=== PATIENT | male | born 1945 | race Caucasian/White ===

== ENCOUNTER 2020-08-23 16:57 | Inpatient (IN) | payer MEDICARE, MEDICAID, SELFPAY ==
[2020-08-23] VITALS (9 sets, daily range): BP systolic 118–171; BP diastolic 74–98; PULSE 90–140; RESP 19–35; TEMP 36.4–36.5; O2SAT 97–100; BMI 28.8; BMI 26.0
--- NOTE | 2020-08-23 17:09 | ECG_ITS ---
APPROVED REPORT Exam: Resting ECG HR:129 bpm ECG Measurements Heart Rate 129 AXES IN 114 P 40 QRSd 104 QRS 256 QT 328 T 39 QTc 480 Conclusion Sinus tachycardia Incomplete right bundle branch block Possible Right ventricular hypertrophy Possible Old Inferior ID Abnormal ECG Electronically signed by : Chris Donald, 08/25/2020 18:17:53
--- NOTE | 2020-08-23 17:16 | XR_ITS ---
PROCEDURE: XR CHEST PORTABLE CLINICAL HISTORY: weakness, vomiting Congestion, heavy smoker COMPARISON: No exams were available for comparison FINDINGS: The cardiomediastinal silhouette and pulmonary vascularity are within normal limits. The lungs are clear without infiltrates, suspicious nodules, or pleural effusions. There is mild tortuosity of the descending thoracic aorta. No acute bony findings. IMPRESSION: No acute findings. Dictated by: Foster Yang MD 08/24/2020 05:51 Foster Yang MD in [place] 08/24/2020 05:51
[2020-08-23 17:27] LABS: ABG Base Excess -27.2 mmol/L (-2.4-2.3); ABG HCO3 3.1 mmhg (22.0-26.0); ABG Oxygen Saturation 98 % (90-100); ABG PO2 128.9 mmhg (80-100); ABG TCO2 3.4 mmhg (23-27)
[2020-08-23 17:28] LABS: Allen's Test Acceptable; Oxygen room air %
[2020-08-23 17:30] LABS: ABG PCO2 11.1 mmhg (35.0-45.0); ABG PH 7.06 mmol/L (7.35-7.45)
--- NOTE | 2020-08-23 17:33 | PC.NURSE ---
Napoleon reported to GEORGES OCONNELL
[2020-08-23 17:39] LABS: Chloride 96 mmol/L (98-107); Sodium 136 mmol/L (136-145)
[2020-08-23 17:40] LABS: Basophils # 0.1 K/mm3 (0-0.2); Basophils % 0.3 % (0.1-2.0); Eosinophils % 0.1 % (0.1-12.0); Hematocrit 49.7 % (42.0-52.0); Hemoglobin 15.9 g/dL (14.1-18.0); Lymphocytes # 2.2 K/mm3 (0.7-4.5); Lymphocytes % 9.8 % (10-50); Mean Corpuscular Hemoglobin 32.2 pg (27.0-31.2); Mean Corpuscular Volume 100.8 fl (80-94); Mean Platelet Volume 7.8 fl (7.4-10.4); Monocytes % 4.3 % (1.7-9.3); Neutrophils # 18.9 K/mm3 (1.8-7.8); Neutrophils % 85.5 % (37.0-80.0); Platelet Count 329 K/mm3 (142-424); Red Blood Count 4.93 M/mm3 (4.60-6.20); Red Cell Distribution Width 13.1 % (11.5-17.5); White Blood Count 22.1 K/mm3 (4.8-10.8)
[2020-08-23 17:41] LABS: Alanine Aminotransferase 21 U/L (12-78); Aspartate Amino Transferase 20 U/L (17-59); Blood Urea Nitrogen 24 mg/dl (9-20); Creatinine Clearance Estimated 64 mL/min (50-200); Estimated Glomerular Filt Rate 59 ml/min (>60); GFR (African American) 71 ML/MIN (>60)
[2020-08-23 17:42] LABS: Albumin Level 5.1 g/dl (3.5-5.0); Alkaline Phosphatase 87 U/L (38-126); Bilirubin,Total 0.5 mg/dl (0.2-1.3); Calcium 10.4 mg/dl (8.4-10.2); Globulin 2.6 g/dL (1.3-3.2); Lipase 415 U/L (23-300); Total Protein,Serum 7.7 g/dl (6.3-8.2)
--- NOTE | 2020-08-23 17:42 | HMH.EDGENADL ---
ED Disposition Clinical Impression: DKA (diabetic ketoacidoses) Acute kidney failure Qualifiers: Acute renal failure type: with acute tubular necrosis Qualified Code(s): N17.0 - Acute kidney failure with tubular necrosis Leukocytosis Qualifiers: Leukocytosis type: unspecified Qualified Code(s): D72.829 - Elevated white blood cell count, unspecified Disposition: Admitted As Inpatient Condition on Discharge: Critical Referrals: Silviano Love [Primary Care Provider] - - Critical Care Critical Care Time: Yes Attestation: On 08/23/20, the high probability of a clinically significant, sudden or life threatening deterioration of the following system(s) required my full and direct attention, intervention and personal management. The time I documented below is in addition to time spent performing reported procedures but includes the following listed in this critical care notation. Total Critical Care Time: 45 Vital system(s) involved:: Circulatory Failure, Central Nervous System, Metabolic Failure, Renal Failure My critical care processes included: Assessment & monitoring of V/S, Initial and Re-exams, Data Review/Interpretation, Coordinating Care, Medication Orders and management, Documentation Medical Decision Making - Medical Records Medical records reviewed: Yes: I reviewed the patient's medical records. - Leonid Inquiry Pt receiving controlled substance: No Vital Signs: 08/23/20 16:59 08/23/20 17:49 08/23/20 18:09 Temperature 97.6 F Temperature Source Temporal Artery Scan Pulse Rate [Right Apical] 132 H 121 H 122 H Respiratory Rate 35 H 19 25 H Blood Pressure [Right Arm] 161/98 H 171/81 H 167/90 H Blood Pressure Mean [Right Arm] 119 111 115 02 Sat by Pulse Oximetry 100 98 100 - Lab Data Lab Results 08/23/20 17:16: O2 % room air, ABG pH 7.06 L*, ABG pCO2 11.1 L, ABG pO2 128.9 H, ABG HCO3 3.1 L, ABG Total CO2 3.4 L, ABG O2 Saturation 98, ABG Base Excess -27.2 L, Foster Test Acceptable 08/23/20 17:20: WBC 22.1 H*, RBC 4.93, Hgb 15.9, Hct 49.7, MCV 100.8 H, MCH 32.2 H, MCHC 32.0, RDW 13.1, Plt Count 329, MPV 7.8, Neut % (Auto) 85.5 H, Lymph % (Auto) 9.8 L, [place] % (Auto) 4.3, Eos % (Auto) 0.1, Baso % (Auto) 0.3, Neut # (Auto) 18.9 H, Lymph # (Auto) 2.2, [place] # (Auto) 1.0, Eos # (Auto) 0.0, Baso # (Auto) 0.1, Total Counted 100, Neutrophils % (Manual) 91 H, Lymphocytes % (Manual) 7 L, Monocytes % (Manual) 2, Platelet Estimate Normal, RBC Morphology Normal, Macrocytosis 1+ 08/23/20 17:20: Troponin I < 0.01 08/23/20 17:20: Lactate 2.7 H 08/23/20 17:20: Sodium 136, Potassium 5.0, Chloride 96 L, Carbon Dioxide < 5 L*, Anion Gap 40.0 H, BUN 24 H, Creatinine 1.20, Estimated Creat Clear 64, Estimated GFR 59, Est GFR ( Amer) 71, Glucose 613 H*, Calcium 10.4 H, Total Bilirubin 0.5, AST 20, ALT 21, Alkaline Phosphatase 87, Total Protein 7.7, Albumin 5.1 H, Globulin 2.6, Albumin/Globulin Ratio 2.0 H, Lipase 415 H, Acetone Level Large 08/23/20 17:20: SARS-CoV-2 IgG Ab (Rapid) Negative, SARS-CoV-2 IgM Ab (Rapid) Negative Result diagrams: 08/23/20 17:20 08/23/20 17:20 Orders (Tests/Meds): ED MEDICATIONS Generic Name Dose Route Start Last Admin Trade Name Gabi PRN Reason Stop Dose Admin Sodium Chloride 1,000 mls @ 999 mls/hr 08/23/20 17:30 08/23/20 17:24 Sod Chlor 0.9% 1000ml Bag IV 08/23/20 18:30 999 mls/hr .Q1H1M RIVER Administration Ceftriaxone Sodium 1 gm/ 50 mls @ 100 mls/hr 08/23/20 18:00 08/23/20 17:57 Sodium Chloride IV 09/06/20 17:59 100 mls/hr Q24H RIVER Administration Protocol Sodium Chloride 1,000 mls @ 999 mls/hr 08/23/20 18:00 08/23/20 18:26 Sod Chlor 0.9% 1000ml Bag IV 08/23/20 19:00 999 mls/hr .Q1H1M RIVER Administration Insulin Human Regular 100 unit 101 mls @ 8.704 mls/hr 08/23/20 18:30 08/23/20 18:26 / Sodium Chloride IV 09/22/20 18:29 8.704 mls/hr .[id number] RIVER Administration Protocol 0.1 UNITS/KG/HR Sodium Bicarbonate 150 meq/ 1,150 mls @ 257
[2020-08-23 17:43] LABS: MANUAL DIFFERENTIAL MANUAL DIFFERENTIAL (MANUAL DIFF)
[2020-08-23 17:51] LABS: Lactic Acid 2.7 mmol/L (0.7-2.1)
[2020-08-23 17:52] LABS: Acetone, Serum (Rapid) Large (None Detect)
[2020-08-23 17:58] LABS: Lymphocytes % 7 % (10-50); Monocytes % 2 % (2-9); Neutrophils % 91 % (42-76); Platelet Estimate Normal; RBC Morphology Normal; Total Cells Counted 100
[2020-08-23 17:59] LABS: Macrocytosis 1+
[2020-08-23 18:00] LABS: Troponin I < 0.01 ng/ml (0.00-0.034)
[2020-08-23 18:10] LABS: Glucose 613 mg/dl (74-100)
[2020-08-23 18:14] LABS: Carbon Dioxide < 5 mmol/L (22.0-30.0)
[2020-08-23 18:16] LABS: Coronavirus 19 IgG Antibody Negative (Negative); Coronavirus 19 IgM Antibody Negative (Negative)
--- NOTE | 2020-08-23 18:58 | PC.NURSE ---
notified [facility] laborer of admission
--- NOTE | 2020-08-23 19:11 | PC.NURSE ---
spoke with lab, they are coming to draw blood
--- NOTE | 2020-08-23 19:15 | PC.NURSE ---
received report from day nurse re: situation. waiting on admit to be able to be taken up
[2020-08-23 19:35] LABS: Microscopic, Urine URINE MICROSCOPIC (MICROSCOPIC)
[2020-08-23 19:39] LABS: Appearance,Urine CLEAR (Clear); Blood, Urine TRACE-L (Negative); Color,Urine YELLOW (Yellow); Glucose,Urine (UA) 3+ (Negative); Ketones,Urine 3+ (Negative); Leukocyte Esterase,Urine Negative (Negative); Nitrate,Urine Negative (Negative); Protein,Urine 1+ (Negative); Specific Gravity, Urine >= 1.030 (1.005-1.030); Urobilinogen,Urine 0.2 EU/dl (0.2)
[2020-08-23 19:42] LABS: Chloride 99 mmol/L (98-107); Potassium 4.7 mmoL/L (3.5-5.1); Sodium 137 mmol/L (136-145)
[2020-08-23 19:44] LABS: Blood Urea Nitrogen 23 mg/dl (9-20)
[2020-08-23 19:45] LABS: Calcium 9.7 mg/dl (8.4-10.2); Creatinine Clearance Estimated 77 mL/min (50-200); Estimated Glomerular Filt Rate 73 ml/min (>60); GFR (African American) 88 ML/MIN (>60)
[2020-08-23 19:55] LABS: Bilirubin,Urine Negative (Negative)
[2020-08-23 19:58] LABS: Anion Gap 37.7 mEq/L (5-15)
[2020-08-23 20:00] LABS: Glucose 564 mg/dl (74-100); Glucose,Random 564 mg/dL (74-100)
[2020-08-23 20:01] LABS: Carbon Dioxide < 5 mmol/L (22.0-30.0)
[2020-08-23 20:05] LABS: RBC,Urine Occasional #/hpf (0-3); Squamous Epithelial Cell,Urine Occasional #/hpf (0-5)
--- NOTE | 2020-08-23 20:17 | PC.NURSE ---
patient up to floor via stretcher per nurse.
--- NOTE | 2020-08-23 20:55 | PC.NURSE ---
Critical results for Glucose and CO2 were called to Urvashi Dawkins RN from Lab. @ 0803 rUvashi Dawkins RN called this RN to notify of critical Labs and that GEORGES OCONNELL was aware.
[2020-08-23 21:05] LABS: Glucose,Random 497 mg/dL (74-100)
[2020-08-23 21:16] LABS: Troponin I < 0.01 ng/ml (0.00-0.034)
[2020-08-23 21:32] LABS: Reflex Lactic Add Lactic Reflex
[2020-08-23 22:04] LABS: POC Glucose,Bedside 388 (70-110)
--- NOTE | 2020-08-23 22:11 | PC.NURSE ---
Addendum entered by Chelle Adames RN 08/23/20 23:07: Correction: increased insulin gtt to 12 units Original Note: @2103 Lab notified this RN of critical blood glucose of 497. per protocol insulin gtt increased to 16units/hr. @2133 This RN s/w Dr. Mcbride and notified of critical results and reviewed ordered labs. MD states to d/c q1 blood glucose and change to q4hr. also changed NPO status to clear liquids. orders updated in computer and lab notified.
--- NOTE | 2020-08-23 22:14 | PC.NURSE ---
@2155 FS is 388. per protocol decreased Inulin gtt to 8 units/hr.
[2020-08-23 22:32] LABS: Lactic Acid Follow Up (RFLX 1) 2.3 mmol/L (0.7-2.1)
[2020-08-23 23:05] LABS: POC Glucose,Bedside 374 (70-110)
--- NOTE | 2020-08-23 23:06 | PC.NURSE ---
@2155 FS is 388. per protocol decreased Inulin gtt to 6 units/hr.
[2020-08-23 23:22] LABS: Reflex Lactic (2 hrs) Add Lactic Reflex
[2020-08-23 23:36] LABS: Chloride 102 mmol/L (98-107); Potassium 3.1 mmoL/L (3.5-5.1); Sodium 136 mmol/L (136-145)
[2020-08-23 23:39] LABS: Blood Urea Nitrogen 22 mg/dl (9-20); Creatinine Clearance Estimated 69 mL/min (50-200); Estimated Glomerular Filt Rate 94 ml/min (>60); GFR (African American) 114 ML/MIN (>60)
[2020-08-23 23:40] LABS: Anion Gap 28.1 mEq/L (5-15); Calcium 8.8 mg/dl (8.4-10.2); Glucose 308 mg/dl (74-100)
[2020-08-23 23:43] LABS: Lactic Acid Follow up (RFLX 2) 2.5 mmol/L (0.7-2.1)
[2020-08-23 23:44] LABS: Carbon Dioxide 9 mmol/L (22.0-30.0)
[2020-08-24] VITALS (15 sets, daily range): BP systolic 102–140; BP diastolic 52–75; PULSE 90–113; RESP 16–24; TEMP 36.4–37.6; O2SAT 96–103; BMI 25.9
[2020-08-24 00:06] LABS: Troponin I < 0.01 ng/ml (0.00-0.034)
[2020-08-24 01:19] LABS: POC Glucose,Bedside 259 (70-110)
--- NOTE | 2020-08-24 01:55 | PC.NURSE ---
Report given to Madyson Leblanc RN
[2020-08-24 02:49] LABS: Blood Urea Nitrogen 22 mg/dl (9-20); Calcium 8.7 mg/dl (8.4-10.2); Carbon Dioxide 16 mmol/L (22.0-30.0); Chloride 106 mmol/L (98-107); Creatinine Clearance Estimated 69 mL/min (50-200); Estimated Glomerular Filt Rate 110 ml/min (>60); GFR (African American) 133 ML/MIN (>60); Glucose 188 mg/dl (74-100); Sodium 137 mmol/L (136-145)
--- NOTE | 2020-08-24 03:01 | PC.NURSE ---
Insulin gtt at 9 units/hr while receiving report. 0300 fsbs check: 200; continuing current infusion rate per protocol at 9 units/hr.
[2020-08-24 03:05] LABS: POC Glucose,Bedside 200 (70-110)
[2020-08-24 03:06] LABS: Anion Gap 17.8 mEq/L (5-15)
[2020-08-24 03:07] LABS: Potassium 2.8 mmoL/L (3.5-5.1)
--- NOTE | 2020-08-24 03:36 | PC.NURSE ---
Addendum entered by Madyson Leblanc RN 08/24/20 04:13: NO VISIBLE INJURIES NOTED Original Note: 0323- PT. FOUND ON FLOOR ON TOP OF BLANKETS NEXT TO BED BY THIS RN. PT. ABLE TO STATE NAME, , YEAR, AND PLACE. 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 PT. ASSISTED BACK TO BED WITH X3 ASSIST; BALANCE PROBLEMS NOTED, PT. ABLE TO STAND AND TAKE STEPS WITH ASSISTANCE. PT. DENIES PAIN, DIZZINESS, SOA OR VISION CHANGES. PT. STATED HE TRIED TO GET UP BUT SLID OUT ONTO THE FLOOR ; WHEN ASKED WHY PT. DID NOT CALL TO GET HELP PT. STATED I DIDN'T THINK I NEEDED HELP . 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 EDUCATED WITH RETURN VERBALIZATION OF INSTRUCTIONS ON HOW AND WHEN TO CALL FOR HELP.
--- NOTE | 2020-08-24 05:01 | PC.NURSE ---
0500 FSBS: 140; DECREASED INSULIN GTT RATE FROM 9 UNITS/HR TO 4.5 UNITS/HR PER PROTOCOL; VERIFIED WITH Michelle RAY RN.
[2020-08-24 05:06] LABS: POC Glucose,Bedside 140 (70-110)
--- NOTE | 2020-08-24 05:12 | PC.NURSE ---
0508- NOTIFIED PT. FAMILY Heidy NIETO () OF PT.'S FALL VIA PHONE
[2020-08-24 06:52] LABS: Basophils % 0.2 % (0.1-2.0); Eosinophils # 0.2 K/mm3 (0.0-0.4); Eosinophils % 1.1 % (0.1-12.0); Hematocrit 35.6 % (42.0-52.0); Lymphocytes # 1.7 K/mm3 (0.7-4.5); Lymphocytes % 9.2 % (10-50); Mean Corpuscular HGB Conc 33.7 g/dL (31.8-35.4); Mean Corpuscular Hemoglobin 31.4 pg (27.0-31.2); Mean Corpuscular Volume 93.4 fl (80-94); Mean Platelet Volume 7.9 fl (7.4-10.4); Monocytes # 1.1 K/mm3 (0.1-1.0); Monocytes % 5.6 % (1.7-9.3); Neutrophils # 15.8 K/mm3 (1.8-7.8); Neutrophils % 83.8 % (37.0-80.0); Platelet Count 204 K/mm3 (142-424); Red Blood Count 3.82 M/mm3 (4.60-6.20); White Blood Count 18.9 K/mm3 (4.8-10.8)
--- NOTE | 2020-08-24 06:57 | PC.NURSE ---
0700- FSBS: 116; DECREASED INSULIN GTT FROM 4.5 UNITS/HR TO 2.25 UNITS/HR PER PROTOCOL; VERIFIED WITH Liset WYATT RN.
[2020-08-24 07:02] LABS: POC Glucose,Bedside 116 (70-110)
[2020-08-24 07:03] LABS: Chloride 110 mmol/L (98-107); Potassium 3.3 mmoL/L (3.5-5.1); Sodium 137 mmol/L (136-145)
[2020-08-24 07:05] LABS: Blood Urea Nitrogen 21 mg/dl (9-20)
[2020-08-24 07:06] LABS: Alanine Aminotransferase 10 U/L (12-78); Albumin Level 3.1 g/dl (3.5-5.0); Albumin/Globulin Ratio 1.3 (1.1-1.8); Alkaline Phosphatase 36 U/L (38-126); Anion Gap 12.3 mEq/L (5-15); Aspartate Amino Transferase 18 U/L (17-59); Bilirubin,Total 0.5 mg/dl (0.2-1.3); Calcium 8.6 mg/dl (8.4-10.2); Carbon Dioxide 18 mmol/L (22.0-30.0); Creatinine Clearance Estimated 69 mL/min (50-200); Estimated Glomerular Filt Rate 110 ml/min (>60); GFR (African American) 133 ML/MIN (>60); Globulin 2.4 g/dL (1.3-3.2); Glucose 102 mg/dl (74-100); Total Protein,Serum 5.5 g/dl (6.3-8.2)
--- NOTE | 2020-08-24 07:22 | P.CONPHA_ITS ---
[facility] Pharmacy VTE Monitoring - Patient Demographics Admission date: 08/23/20 Report Date: 08/24/20 Time: 07:22 Allergies/Adverse Reactions: Patient Allergies No Known Allergies Allergy (Unverified 07/09/18 08:26) Height: 1.73 m Weight: 77.763 kg Patient Problems: Current Active Problems DKA (diabetic ketoacidoses) (Acute) Acute kidney failure (Acute) Leukocytosis (Acute) - VTE Risk Labs: VTE Related Lab Results Hgb 15.9 g/dL (14.1-18.0) 08/23/20 17:20 Hct 49.7 % (42.0-52.0) 08/23/20 17:20 Plt Count 329 K/mm3 (142-424) 08/23/20 17:20 BUN 21 mg/dl (9-20) H 08/24/20 06:20 Creatinine 0.70 mg/dl (0.66-1.25) 08/24/20 06:20 Estimated Creat Clear 69 mL/min (50-200) 08/24/20 06:20 VTE Score: 1 VTE Risk Level: Low Risk - Prophylaxis VTE Prophylaxis Ordered?: Yes Types of VTE Prophylaxis: TEDS Knee High Location of Applied Device: Bilateral Lower Extremeties
[2020-08-24 07:27] LABS: MANUAL DIFFERENTIAL MANUAL DIFFERENTIAL (MANUAL DIFF)
[2020-08-24 08:05] LABS: Acetone, Serum (Rapid) Small (None Detect)
--- NOTE | 2020-08-24 08:06 | HMH.HP ---
*Admission Date: 08/23/20 *Chief complaint: Vomiting/diarrhea/mental status changes *History of present illness: 75-year-old white male, history of diabetes-type II-but has been insulin requiring over the past for 5 years but he reports that over the past month or 2 he has not taken his insulin shots because I just did not want to. He also notes that he has been extremely spotty in his compliance with his oral medications. Over the past couple of days has had extreme nausea and vomiting along with diarrhea, came to the emergency department late last evening where he was found to be in significant DKA with pH of 7.06, hyperglycemia and positive acetones in his serum. This morning he is vastly improved, Reports no other infectious symptoms of cough or dysuria. He does have an problems with urine flow because of BPH. [facility] History I have reviewed the patient's past medical history: Yes Medical History: Reports:: Diabetes Mellitus Type 2, Hypertension Denies:: Cancer *Have you ever received a pneumonia vaccine?: No *Have you received a flu vaccine this season?: No Comment:: BPH Laterality Cases: Bilateral: Cataract - *Social History Smoking Status: Current every day smoker # Packs/Day (cigarettes): 2 Alcohol Intake: never *Occupational Status:: retired Housing: house Household Members: spouse *Travel in the last 8 weeks: None Comment: Patient migrated from [place] several years ago with family members. He has been for 55 years, lives here in [place] with his and 33-year-old grandson. 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 Family Hx:: No significant family history Review of Systems - Review of Systems Review of systems:: pertinent systems reviewed and negative unless documented below - Eyes Denies blurry vision - ENT Reports abnormal hearing - *Cardiovascular Denies chest pain, Denies chest pain at rest, Denies shortness of breath - *Respiratory Denies change in phlegm color, Denies chest congestion - *Gastrointestinal Denies abdominal pain - *Neurologic Reports weakness, Denies headache(s) Meds Home Medications Medication Instructions Recorded Confirmed Type Finasteride [Proscar] 5 mg PO DAILY 08/24/20 08/24/20 History Insulin Glargine,Hum.rec.anlog 20 unit SQ DAILY 08/24/20 08/24/20 History [Basaglar Eleonora U-100] Metformin HCl 1,000 mg PO BID 08/24/20 08/24/20 History Metoclopramide HCl [Metoclopramide 10 mg PO TIDP PRN 08/24/20 08/24/20 History 10mg Tablet] Pravastatin Sodium [Pravachol] 40 mg PO HS 08/24/20 08/24/20 History Sitagliptin Phosphate [Januvia 100 mg PO DAILY 08/24/20 08/24/20 History 100mg tablet] Tamsulosin HCl 0.4 mg PO HS 08/24/20 08/24/20 History Tramadol HCl [Tramadol 50mg 50 mg PO TIDP PRN 08/24/20 08/24/20 History Tab] glipiZIDE [Glipizide ER] 10 mg PO BID 08/24/20 08/24/20 History hydroCHLOROthiazide 12.5 mg PO DAILY 08/24/20 08/24/20 History [Hydrochlorothiazide] Allergies Allergy/AdvReac Type Severity Reaction Status Date / Time No Known Allergies Allergy Unverified 07/09/18 08:26 Exam Vital signs and Labs for Last 24 Hours: Temp Pulse Resp BP Pulse Ox 98.2 F 96 H 20 112/61 98 08/24/20 04:00 08/24/20 06:00 08/24/20 06:00 08/24/20 06:00 08/24/20 06:00 Laboratory Results - last 24 hr 08/23/20 17:16: O2 % room air, ABG pH 7.06 L*, ABG pCO2 11.1 L, ABG pO2 128.9 H, ABG HCO3 3.1 L, ABG Total CO2 3.4 L, ABG O2 Saturation 98, ABG Base Excess -27.2 L, Foster Test Acceptable 08/23/20 17:20: WBC 22.1 H*, RBC 4.93, Hgb 15.9, Hct 49.7, MCV 100.8 H, MCH 32.2 H, MCHC 32.0, RDW 13.1, Plt Count 329, MPV 7.8, Neut % (Auto) 85.5 H, Lymph % (Auto) 9.8 L, [place] % (Auto) 4.3, Eos % (Auto) 0.1, Baso % (Auto) 0.3, Neut # (Auto) 18.9 H, Lymph # (Auto) 2.2, [place] # (Auto) 1.0, Eos # (Auto) 0.0, Baso # (Auto) 0.1, Total Counted 100, Neutrophils % (Manual) 91 H, Lymphocytes % (Manual) 7 L, Monocytes % (Manual) 2, Platelet Estimate Normal, RBC Mor
--- NOTE | 2020-08-24 08:06 | HMH.PHAINT ---
HOME MEDICATION LIST CLARIFIED USING LIST FROM CLINIC PHARMACY
[2020-08-24 09:18] LABS: POC Glucose,Bedside 187 (70-110)
[2020-08-24 10:42] LABS: Lymphocytes % 11 % (10-50); Monocytes % 7 % (2-9); Neutrophils % 82 % (42-76); Platelet Estimate Normal; RBC Morphology Normal; Total Cells Counted 100
[2020-08-24 11:10] LABS: POC Glucose,Bedside 234 (70-110)
[2020-08-24 12:50] LABS: Acetone, Serum (Rapid) Moderate (None Detect)
[2020-08-24 13:27] LABS: POC Glucose,Bedside 225 (70-110)
[2020-08-24 13:43] LABS: Anion Gap 11.6 mEq/L (5-15); Blood Urea Nitrogen 18 mg/dl (9-20); Calcium 8.7 mg/dl (8.4-10.2); Carbon Dioxide 17 mmol/L (22.0-30.0); Chloride 111 mmol/L (98-107); Creatinine Clearance Estimated 69 mL/min (50-200); Estimated Glomerular Filt Rate 131 ml/min (>60); GFR (African American) 159 ML/MIN (>60); Glucose 201 mg/dl (74-100); Potassium 3.6 mmoL/L (3.5-5.1); Sodium 136 mmol/L (136-145)
[2020-08-24 18:17] LABS: Acetone, Serum (Rapid) Small (None Detect)
[2020-08-24 19:52] LABS: Chloride 108 mmol/L (98-107); Sodium 135 mmol/L (136-145)
[2020-08-24 19:53] LABS: Potassium 3.5 mmoL/L (3.5-5.1)
[2020-08-24 19:56] LABS: Anion Gap 12.5 mEq/L (5-15); Blood Urea Nitrogen 17 mg/dl (9-20); Calcium 8.8 mg/dl (8.4-10.2); Carbon Dioxide 18 mmol/L (22.0-30.0); Creatinine Clearance Estimated 69 mL/min (50-200); Estimated Glomerular Filt Rate 131 ml/min (>60); GFR (African American) 159 ML/MIN (>60); Glucose 241 mg/dl (74-100)
--- NOTE | 2020-08-24 21:03 | PC.NURSE ---
PT IS RESTING IN BED. INSULIN DRIP WAS TITRATED PER PROTOCOL THIS SHIFT. PT HAS BEEN UP TO THE BSC MULTIPLE TIMES THIS AFTERNOON AND HAS ONLY BEEN ABLE TO HAVE VERY SMALL HARD BOWEL MOVEMENTS. NOTIFIED AND HE STATED TO GIVE PT A FLEETS ENEMA. WHEN ENEMA WAS OFFERED TO PT HE REFUSED. PT RECEIVED ONE TIME DOSE OF IV LASIX 60 MG THIS SHIFT ( 725 ML'S UOP SINCE LASIX) BATH AND BED CHANGE THIS SHIFT. PT GOT UP TO THE CHAIR WITH 1 ASSIST AFTER BATH BUT ONLY TOLERATED SITTING UP FOR ABOUT 30 MIN. AND DEMANDED TO GO BACK TO BED. PT WAS ENCOURAGED TO GET BACK UP TO THE CHAIR TO EAT DINNER AND HE STATED I'M NOT GOING TO SIT IN THE CHAIR B/C I'M NOT GOING TO EAT ANYTHING. ACCORDING TO PROTOCOL BMP'S ARE TO BE Q4H. NELSON NOTIFIED AND HE STATED HE WAS OKAY WITH BMP'S Q6H. REPEAT ACETONE LEVEL WAS ORDERED WITH 1800 BMP. IVF'S HAVE BEEN CHANGED TO NS WITH 20 K @ 125 ML'S/HR. 43.1 ML'S OF INSULIN WAS CLEARED FROM PUMP THIS SHIFT. REPORT HANDOFF TO SHIRLENE MUNOZ RN.
--- NOTE | 2020-08-24 22:25 | PC.NURSE ---
2100 COURTESY ROUND PT AWAKE. TRASH EMPTIED . PT VOICED NO OTHER NEEDS AT THIS TIME.
[2020-08-24 23:55] LABS: POC Glucose,Bedside 204 (70-110)
[2020-08-24 23:55] LABS: POC Glucose,Bedside 260 (70-110)
[2020-08-24 23:55] LABS: POC Glucose,Bedside 143 (70-110)
[2020-08-24 23:55] LABS: POC Glucose,Bedside 262 (70-110)
[2020-08-24 23:55] LABS: POC Glucose,Bedside 125 (70-110)
[2020-08-24 23:55] LABS: POC Glucose,Bedside 242 (70-110)
[2020-08-25] VITALS: BP 122/64; PULSE 85; PULSE 90; RESP 18; TEMP 37; O2SAT 100
[2020-08-25 01:00] LABS: Anion Gap 14.2 mEq/L (5-15); Blood Urea Nitrogen 16 mg/dl (9-20); Calcium 9.2 mg/dl (8.4-10.2); Carbon Dioxide 18 mmol/L (22.0-30.0); Chloride 111 mmol/L (98-107); Creatinine Clearance Estimated 69 mL/min (50-200); Estimated Glomerular Filt Rate 131 ml/min (>60); GFR (African American) 159 ML/MIN (>60); Glucose 125 mg/dl (74-100); Potassium 3.2 mmoL/L (3.5-5.1); Sodium 140 mmol/L (136-145)
[2020-08-25 01:03] LABS: Acetone, Serum (Rapid) None Detected (None Detect)
[2020-08-25 02:00] VITALS: PULSE 90; O2SAT 98
[2020-08-25 02:47] LABS: POC Glucose,Bedside 128 (70-110)
[2020-08-25 04:00] VITALS: BP 116/60; PULSE 70; PULSE 92; RESP 20; O2SAT 98
--- NOTE | 2020-08-25 04:03 | PC.NURSE ---
Pt is A&Ox3 and has ambulated to the BSC several times this shift with staff SBA and tolerated well. Pt has denied any pain or SOA this shift. Pt did c/o of straining to have a BM and and acquiesced to have a fleets enema per MAR. Pt was able to have several BMs, most were hard, large rivera. Pt has also been having more frequent urination, RHIANNON and urge incontinence. Pt states he is having bladder issues because he has not been taking his prostate medication for a while, will notify Dr. Mcbride pt is wanting to restart his prostate meds. Lungs CTA, pt continues on room air with sats 96-100% this shift. ABD is soft, round, with active BS t/o. Pt did c/o nausea 1x, medicated per MAR with phenergan and on reassessment pt had no nausea. Pt had TEDS on BLE, but d/t urinary incontinence, pt could not keep them dry and refused to keep in place. Peripheral pulses 2+ and no edema noted. Numerous tiny scabs noted t/o limbs. Sinus Arrhythmia, NSR with frequent PACs noted on telemetry. Pt was transitioned from Insulin gtt to Lantus SQ and will will begin receiving Medium intensity SSI this AM per Dr. Romero. Pt's acetone is negative currently. VSS, call light within reach, bed alarm active, and will continue to monitor.
[2020-08-25 05:05] VITALS: BMI 26.5
[2020-08-25 06:00] VITALS: BP 131/68; PULSE 93; RESP 18; TEMP 36.9; O2SAT 100
[2020-08-25 06:07] LABS: Chloride 109 mmol/L (98-107); Potassium 3.1 mmoL/L (3.5-5.1); Sodium 137 mmol/L (136-145)
[2020-08-25 06:09] LABS: Alanine Aminotransferase 12 U/L (12-78); Aspartate Amino Transferase 18 U/L (17-59); Blood Urea Nitrogen 14 mg/dl (9-20); Creatinine Clearance Estimated 71 mL/min (50-200); Estimated Glomerular Filt Rate 131 ml/min (>60); GFR (African American) 159 ML/MIN (>60)
[2020-08-25 06:10] LABS: Albumin Level 2.9 g/dl (3.5-5.0); Albumin/Globulin Ratio 1.3 (1.1-1.8); Alkaline Phosphatase 47 U/L (38-126); Anion Gap 11.1 mEq/L (5-15); Bilirubin,Total 0.5 mg/dl (0.2-1.3); Calcium 8.5 mg/dl (8.4-10.2); Carbon Dioxide 20 mmol/L (22.0-30.0); Globulin 2.3 g/dL (1.3-3.2); Glucose 226 mg/dl (74-100); Magnesium 1.7 mg/dl (1.6-2.3); Total Protein,Serum 5.2 g/dl (6.3-8.2)
[2020-08-25 06:42] LABS: Acetone, Serum (Rapid) Small (None Detect)
[2020-08-25 06:48] LABS: POC Glucose,Bedside 229 (70-110)
[2020-08-25 08:00] VITALS: BP 115/64; PULSE 100; PULSE 94; RESP 20; O2SAT 98
--- NOTE | 2020-08-25 09:00 | HMH.DCSUM ---
General - General Admission date:: 08/23/20 Discharge date: 08/25/20 HPI HPI: 75-year-old white male, history of diabetes-type II-but has been insulin requiring over the past for 5 years but he reports that over the past month or 2 he has not taken his insulin shots because I just did not want to. He also notes that he has been extremely spotty in his compliance with his oral medications. Over the past couple of days has had extreme nausea and vomiting along with diarrhea, came to the emergency department late last evening where he was found to be in significant DKA with pH of 7.06, hyperglycemia and positive acetones in his serum. This morning he is vastly improved, Reports no other infectious symptoms of cough or dysuria. He does have an problems with urine flow because of BPH. Hospital Course Hospital Course: 75-year-old male admitted for DKA. Suspected due to noncompliance with medication regimen. Initiated on DKA protocol with insulin drip and fluids. Anion gap gradually closed with transition back to basal insulin regimen with sliding scale for mealtime glucose. Tolerated this well with improved stability and his serum glucose. As he was tolerating regular diet, hemodynamically stable, on a consistent regimen of insulin, he was medically stable for discharge home. Plan to discharge home with close follow-up in the outpatient setting for further management and adjustment of medications. Patient denies shortness of breath, chest pain, nausea, vomiting, confusion on day of discharge. Overall doing well. Counseled on the necessity to comply with his regimen to prevent this from recurring again. States understanding. Objective Vital signs: Temp Pulse Resp BP Pulse Ox 98.4 F 93 H 18 131/68 100 08/25/20 06:00 08/25/20 06:00 08/25/20 06:00 08/25/20 06:00 08/25/20 06:00 Narrative: - *Routine HEENT Exam Head: Present: normocephalic Eye: Present: EOMI, PERRL ENT: Present: mucous membranes moist - *Routine Neck Exam Present: supple. Absent: lymphadenopathy - *Routine Respiratory Exam Present: CTA bilaterally - *Routine Cardiovascular Exam Present: RRR - *Routine Abdominal Exam Present: soft, normoactive bowel sounds. Absent: tenderness - *Routine Extremities Exam Absent: cyanosis, clubbing, edema - *Routine Skin Exam Present: warm. Absent: rash - *Routine Neurological Exam Present: alert, oriented X3 no acute distress - *Routine HEENT Exam Head: Present: normocephalic Eye: Present: EOMI, PERRL ENT: Present: mucous membranes moist - *Routine Neck Exam Present: supple - *Routine Respiratory Exam Present: CTA bilaterally - *Routine Cardiovascular Exam Present: RRR - *Routine Abdominal Exam Present: soft, normoactive bowel sounds. Absent: tenderness - *Routine Extremities Exam Absent: cyanosis, clubbing, edema - *Routine Skin Exam Present: warm. Absent: rash - *Routine Neurological Exam Present: alert, oriented X3 Results Labs on day of discharge: Labs from last 24 hours 08/25/20 08/25/20 08/25/20 05:38 05:38 05:36 Hgb Total Counted Neutrophils % (Manual) Lymphocytes % (Manual) Monocytes % (Manual) Platelet Estimate RBC Morphology Sodium 137 Potassium 3.1 L Chloride 109 H Carbon Dioxide 20 L Anion Gap 11.1 BUN 14 Creatinine 0.60 L Estimated Creat Clear 71 Estimated GFR 131 Est GFR ( Amer) 159 Glucose 226 H D POC Glucose 229 H Calcium 8.5 Magnesium 1.7 Total Bilirubin 0.5 AST 18 ALT 12 Alkaline Phosphatase 47 Total Protein 5.2 L Albumin 2.9 L Globulin 2.3 Albumin/Globulin Ratio 1.3 Acetone Level Small 08/25/20 08/25/20 08/25/20 00:31 00:30 00:30 Hgb Total Counted Neutrophils % (Manual) Lymphocytes % (Manual) Monocytes % (Manual) Platelet Estimate RBC Morphology Sodium 140 Potassium 3.2
[2020-08-25 11:21] LABS: POC Glucose,Bedside 273 (70-110)
[2020-08-25 12:00] VITALS: BP 140/80; PULSE 80; PULSE 90; RESP 16; TEMP 37.2; O2SAT 95
--- NOTE | 2020-08-25 14:20 | PC.NURSE ---
called patient to let her know patient was being discharged
--- NOTE | 2020-08-25 15:06 | HMH.PHAINT ---
DISCHARGE COUNSELING COMPLETED ON PATIENT. PRESCRIPTION REFILLS SENT TO CLINIC PHARMACY. METFORMIN DOSE CHANGED TO 1 TABLET TWICE DAILY AND BASAL INSULIN DOSE CHANGED TO 25 UNITS SQ HS. PATIENT IS TO CONTINUE SAME DOSE OF ALL OTHER HOME MEDICATIONS. PATIENT VERBALIZED UNDERSTANDING AND HAD NO QUESTIONS AT THIS TIME. -HEMA WINCHESTER, MARITAD
--- NOTE | 2020-08-25 15:12 | PC.NURSE ---
ivs removed at this time. lantus pen given to patient. will instruct about patient need to get prescriptions from pharmacy if she does not come in. medications were 6 dollars.
--- NOTE | 2020-08-25 15:23 | PC.NURSE ---
went over with about patient home medications and appointment. also instructed if she noticed any changes they could always return back to er. patient in stable condition with no complaints at this time
--- NOTE | 2020-08-25 15:26 | PC.NURSE ---
stated she would rather drive around to clinic pharmacy instead of wait for it
[2020-09-04 08:24] LABS: POC Glucose,Bedside > 600 (70-110)
== END 2020-08-25 15:45 | disposition home or self-care (01) | DRG 639 ==
LOC: ER 18:49 → 2ND 19:08
PROVIDERS: Internal Medicine Adolescent Medicine; Admitting Provider Internal Medicine Adolescent Medicine; Emergency Provider Emergency Medicine; PCP Family Medicine; Visit Provider Internal Medicine Adolescent Medicine
DX: E11.10 Type 2 diabetes mellitus with ketoacidosis without coma (principal); E87.6 Hypokalemia; N40.0 Benign prostatic hyperplasia without lower urinary tract symptoms; Z79.4 Long term (current) use of insulin; T38.3X6A Underdosing of insulin and oral hypoglycemic [antidiabetic] drugs, initial encounter; Z91.128 Patient's intentional underdosing of medication regimen for other reason
CPT/HCPCS: 36415; 71045; 80048; 80053; 81001; 82009; 82803; 82947; 82962; 83605; 83690; 83735; 84484; 85007; 85025; 86328; 87040; 93005; 96365; 96366; 96367; 99284; J2405

== ENCOUNTER 2023-05-09 23:43 | Inpatient (IN) | payer MEDICARE, MEDICAID, SELFPAY ==
[2023-05-09 23:45] VITALS: BP 143/99; PULSE 114; RESP 16; TEMP 36.6; O2SAT 96; BMI 27.4
[2023-05-10] VITALS (11 sets, daily range): BP systolic 128–173; BP diastolic 70–99; PULSE 100–112; RESP 16–20; TEMP 36.6–37.2; O2SAT 96–98; BMI 254183.9
--- NOTE | 2023-05-10 00:02 | XR_ITS ---
PROCEDURE INFORMATION: Exam: XR Chest Exam date and time: 05/10/2023 12:28 AM Age: 78 years old Clinical indication: Other: Weakness TECHNIQUE: Imaging protocol: Radiologic exam of the chest. Views: 1 view. COMPARISON: CR XR CHEST PORTABLE 08/23/2020 5:25 PM FINDINGS: Lungs: Decreased lung markings of the upper lung zones likely represents emphysematous change. No consolidation. Pleural spaces: Unremarkable. No pleural effusion. No pneumothorax. Heart/Mediastinum: Unremarkable. No cardiomegaly. Vasculature: Unremarkable. Bones/joints: Unremarkable. IMPRESSION: No acute findings.
[2023-05-10 00:18] LABS: Basophils # 0.1 K/mm3 (0-0.2); Basophils % 0.3 % (0.1-2.0); Eosinophils # 0.1 K/mm3 (0.0-0.4); Eosinophils % 0.4 % (0.1-12.0); Hematocrit 42.7 % (42.0-52.0); Hemoglobin 14.3 g/dL (14.1-18.0); Lymphocytes % 16.3 % (10-50); Mean Corpuscular HGB Conc 33.4 g/dL (31.8-35.4); Mean Corpuscular Hemoglobin 30.2 pg (27.0-31.2); Mean Corpuscular Volume 90.2 fl (80-94); Mean Platelet Volume 8.1 fl (7.4-10.4); Monocytes # 1.2 K/mm3 (0.1-1.0); Monocytes % 6.5 % (1.7-9.3); Neutrophils # 14.3 K/mm3 (1.8-7.8); Neutrophils % 76.5 % (37.0-80.0); Platelet Count 460 K/mm3 (142-424); Red Blood Count 4.73 M/mm3 (4.60-6.20); Red Cell Distribution Width 12.9 % (11.5-17.5); White Blood Count 18.7 K/mm3 (4.8-10.8)
[2023-05-10 00:20] LABS: MANUAL DIFFERENTIAL MANUAL DIFFERENTIAL (MANUAL DIFF)
[2023-05-10 00:21] LABS: Chloride 87 mmol/L (98-107)
[2023-05-10 00:22] LABS: Potassium 3.7 mmoL/L (3.5-5.1); Sodium 132 mmol/L (136-145)
[2023-05-10 00:24] LABS: Alanine Aminotransferase 24 U/L (12-78); Aspartate Amino Transferase 23 U/L (17-59); Blood Urea Nitrogen 47 mg/dl (9-20); Creatinine Clearance Estimated 65 mL/min (50-200); Estimated Glomerular Filt Rate 72 ml/min (>60); GFR (African American) 87 ML/MIN (>60)
[2023-05-10 00:25] LABS: Acetone, Serum (Rapid) Small (None Detect); Albumin Level 4.2 g/dl (3.5-5.0); Albumin/Globulin Ratio 1.5 (1.1-1.8); Alkaline Phosphatase 113 U/L (38-126); Anion Gap 20.7 mEq/L (5-15); Bilirubin,Total 0.7 mg/dl (0.2-1.3); Calcium 10.2 mg/dl (8.4-10.2); Carbon Dioxide 28 mmol/L (22.0-30.0); Globulin 2.8 g/dL (1.3-3.2); Lactic Acid 1.7 mmol/L (0.7-2.1); Lipase 30 U/L (23-300)
[2023-05-10 00:27] LABS: Glucose 488 mg/dl (74-100)
--- NOTE | 2023-05-10 00:29 | PC.NURSE ---
Critical lab glucose of 488 reported to MD Karoline at this time
[2023-05-10 00:30] LABS: Microscopic, Urine URINE MICROSCOPIC (MICROSCOPIC)
[2023-05-10 00:38] LABS: Hemoglobin A1C 11.9 % (4.0-6.0)
[2023-05-10 00:38] LABS: Appearance,Urine CLEAR (Clear); Bilirubin,Urine Negative (Negative); Blood, Urine 1+ (Negative); Color,Urine YELLOW (Yellow); Glucose,Urine (UA) 3+ (Negative); Ketones,Urine 1+ (Negative); Leukocyte Esterase,Urine Negative (Negative); Nitrate,Urine Negative (Negative); PH,Urine 5.5 (5.0-8.5); Protein,Urine TRACE (Negative); Urobilinogen,Urine 0.2 EU/dl (0.2)
[2023-05-10 00:44] LABS: Lymphocytes % 26 % (10-50); Monocytes % 2 % (2-9); Neutrophils % 72 % (42-76); Platelet Estimate Normal; RBC Morphology Normal; Total Cells Counted 100
[2023-05-10 00:46] LABS: Bacteria,Urine Trace /lpf; RBC,Urine Occasional #/hpf (0-3); WBC,Urine Occasional #/hpf (0-3)
--- NOTE | 2023-05-10 00:49 | ECG_ITS ---
APPROVED REPORT Exam: Resting ECG HR:108 bpm ECG Measurements Heart Rate 108 AXES CO 121 P 14 QRSd 138 QRS 261 QT 359 T 5 QTc 422 Conclusion SINUS TACHYCARDIA RIGHT AXIS DEVIATION [QRS AXIS > 100] RIGHT BUNDLE BRANCH BLOCK [120+ ms QRS DURATION, UPRIGHT V1, 40+ ms S IN I/aVL/V4/V5/V6] INFERIOR MYOCARDIAL INFARCTION , PROBABLY OLD [40+ ms Q WAVE AND/OR ST/T ABNORMALITY IN II/aVF] ABNORMAL ECG UNCONFIRMED REPORT Electronically signed by : Ez Mcbride MD 05/10/2023 13:08:26
[2023-05-10 00:58] LABS: Troponin I 0.03 ng/ml (0.00-0.034)
--- NOTE | 2023-05-10 00:58 | HMH.EDGENADL ---
Discharge Plan Disposition Patient Disposition: Admitted Chief Complaint: Weakness Clinical Impressions Clinical Impression: Infection of scrotum, Abnormal penile discharge Sepsis Qualifiers: Sepsis type: sepsis due to unspecified organism Sepsis acute organ dysfunction status: without acute organ dysfunction Qualified Code(s): A41.9 - Sepsis, unspecified organism Discharge ED Provider: Khurram Ramey General Adult HPI General Chief complaint: Weakness Stated complaint: vomiting, hasn't eaten X 3 days Time Seen by Provider: 05/09/23 23:51 Mode of Arrival: Wheelchair Source of Information: Patient and Relative Limitations: No Limitations Description of Symptoms (Recalled from ER Triage Doc. by RN): pt c/o weakness,abd pain, n/v/d, unable to eat x 3 days. History of Present Illness HPI narrative: This is a 78-year-old male with history of type 2 diabetes, BPH, CKD presenting with vomiting and generalized weakness. Patient states that he started vomiting 2 days prior to arrival. Nonbloody, nonbilious vomit that is yellow/white. Does not have associated diarrhea. Has also not had fevers, chills, hematuria, but states that he has had mild dysuria and frequency. States that he thinks he has been taking his medications as prescribed, but is not sure. Unable to tolerate much p.o. intake secondary to nausea and vomiting, so he has felt weak and has needed significant assistance getting around the house. Denies any pain anywhere in his body. Related Data Home Medications Medication Instructions Recorded Confirmed tramadol 50 mg tablet 50 mg PO BIDP PRN Moderate Pain 08/24/20 09/29/20 Previous Rx's Medication Instructions Recorded finasteride 5 mg tablet 5 mg PO DAILY prostate 30 days #30 08/25/20 tabs glipizide 10 mg tablet, extended 10 mg PO BID Diabetes 30 days #60 08/25/20 release 24 hr tabs hydrochlorothiazide 12.5 mg capsule 12.5 mg PO DAILY Hypertension 30 08/25/20 days #30 caps insulin glargine 100 unit/mL (3 25 unit (0.25 mL) SQ DAILY 08/25/20 mL) subcutaneous pen Diabetes 30 days ##2 metformin 500 mg tablet 500 mg PO BID Diabetes 30 days #60 08/25/20 tabs metoclopramide HCl 10 mg tablet 10 mg PO TIDP PRN Acid Reflux 30 08/25/20 days #90 tabs pravastatin 40 mg tablet 40 mg PO HS High cholesterol 30 08/25/20 days #30 tabs sitagliptin phosphate 100 mg tablet 100 mg PO DAILY Diabetes 30 days 08/25/20 #30 tabs tamsulosin 0.4 mg capsule 0.4 mg PO HS prostate 30 days #30 08/25/20 caps finasteride 5 mg tablet 5 mg PO DAILY #90 tabs 12/31/21 tamsulosin 0.4 mg capsule 0.4 mg PO HS #90 caps 12/31/21 Allergies Allergy/AdvReac Type Severity Reaction Status Date / Time No Known Allergies Allergy Unverified 09/29/20 14:54 [facility] Disclaimer: The information contained in this section may have been updated after the patient was seen, as this information can be updated by other users. Social History Smoking Status: Current every day smoker alcohol intake: former substance use type: denies use current occupational status: retired Travel in the last 8 weeks: None household members: spouse housing: house ROS Obtained: Yes All systems reviewed & no additional complaints except as documented Physical Exam General General appearance: alert and in no apparent distress Respiratory Respiratory exam: Present normal lung sounds bilaterally; Absent respiratory distress, wheezes, stridor or accessory muscle use Cardiovascular Cardiovascular exam: Present regular rate and normal rhythm; Absent bradycardia or tachycardia Abdominal Exam Abdominal exam: Present soft; Absent distention, tenderness, guarding, rebound or rigidity exam: Present urethral discharge and scrotal swelling (with associated erythema) Extremities Exam Extremities exam: Present normal inspection Back Exam Back exam: Absent CVA tenderness (R) Neurological Exam Neurological exam: Present alert, oriented X3 and
--- NOTE | 2023-05-10 01:39 | PC.NURSE ---
on phone with hospitalist
--- NOTE | 2023-05-10 01:40 | CT_ITS ---
PROCEDURE INFORMATION: Exam: CT Abdomen And Pelvis With Contrast Exam date and time: 05/10/2023 2:15 AM Age: 78 years old Clinical indication: Other: Concern for scrotum infection; Additional info: Concern for infection of scrotum/nsti TECHNIQUE: Imaging protocol: Computed tomography of the abdomen and pelvis with contrast. Radiation optimization: All CT scans at this facility use at least one of these dose optimization techniques: automated exposure control; mA and/or kV adjustment per patient size (includes targeted exams where dose is matched to clinical indication); or iterative reconstruction. Contrast material: ISOVUE; Contrast volume: 75 ml; Contrast route: IV; REPORTING DATA: Count of CT and Cardiac NM exams in prior 12 months: This patient has received 0 known CTs and 0 known cardiac nuclear medicine studies in the 12 months prior to the current study. COMPARISON: [facility] [id number] 05/20/2016 1:43 PM FINDINGS: Lungs: No acute finding. Mediastinal space: Thickening of the distal esophageal wall may represent esophagitis. Liver: Normal. No mass. Gallbladder and bile ducts: Normal. No calcified stones. No ductal dilation. Pancreas: There is diffuse pancreatic atrophy with multiple calcifications present consistent with chronic pancreatitis. Spleen: Normal. No splenomegaly. Adrenal glands: Normal. No mass. Kidneys and ureters: No hydronephrosis. Normal enhancement. Bilateral renal cortical cysts are noted. The largest is on the right measuring 5 cm. Stomach and bowel: Unremarkable. No obstruction. No mucosal thickening. Appendix: No evidence of appendicitis. Intraperitoneal space: Unremarkable. No free air. No significant fluid collection. Vasculature: There is calcific atherosclerotic disease without aneurysmal dilation of the aorta. Lymph nodes: Unremarkable. No enlarged lymph nodes. Urinary bladder: The bladder is decompressed by a Worthington catheter. The bladder wall is diffusely thickened. Reproductive: The prostate gland is enlarged. Bones/joints: Grade 1/2 spondylolisthesis at L4-L5. Severe degenerative disc disease and facet arthropathy are noted at this level along with bilateral L4 pars defects. No acute fracture. Soft tissues: Unremarkable. No inflammatory changes of the perineum are evident. IMPRESSION: 1. There is significant bladder wall thickening despite decompression of the bladder by a Worthington catheter. The findings may represent sequela of chronic bladder outlet obstruction or cystitis. 2. Thickening of the distal esophageal wall may represent esophagitis. 3. No inflammatory changes of the perineum are evident. 4. Other nonurgent findings as detailed. COMMENTS: Consistent with the [employer]'s Incidental Findings Committee white paper (J Am Francesca Radiol 2018): Any incidental renal lesion less than 1 cm or classified as too small to characterize, or any incidental cystic renal lesion characterized as simple-appearing, is likely benign. No follow-up imaging is recommended for these lesions per consensus recommendations based on imaging criteria.
--- NOTE | 2023-05-10 01:47 | PC.NURSE ---
Pt assigned to room 211 for weakness and sepsis to the hospitalist. OBS
[2023-05-10 02:01] LABS: C-Reactive Protein 13.3 mg/L (0-4)
--- NOTE | 2023-05-10 02:34 | PC.NURSE ---
Addendum entered by Carol Conklin RN 05/10/23 02:36: REPORT WAS CALLED AT 0210. Original Note: RECEIVED PHONE REPORT FROM Yimi STONE RN/ER NURSE. JUANTIA IS A 78 YO MALE . ADMISSION DIAGNOSIS: SEPSIS. N/V/D/ABD PAIN AND GENERALIZED WEAKNESS. TO BE ADMITTED TO ROOM 211. NEEDS TO COME BY STRETCHER.
--- NOTE | 2023-05-10 03:20 | PC.NURSE ---
PATIENT ARRIVED TO THE FLOOR VIA STRETCHER AT 0320.
--- NOTE | 2023-05-10 03:21 | PC.NURSE ---
Pt arrived to the floor via stretcher @ [id number]
--- NOTE | 2023-05-10 03:50 | EXP.HP ---
History of Present Illness *Admission Date: 05/10/23 *Reason for visit:: sepsis/penile infection/ hyperglycemia *History of present illness: 78 year old male presented to the ED with his neighbor. Pt c/o nausea and vomiting for two days. PMHX of DM, HTN, HLD and BPH. The patient lives at home with his . His ED workup revealed blood glucose of 488 and anion gap of 20.7. BUN of 47. leukocytosis of 18.7 and clean UA. Abdominal/ pelvis CT obtained and revealed bladder wall thickening and chronic bladder outlet obstruction. No other abdominal abnormalities noted. A1C is 11.9 Upon physical exam the pt's penis and scrotum area is extremely erythemic with greenish colored discharge coming from penis. The patient was started on cefepime and vancomycin for broad spectrum coverage. CT of abd and pelvis ruled out diego's gangrene. Would culture was obtained from penis as well as blood cultures. The ED physician spoke with the hospitalist team for further medical management and pt admission. Due to leukocytosis, elevated hate rate, and penile infection-the pt meets sepsis criteria. The pt is hemodynamically stable upon admission to medical floor. [facility] Disclaimer: The information contained in this section may have been updated after the patient was seen, as this information can be updated by other users. Social History Smoking Status: Current every day smoker alcohol intake: former substance use type: denies use current occupational status: retired Travel in the last 8 weeks: None household members: spouse housing: house Review of Systems Review of Systems Review of systems:: pertinent systems reviewed and negative unless documented below Constitutional Constitutional: Reports system reviewed and no additional complaints, except as documented and Reports weakness Eyes Eyes: Reports system reviewed and no additional complaints, except as documented ENT Ears, Nose, Mouth, and Throat: Reports system reviewed and no additional complaints, except as documented *Cardiovascular Cardiovascular: Reports system reviewed and no additional complaints, except as documented *Respiratory Respiratory: Reports system reviewed and no additional complaints, except as documented *Gastrointestinal Gastrointestinal: Reports vomiting *Genitourinary Genitourinary: Reports penile discharge and Reports scrotal swelling *Musculoskeletal Musculoskeletal: Reports system reviewed and no additional complaints, except as documented Integumentary/Breasts Skin/Breast: Reports system reviewed and no additional complaints, except as documented *Neurologic Neurologic: Reports system reviewed and no additional complaints, except as documented and Reports weakness Psychiatric Psychiatric: Reports system reviewed and no additional complaints, except as documented Meds Home Medications and Allergies Home Medications Medication Instructions Recorded Confirmed Type tramadol 50 mg tablet 50 mg PO BIDP PRN Moderate Pain 08/24/20 09/29/20 History finasteride 5 mg tablet 5 mg PO DAILY prostate 30 days #30 08/25/20 09/29/20 Rx tabs glipizide 10 mg tablet, extended 10 mg PO BID Diabetes 30 days #60 08/25/20 09/29/20 Rx release 24 hr tabs hydrochlorothiazide 12.5 mg capsule 12.5 mg PO DAILY Hypertension 30 08/25/20 09/29/20 Rx days #30 caps insulin glargine 100 unit/mL (3 25 unit (0.25 mL) SQ DAILY 08/25/20 09/29/20 Rx mL) subcutaneous pen Diabetes 30 days ##2 metformin 500 mg tablet 500 mg PO BID Diabetes 30 days #60 08/25/20 09/29/20 Rx tabs metoclopramide HCl 10 mg tablet 10 mg PO TIDP PRN Acid Reflux 30 08/25/20 09/29/20 Rx days #90 tabs pravastatin 40 mg tablet 40 mg PO HS High cholesterol 30 08/25/20 09/29/20 Rx days #30 tabs sitagliptin phosphate 100 mg tablet 100 mg PO DAILY Diabetes 30 days 08/25/20 09/29/20 Rx #30 tabs tamsulosin 0.4 mg capsule 0.4 mg PO HS prostate 30 days #30 08/25/20 09/29/20 Rx caps finasteride 5 mg tab
[2023-05-10 03:58] LABS: POC Glucose,Bedside 302 (70-110)
[2023-05-10 04:42] LABS: POC Glucose,Bedside 346 (70-110)
[2023-05-10 07:28] LABS: Anion Gap 11.7 mEq/L (5-15); Blood Urea Nitrogen 36 mg/dl (9-20); Calcium 9.4 mg/dl (8.4-10.2); Carbon Dioxide 29 mmol/L (22.0-30.0); Chloride 98 mmol/L (98-107); Creatinine Clearance Estimated 61 mL/min (50-200); Estimated Glomerular Filt Rate 93 ml/min (>60); GFR (African American) 113 ML/MIN (>60); Glucose 214 mg/dl (74-100); Potassium 3.7 mmoL/L (3.5-5.1); Sodium 135 mmol/L (136-145)
[2023-05-10 07:31] LABS: Basophils % 0.2 % (0.1-2.0); Eosinophils # 0.2 K/mm3 (0.0-0.4); Eosinophils % 0.8 % (0.1-12.0); Hematocrit 39.7 % (42.0-52.0); Hemoglobin 13.4 g/dL (14.1-18.0); Lymphocytes # 3.6 K/mm3 (0.7-4.5); Mean Corpuscular HGB Conc 33.8 g/dL (31.8-35.4); Mean Corpuscular Hemoglobin 29.8 pg (27.0-31.2); Mean Corpuscular Volume 88.1 fl (80-94); Mean Platelet Volume 8.1 fl (7.4-10.4); Monocytes # 1.3 K/mm3 (0.1-1.0); Monocytes % 6.3 % (1.7-9.3); Neutrophils % 74.7 % (37.0-80.0); Platelet Count 410 K/mm3 (142-424); Red Blood Count 4.51 M/mm3 (4.60-6.20); Red Cell Distribution Width 12.9 % (11.5-17.5); White Blood Count 20.1 K/mm3 (4.8-10.8)
[2023-05-10 07:40] LABS: Troponin I 0.04 ng/ml (0.00-0.034)
--- NOTE | 2023-05-10 10:02 | EXP.ACUTE.PN ---
Subjective *Date: 05/10/23 *Time: 18:53 Interval history: Overnight events: -Culture/Gram stain from penile discharge/wound on 05/10: Gram-positive cocci, budding yeast -Tmax 99 Fahrenheit -WBC 18.7--> 20.1 -Continues to be tachycardic to low 100s/min -Remains hyperglycemic, blood sugars ranging from 214-488 -Anion gap improved from 20.7--> 11.7 -Sodium improved from 132--> 135 Subjective: Is still tired but better than what it was before No fevers No new complaints Medical Exam Vital signs and Labs for Last 24 Hours: Vital Signs Temp Pulse Pulse Resp BP BP Pulse Ox 05/10/23 08:00 05/10/23 08:58 05/10/23 07:18 99.0 F 106 H 17 135/75 97 05/10/23 07:00 05/10/23 05:00 05/10/23 03:30 97.9 F 107 H 18 163/90 H 97 05/10/23 03:20 97 05/10/23 03:00 108 H 18 173/94 H 97 05/10/23 02:31 112 H 20 169/95 H 98 05/10/23 02:19 97.9 F 102 H 20 137/87 05/10/23 02:00 107 H 142/74 H 97 05/10/23 01:30 107 H 153/79 H 98 05/10/23 01:00 108 H 20 147/92 H 96 05/09/23 23:45 97.9 F 114 H 16 143/99 H 96 O2 Del Method O2 Flow Rate 05/10/23 08:00 Room Air 05/10/23 08:58 Room Air 05/10/23 07:18 Room Air 05/10/23 07:00 Room Air 97 05/10/23 05:00 Room Air 05/10/23 03:30 Room Air 05/10/23 03:20 Room Air 05/10/23 03:00 05/10/23 02:31 05/10/23 02:19 05/10/23 02:00 05/10/23 01:30 05/10/23 01:00 05/09/23 23:45 Intake and Output 05/09/23 05/10/23 05/10/23 23:59 07:59 15:59 Intake Total 300 / 300 Output Total 1425 / 1425 Balance -1125 / -1125 Intake: Intake, Oral Amount 0 / 0 Intake, Total IV Amount 300 / 300 Vancomycin/Water For Inj (Peg) 300 / 300 1.5 gm In 300 ml @ 150 mls/hr IV ONCE ONE Rx#:[id number] Output: Output, Urine Amount 1425 / 1425 Other: Number of Unmeasured Voids 0 Weight 77.111 kg 71.441 kg Patient Weight 05/10/23 23:59 Weight 71.441 kg Laboratory Results - last 24 hr 05/10/23 00:05: WBC 18.7 H, RBC 4.73, Hgb 14.3, Hct 42.7, MCV 90.2, MCH 30.2, MCHC 33.4, RDW 12.9, Plt Count 460 H, MPV 8.1, Neut % (Auto) 76.5, Lymph % (Auto) 16.3, [place] % (Auto) 6.5, Eos % (Auto) 0.4, Baso % (Auto) 0.3, Neut # (Auto) 14.3 H, Lymph # (Auto) 3.0, [place] # (Auto) 1.2 H, Eos # (Auto) 0.1, Baso # (Auto) 0.1, Total Counted 100, Neutrophils % (Manual) 72, Lymphocytes % (Manual) 26, Monocytes % (Manual) 2, Platelet Estimate Normal, RBC Morphology Normal, Sodium 132 L, Potassium 3.7, Chloride 87 L, Carbon Dioxide 28, Anion Gap 20.7 H, BUN 47 H, Creatinine 1.00, Estimated Creat Clear 65, Estimated GFR 72, Est GFR ( Amer) 87, Glucose 488 H*, Hemoglobin A1c 11.9 H, Lactate 1.7, Calcium 10.2, Total Bilirubin 0.7, AST 23, ALT 24, Alkaline Phosphatase 113, Troponin I 0.03, C-Reactive Protein 13.3 H, Total Protein 7.0 D, Albumin 4.2, Globulin 2.8, Albumin/Globulin Ratio 1.5, Lipase 30, Acetone Level Small 05/10/23 00:22: Urine Color Yellow, Urine Appearance Clear, Urine pH 5.5, Ur Specific [place] 1.010, Urine Protein Trace, Urine Glucose (UA) 3+, Urine Ketones 1+, Urine Blood 1+, Urine Nitrate Negative, Urine Bilirubin Negative, Urine Urobilinogen 0.2, Ur Leukocyte Esterase Negative, Urine RBC Occasional, Urine WBC Occasional, Ur Squamous Epith Cells 3-5, Urine Bacteria Trace 05/10/23 03:51: POC Glucose 302 H* 05/10/23 04:34: POC Glucose 346 H* 05/10/23 07:05: WBC 20.1 H*, RBC 4.51 L, Hgb 13.4 L, Hct 39.7 L, MCV 88.1, MCH 29.8, MCHC 33.8, RDW 12.9, Plt Count 410, MPV 8.1, Neut % (Auto) 74.7, Lymph % (Auto) 18.0, [place] % (Auto) 6.3, Eos % (Auto) 0.8, Baso % (Auto) 0.2, Neut # (Auto) 15.0 H, Lymph # (Auto) 3.6, [place] # (Auto) 1.3 H, Eos # (Auto) 0.2, Baso # (Auto) 0.0, Sodium 135 L, Potassium 3.7, Chloride 98, Carbon Dioxide 29, Anion Gap 11.7, BUN 36 H, Creatinine 0.80, Estimated Creat Clear 61, Estimated GFR 93, Est GFR ( Amer) 113 D, Glucose 214 H D, Calcium
--- NOTE | 2023-05-10 11:55 | PC.NURSE ---
courtesy tech round: pt lying in bed resting. call light is at BS.
[2023-05-10 14:30] LABS: POC Glucose,Bedside 337 (70-110)
--- NOTE | 2023-05-10 15:18 | EXP.PHA.CONS ---
Pharmacy Consult Date: 05/10/23 Time: 15:18 Referring provider: DR. ROBERTS Reason for Consult:: VANCOMYCIN DOSING Allergies Allergy/AdvReac Type Severity Reaction Status Date / Time No Known Allergies Allergy Unverified 09/29/20 14:54 Home Medications Medication Instructions Recorded Confirmed Type tramadol 50 mg tablet 50 mg PO BIDP PRN Moderate Pain 08/24/20 05/10/23 History glipizide 10 mg tablet, extended 10 mg PO BID Diabetes 30 days #60 08/25/20 05/10/23 Rx release 24 hr tabs pravastatin 40 mg tablet 40 mg PO HS High cholesterol 30 08/25/20 05/10/23 Rx days #30 tabs sitagliptin phosphate 100 mg tablet 100 mg PO DAILY Diabetes 30 days 08/25/20 05/10/23 Rx #30 tabs tamsulosin 0.4 mg capsule 0.4 mg PO HS prostate 30 days #30 08/25/20 05/10/23 Rx caps gabapentin 100 mg capsule 200 mg PO TID NEUROPATHY 05/10/23 05/10/23 History hydrochlorothiazide 25 mg tablet 25 mg PO DAILY Edema 05/10/23 05/10/23 History insulin glargine 100 unit/mL (3 50 unit SQ DAILY Diabetes 05/10/23 05/10/23 History mL) subcutaneous pen metformin 500 mg tablet 500 mg PO BID Diabetes 05/10/23 05/10/23 History New Prescriptions to Start Prescriptions: Height: 1.68 cm Weight: 71.441 kg Laboratory Results:: Laboratory Results - last 24 hr 05/10/23 00:05: WBC 18.7 H, RBC 4.73, Hgb 14.3, Hct 42.7, MCV 90.2, MCH 30.2, MCHC 33.4, RDW 12.9, Plt Count 460 H, MPV 8.1, Neut % (Auto) 76.5, Lymph % (Auto) 16.3, [place] % (Auto) 6.5, Eos % (Auto) 0.4, Baso % (Auto) 0.3, Neut # (Auto) 14.3 H, Lymph # (Auto) 3.0, [place] # (Auto) 1.2 H, Eos # (Auto) 0.1, Baso # (Auto) 0.1, Total Counted 100, Neutrophils % (Manual) 72, Lymphocytes % (Manual) 26, Monocytes % (Manual) 2, Platelet Estimate Normal, RBC Morphology Normal, Sodium 132 L, Potassium 3.7, Chloride 87 L, Carbon Dioxide 28, Anion Gap 20.7 H, BUN 47 H, Creatinine 1.00, Estimated Creat Clear 65, Estimated GFR 72, Est GFR ( Amer) 87, Glucose 488 H*, Hemoglobin A1c 11.9 H, Lactate 1.7, Calcium 10.2, Total Bilirubin 0.7, AST 23, ALT 24, Alkaline Phosphatase 113, Troponin I 0.03, C-Reactive Protein 13.3 H, Total Protein 7.0 D, Albumin 4.2, Globulin 2.8, Albumin/Globulin Ratio 1.5, Lipase 30, Acetone Level Small 05/10/23 00:22: Urine Color Yellow, Urine Appearance Clear, Urine pH 5.5, Ur Specific [place] 1.010, Urine Protein Trace, Urine Glucose (UA) 3+, Urine Ketones 1+, Urine Blood 1+, Urine Nitrate Negative, Urine Bilirubin Negative, Urine Urobilinogen 0.2, Ur Leukocyte Esterase Negative, Urine RBC Occasional, Urine WBC Occasional, Ur Squamous Epith Cells 3-5, Urine Bacteria Trace 05/10/23 03:51: POC Glucose 302 H* 05/10/23 04:34: POC Glucose 346 H* 05/10/23 07:05: WBC 20.1 H*, RBC 4.51 L, Hgb 13.4 L, Hct 39.7 L, MCV 88.1, MCH 29.8, MCHC 33.8, RDW 12.9, Plt Count 410, MPV 8.1, Neut % (Auto) 74.7, Lymph % (Auto) 18.0, [place] % (Auto) 6.3, Eos % (Auto) 0.8, Baso % (Auto) 0.2, Neut # (Auto) 15.0 H, Lymph # (Auto) 3.6, [place] # (Auto) 1.3 H, Eos # (Auto) 0.2, Baso # (Auto) 0.0, Sodium 135 L, Potassium 3.7, Chloride 98, Carbon Dioxide 29, Anion Gap 11.7, BUN 36 H, Creatinine 0.80, Estimated Creat Clear 61, Estimated GFR 93, Est GFR ( Amer) 113 D, Glucose 214 H D, Calcium 9.4, Troponin I 0.04 H 05/10/23 11:14: POC Glucose 337 H* Assessment and Plan Assessment and plan all Dx Assessment and Plan for all problems:: Pharmacokinetic dosing service Objective: Patient: Floor: Age: 78 yo Serum creatinine: 1 mg/dL Height: 66.1 Inches Weight (kg): 72 Assessment: IBW (kg): 64.03 Dosing wt(kg): 72 Estimated Creatinine clearance (ml/min): 54.2 CRCL method: Cockcroft and Gault using ibw(default). Drug selected: Vancomycin Loading dose (mg): 0 Vd (liters): 57.6 (factor used: 0.8 L/kg) [place] (hr-1): 0.049 Half life (hrs): 14.15 Recommended dose: 1500 mg Interval: 24 hrs Infusion time (hrs): 2.0 Predicted pe
[2023-05-10 16:51] LABS: POC Glucose,Bedside 222 (70-110)
--- NOTE | 2023-05-10 16:59 | PC.NURSE ---
PT IS RESTING IN BED. ALERT AND ORIENTED X4. PT HAS BEEN EATING AND DRINKING FAIR. BATH AND BED CHANGE THIS SHIFT. PT HAS SCROTAL REDNESS/TENDERNESS NOTED. PT STATED HE DOES NOT TAKE HIS INSULIN OR HOME MEDICATIONS PRESCRIBED. LUNG SOUNDS DIMINISHED. ABDOMEN SOFT/NON TENDER WITH ACTIVE BOWEL SOUNDS. WILL CONTINUE TO MONITOR.
[2023-05-10 23:59] LABS: POC Glucose,Bedside 196 (70-110)
--- NOTE | 2023-05-11 00:59 | PC.NURSE ---
DENIES PAIN OR DISCOMFORT. FAMILY MEMBER BROUGHT HIM CATIEONALDS. F/C TO [facility] AND INTACT, URINE COLOR IMPROVING BUT STILL HAS SOME BLOOD IN IT.
[2023-05-11 04:00] VITALS: BP 100/76; PULSE 93; RESP 16; TEMP 36.7; O2SAT 97; BMI 26.0
[2023-05-11 06:09] LABS: POC Glucose,Bedside 188 (70-110)
[2023-05-11 07:16] VITALS: BP 113/69; PULSE 103; RESP 18; TEMP 36.8; O2SAT 95
[2023-05-11 07:37] LABS: Basophils # 0.1 K/mm3 (0-0.2); Basophils % 0.4 % (0.1-2.0); Eosinophils # 0.5 K/mm3 (0.0-0.4); Eosinophils % 3.4 % (0.1-12.0); Hematocrit 36.6 % (42.0-52.0); Hemoglobin 12.1 g/dL (14.1-18.0); Lymphocytes # 3.5 K/mm3 (0.7-4.5); Lymphocytes % 26.1 % (10-50); Mean Corpuscular HGB Conc 33.2 g/dL (31.8-35.4); Mean Corpuscular Hemoglobin 29.9 pg (27.0-31.2); Mean Platelet Volume 8.1 fl (7.4-10.4); Monocytes # 0.8 K/mm3 (0.1-1.0); Monocytes % 5.6 % (1.7-9.3); Neutrophils # 8.6 K/mm3 (1.8-7.8); Neutrophils % 64.5 % (37.0-80.0); Platelet Count 327 K/mm3 (142-424); Red Blood Count 4.06 M/mm3 (4.60-6.20); White Blood Count 13.4 K/mm3 (4.8-10.8)
[2023-05-11 08:20] LABS: Alanine Aminotransferase 15 U/L (12-78); Albumin Level 2.8 g/dl (3.5-5.0); Albumin/Globulin Ratio 1.4 (1.1-1.8); Alkaline Phosphatase 72 U/L (38-126); Anion Gap 6.3 mEq/L (5-15); Aspartate Amino Transferase 19 U/L (17-59); Bilirubin,Total 0.3 mg/dl (0.2-1.3); Blood Urea Nitrogen 23 mg/dl (9-20); Calcium 8.5 mg/dl (8.4-10.2); Carbon Dioxide 26 mmol/L (22.0-30.0); Chloride 107 mmol/L (98-107); Creatinine Clearance Estimated 62 mL/min (50-200); Estimated Glomerular Filt Rate 109 ml/min (>60); GFR (African American) 132 ML/MIN (>60); Glucose 130 mg/dl (74-100); Potassium 3.3 mmoL/L (3.5-5.1); Sodium 136 mmol/L (136-145); Total Protein,Serum 4.8 g/dl (6.3-8.2)
[2023-05-11 11:02] LABS: POC Glucose,Bedside 343 (70-110)
--- NOTE | 2023-05-11 12:23 | HMH.PTEV ---
Physical Therapy Evaluation Rehab PT IP Evaluation Start: 05/10/23 21:20 Freq: ONCE Status: Active Protocol: Document 05/11/23 12:19 PHORJOSE GUADALUPE (Rec: 05/11/23 12:22 PHORNE [id number]) Subjective/History History History 78 yowm adm to [facility] with generalized weakness and sepsis. Hx of DM, HTN, HLD, BPH. He reports he lives with his and he is generally independent with all mobility and ADLs. He does reports he suffered a fall ~ 5 days ago and has been using a cane for ambulation outside of the home since that time. Subjective Subjective He reports feeling better this am, agrees tp OOB mobility assessment. Rehab PT IP Eval Objective Appearance Patient Behavior Appropriate Patient Orientation Person,Place,Time Difficulty following instructions none Speech Pattern Clear Ambulation Patient Able to Ambulate Yes Ambulation Observation IP General Gait Pattern Observation Wide Based Gait Ambulation Distance (feet) 20 Ambulation Assistive Device None Ambulation Ability Contact Guard/Hand Hold Balance Ability to Arise Able, uses arms to help Sitting Balance Steady, safe Standing Balance Steady, wide stance Dynamic Sitting Balance Ability Good Dynamic Standing Balance Ability Good Transfers Bed Transfer Ability Contact Guard/Hand Hold Chair Transfer Ability Contact Guard/Hand Hold Sit to Stand Bed Transfer Ability Contact Guard/Hand Hold Sit to Stand Chair Transfer Ability Contact Guard/Hand Hold ROM All Extremities PT ROM Status WFL MMT All Extremities PT MMT WFL Rehab PT IP prob,goals,plan Problems Date of Evaluation: 05/11/23 PT IP Problems Transfers,Gait Rehab Potential Rehab Potential Good Plan PT Intervention Plan Bed Mobility,Transfers,Gait, Therapeutic Exercise PT Plan Frequency Daily Duration LOS Discharge Goals Bed Transfer Ability Supervision/Stand by Sit to Stand Chair Transfer Ability Supervision/Stand by Ambulation Assistive Device None Ambulation Distance (feet) 40 Discharge Plan PT Discharge Plan Pt is currently appropriate to return home once medically stable for d/c. G -code Required
--- NOTE | 2023-05-11 13:12 | EXP.ACUTE.PN ---
Subjective *Date: 05/11/23 *Time: 13:12 Interval history: Doing well overnight. Complaining of pain on bilateral lower extremities. He has history of diabetic neuropathy. No fevers. No other new complaint Medical Exam Vital signs and Labs for Last 24 Hours: Vital Signs Temp Pulse Resp BP Pulse Ox O2 Del Method 05/11/23 09:00 Room Air 05/11/23 08:00 Room Air 05/11/23 07:16 98.2 F 103 H 18 113/69 95 Room Air 05/11/23 06:21 Room Air 05/11/23 04:00 98.0 F 93 H 16 100/76 L 97 Room Air 05/11/23 04:58 Room Air 05/11/23 03:00 Room Air 05/11/23 01:00 Room Air 05/10/23 23:00 Room Air 05/10/23 21:00 Room Air 05/10/23 20:00 96 Room Air 05/10/23 20:00 98.4 F 101 H 16 136/99 H 96 Room Air 05/10/23 18:26 Room Air 05/10/23 17:00 Room Air 05/10/23 14:59 98.8 F 100 H 17 128/70 98 Room Air 05/10/23 14:21 Room Air Intake and Output 05/10/23 05/11/23 05/11/23 23:59 07:59 15:59 Intake Total 1301 / 2821 2310 / 2550 240 / 2550 Output Total 600 / 3175 1150 / 1150 0 / 1150 Balance 701 / -354 1160 / 1400 240 / 1400 Intake: Intake, Oral Amount 240 / 720 720 / 960 240 / 960 Intake, Total IV Amount 1061 / 2101 1590 / 1590 0.9 % Sodium Chloride 1000ML 1, 1061 / 1701 1190 / 1190 000 ml @ 100 mls/hr IV .Q10H RIVER Rx#:[id number] Cefepime HCl 2 gm In 0.9 % 100 / 100 Sodium Chloride 100 ml @ 200 mls/hr IV Q8H RIVER Rx#:[id number] Vancomycin/Water For Inj (Peg) 300 / 300 1.5 gm In 300 ml @ 150 mls/hr IV Q24H RIVER Rx#:[id number] Output: Output, Urine Amount 600 / 2325 1150 / 1150 0 / 1150 Other: Number of Unmeasured Voids 0 0 Weight 73.482 kg Patient Weight 05/11/23 23:59 Weight 73.482 kg Laboratory Results - last 24 hr 05/10/23 11:14: POC Glucose 337 H* 05/10/23 16:37: POC Glucose 222 H 05/10/23 21:55: POC Glucose 196 H 05/11/23 05:25: POC Glucose 188 H 05/11/23 07:10: WBC 13.4 H D, RBC 4.06 L, Hgb 12.1 L, Hct 36.6 L, MCV 90.0, MCH 29.9, MCHC 33.2, RDW 13.0, Plt Count 327, MPV 8.1, Neut % (Auto) 64.5, Lymph % (Auto) 26.1, Mcdonough % (Auto) 5.6, Eos % (Auto) 3.4, Baso % (Auto) 0.4, Neut # (Auto) 8.6 H, Lymph # (Auto) 3.5, Mcdonough # (Auto) 0.8, Eos # (Auto) 0.5 H, Baso # (Auto) 0.1, Sodium 136, Potassium 3.3 L, Chloride 107, Carbon Dioxide 26, Anion Gap 6.3, BUN 23 H D, Creatinine 0.70, Estimated Creat Clear 62, Estimated GFR 109, Est GFR ( Amer) 132, Glucose 130 H, Calcium 8.5, Total Bilirubin 0.3, AST 19, ALT 15 D, Alkaline Phosphatase 72, Total Protein 4.8 L D, Albumin 2.8 L D, Globulin 2.0, Albumin/Globulin Ratio 1.4 05/11/23 10:51: POC Glucose 343 H* I & O for Labs for Last 24 Hours: Intake & Output 05/08/23 05/09/23 05/10/23 05/11/23 23:59 23:59 23:59 23:59 Intake Total 1841 / 2821 2550 / 2550 Output Total 2975 / 3175 1150 / 1150 Balance -1134 / -354 1400 / 1400 Weight 77.111 kg 71.441 kg 73.482 kg Microbiology Reports for the Last 24 Hours: Microbiology 05/10/23 00:10 Penis Gram Stain - Final 05/10/23 00:10 Penis Wound Culture - Preliminary Additional Findings:: Head: Present atraumatic and normocephalic Neck: Present normal inspection Respiratory: Present CTA bilaterally, able to speak in complete sentences and symmetric chest movement GI: Present soft (male): Present testicular tenderness and scrotal swelling Comment:: Indwelling Worthington catheter + Extremities: Present normal inspection Skin: Present intact Neuro: Present alert, awake, oriented x 3 and moves all extremities Assessment and Plan *Assessment and plan (1) Sepsis: Status: Acute Qualifiers: Sepsis acute organ dysfunction status: without acute organ dysfunction Sepsis type: sepsis due to unspecified organism Qualified Code(s): A41.9 - Sepsis, unspecified organism Category: Medical Code(s): A41.9 - Sepsis, unspecified organism (2) Chauncey
[2023-05-11 14:56] VITALS: BP 127/72; PULSE 95; RESP 18; TEMP 36.7; O2SAT 97
[2023-05-11 16:14] LABS: POC Glucose,Bedside 275 (70-110)
[2023-05-11 20:00] VITALS: BP 148/76; PULSE 93; RESP 16; TEMP 36.4; O2SAT 99
[2023-05-11 20:47] LABS: POC Glucose,Bedside 285 (70-110)
[2023-05-12 04:00] VITALS: BP 149/87; PULSE 91; RESP 20; TEMP 36.9; O2SAT 97; BMI 26.9
--- NOTE | 2023-05-12 04:33 | PC.NURSE ---
Jenifertne has had a great night. Rested comfortable. Pateint still has henson in place. Did receive a bath last night. No complaints noted by patient
[2023-05-12 05:52] LABS: POC Glucose,Bedside 146 (70-110)
[2023-05-12 06:31] LABS: Anion Gap 4.2 mEq/L (5-15); Blood Urea Nitrogen 14 mg/dl (9-20); Calcium 8.1 mg/dl (8.4-10.2); Carbon Dioxide 28 mmol/L (22.0-30.0); Chloride 109 mmol/L (98-107); Creatinine Clearance Estimated 64 mL/min (50-200); Estimated Glomerular Filt Rate 130 ml/min (>60); GFR (African American) 157 ML/MIN (>60); Glucose 141 mg/dl (74-100); Potassium 3.2 mmoL/L (3.5-5.1); Sodium 138 mmol/L (136-145)
[2023-05-12 08:00] VITALS: BP 153/79; PULSE 100; RESP 20; TEMP 37.1; O2SAT 99
[2023-05-12 08:48] LABS: Basophils % 0.3 % (0.1-2.0); Eosinophils # 0.4 K/mm3 (0.0-0.4); Eosinophils % 3.8 % (0.1-12.0); Hematocrit 34.2 % (42.0-52.0); Hemoglobin 11.5 g/dL (14.1-18.0); Lymphocytes # 2.8 K/mm3 (0.7-4.5); Lymphocytes % 28.9 % (10-50); Mean Corpuscular HGB Conc 33.6 g/dL (31.8-35.4); Mean Corpuscular Hemoglobin 30.9 pg (27.0-31.2); Mean Corpuscular Volume 91.9 fl (80-94); Mean Platelet Volume 8.7 fl (7.4-10.4); Monocytes # 0.7 K/mm3 (0.1-1.0); Monocytes % 7.2 % (1.7-9.3); Neutrophils # 5.9 K/mm3 (1.8-7.8); Neutrophils % 59.8 % (37.0-80.0); Platelet Count 291 K/mm3 (142-424); Red Blood Count 3.72 M/mm3 (4.60-6.20); Red Cell Distribution Width 13.1 % (11.5-17.5); White Blood Count 9.8 K/mm3 (4.8-10.8)
--- NOTE | 2023-05-12 09:24 | PC.NURSE ---
Courtesy Tech Note: rounded on pt. Brought pt warm blanket upon pt request. no other assistance was needed at this time.
--- NOTE | 2023-05-12 09:44 | PC.NURSE ---
Pt ambulating in [place] with PT.
[2023-05-12 11:24] LABS: POC Glucose,Bedside 417 (70-110)
--- NOTE | 2023-05-12 11:39 | SW/DCPLANNER ---
Addendum entered by Sarah Colón 05/13/23 15:06: Daniela cruz/ Miri stated that services will begin tomorrow 05/14/23. Addendum entered by Sarah Colón 05/13/23 11:00: The plan for this patient is to discharge home today: patient information/order will be faxed to [facility]. Original Note: I spoke with this patient regarding plans once medically stable for discharge. Patient resides at home with his . PT/OT evaluated patient and recommended returning home w/ home health services. Patient is agreeable to home health and prefers to use [facility]. I will set up home health services once patient is medically stable for discharge. Discharge date is unknown at this time.
[2023-05-12 15:33] VITALS: BMI 26.9
[2023-05-12 16:00] VITALS: BP 144/85; PULSE 95; RESP 18; TEMP 36.6; O2SAT 98
[2023-05-12 16:42] LABS: POC Glucose,Bedside 130 (70-110)
--- NOTE | 2023-05-12 16:54 | PC.NURSE ---
Pt resting in bed. Has ambulated in [place] with assistance of PT this shift. Tolerated well. F/C draining to bedside with cloudy, yellow urine. Order reviewed with MD. Continue F/C at this time. Pt continues to have erythema to emily area. Medication administered per dec. BP has remained stable. HR tachycardic at times. FSBS is 130 this afternoon. Pt denies any discomfort. Call light within reach.
--- NOTE | 2023-05-12 16:57 | EXP.ACUTE.PN ---
Subjective *Date: 05/12/23 *Time: 16:57 Interval history: Mr. Conde is feeling better today. Having improvement in irritation of his scrotum, states his testicles are still sore but improving. Having significant urine output. Has not had a bowel movement today. Tolerating p.o. intake. Stable on room air. Medical Exam Vital signs and Labs for Last 24 Hours: Vital Signs Temp Pulse Resp BP Pulse Ox O2 Del Method 05/12/23 16:52 Room Air 05/12/23 16:00 97.8 F 95 H 18 144/85 H 98 Room Air 05/12/23 15:00 Room Air 05/12/23 12:55 Room Air 05/12/23 11:00 Room Air 05/12/23 09:00 Room Air 05/12/23 08:00 Room Air 05/12/23 08:00 98.8 F 100 H 20 153/79 H 99 Room Air 05/12/23 04:00 98.4 F 91 H 20 149/87 H 97 05/12/23 06:48 Room Air 05/12/23 05:00 Room Air 05/12/23 03:00 Room Air 05/12/23 01:00 Room Air 05/11/23 23:00 Room Air 05/11/23 21:00 Room Air 05/11/23 20:00 Room Air 05/11/23 20:00 97.6 F 93 H 16 148/76 H 99 Room Air 05/11/23 18:58 Room Air Intake and Output 05/12/23 05/12/23 05/12/23 07:59 15:59 23:59 Intake Total 480 / 480 Output Total Balance - 480 / 479 Intake: Intake, Oral Amount 480 / 480 Output: Output, Urine Amount Other: Number of Voids 0 Number of Unmeasured Voids 800 0 Weight 75.841 kg 75.841 kg Patient Weight 05/12/23 23:59 Weight 75.841 kg Laboratory Results - last 24 hr 05/11/23 20:21: POC Glucose 285 H 05/12/23 05:44: WBC 9.8 D, RBC 3.72 L, Hgb 11.5 L, Hct 34.2 L, MCV 91.9, MCH 30.9, MCHC 33.6, RDW 13.1, Plt Count 291, MPV 8.7, Neut % (Auto) 59.8, Lymph % (Auto) 28.9, Drew % (Auto) 7.2, Eos % (Auto) 3.8, Baso % (Auto) 0.3, Neut # (Auto) 5.9, Lymph # (Auto) 2.8, Drew # (Auto) 0.7, Eos # (Auto) 0.4, Baso # (Auto) 0.0, Sodium 138, Potassium 3.2 L, Chloride 109 H, Carbon Dioxide 28, Anion Gap 4.2 L, BUN 14 D, Creatinine 0.60 L, Estimated Creat Clear 64, Estimated GFR 130, Est GFR ( Amer) 157, Glucose 141 H, POC Glucose 146 H, Calcium 8.1 L 05/12/23 11:16: POC Glucose 417 H* 05/12/23 16:24: POC Glucose 130 H I & O for Labs for Last 24 Hours: Intake & Output 05/09/23 05/10/23 05/11/23 05/12/23 23:59 23:59 23:59 23:59 Intake Total 1841 / 2821 2790 / 2790 480 / 480 Output Total 2975 / 3175 2150 / 2150 Balance -1134 / -354 640 / 640 479 / 479 Weight 77.111 kg 71.441 kg 73.482 kg 75.841 kg Microbiology Reports for the Last 24 Hours: Microbiology 05/10/23 00:10 Penis Gram Stain - Final 05/10/23 00:10 Penis Wound Culture - Preliminary 05/10/23 00:00 Blood Blood Culture - Preliminary NO GROWTH AFTER 48 HOURS 05/10/23 00:05 Blood Blood Culture - Preliminary NO GROWTH AFTER 48 HOURS Additional Findings:: Head: Present atraumatic and normocephalic Neck: Present normal inspection Respiratory: Present CTA bilaterally, able to speak in complete sentences and symmetric chest movement GI: Present soft (male): Improving erythema, mild testicular tenderness. No significant scrotal swelling. Worthington in place with no discharge around catheter Extremities: Present normal inspection Skin: Present intact Neuro: Present alert, awake, oriented x 3 and moves all extremities Assessment and Plan *Assessment and plan (1) Sepsis: Status: Acute Qualifiers: Sepsis acute organ dysfunction status: without acute organ dysfunction Sepsis type: sepsis due to unspecified organism Qualified Code(s): A41.9 - Sepsis, unspecified organism Category: Medical Code(s): A41.9 - Sepsis, unspecified organism (2) Leukocytosis: Status: Acute Qualifiers: Leukocytosis type: unspecified Qualified Code(s): D72.829 - Elevated white blood cell count, unspecified Category: Medical Code(s): D72.829 - Elevated white bloo
[2023-05-12 20:00] VITALS: BP 135/68; PULSE 93; RESP 18; TEMP 36.8; O2SAT 98
[2023-05-12 20:32] LABS: POC Glucose,Bedside 304 (70-110)
[2023-05-12 22:13] LABS: Neisseria gonorrhoeae, NAA Negative (Negative)
[2023-05-13 04:00] VITALS: BMI 27.2
[2023-05-13 04:26] VITALS: BP 142/112; PULSE 92; RESP 18; TEMP 36.9; O2SAT 97
--- NOTE | 2023-05-13 05:14 | PC.NURSE ---
Patient slept most of the night. Patient did get to talk to on phone before bed. Worthington still in place. No other issues were noted by patient
[2023-05-13 06:11] LABS: Basophils % 0.3 % (0.1-2.0); Eosinophils # 0.4 K/mm3 (0.0-0.4); Eosinophils % 3.9 % (0.1-12.0); Hematocrit 34.4 % (42.0-52.0); Hemoglobin 11.6 g/dL (14.1-18.0); Lymphocytes # 2.6 K/mm3 (0.7-4.5); Mean Corpuscular HGB Conc 33.8 g/dL (31.8-35.4); Mean Corpuscular Hemoglobin 30.6 pg (27.0-31.2); Mean Corpuscular Volume 90.6 fl (80-94); Mean Platelet Volume 8.2 fl (7.4-10.4); Monocytes # 0.8 K/mm3 (0.1-1.0); Neutrophils # 7.1 K/mm3 (1.8-7.8); Neutrophils % 64.8 % (37.0-80.0); Platelet Count 274 K/mm3 (142-424)
[2023-05-13 06:15] LABS: POC Glucose,Bedside 80 (70-110)
[2023-05-13 06:17] LABS: Alanine Aminotransferase 20 U/L (12-78); Albumin Level 2.8 g/dl (3.5-5.0); Albumin/Globulin Ratio 1.2 (1.1-1.8); Alkaline Phosphatase 72 U/L (38-126); Anion Gap 5.3 mEq/L (5-15); Aspartate Amino Transferase 23 U/L (17-59); Bilirubin,Total 0.4 mg/dl (0.2-1.3); Blood Urea Nitrogen 10 mg/dl (9-20); Calcium 8.1 mg/dl (8.4-10.2); Carbon Dioxide 26 mmol/L (22.0-30.0); Chloride 111 mmol/L (98-107); Creatinine Clearance Estimated 65 mL/min (50-200); Estimated Glomerular Filt Rate 130 ml/min (>60); GFR (African American) 157 ML/MIN (>60); Globulin 2.3 g/dL (1.3-3.2); Glucose 79 mg/dl (74-100); Magnesium 1.3 mg/dl (1.6-2.3); Potassium 3.3 mmoL/L (3.5-5.1); Sodium 139 mmol/L (136-145); Total Protein,Serum 5.1 g/dl (6.3-8.2)
[2023-05-13 07:46] VITALS: BP 154/89; PULSE 63; RESP 18; TEMP 36.8; O2SAT 96
--- NOTE | 2023-05-13 08:22 | EXP.PHA.PN ---
Subjective *Date: 05/13/23 *Time: 08:22 Medical Exam Vital signs and Labs for Last 24 Hours: Vital Signs Temp Pulse Resp BP Pulse Ox O2 Del Method 05/13/23 07:46 98.2 F 63 18 154/89 H 96 Room Air 05/13/23 06:49 Room Air 05/13/23 05:00 Room Air 05/13/23 04:26 98.5 F 92 H 18 142/112 H 97 Room Air 05/13/23 03:00 Room Air 05/13/23 01:00 Room Air 05/12/23 23:00 Room Air 05/12/23 21:00 Room Air 05/12/23 20:00 Room Air 05/12/23 20:00 98.2 F 93 H 18 135/68 98 Room Air 05/12/23 18:54 Room Air 05/12/23 16:52 Room Air 05/12/23 16:00 97.8 F 95 H 18 144/85 H 98 Room Air 05/12/23 15:00 Room Air 05/12/23 12:55 Room Air 05/12/23 11:00 Room Air 05/12/23 09:00 Room Air Intake and Output 05/12/23 05/13/23 05/13/23 23:59 07:59 15:59 Intake Total 240 / 720 240 / 240 Output Total 700 / 701 3200 / 3200 Balance -460 / 19 -2960 / -2960 Intake: Intake, Oral Amount 240 / 720 240 / 240 Output: Output, Urine Amount 700 / 701 3200 / 3200 Other: Number of Unmeasured Voids 0 Number of Bowel Movements 2 Weight 76.975 kg Patient Weight 05/13/23 23:59 Weight 76.975 kg Laboratory Results - last 24 hr 05/10/23 00:22: C. trachomatis (KARENA) Negative, N. gonorrhoeae (KARENA) Negative 05/12/23 05:44: WBC 9.8 D, RBC 3.72 L, Hgb 11.5 L, Hct 34.2 L, MCV 91.9, MCH 30.9, MCHC 33.6, RDW 13.1, Plt Count 291, MPV 8.7, Neut % (Auto) 59.8, Lymph % (Auto) 28.9, Appling % (Auto) 7.2, Eos % (Auto) 3.8, Baso % (Auto) 0.3, Neut # (Auto) 5.9, Lymph # (Auto) 2.8, Appling # (Auto) 0.7, Eos # (Auto) 0.4, Baso # (Auto) 0.0 05/12/23 11:16: POC Glucose 417 H* 05/12/23 16:24: POC Glucose 130 H 05/12/23 20:23: POC Glucose 304 H* 05/13/23 05:52: WBC 11.0 H, RBC 3.80 L, Hgb 11.6 L, Hct 34.4 L, MCV 90.6, MCH 30.6, MCHC 33.8, RDW 13.0, Plt Count 274, MPV 8.2, Neut % (Auto) 64.8, Lymph % (Auto) 24.0, Appling % (Auto) 7.0, Eos % (Auto) 3.9, Baso % (Auto) 0.3, Neut # (Auto) 7.1, Lymph # (Auto) 2.6, Appling # (Auto) 0.8, Eos # (Auto) 0.4, Baso # (Auto) 0.0, Sodium 139, Potassium 3.3 L, Chloride 111 H, Carbon Dioxide 26, Anion Gap 5.3, BUN 10 D, Creatinine 0.60 L, Estimated Creat Clear 65, Estimated GFR 130, Est GFR ( Amer) 157, Glucose 79, Calcium 8.1 L, Magnesium 1.3 L, Total Bilirubin 0.4, AST 23, ALT 20 D, Alkaline Phosphatase 72, Total Protein 5.1 L, Albumin 2.8 L, Globulin 2.3, Albumin/Globulin Ratio 1.2 05/13/23 06:04: POC Glucose 80 I & O for Labs for Last 24 Hours: Intake & Output 05/10/23 05/11/23 05/12/23 05/13/23 23:59 23:59 23:59 23:59 Intake Total 1841 / 2821 2790 / 2790 720 / 720 240 / 240 Output Total 2975 / 3175 2150 / 2150 701 / 701 3200 / 3200 Balance -1134 / -354 640 / 640 -2960 / -2960 Weight 71.441 kg 73.482 kg 75.841 kg 76.975 kg Microbiology Reports for the Last 24 Hours: Microbiology 05/10/23 00:10 Penis Gram Stain - Final 05/10/23 00:10 Penis Wound Culture - Preliminary The patient's infection will respond to the chosen ABx?: Yes (PENIS WOUND = GPC/ID AND SENSITIVITY PENDING.) Is the patient receiving the right drug, dose, and route?: Yes Could a more targeted ABx be ordered?: No
--- NOTE | 2023-05-13 10:22 | EXP.DC.SUM ---
General Admission date:: 05/10/23 Discharge date: 05/13/23 HPI HPI HPI: 78 year old male presented to the ED with his neighbor. Pt c/o nausea and vomiting for two days. PMHX of DM, HTN, HLD and BPH. The patient lives at home with his . His ED workup revealed blood glucose of 488 and anion gap of 20.7. BUN of 47. leukocytosis of 18.7 and clean UA. Abdominal/ pelvis CT obtained and revealed bladder wall thickening and chronic bladder outlet obstruction. No other abdominal abnormalities noted. A1C is 11.9 Upon physical exam the pt's penis and scrotum area is extremely erythemic with greenish colored discharge coming from penis. The patient was started on cefepime and vancomycin for broad spectrum coverage. CT of abd and pelvis ruled out diego's gangrene. Would culture was obtained from penis as well as blood cultures. The ED physician spoke with the hospitalist team for further medical management and pt admission. Due to leukocytosis, elevated hate rate, and penile infection-the pt meets sepsis criteria. The pt is hemodynamically stable upon admission to medical floor. Hospital Course Hospital Course Hospital Course: 78-year-old male with history of type 2 diabetes, hypertension, hyperlipidemia, BPH presented to ER with 2 days of nausea and vomiting. In the ER patient was hyperglycemic with BG in the 400s, elevated anion gap of 20.7, some ketones in blood. He had a leukocytosis of 18.7. CT Abd/pelvis suggestive of bladder wall thickening and possible chronic bladder outlet obstruction. A1c 11.9. Exam revealing penile discharge and erythema in the perineum around the scrotum suggestive of scrotal cellulitis. CT abdomen pelvis did not show any features of Diego's gangrene. Started on cefepime and vancomycin for suspected sepsis and a possible genitourinary infection. Showed clinical improvement during admission. Urethral swab grew only yeast. Concern for significant balanitis. Catheter removed day of discharge, able to void independently but not voiding completely. Will refer to urology to follow-up as an outpatient. Stable for discharge home. Problems addressed as follows: UTI versus balanitis Sepsis, present on admission, resolved. -Patient met sepsis criteria with white cell count, source, tachycardia. Showed gradual improvement on cefepime and vancomycin. Diflucan was initiated given concern for yeast component. No speciation of cultures showing any bacterial pathogen, was transitioned however to Augmentin to complete 7-day course of antibiotics for balanitis. Continue Diflucan for total of 14 days. Also transition to topical nystatin for treating yeast infection. White cell count normalized by day of discharge. Patient overall feeling better. Blood cultures remained negative. Stable for discharge home. Will refer to urology for further management and evaluation. Concern for BPH and urinary retention. Appointment scheduled with Dr. Clark in the next month. Diabetes, uncontrolled -A1c elevated at 11.9. Complicates his infection risk. Resumed home regimen at discharge. Glucose was well controlled while using Lantus and sliding scale insulin during admission. Recommend reevaluation of regimen at follow-up with PCP. Neuropathy -Continue gabapentin 200 mg 3 times a day and tramadol 50 mg twice daily as needed Stable for discharge home. Exam Data for Last 24 hours Vital signs and Labs for Last 24 Hours: Temp Pulse Resp BP Pulse Ox O2 Del Method O2 Flow Rate 98.2 F 63 18 154/89 H 96 Room Air 97 05/13/23 07:46 05/13/23 07:46 05/13/23 07:46 05/13/23 07:46 05/13/23 07:46 05/13/23 09:00 05/10/23 07:00 Laboratory Results - last 24 hr 05/10/23 00:22: C. trachomatis (KARENA) Negative, N. gonorrhoeae (KARENA) Negative 05/12/23 11:16: POC Glucose 417 H* 05/12/23 16:24: POC Glucose 130 H 05/12/23 20:23: POC Glucose 304 H* 05/13/23 05:52: WBC 11.0 H, RBC 3.80 L, Hgb 11.6 L, Hct 34.4 L, MCV 90.6, MCH 30.6, MC
[2023-05-13 11:06] LABS: POC Glucose,Bedside 265 (70-110)
--- NOTE | 2023-05-13 11:43 | HMH.PHAINT1 ---
Pharmacy Intervention Comments: Discharge medications were reviewed with patient. -Amox/clav (watch for N/D) -Fluconazole and nystatin topical Ja Silva, PharmD student
[2023-05-13 16:43] LABS: POC Glucose,Bedside 167 (70-110)
--- NOTE | 2023-05-15 14:49 | CARE MANAGER ---
Attempted to contact patient x2 related to hospital discharge. No VM option. NILSA Cabral
== END 2023-05-13 17:25 | disposition home health service (06) | DRG 871 ==
LOC: ER 23:56 → 2ND 05-10 01:52
PROVIDERS: Internal Medicine; Internal Medicine Adolescent Medicine; Nurse Practitioner Critical Care Medicine; Admitting Provider Internal Medicine; Emergency Provider Emergency Medicine; PCP Family Medicine; Visit Provider Internal Medicine
DX: A41.9 Sepsis, unspecified organism (principal); E11.10 Type 2 diabetes mellitus with ketoacidosis without coma; N30.00 Acute cystitis without hematuria; E87.29 Other acidosis; E87.1 Hypo-osmolality and hyponatremia; B37.7 Candidal sepsis; R36.9 Urethral discharge, unspecified; N49.2 Inflammatory disorders of scrotum; E86.0 Dehydration; N40.0 Benign prostatic hyperplasia without lower urinary tract symptoms; E78.5 Hyperlipidemia, unspecified; N40.1 Benign prostatic hyperplasia with lower urinary tract symptoms; R33.8 Other retention of urine; E11.65 Type 2 diabetes mellitus with hyperglycemia; E11.22 Type 2 diabetes mellitus with diabetic chronic kidney disease; I12.9 Hypertensive chronic kidney disease with stage 1 through stage 4 chronic kidney disease, or unspecified chronic kidney disease; N18.9 Chronic kidney disease, unspecified; E11.40 Type 2 diabetes mellitus with diabetic neuropathy, unspecified; N48.1 Balanitis
CPT/HCPCS: 36415; 51702; 71045; 74177; 80048; 80053; 81001; 82009; 82962; 83036; 83605; 83690; 83735; 84484; 85007; 85025; 86140; 87040; 87070; 87077; 87186; 87205; 87491; 87591; 93005; 97116; 97163; 99285; J2405; J3475; Q9967

== ENCOUNTER → 2023-06-20 16:13 | Outpatient (CLI) | payer MEDICARE, MEDICAID, SELFPAY ==
[2023-06-20 17:03] LABS: Microscopic, Urine URINE MICROSCOPIC (MICROSCOPIC)
[2023-06-20 18:07] LABS: Appearance,Urine Clear (Clear); Color,Urine Yellow (Yellow)
[2023-06-20 18:08] LABS: Bacteria,Urine 4+ /lpf; Bilirubin,Urine Negative (Negative); Blood, Urine 2+ (Negative); Glucose,Urine (UA) 3+ (Negative); Ketones,Urine Negative (Negative); Leukocyte Esterase,Urine Trace (Negative); Nitrate,Urine Positive (Negative); Protein,Urine 2+ (Negative); Specific Gravity, Urine 1.025 (1.005-1.030); Squamous Epithelial Cell,Urine Occasional #/hpf (0-5); Urobilinogen,Urine 0.2 EU/dl (0.2)
== END ==
PROVIDERS: PCP Family Medicine; Visit Provider Family Medicine
DX: N39.0 Urinary tract infection, site not specified (principal); R82.90 Unspecified abnormal findings in urine; B96.89 Other specified bacterial agents as the cause of diseases classified elsewhere; B96.1 Klebsiella pneumoniae [K. pneumoniae] as the cause of diseases classified elsewhere
CPT/HCPCS: 81001; 87086; 87088; 87186

== ENCOUNTER 2023-07-21 21:52 | Inpatient (IN) | payer MEDICARE, MEDICAID, SELFPAY ==
[2023-07-21 21:52] VITALS: BP 143/101; PULSE 112; RESP 22; TEMP 36.9; O2SAT 100; BMI 25.8
--- NOTE | 2023-07-21 21:56 | XR_ITS ---
PROCEDURE INFORMATION: Exam: XR Chest Exam date and time: 07/21/2023 10:38 PM Age: 78 years old Clinical indication: Other: Nausea and vomiting; Additional info: Recent surgery, sick TECHNIQUE: Imaging protocol: Radiologic exam of the chest. Views: 1 view. COMPARISON: CR XR CHEST PORTABLE 05/10/2023 12:28 AM FINDINGS: Lungs: Unremarkable. No consolidation. Pleural spaces: Unremarkable. No pleural effusion. No pneumothorax. Heart/Mediastinum: Unremarkable. No cardiomegaly. Bones/joints: Unremarkable. IMPRESSION: No acute findings.
--- NOTE | 2023-07-21 21:56 | CT_ITS ---
PROCEDURE INFORMATION: Exam: CT Abdomen And Pelvis With Contrast Exam date and time: 07/21/2023 11:01 PM Age: 78 years old Clinical indication: Abdominal pain; Prior surgery; Surgery date: <1 month; Surgery type: Prostatectomy 07/02; Additional info: Abdominal pain, postop prostatectomy TECHNIQUE: Imaging protocol: Computed tomography of the abdomen and pelvis with contrast. Radiation optimization: All CT scans at this facility use at least one of these dose optimization techniques: automated exposure control; mA and/or kV adjustment per patient size (includes targeted exams where dose is matched to clinical indication); or iterative reconstruction. Contrast material: ISOVUE; Contrast volume: 75 ml; Contrast route: IV; REPORTING DATA: Count of CT and Cardiac NM exams in prior 12 months: This patient has received [address] and 0 known cardiac nuclear medicine studies in the 12 months prior to the current study. COMPARISON: CT ABDOMEN PELVIS W CON 05/10/2023 2:15 AM FINDINGS: Liver: Mild fatty liver infiltration. Gallbladder and bile ducts: Normal. No calcified stones. No ductal dilation. Pancreas: Coarse calcification in pancreatic parenchymal with chronic pancreatic ductal dilatation and pancreatic atrophy. No peripancreatic inflammatory fat stranding seen. Spleen: Normal. No splenomegaly. Adrenal glands: Normal. No mass. Kidneys and ureters: Bilateral renal cysts measuring up to 4.5 cm in right kidney. Stomach and bowel: Unremarkable. No obstruction. No mucosal thickening. Appendix: No evidence of appendicitis. Intraperitoneal space: Unremarkable. No free air. No significant fluid collection. Vasculature: Atherosclerotic calcification of aortoiliac arteries. Lymph nodes: Unremarkable. No enlarged lymph nodes. Urinary bladder: Concentric urinary bladder wall thickening with mild pericystic fat stranding. Small intraluminal air collection in urinary bladder lumen. Reproductive: Heterogeneously enlarged prostate. Bones/joints: Multilevel degenerative disc and joint space changes. Chronic grade 2 L4 on L5 degenerative anterolisthesis. Chronic bilateral L4 pars interarticularis defects. Soft tissues: Unremarkable. IMPRESSION: 1. Sequela of chronic pancreatitis. No evidence for active pancreatitis. 2. Fatty liver infiltration. 3. Urinary bladder wall thickening with mild pericystic fat stranding. Query symptoms of low-grade cystitis. 4. Air within urinary bladder lumen likely reflecting sequela of instrumentation. 5. Fatty liver infiltration. COMMENTS: Consistent with the [employer]'s Incidental Findings Committee white paper (J Am Francesca Radiol 2018): Any incidental renal lesion less than 1 cm or classified as too small to characterize, or any incidental cystic renal lesion characterized as simple-appearing, is likely benign. No follow-up imaging is recommended for these lesions per consensus recommendations based on imaging criteria.
--- NOTE | 2023-07-21 21:57 | PC.NURSE ---
Bed side finger stick on arrival read HIGH
[2023-07-21 22:06] LABS: Basophils % 0.3 % (0.1-2.0); Eosinophils % 0.1 % (0.1-12.0); Hematocrit 43.7 % (42.0-52.0); Hemoglobin 13.9 g/dL (14.1-18.0); Lymphocytes # 1.7 K/mm3 (0.7-4.5); Lymphocytes % 13.9 % (10-50); Mean Corpuscular HGB Conc 31.9 g/dL (31.8-35.4); Mean Corpuscular Hemoglobin 30.5 pg (27.0-31.2); Mean Corpuscular Volume 95.5 fl (80-94); Mean Platelet Volume 8.4 fl (7.4-10.4); Monocytes # 0.4 K/mm3 (0.1-1.0); Monocytes % 3.1 % (1.7-9.3); Neutrophils # 10.3 K/mm3 (1.8-7.8); Neutrophils % 82.6 % (37.0-80.0); Platelet Count 459 K/mm3 (142-424); Red Blood Count 4.58 M/mm3 (4.60-6.20); Red Cell Distribution Width 13.5 % (11.5-17.5); White Blood Count 12.5 K/mm3 (4.8-10.8)
[2023-07-21 22:13] LABS: Chloride 90 mmol/L (98-107); Sodium 135 mmol/L (136-145)
[2023-07-21 22:14] LABS: Potassium 4.9 mmoL/L (3.5-5.1)
[2023-07-21 22:16] LABS: Alanine Aminotransferase 37 U/L (12-78); Alkaline Phosphatase 142 U/L (38-126); Anion Gap 39.9 mEq/L (5-15); Aspartate Amino Transferase 34 U/L (17-59); Bilirubin,Total 0.6 mg/dl (0.2-1.3); Blood Urea Nitrogen 38 mg/dl (9-20); Creatinine Clearance Estimated 50 mL/min (50-200); Estimated Glomerular Filt Rate 53 ml/min (>60); GFR (African American) 64 ML/MIN (>60)
[2023-07-21 22:17] LABS: Acetone, Serum (Rapid) Large (None Detect); Albumin Level 4.5 g/dl (3.5-5.0); Albumin/Globulin Ratio 1.6 (1.1-1.8); Globulin 2.9 g/dL (1.3-3.2); Lactic Acid 3.2 mmol/L (0.7-2.1); Total Protein,Serum 7.4 g/dl (6.3-8.2)
[2023-07-21 22:23] LABS: Lipase 76 U/L (23-300)
[2023-07-21 22:29] LABS: Carbon Dioxide 10 mmol/L (22.0-30.0); Glucose 662 mg/dl (74-100)
--- NOTE | 2023-07-21 22:31 | PC.NURSE ---
Reported critical lab results of CO2 10 and glucose [address] Zepeda. Spoke with Lawson PHARMD who confirmed and placed order for Vanc dosing of 1500mg.
[2023-07-21 22:32] LABS: Troponin I 0.01 ng/ml (0.00-0.034)
--- NOTE | 2023-07-21 22:32 | ECG_ITS ---
APPROVED REPORT Exam: Resting ECG HR:125 bpm ECG Measurements Heart Rate 125 AXES QRSd 128 QRS 251 QT 317 T -7 QTc 391 Conclusion ATRIAL FLUTTER/TACHYCARDIA WITH RAPID VENTRICULAR RESPONSE RIGHT AXIS DEVIATION [QRS AXIS > 100] RIGHT BUNDLE BRANCH BLOCK [120+ ms QRS DURATION, UPRIGHT V1, 40+ ms S IN I/aVL/V4/V5/V6] INFERIOR MYOCARDIAL INFARCTION , OF INDETERMINATE AGE [40+ ms Q WAVE AND/OR ST/T ABNORMALITY IN II/aVF] ABNORMAL ECG UNCONFIRMED REPORT Electronically signed by : Ez Mcbride MD 07/23/2023 08:50:56
[2023-07-21 22:38] LABS: VBG Base Excess -18.6 mmol/L (-2.4-2.3); VBG HCO3 9.4 mmol/L (23-30); VBG Oxygen Saturation 76.9 % (50-70); VBG PO2 47.8 mmol/L (28-40); VBG Total CO2 10.2 mmol/L (23-27)
--- NOTE | 2023-07-21 22:42 | PC.NURSE ---
Critical lab value called from -[facility] results: Ph- 7.20 PCO2-24.9 PO2-47.8 Bicarb- 9.4 O2 Sat-76.9 RN and notified. CR
[2023-07-21 22:44] LABS: VBG PCO2 24.9 mmol/L (35-51)
--- NOTE | 2023-07-21 22:48 | HMH.EDGENADL ---
Discharge Plan Disposition Patient Disposition: Admitted Condition: Fair Clinical Impressions Clinical Impression: DKA (diabetic ketoacidosis), Sepsis, Acute UTI, SABRINA (acute kidney injury) Discharge ED Provider: Lyric Zepeda General Adult HPI General Chief complaint: Abdominal Pain Stated complaint: Pain Time Seen by Provider: 07/21/23 21:53 Mode of Arrival: EMS Source of Information: Patient and EMS Limitations: No Limitations Description of Symptoms (Recalled from ER Triage Doc. by RN): Pt reports a burning sensation across his lower abdomen. Pt had a recent prostate surgery on 07/02 states he has increased urination,frequency, denies any pain or blood. LBM 2-3 days ago, has had trouble with constipation over past month. History of Present Illness HPI narrative: This patient is a 78-year-old male with a history of insulin-dependent diabetes, hypertension, hyperlipidemia, and BPH status post prostatectomy presenting to the emergency department for evaluation with concern for abdominal pain, nausea, and vomiting. Patient is brought in by EMS. patient reports that his prostate surgery was on 07/02/2023. He states that his Worthington catheter came out on Friday. Since then, he has been incontinent. He notes that he has had lower abdominal pain and constipation since the surgery. He notes that since this morning, he has not been able to keep anything down. Given this, he did not take any of his insulin today. He notes he has not been keeping a great eye on his blood sugar at home EMS reports that the patient was tachycardic but normotensive in route. Related Data Home Medications Medication Instructions Recorded Confirmed tramadol 50 mg tablet 50 mg PO BIDP PRN Moderate Pain 08/24/20 05/10/23 gabapentin 100 mg capsule 200 mg PO TID neuropathic pain 05/10/23 05/10/23 hydrochlorothiazide 25 mg tablet 25 mg PO DAILY Edema 05/10/23 05/10/23 insulin glargine 100 unit/mL (3 50 unit SQ DAILY Diabetes 05/10/23 05/10/23 mL) subcutaneous pen metformin 500 mg tablet 500 mg PO BID Diabetes 05/10/23 05/10/23 Previous Rx's Medication Instructions Recorded glipizide 10 mg tablet, extended 10 mg PO BID Diabetes 30 days #60 08/25/20 release 24 hr tabs pravastatin 40 mg tablet 40 mg PO HS High cholesterol 30 08/25/20 days #30 tabs sitagliptin phosphate 100 mg tablet 100 mg PO DAILY Diabetes 30 days 08/25/20 #30 tabs tamsulosin 0.4 mg capsule 0.4 mg PO HS prostate 30 days #30 08/25/20 caps amoxicillin 875 mg-potassium 1 tab PO BID 3 days #6 tabs 05/13/23 clavulanate 125 mg tablet finasteride 5 mg tablet 5 mg PO DAILY 30 days #30 tabs 05/13/23 fluconazole 100 mg tablet 100 mg PO DAILY 10 days #10 tabs 05/13/23 nystatin 100,000 unit/gram topical 1 applic topical QID 10 days #15 05/13/23 powder grams Allergies Allergy/AdvReac Type Severity Reaction Status Date / Time No Known Allergies Allergy Unverified 09/29/20 14:54 [facility] Disclaimer: The information contained in this section may have been updated after the patient was seen, as this information can be updated by other users. Social History Smoking Status: Current every day smoker alcohol intake: former substance use type: denies use current occupational status: retired Travel in the last 8 weeks: None household members: spouse housing: house ROS Obtained: Yes All systems reviewed & no additional complaints except as documented Physical Exam General General appearance: alert and in no apparent distress Comment: Ill-appearing Head Head exam: atraumatic and normocephalic Eye Eye exam: Present normal appearance, PERRL and EOMI ENT ENT exam: Present normal oropharynx, mucous membranes dry and normal external ear exam Neck Neck exam: Present normal inspection, full ROM and trachea midline; Absent tenderness Chest Chest inspection: Present normal inspection and symmetric chest wall rise; A
[2023-07-21 22:54] LABS: Magnesium 2.1 mg/dl (1.6-2.3)
--- NOTE | 2023-07-21 22:55 | PC.NURSE ---
Per DKA protocol NaCl with 20meq KCL for maintenance fluids to be ran @ 150ml/hr (pt K+ 4.9) ok per Dr Zepeda. Anabell reyes sup advised
--- NOTE | 2023-07-21 23:37 | PC.NURSE ---
Called [facility] about transfer for follow up care. Dr Wesley to call back nu. Notified Dr Zepeda that [facility] does have one ICU bed available and will call back once able to speak with the Hospitalist. JACKI
[2023-07-21 23:51] LABS: Microscopic, Urine URINE MICROSCOPIC (MICROSCOPIC)
[2023-07-21 23:52] LABS: Bilirubin,Urine Negative (Negative); Blood, Urine 2+ (Negative); Color,Urine YELLOW (Yellow); Glucose,Urine (UA) 3+ (Negative); Ketones,Urine 3+ (Negative); Leukocyte Esterase,Urine 1+ (Negative); Nitrate,Urine Negative (Negative); Protein,Urine 1+ (Negative); Urobilinogen,Urine 0.2 EU/dl (0.2)
--- NOTE | 2023-07-21 23:53 | PC.NURSE ---
Dr Clark called back, speaking to Dr Zepeda. CR
[2023-07-21 23:54] LABS: Appearance,Urine Slightly Cloudy (Clear)
[2023-07-22] VITALS (19 sets, daily range): BP systolic 125–159; BP diastolic 55–100; PULSE 80–130; RESP 16–20; TEMP 36.5–36.9; O2SAT 97–100; BMI 22.9
--- NOTE | 2023-07-22 | PC.NURSE ---
Insulin drip increased by 50% according to protocol. 7.78u increased to 11.67u
--- NOTE | 2023-07-22 00:02 | PC.NURSE ---
ER MD spoke with hospital medicine regarding admission. pt has been accepted and being admitted for DKA and Sepsis. Spoke with household appliances service technician regarding bed assignment
[2023-07-22 00:06] LABS: WBC,Urine 20-50 #/hpf (0-3)
--- NOTE | 2023-07-22 00:28 | EXP.HP ---
History of Present Illness *Admission Date: 07/22/23 *Reason for visit:: DKA, Sepsis, UTI *History of present illness: 78-year-old male presented to the ED at [facility] via ems for c/o abd pain, nausea and vomiting. PMHX of insulin-dependent diabetes, hypertension, hyperlipidemia, and BPH status post prostatectomy. Patient reports that his prostate surgery was on 07/02/2023 at [facility]. HE reports that his henson was removed Friday. He notes that he has had lower abdominal pain and constipation since the surgery and incontinence since friday. He has been vomiting since yesterday morning. Reports not taking insulin today. The ED work up revealed a leukocytosis of 12.5, elevated HR, and positive UA with 20-50 WBC and 1+ leukocyte. His BMP revealed a glucose of 662, Anion gap of 39.9, and large amounts of acetone. His VBG reveals metabolic acidosis. He is also demonstrating an SABRINA with a creatinine of 1.30. He had another henson placed with successful urine return in the ED. Dr. Zepeda spoke with Dr. Clark at [facility] and reported that pt did not need transferred related to s/p prostatectomy. He was started on the DKA protocol and received 2L of LR bolus. His urine and blood cultures are pending. He was started on zosyn 3.375mg and vancomycin. [facility] Disclaimer: The information contained in this section may have been updated after the patient was seen, as this information can be updated by other users. Social History (Updated 07/22/23 @ 01:14 by Lauren Ambrosio RN) Smoking Status: Current every day smoker alcohol intake: former substance use type: denies use current occupational status: retired Travel in the last 8 weeks: None household members: spouse housing: house Review of Systems *Cardiovascular Cardiovascular: Reports system reviewed and no additional complaints, except as documented *Respiratory Respiratory: Reports system reviewed and no additional complaints, except as documented *Gastrointestinal Gastrointestinal: Reports nausea and Reports vomiting *Genitourinary Genitourinary: Reports urinary incontinence *Musculoskeletal Musculoskeletal: Reports muscle weakness *Neurologic Neurologic: Reports system reviewed and no additional complaints, except as documented Meds Home Medications and Allergies Home Medications Medication Instructions Recorded Confirmed Type tramadol 50 mg tablet 50 mg PO TID Pain 08/24/20 07/22/23 History glipizide 10 mg tablet, extended 10 mg PO BID Diabetes 30 days #60 08/25/20 07/22/23 Rx release 24 hr tabs pravastatin 40 mg tablet 40 mg PO HS High cholesterol 30 08/25/20 07/22/23 Rx days #30 tabs sitagliptin phosphate 100 mg tablet 100 mg PO DAILY Diabetes 30 days 08/25/20 07/22/23 Rx #30 tabs tamsulosin 0.4 mg capsule 0.4 mg PO HS prostate 30 days #30 08/25/20 07/22/23 Rx caps gabapentin 100 mg capsule 200 mg PO TID neuropathic pain 05/10/23 07/22/23 History hydrochlorothiazide 25 mg tablet 25 mg PO DAILY Fluid 05/10/23 07/22/23 History insulin glargine 100 unit/mL (3 50 unit SQ DAILY Diabetes 05/10/23 07/22/23 History mL) subcutaneous pen metformin 500 mg tablet 500 mg PO BIDWMEAL Diabetes 05/10/23 07/22/23 History finasteride 5 mg tablet 5 mg PO DAILY Prostate 07/22/23 07/22/23 History New Prescriptions to Start Prescriptions: Allergies Allergy/AdvReac Type Severity Reaction Status Date / Time No Known Allergies Allergy Unverified 09/29/20 14:54 Exam Data for Last 24 hours Vital signs and Labs for Last 24 Hours: Temp Pulse Resp BP Pulse Ox O2 Del Method 98.5 F 112 H 22 143/101 H 100 Room Air 07/21/23 21:52 07/21/23 21:52 07/21/23 21:52 07/21/23 21:52 07/21/23 21:52 07/21/23 21:52 Laboratory Results - last 24 hr 07/21/23 21:50: WBC 12.5 H, RBC 4.58 L, Hgb 13.9 L, Hct 43.7, MCV 95.5 H, MCH 30.5, MCHC 31.9, RDW 13.5, Plt Count 459 H, MPV 8.4, Neut % (Auto) 82.6 H, Lymph % (Auto) 13.9, [place] % (Auto) 3.1, Eos % (Auto) 0.1, Baso
--- NOTE | 2023-07-22 00:40 | PC.NURSE ---
Patient arrived to floor via stretcher at 00:38.
[2023-07-22 00:41] LABS: Troponin I < 0.01 ng/ml (0.00-0.034)
[2023-07-22 00:48] LABS: Anion Gap 42.6 mEq/L (5-15); Blood Urea Nitrogen 37 mg/dl (9-20); Calcium 9.7 mg/dl (8.4-10.2); Chloride 89 mmol/L (98-107); Creatinine Clearance Estimated 50 mL/min (50-200); Estimated Glomerular Filt Rate 53 ml/min (>60); GFR (African American) 64 ML/MIN (>60); Potassium 4.6 mmoL/L (3.5-5.1); Sodium 133 mmol/L (136-145)
[2023-07-22 00:51] LABS: Carbon Dioxide 6 mmol/L (22.0-30.0); Glucose 621 mg/dl (74-100)
[2023-07-22 01:37] LABS: Reflex Lactic Add Lactic Reflex
[2023-07-22 02:23] LABS: POC Glucose,Bedside 471 (70-110)
[2023-07-22 02:42] LABS: Anion Gap 37.8 mEq/L (5-15); Blood Urea Nitrogen 38 mg/dl (9-20); Calcium 9.7 mg/dl (8.4-10.2); Chloride 92 mmol/L (98-107); Creatinine Clearance Estimated 45 mL/min (50-200); Estimated Glomerular Filt Rate 53 ml/min (>60); GFR (African American) 64 ML/MIN (>60); Potassium 3.8 mmoL/L (3.5-5.1); Sodium 136 mmol/L (136-145)
[2023-07-22 02:44] LABS: Carbon Dioxide 10 mmol/L (22.0-30.0); Glucose 440 mg/dl (74-100)
[2023-07-22 03:27] LABS: POC Glucose,Bedside 386 (70-110)
[2023-07-22 03:57] LABS: Hemoglobin A1C 12.2 % (4.0-6.0)
[2023-07-22 04:00] LABS: Reflex Lactic (2 hrs) Add Lactic Reflex
[2023-07-22 04:23] LABS: Basophils % 0.2 % (0.1-2.0); Hematocrit 36.9 % (42.0-52.0); Lymphocytes % 16.4 % (10-50); Mean Corpuscular HGB Conc 32.9 g/dL (31.8-35.4); Mean Corpuscular Hemoglobin 30.1 pg (27.0-31.2); Mean Corpuscular Volume 91.4 fl (80-94); Mean Platelet Volume 8.1 fl (7.4-10.4); Monocytes % 5.6 % (1.7-9.3); Neutrophils % 77.7 % (37.0-80.0); Platelet Count 450 K/mm3 (142-424); Red Blood Count 4.04 M/mm3 (4.60-6.20); Red Cell Distribution Width 13.7 % (11.5-17.5)
[2023-07-22 04:26] LABS: Lactic Acid Follow up (RFLX 2) 2.7 mmol/L (0.7-2.1); MANUAL DIFFERENTIAL MANUAL DIFFERENTIAL (MANUAL DIFF)
[2023-07-22 04:34] LABS: Hemoglobin 12.2 g/dL (14.1-18.0)
[2023-07-22 04:38] LABS: Troponin I 0.03 ng/ml (0.00-0.034)
[2023-07-22 04:45] LABS: POC Glucose,Bedside 335 (70-110)
[2023-07-22 05:22] LABS: POC Glucose,Bedside 269 (70-110)
[2023-07-22 05:51] LABS: Lymphocytes % 15 % (10-50); Monocytes % 2 % (2-9); Neutrophils % 76 % (42-76); Platelet Estimate Normal; RBC Morphology Normal; Total Cells Counted 100
[2023-07-22 06:51] LABS: Basophils % 0.2 % (0.1-2.0); Hematocrit 32.9 % (42.0-52.0); Hemoglobin 11.2 g/dL (14.1-18.0); Lymphocytes # 3.2 K/mm3 (0.7-4.5); Lymphocytes % 18.6 % (10-50); Mean Corpuscular HGB Conc 34.1 g/dL (31.8-35.4); Mean Corpuscular Hemoglobin 30.5 pg (27.0-31.2); Mean Corpuscular Volume 89.6 fl (80-94); Mean Platelet Volume 7.8 fl (7.4-10.4); Neutrophils # 12.7 K/mm3 (1.8-7.8); Neutrophils % 75.1 % (37.0-80.0); Platelet Count 415 K/mm3 (142-424); Red Blood Count 3.67 M/mm3 (4.60-6.20); Red Cell Distribution Width 13.5 % (11.5-17.5); White Blood Count 16.9 K/mm3 (4.8-10.8)
[2023-07-22 06:58] LABS: Chloride 101 mmol/L (98-107)
[2023-07-22 06:59] LABS: Potassium 3.3 mmoL/L (3.5-5.1); Sodium 135 mmol/L (136-145)
[2023-07-22 07:01] LABS: Blood Urea Nitrogen 40 mg/dl (9-20); Creatinine Clearance Estimated 53 mL/min (50-200); Estimated Glomerular Filt Rate 65 ml/min (>60); GFR (African American) 78 ML/MIN (>60)
[2023-07-22 07:02] LABS: Anion Gap 18.3 mEq/L (5-15); Calcium 8.4 mg/dl (8.4-10.2); Carbon Dioxide 19 mmol/L (22.0-30.0); Glucose 204 mg/dl (74-100)
--- NOTE | 2023-07-22 07:05 | EXP.SEPSISRE ---
[facility] Tissue Perfusion Eval Sepsis Re-Evaluation Performed: Yes Date Performed: 07/22/23 Time Performed: 04:00
[2023-07-22 07:13] LABS: POC Glucose,Bedside 216 (70-110)
[2023-07-22 07:13] LABS: POC Glucose,Bedside 237 (70-110)
--- NOTE | 2023-07-22 07:18 | HMH.PHAINT1 ---
Pharmacy Intervention Comments: MEDICATION RECONCILIATION COMPLETED ON PATIENT USING EXTERNAL FILL HISTORY FROM PHARMACY AND DISCHARGE SUMMARY FROM PREVIOUS ADMISSION. -HEMA WINCHESTER, MARITAD
--- NOTE | 2023-07-22 07:56 | EXP.PHA.CONS ---
Pharmacy Consult Date: 07/22/23 Time: 07:56 Referring provider: DR. MAJOR Reason for Consult:: VANCOMYCIN DOSING Allergies Allergy/AdvReac Type Severity Reaction Status Date / Time No Known Allergies Allergy Unverified 09/29/20 14:54 Home Medications Medication Instructions Recorded Confirmed Type tramadol 50 mg tablet 50 mg PO TID Pain 08/24/20 07/22/23 History glipizide 10 mg tablet, extended 10 mg PO BID Diabetes 30 days #60 08/25/20 07/22/23 Rx release 24 hr tabs pravastatin 40 mg tablet 40 mg PO HS High cholesterol 30 08/25/20 07/22/23 Rx days #30 tabs sitagliptin phosphate 100 mg tablet 100 mg PO DAILY Diabetes 30 days 08/25/20 07/22/23 Rx #30 tabs tamsulosin 0.4 mg capsule 0.4 mg PO HS prostate 30 days #30 08/25/20 07/22/23 Rx caps gabapentin 100 mg capsule 200 mg PO TID neuropathic pain 05/10/23 07/22/23 History hydrochlorothiazide 25 mg tablet 25 mg PO DAILY Fluid 05/10/23 07/22/23 History insulin glargine 100 unit/mL (3 50 unit SQ DAILY Diabetes 05/10/23 07/22/23 History mL) subcutaneous pen metformin 500 mg tablet 500 mg PO BIDWMEAL Diabetes 05/10/23 07/22/23 History finasteride 5 mg tablet 5 mg PO DAILY Prostate 07/22/23 07/22/23 History New Prescriptions to Start Prescriptions: Height: 1.73 m Weight: 68.663 kg Laboratory Results:: Laboratory Results - last 24 hr 07/21/23 21:50: WBC 12.5 H, RBC 4.58 L, Hgb 13.9 L, Hct 43.7, MCV 95.5 H, MCH 30.5, MCHC 31.9, RDW 13.5, Plt Count 459 H, MPV 8.4, Neut % (Auto) 82.6 H, Lymph % (Auto) 13.9, [place] % (Auto) 3.1, Eos % (Auto) 0.1, Baso % (Auto) 0.3, Neut # (Auto) 10.3 H, Lymph # (Auto) 1.7, [place] # (Auto) 0.4, Eos # (Auto) 0.0, Baso # (Auto) 0.0, Sodium 135 L, Potassium 4.9, Chloride 90 L, Carbon Dioxide 10 L, Anion Gap 39.9 H, BUN 38 H, Creatinine 1.30 H, Estimated Creat Clear 50, Estimated GFR 53 L, Est GFR ( Amer) 64, Glucose 662 H*, Lactate 3.2 H, Calcium 10.0, Magnesium 2.1, Total Bilirubin 0.6, AST 34, ALT 37, Alkaline Phosphatase 142 H, Troponin I 0.01, Total Protein 7.4 D, Albumin 4.5, Globulin 2.9, Albumin/Globulin Ratio 1.6, Lipase 76, Acetone Level Large 07/21/23 21:56: VBG pH 7.20 L, VBG pCO2 24.9 L, VBG pO2 47.8 H, VBG HCO3 9.4 L, VBG Total CO2 10.2 L, VBG O2 Saturation 76.9 H, VBG Base Excess -18.6 L 07/21/23 23:41: Urine Color Yellow, Urine Appearance Slightly cloudy, Urine pH 6.0, Ur Specific [place] 1.020, Urine Protein 1+, Urine Glucose (UA) 3+, Urine Ketones 3+, Urine Blood 2+, Urine Nitrate Negative, Urine Bilirubin Negative, Urine Urobilinogen 0.2, Ur Leukocyte Esterase 1+ A, Urine RBC 10-20, Urine WBC 20-50, Ur Squamous Epith Cells 5-10, Urine Bacteria None 07/21/23 23:59: Sodium 133 L, Potassium 4.6, Chloride 89 L, Carbon Dioxide 6 L* D, Anion Gap 42.6 H, BUN 37 H, Creatinine 1.30 H, Estimated Creat Clear 50, Estimated GFR 53 L, Est GFR ( Amer) 64, Glucose 621 H*, Calcium 9.7 07/22/23 00:00: Hemoglobin A1c 12.2 H, Troponin I < 0.01 07/22/23 02:05: Sodium 136, Potassium 3.8, Chloride 92 L, Carbon Dioxide 10 L D, Anion Gap 37.8 H, BUN 38 H, Creatinine 1.30 H, Estimated Creat Clear 45, Estimated GFR 53 L, Est GFR ( Amer) 64, Glucose 440 H* D, Lactate 3.0 H, Calcium 9.7 07/22/23 02:07: POC Glucose 471 H* 07/22/23 03:19: POC Glucose 386 H* 07/22/23 03:58: POC Glucose 335 H* 07/22/23 04:10: WBC 18.0 H D, RBC 4.04 L, Hgb 12.2 L D, Hct 36.9 L, MCV 91.4, MCH 30.1, MCHC 32.9, RDW 13.7, Plt Count 450 H, MPV 8.1, Neut % (Auto) 77.7, Lymph % (Auto) 16.4, [place] % (Auto) 5.6, Eos % (Auto) 0.0 L, Baso % (Auto) 0.2, Neut # (Auto) 14.0 H, Lymph # (Auto) 3.0, [place] # (Auto) 1.0, Eos # (Auto) 0.0, Baso # (Auto) 0.0, Total Counted 100, Neutrophils % (Manual) 76, Band Neutrophils % 7.0, Lymphocytes % (Manual) 15, Monocytes % (Manual) 2, Platelet Estimate Normal, RBC Morphology Normal, Lactate 2.7 H, Troponin I 0.03 07/22/23 05:12: POC Glucose 269 H 07/22/23 06:12: POC Glucose 237 H 07/22/23 06:27: WBC 16.9 H, RBC 3.67 L, Hgb 11.2 L, Hct 32.9 L, MCV 89.
[2023-07-22 08:12] LABS: POC Glucose,Bedside 167 (70-110)
[2023-07-22 10:14] LABS: POC Glucose,Bedside 207 (70-110)
--- NOTE | 2023-07-22 11:28 | HMH.PTEV ---
Physical Therapy Evaluation Rehab PT IP Evaluation Start: 07/22/23 01:19 Freq: ONCE Status: Active Protocol: Document 07/22/23 11:23 PHOJOSIANE (Rec: 07/22/23 11:27 PHORNE [id number]) Subjective/History History History 78 yowm adm to [facility] with Sepsis and DKA. He has hx of DM, HTN , HLD. He lives with spouse, no steps to enter the home and is generally independent with all mobility with cane or RW as needed. His spouse assists with all ADLs at baseline. Subjective Subjective Pt reports, I just feel really bad right now. I just don't think I can do much. New diagnosis of cancer in past 12 No months? Rehab PT IP Eval Objective Appearance Patient Behavior Appropriate Patient Orientation Person,Place,Time Difficulty following instructions none Speech Pattern Clear Ambulation Patient Able to Ambulate No Balance Ability to Arise Able, uses arms to help Sitting Balance Steady, safe Dynamic Sitting Balance Ability Good Transfers Bed Transfer Ability Minimal x 1 (25% assist) ROM All Extremities PT ROM Status WFL MMT All Extremities PT MMT WFL Rehab PT IP prob,goals,plan Problems Date of Evaluation: 07/22/23 PT IP Problems Bed Mobility,Transfers,Gait Rehab Potential Rehab Potential Good Plan PT Intervention Plan Bed Mobility,Transfers,Gait, Therapeutic Exercise PT Plan Frequency Daily Duration LOS Discharge Goals Bed Transfer Ability Contact Guard/Hand Hold Sit to Stand Chair Transfer Ability Minimal x 1 (25% assist) Ambulation Assistive Device Rolling Walker Ambulation Distance (feet) 10 Discharge Plan PT Discharge Plan Pt is currently most appropriate for rehab placement once medically stable. He may improve enough to return home with assist from his , if his ambulation improves significantly. Eval Complexity Eval Charge Codes 44192 - High Complexity PHYSICIAN CERTIFICATION: I certify the specified therapy services for Venancio Conde are required, authorized, and reviewed every 30 days.
[2023-07-22 11:38] LABS: Acetone, Serum (Rapid) Small (None Detect)
[2023-07-22 11:53] LABS: Chloride 102 mmol/L (98-107); Potassium 4.2 mmoL/L (3.5-5.1); Sodium 133 mmol/L (136-145)
[2023-07-22 11:56] LABS: Anion Gap 13.2 mEq/L (5-15); Blood Urea Nitrogen 43 mg/dl (9-20); Calcium 8.5 mg/dl (8.4-10.2); Carbon Dioxide 22 mmol/L (22.0-30.0); Creatinine Clearance Estimated 58 mL/min (50-200); Estimated Glomerular Filt Rate 81 ml/min (>60); GFR (African American) 98 ML/MIN (>60); Glucose 197 mg/dl (74-100)
--- NOTE | 2023-07-22 13:37 | SW/DCPLANNER ---
Addendum entered by [facility] 07/24/23 14:50: [facility] is able to accept this patient for services. Addendum entered by [facility] 07/24/23 14:50: is agreeable to [facility]. Addendum entered by [facility] 07/24/23 14:01: [facility] is unable to accept this patient. Patient information/order has been faxed to [facility]. Addendum entered by [facility] 07/24/23 11:22: I have updated Lyric cruz/ [facility] that patient is discharging home. Addendum entered by [facility] 07/24/23 11:19: Patient/ are agreeable to discharge home w/ home health services today. Patient stated that he used [facility] in the past and they prefer to use this agency again. Patient information/order has been faxed to [facility]. I will also reach out to Robert cruz/ [facility] regarding [facility] Waiver services. I will provide patient and his with information regarding [facility]. Patient will discharge home w/ his today. Addendum entered by [facility] 07/24/23 10:03: Patient has now decided that he prefers to discharge home w/ home health services. I will speak w/ patient regarding home health agencies and update patient's . The plan for this patient is to return home today. Addendum entered by [facility] 07/23/23 14:23: Yue cruz/ [facility] stated they are not able to accept patient. I called and spoke w/ patient's (per patient recommendation) and information has been faxed to Lyric cruz/ [facility]. Addendum entered by [facility] 07/23/23 09:14: I have updated Yue Ferrara that more than likely patient will discharge on PO antibiotics per Dr Romero. Patient will also be ready for discharge tomorrow pending no setbacks. Addendum entered by [facility] 07/22/23 15:25: [facility] is currently reviewing patient information. Original Note: I spoke w/ this patient and his regarding plans once medically stable for discharge. PT evaluated patient and recommended SNF level of care at time of discharge. Patient is agreeable to placement and requested I discuss this with his . I called and spoke w/ regarding situation. Patient's (Cuca) stated that she is agreeable to placement due to patient being weak and prefers him go to [facility]. Cuca stated that if [facility] is not able to accept patient then she prefers [facility]. I will follow up w/ Yue at [facility] once patient information is reviewed. Patient could be ready for discharge tomorrow pending no setbacks.
[2023-07-22 16:17] LABS: Chloride 104 mmol/L (98-107)
[2023-07-22 16:18] LABS: Potassium 4.2 mmoL/L (3.5-5.1); Sodium 133 mmol/L (136-145)
[2023-07-22 16:21] LABS: Anion Gap 14.2 mEq/L (5-15); Blood Urea Nitrogen 43 mg/dl (9-20); Calcium 8.2 mg/dl (8.4-10.2); Carbon Dioxide 19 mmol/L (22.0-30.0); Creatinine Clearance Estimated 58 mL/min (50-200); Estimated Glomerular Filt Rate 81 ml/min (>60); GFR (African American) 98 ML/MIN (>60); Glucose 179 mg/dl (74-100)
--- NOTE | 2023-07-22 18:01 | PC.NURSE ---
[employer] [facility] called to ask about patient condition. Per caller, someone would be up to visit with the patient before end of day. As of now, no one from [employer] [facility] has seen the patient.
[2023-07-22 20:32] LABS: POC Glucose,Bedside 269 (70-110)
[2023-07-23] VITALS (8 sets, daily range): BP systolic 134–160; BP diastolic 68–86; PULSE 80–100; RESP 14–20; TEMP 36.7–36.9; O2SAT 96–99; BMI 22.9
[2023-07-23 05:33] LABS: POC Glucose,Bedside 179 (70-110)
[2023-07-23 06:24] LABS: Chloride 106 mmol/L (98-107); Sodium 137 mmol/L (136-145)
[2023-07-23 06:25] LABS: Potassium 3.8 mmoL/L (3.5-5.1)
[2023-07-23 06:27] LABS: Alanine Aminotransferase 17 U/L (12-78); Albumin Level 2.9 g/dl (3.5-5.0); Albumin/Globulin Ratio 1.3 (1.1-1.8); Alkaline Phosphatase 81 U/L (38-126); Anion Gap 9.8 mEq/L (5-15); Aspartate Amino Transferase 18 U/L (17-59); Blood Urea Nitrogen 31 mg/dl (9-20); Carbon Dioxide 25 mmol/L (22.0-30.0); Creatinine Clearance Estimated 58 mL/min (50-200); Estimated Glomerular Filt Rate 93 ml/min (>60); GFR (African American) 113 ML/MIN (>60); Globulin 2.2 g/dL (1.3-3.2); Total Protein,Serum 5.1 g/dl (6.3-8.2)
[2023-07-23 06:28] LABS: Basophils # 0.1 K/mm3 (0-0.2); Basophils % 0.4 % (0.1-2.0); Calcium 8.3 mg/dl (8.4-10.2); Eosinophils # 0.2 K/mm3 (0.0-0.4); Eosinophils % 1.2 % (0.1-12.0); Glucose 171 mg/dl (74-100); Hematocrit 33.5 % (42.0-52.0); Hemoglobin 11.3 g/dL (14.1-18.0); Lymphocytes # 3.2 K/mm3 (0.7-4.5); Lymphocytes % 22.9 % (10-50); Mean Corpuscular HGB Conc 33.6 g/dL (31.8-35.4); Mean Corpuscular Hemoglobin 30.7 pg (27.0-31.2); Mean Corpuscular Volume 91.5 fl (80-94); Monocytes # 0.7 K/mm3 (0.1-1.0); Monocytes % 4.7 % (1.7-9.3); Neutrophils # 9.9 K/mm3 (1.8-7.8); Neutrophils % 70.9 % (37.0-80.0); Platelet Count 359 K/mm3 (142-424); Red Blood Count 3.66 M/mm3 (4.60-6.20); Red Cell Distribution Width 13.7 % (11.5-17.5)
[2023-07-23 06:43] LABS: Bilirubin,Total 0.1 mg/dl (0.2-1.3)
[2023-07-23 07:58] LABS: Magnesium 1.9 mg/dl (1.6-2.3)
--- NOTE | 2023-07-23 08:53 | EXP.ACUTE.PN ---
Subjective *Date: 07/23/23 *Time: 10:34 Interval history: Patient feeling better this morning. Glucose 171. Gap remains closed. Stable on room air. Tolerating p.o. intake. Worthington catheter still in place, discussed removing with nurse on rounds. No fevers overnight. No nausea or vomiting. Medical Exam Vital signs and Labs for Last 24 Hours: Vital Signs Temp Pulse Pulse Pulse Resp BP Pulse Ox 07/23/23 07:33 98.5 F 97 H 18 143/68 H 99 07/23/23 07:00 07/23/23 05:00 07/23/23 04:00 98.4 F 90 14 134/76 98 07/23/23 04:00 80 07/23/23 00:00 80 07/23/23 03:00 07/23/23 01:00 07/23/23 00:00 98.2 F 91 H 20 138/73 96 07/22/23 20:00 80 07/22/23 23:00 07/22/23 21:00 07/22/23 20:00 97 07/22/23 19:46 97.9 F 96 H 18 159/86 H 100 07/22/23 18:52 07/22/23 16:00 90 07/22/23 16:53 07/22/23 15:08 98.1 F 07/22/23 14:00 90 17 132/65 98 07/22/23 12:00 100 H 07/22/23 12:37 07/22/23 11:28 97.7 F 07/22/23 10:02 98 H 16 133/71 97 07/22/23 09:56 07/22/23 09:55 99 H 16 144/67 H 98 07/22/23 09:51 98 O2 Del Method 07/23/23 07:33 Room Air 07/23/23 07:00 Room Air 07/23/23 05:00 Room Air 07/23/23 04:00 Room Air 07/23/23 04:00 07/23/23 00:00 07/23/23 03:00 Room Air 07/23/23 01:00 Room Air 07/23/23 00:00 Room Air 07/22/23 20:00 07/22/23 23:00 Room Air 07/22/23 21:00 Room Air 07/22/23 20:00 Room Air 07/22/23 19:46 Room Air 07/22/23 18:52 Room Air 07/22/23 16:00 07/22/23 16:53 Room Air 07/22/23 15:08 07/22/23 14:00 Room Air 07/22/23 12:00 07/22/23 12:37 Room Air 07/22/23 11:28 07/22/23 10:02 Room Air 07/22/23 09:56 Room Air 07/22/23 09:55 Room Air 07/22/23 09:51 Room Air Intake and Output 07/22/23 07/23/23 07/23/23 23:59 07:59 15:59 Intake Total 0 / 3782 1253 / 1253 Output Total 0 / 400 800 / 800 Balance 0 / 3382 453 / 453 Intake: Intake, Oral Amount 0 / 120 240 / 240 Intake, Other Amount 963 / 963 Intake, Total IV Amount 50 / 50 Piperacillin/Tazo 3.375 gm In 0 50 / 50 .9 % Sodium Chloride 50 ml @ 100 mls/hr IV Q6H [facility] Rx#: [id number] Output: Output, Urine Amount 0 / 400 800 / 800 Other: Intake, Other Source Saline Solution Number of Unmeasured Voids 0 0 Weight 68.66 kg Patient Weight 07/23/23 23:59 Weight 68.66 kg Laboratory Results - last 24 hr 07/21/23 23:41: Urine Color Yellow, Urine Appearance Slightly cloudy, Urine pH 6.0, Ur Specific [place] 1.020, Urine Protein 1+, Urine Glucose (UA) 3+, Urine Ketones 3+, Urine Blood 2+, Urine Nitrate Negative, Urine Bilirubin Negative, Urine Urobilinogen 0.2, Ur Leukocyte Esterase 1+ A, Urine RBC 10-20, Urine WBC 20-50, Ur Squamous Epith Cells 5-10, Urine Bacteria None 07/22/23 10:01: POC Glucose 207 H 07/22/23 11:04: Sodium 133 L, Potassium 4.2 D, Chloride 102, Carbon Dioxide 22, Anion Gap 13.2, BUN 43 H, Creatinine 0.90, Estimated Creat Clear 58, Estimated GFR 81, Est GFR ( Amer) 98 D, Glucose 197 H, Calcium 8.5, Acetone Level Small 07/22/23 14:57: Sodium 133 L, Potassium 4.2, Chloride 104, Carbon Dioxide 19 L, Anion Gap 14.2, BUN 43 H, Creatinine 0.90, Estimated Creat Clear 58, Estimated GFR 81, Est GFR ( Amer) 98, Glucose 179 H, Calcium 8.2 L 07/22/23 20:11: POC Glucose 269 H 07/23/23 05:10: POC Glucose 179 H 07/23/23 05:57: WBC 14.0 H, RBC 3.66 L, Hgb 11.3 L, Hct 33.5 L, MCV 91.5, MCH 30.7, MCHC 33.6, RDW 13.7, Plt Count 359, MPV 8.0, Neut % (Auto) 70.9, Lymph % (Auto) 22.9, [place] % (Auto) 4.7, Eos % (Auto) 1.2, Baso % (Auto) 0.4, Neut # (Auto) 9.9 H, Lymph # (Auto) 3.2, [place] # (Auto) 0.7, Eos # (Auto) 0.2, Baso # (Auto) 0.1, Sodium 137, Potassium 3.8, Chloride 106, Carbon Dioxide 25, Anion Gap 9.8, BUN 31 H D, Creatinine 0.80, Estimated Creat Clear 58, Estimated GFR 93, Est GFR (A
[2023-07-23 12:08] LABS: POC Glucose,Bedside 297 (70-110)
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
--- NOTE | 2023-07-23 13:06 | PC.NURSE ---
Pt has been alert and oriented x 4 this shift. pt is conversant with staff and appropriate. pt is hard of hearing. pt was agreeable to work with physical therapy this am and was assisted up to the chair. pt was up to the chair for approx 2 hrs, then requested to return to bed. pt was assisted with a bed bath at this time as well. pt states that his last bm was friday, MD ordered pt to have miralax and stool softener this am as well. pt bowel sounds are active in all quads, lungs are clear but slightly diminished in gertrudis bases. nad noted.
--- NOTE | 2023-07-23 13:19 | PC.NURSE ---
[address] rodarte ok to dc heart monitor
[2023-07-23 17:32] LABS: POC Glucose,Bedside 169 (70-110)
--- NOTE | 2023-07-23 19:47 | PC.NURSE ---
0947 notification received from lab, pt anaerobiv bc bottles x 2 are gram positive cocci in pairs and clusters. aerobic bottle pcr is staph species [address] rodarte face to face. no new orders.
[2023-07-23 20:25] LABS: POC Glucose,Bedside 296 (70-110)
[2023-07-24 04:00] VITALS: BP 115/67; PULSE 66; RESP 16; TEMP 36.6; O2SAT 98; BMI 22.9
[2023-07-24 04:36] LABS: Magnesium 1.9 mg/dl (1.6-2.3)
[2023-07-24 04:37] LABS: Alanine Aminotransferase 23 U/L (12-78); Albumin Level 2.8 g/dl (3.5-5.0); Albumin/Globulin Ratio 1.2 (1.1-1.8); Alkaline Phosphatase 80 U/L (38-126); Anion Gap 7.7 mEq/L (5-15); Aspartate Amino Transferase 27 U/L (17-59); Blood Urea Nitrogen 21 mg/dl (9-20); Calcium 8.5 mg/dl (8.4-10.2); Carbon Dioxide 25 mmol/L (22.0-30.0); Chloride 105 mmol/L (98-107); Creatinine Clearance Estimated 58 mL/min (50-200); Estimated Glomerular Filt Rate 130 ml/min (>60); GFR (African American) 157 ML/MIN (>60); Globulin 2.4 g/dL (1.3-3.2); Glucose 284 mg/dl (74-100); Potassium 3.7 mmoL/L (3.5-5.1); Sodium 134 mmol/L (136-145); Total Protein,Serum 5.2 g/dl (6.3-8.2)
[2023-07-24 04:44] LABS: Vancomycin,Trough 10.5 ug/mL (5.0-10.0)
[2023-07-24 04:53] LABS: Bilirubin,Total < 0.1 mg/dl (0.2-1.3)
[2023-07-24 05:10] LABS: Basophils # 0.1 K/mm3 (0-0.2); Basophils % 0.5 % (0.1-2.0); Eosinophils # 0.3 K/mm3 (0.0-0.4); Eosinophils % 2.7 % (0.1-12.0); Hematocrit 32.4 % (42.0-52.0); Hemoglobin 10.9 g/dL (14.1-18.0); Lymphocytes # 2.9 K/mm3 (0.7-4.5); Lymphocytes % 27.1 % (10-50); Mean Corpuscular HGB Conc 33.4 g/dL (31.8-35.4); Mean Corpuscular Hemoglobin 30.6 pg (27.0-31.2); Mean Corpuscular Volume 91.4 fl (80-94); Mean Platelet Volume 7.9 fl (7.4-10.4); Monocytes # 0.5 K/mm3 (0.1-1.0); Monocytes % 4.8 % (1.7-9.3); Neutrophils # 6.9 K/mm3 (1.8-7.8); Neutrophils % 64.9 % (37.0-80.0); Platelet Count 330 K/mm3 (142-424); Red Blood Count 3.55 M/mm3 (4.60-6.20); Red Cell Distribution Width 13.5 % (11.5-17.5); White Blood Count 10.6 K/mm3 (4.8-10.8)
[2023-07-24 05:50] LABS: POC Glucose,Bedside 224 (70-110)
--- NOTE | 2023-07-24 07:23 | EXP.DC.SUM ---
General Admission date:: 07/22/23 Discharge date: 07/24/23 HPI HPI HPI: 78-year-old male presented to the ED at [facility] via ems for c/o abd pain, nausea and vomiting. PMHX of insulin-dependent diabetes, hypertension, hyperlipidemia, and BPH status post prostatectomy. Patient reports that his prostate surgery was on 07/02/2023 at [facility]. HE reports that his worthington was removed Friday. He notes that he has had lower abdominal pain and constipation since the surgery and incontinence since friday. He has been vomiting since yesterday morning. Reports not taking insulin today. The ED work up revealed a leukocytosis of 12.5, elevated HR, and positive UA with 20-50 WBC and 1+ leukocyte. His BMP revealed a glucose of 662, Anion gap of 39.9, and large amounts of acetone. His VBG reveals metabolic acidosis. He is also demonstrating an SABRINA with a creatinine of 1.30. He had another worthington placed with successful urine return in the ED. Dr. Zepeda spoke with Dr. Clark at [facility] and reported that pt did not need transferred related to s/p prostatectomy. He was started on the DKA protocol and received 2L of LR bolus. His urine and blood cultures are pending. He was started on zosyn 3.375mg and vancomycin. Hospital Course Hospital Course Hospital Course: 78-year-old male presented to the ED at [facility] via ems for c/o abd pain, nausea and vomiting. PMHX of insulin-dependent diabetes, hypertension, hyperlipidemia, and BPH status post prostatectomy. Patient reports that his prostate surgery was on 07/02/2023 at [facility]. He reports that his worthington was removed Friday. He notes that he has had lower abdominal pain and constipation since the surgery and incontinence since friday. Admitted for sepsis and DKA. Urine culture currently growing gram-negative rods. Anion gap closed. Urine culture returned positive for E cloacae. Diabetes remains stable. Patient improved to level of function to discharge home with home health. Adjustments made to medications for diabetes. Continuing antibiotics at discharge. Follow-up closely with PCP and urology. Stable for discharge home. Problems addressed as follows: DKA, resolved DM -High anion gap on admission. Started on DKA protocol with insulin drip. Has gap closed, was transition to basal bolus regimen. We will continue basal insulin with glargine 60 units nightly. Resume home regimen of metformin, glipizide, Sitagliptin. Will need further adjustment as an outpatient. Follow-up closely with PCP. A1c on admission of 12.2, concerning for very uncontrolled. SEPSIS ACUTE UTI -Presented with tachycardia, leukocytosis, positive cultures with urine. Blood cultures returned positive for staph species, concern for contaminant. Urine culture positive for E cloacae, sensitive to levofloxacin. Initially on Zosyn and vancomycin during admission, transition to levofloxacin to complete lempiric course of therapy. 5 more days of antibiotics at discharge. Worthington was placed on admission but removed 2 days prior to discharge with l no incontinence and ability to void independently. Recommend following up with urology as previously scheduled given recent TURP. SABRINA -Creatinine of 1.30 on admission, normalized to 0.8. Stable at discharge. Recommend repeat labs and follows up with PCP. DEPRESSION - reports decrease in ADL's due to passing of daughter. Behavioral health was consulted during admission. Patient does have some mild depression symptoms. Did not want to initiate medication at this time. Recommend he follow-up with behavioral health within the next month. Appointment scheduled. Patient initially requiring assistance to ambulate and with ADLs. Improved by day of discharge. Patient does not want to go to residential, will discharge home with home health. Ambulating independently. Not having any urinary or fecal incontinence. Tolerating p.o. intake. Feeling much better. Stable to discharge home with home health.
[2023-07-24 07:37] VITALS: BP 147/70; PULSE 90; RESP 18; TEMP 36.6; O2SAT 97
[2023-07-24 08:00] VITALS: PULSE 90; O2SAT 97
[2023-07-24 10:56] LABS: Vancomycin,Peak 21.5 ug/ml (11-39)
--- NOTE | 2023-07-24 11:09 | EXP.PHA.CONS ---
Pharmacy Consult Date: 07/24/23 Time: 11:09 Referring provider: Dr. Romero Reason for Consult:: Vancomycin levels Allergies Allergy/AdvReac Type Severity Reaction Status Date / Time No Known Allergies Allergy Unverified 09/29/20 14:54 Home Medications Medication Instructions Recorded Confirmed Type tramadol 50 mg tablet 50 mg PO TID Pain 08/24/20 07/22/23 History glipizide 10 mg tablet, extended 10 mg PO BID Diabetes 30 days #60 08/25/20 07/22/23 Rx release 24 hr tabs pravastatin 40 mg tablet 40 mg PO HS High cholesterol 30 08/25/20 07/22/23 Rx days #30 tabs sitagliptin phosphate 100 mg tablet 100 mg PO DAILY Diabetes 30 days 08/25/20 07/22/23 Rx #30 tabs tamsulosin 0.4 mg capsule 0.4 mg PO HS prostate 30 days #30 08/25/20 07/22/23 Rx caps gabapentin 100 mg capsule 200 mg PO TID neuropathic pain 05/10/23 07/22/23 History hydrochlorothiazide 25 mg tablet 25 mg PO DAILY Fluid 05/10/23 07/22/23 History metformin 500 mg tablet 500 mg PO BIDWMEAL Diabetes 05/10/23 07/22/23 History finasteride 5 mg tablet 5 mg PO DAILY Prostate 07/22/23 07/22/23 History insulin glargine 100 unit/mL (3 60 unit (0.6 mL) SQ DAILY Diabetes 07/24/23 Rx mL) subcutaneous pen 30 days #18 mL levofloxacin 750 mg tablet 750 mg PO DAILY 5 days #5 tabs 07/24/23 Rx nicotine 21 mg/24 hr daily 21 mg transdermal DAILYP PRN 07/24/23 Rx transdermal patch Nicotine Cravings 28 days #28 ea New Prescriptions to Start Prescriptions: insulin glargine Nithin Romero levofloxacin Nithin Romero nicotine Nithin Romero Height: 1.73 m Weight: 68.765 kg Laboratory Results:: Laboratory Results - last 24 hr 07/23/23 11:46: POC Glucose 297 H 07/23/23 17:14: POC Glucose 169 H 07/23/23 20:06: POC Glucose 296 H 07/24/23 04:01: WBC 10.6, RBC 3.55 L, Hgb 10.9 L, Hct 32.4 L, MCV 91.4, MCH 30.6, MCHC 33.4, RDW 13.5, Plt Count 330, MPV 7.9, Neut % (Auto) 64.9, Lymph % (Auto) 27.1, [place] % (Auto) 4.8, Eos % (Auto) 2.7, Baso % (Auto) 0.5, Neut # (Auto) 6.9, Lymph # (Auto) 2.9, [place] # (Auto) 0.5, Eos # (Auto) 0.3, Baso # (Auto) 0.1, Sodium 134 L, Potassium 3.7, Chloride 105, Carbon Dioxide 25, Anion Gap 7.7, BUN 21 H D, Creatinine 0.60 L D, Estimated Creat Clear 58, Estimated GFR 130, Est GFR ( Amer) 157 D, Glucose 284 H D, Calcium 8.5, Magnesium 1.9, Total Bilirubin < 0.1 L, AST 27 D, ALT 23 D, Alkaline Phosphatase 80, Total Protein 5.2 L, Albumin 2.8 L, Globulin 2.4, Albumin/Globulin Ratio 1.2, Vancomycin Trough 10.5 H 07/24/23 05:34: POC Glucose 224 H 07/24/23 09:00: Vancomycin Peak 21.5 Assessment and Plan Assessment and plan all Dx Assessment and Plan for all problems:: Vancomycin peak and trough levels were 21.5 mcg/mL and 10.5 mcg/ml, respectively. Recommend continuing with current dose and interval at this time.
[2023-07-24 12:27] LABS: POC Glucose,Bedside 288 (70-110)
--- NOTE | 2023-07-25 13:14 | SW/DCPLANNER ---
Attempted follow up phone call for this patient: no answer at this time.
== END 2023-07-24 13:41 | disposition home health service (06) | DRG 871 ==
LOC: ER 07-22 00:03 → 2ND 07-22 00:40
PROVIDERS: Nurse Practitioner Critical Care Medicine; Admitting Provider Internal Medicine Adolescent Medicine; Emergency Provider Emergency Medicine; PCP Nurse Practitioner Family; Visit Provider Internal Medicine Adolescent Medicine
DX: A41.9 Sepsis, unspecified organism (principal); E11.10 Type 2 diabetes mellitus with ketoacidosis without coma; N39.0 Urinary tract infection, site not specified; N17.9 Acute kidney failure, unspecified; I10 Essential (primary) hypertension; E78.5 Hyperlipidemia, unspecified; F32.A Depression, unspecified; Z72.0 Tobacco use; Z79.84 Long term (current) use of oral hypoglycemic drugs; F32.9 Major depressive disorder, single episode, unspecified
CPT/HCPCS: 36415; 51702; 71045; 74177; 80048; 80053; 80202; 81001; 82009; 82803; 82962; 83036; 83605; 83690; 83735; 84484; 85007; 85025; 87040; 87086; 87088; 93005; 97110; 97163; 97165; 97530; 99291; J1956; J2405; J2543; J3370; Q9967

== ENCOUNTER 2023-12-29 11:51 | Observation (INO) | payer MEDICARE, MEDICAID, SELFPAY ==
[2023-12-29] VITALS (14 sets, daily range): BP systolic 129–173; BP diastolic 72–98; PULSE 72–92; RESP 14–18; TEMP 36.6–37; O2SAT 96–100; BMI 25.8; BMI 27.5
--- NOTE | 2023-12-29 11:57 | ECG_ITS ---
APPROVED REPORT Exam: Resting ECG HR:86 bpm ECG Measurements Heart Rate [address] 149 P 14 QRSd 142 QRS 265 QT 395 T 42 QTc 438 Conclusion SINUS RHYTHM INTRAVENTRICULAR CONDUCTION DELAY [130+ ms QRS DURATION] RIGHT VENTRICULAR HYPERTROPHY [SOME/ALL OF: PROMINENT R IN V1, LATE TRANSITION, RAD, KD, SSS] ABNORMAL ECG Electronically signed by : POLLO WILEY, 12/29/2023 16:27:09
[2023-12-29 12:48] LABS: Basophils # 0.1 K/mm3 (0-0.2); Basophils % 0.5 % (0.1-2.0); Eosinophils # 0.3 K/mm3 (0.0-0.4); Eosinophils % 2.9 % (0.1-12.0); Hematocrit 37.6 % (42.0-52.0); Hemoglobin 12.3 g/dL (14.1-18.0); Lymphocytes # 2.6 K/mm3 (0.7-4.5); Lymphocytes % 23.9 % (10-50); Mean Corpuscular HGB Conc 32.8 g/dL (31.8-35.4); Mean Corpuscular Hemoglobin 31.6 pg (27.0-31.2); Mean Corpuscular Volume 96.4 fl (80-94); Mean Platelet Volume 7.9 fl (7.4-10.4); Monocytes # 0.5 K/mm3 (0.1-1.0); Monocytes % 5.1 % (1.7-9.3); Neutrophils # 7.2 K/mm3 (1.8-7.8); Neutrophils % 67.6 % (37.0-80.0); Platelet Count 342 K/mm3 (142-424); White Blood Count 10.7 K/mm3 (4.8-10.8)
--- NOTE | 2023-12-29 12:49 | HMH.EDGENADL ---
Discharge Plan Disposition Patient Disposition: Home, Self-Care Clinical Impressions Clinical Impression: Hyperglycemia, Encephalopathy Discharge ED Provider: Jose Knox General Adult HPI General Chief complaint: Recheck/Abnormal Lab/Rx Stated complaint: High glucose Time Seen by Provider: 12/29/23 12:00 Mode of Arrival: EMS Source of Information: Patient Limitations: No Limitations Description of Symptoms (Recalled from ER Triage Doc. by RN): EMS reports they were called out per the pts . The reported that he was refusing to take his medications today and he was incontnent of his bowels. EMS reports the pts glucose was 538 [employer]. Pt has no complaints at this time. pt is A&O x4 and GCS of 15. History of Present Illness HPI narrative: Patient is a 78-year-old male with past medical history of insulin-dependent diabetes, hypertension, hyperlipidemia who presents emergency department for evaluation of hypoglycemia and intermittent encephalopathy. It is unknown patient's compliance with medications in the weekend as he self administers insulin and he states that he does not know. He is on oriented to time, is oriented to place and self. No vomiting. Patient does not have any acute complaints at this time. Sugar prehospital was greater than 500. Insulin was administered by prior to EMS arrival. He is accompanied by of 58 years and home health aide which is present during the week. Related Data Home Medications Medication Instructions Recorded Confirmed tramadol 50 mg tablet 50 mg PO TIDP PRN Moderate Pain 08/24/20 12/29/23 (Scale Score 5-6) gabapentin 100 mg capsule 200 mg PO TID Pain 05/10/23 12/29/23 hydrochlorothiazide 25 mg tablet 12.5 mg PO DAILY Fluid 05/10/23 12/29/23 metformin 500 mg tablet 500 mg PO BIDWMEAL Diabetes 05/10/23 12/29/23 finasteride 5 mg tablet 5 mg PO DAILY Prostate 07/22/23 12/29/23 omeprazole 20 mg capsule,delayed 20 mg PO DAILY Acid Reflux 12/29/23 12/29/23 release Previous Rx's Medication Instructions Recorded glipizide 10 mg tablet, extended 10 mg PO BID Diabetes 30 days #60 08/25/20 release 24 hr tabs sitagliptin phosphate 100 mg tablet 100 mg PO DAILY Diabetes 30 days 08/25/20 #30 tabs insulin glargine 100 unit/mL (3 60 unit (0.6 mL) SQ DAILY Diabetes 07/24/23 mL) subcutaneous pen 30 days #18 mL Allergies Allergy/AdvReac Type Severity Reaction Status Date / Time No Known Allergies Allergy Unverified 09/29/20 14:54 [facility] Disclaimer: The information contained in this section may have been updated after the patient was seen, as this information can be updated by other users. Medical History (Updated 12/29/23 @ 15:17 by Jose Knox MD) Urinary retention due to benign prostatic hyperplasia Social History (Updated 07/22/23 @ 01:14 by Lauren Ambrosio RN) Smoking Status: Current every day smoker alcohol intake: former substance use type: denies use current occupational status: retired Travel in the last 8 weeks: None household members: spouse housing: house ROS Obtained: Yes Systems reviewed as appropriate & no additional complaints except as documented Physical Exam General General appearance: alert and in no apparent distress Head Head exam: atraumatic and normocephalic Eye Eye exam: Present PERRL and EOMI ENT ENT exam: Present mucous membranes moist Neck Neck exam: Present normal inspection Chest Chest inspection: Present normal inspection and symmetric chest wall rise Respiratory Respiratory exam: Present normal lung sounds bilaterally; Absent respiratory distress Cardiovascular Cardiovascular exam: Present regular rate and normal rhythm Abdominal Exam Abdominal exam: Present soft; Absent tenderness Extremities Exam Extremities exam: Present normal inspection Neurological Exam Neurological exam: Present alert and CN II-XII intact; Absent motor sensory deficit Psychiatric Psychiatric exam: Present normal affect Skin Skin exam: Present warm and dry Medical Decision Making Leonid Inquiry Pt receiving controlled substance: No Vital Signs: 12/29/23 12:00 12/29/23 12:19 12/29/23 12:45 Temperature 98.3 F Temperature Source Oral Pulse Rate 88 85 Pulse Rate [Left] 91 H Respiratory Rate 16 Blood Pressure 167/91 H 168/95 H Blood Pressure [Right Arm] 163/90 H Blood Pressure Mean [Right Arm] 114 02 Sat by Pulse Oximetry 98 98 98 Oxygen Delivery Method Room Air 12/29/23 13:00 12/29/23 13:30 12/29/23 14:13 Temperature Temperature Source Pulse Rate 85 92 H Pulse Rate [Left] Respiratory Rate Blood Pressure 157/98 H 173/92 H 131/89 Blood Pressure [Right Arm] Blood Pressure Mean [Right Arm] 02 Sat by Pulse Oximetry 96 99 98 Oxygen Delivery Method Room Air Room Air Room Air 12/29/23 14:30 12/29/23 15:00 Temperature Temperature Source Pulse Rate 90 89 Pulse Rate [Left] Respiratory Rate Blood Pressure 145/73 H 157/80 H Blood Pressure [Right Arm] Blood Pressure Mean [Right Arm] 02 Sat by Pulse Oximetry 100 99 Oxygen Delivery Method Room Air Room Air Lab Data Lab Results 12/29/23 11:54: WBC 10.7, RBC 3.90 L, Hgb 12.3 L, Hct 37.6 L, MCV 96.4 H, MCH 31.6 H, MCHC 32.8, RDW 14.0, Plt Count 342, MPV 7.9, Neut % (Auto) 67.6, Lymph % (Auto) 23.9, [place] % (Auto) 5.1, Eos % (Auto) 2.9, Baso % (Auto) 0.5, Neut # (Auto) 7.2, Lymph # (Auto) 2.6, [place] # (Auto) 0.5, Eos # (Auto) 0.3, Baso # (Auto) 0.1, Sodium Cancelled, Potassium Cancelled, Chloride Cancelled, Carbon Dioxide Cancelled, Anion Gap Cancelled, BUN Cancelled, Creatinine Cancelled, Estimated Creat Clear Cancelled, Estimated GFR Cancelled, Est GFR ( Amer) Cancelled, Glucose Cancelled, Calcium Cancelled, Troponin I < 0.01 12/29/23 12:10: Sodium 133 L, Potassium 3.8, Chloride 101, Carbon Dioxide 28, Anion Gap 7.8, BUN 23 H, Creatinine 0.70, Estimated Creat Clear 65, Estimated GFR 109, Est GFR ( Amer) 132, Glucose 340 H, Calcium 9.2, Total Bilirubin 0.4, AST 24, ALT 23, Alkaline Phosphatase 75, Total Protein 6.1 L, Albumin 3.7, Globulin 2.4, Albumin/Globulin Ratio 1.5, Acetone Level None detected 12/29/23 12:37: VBG pH 7.38, VBG pCO2 40.0, VBG pO2 46.3 H, VBG HCO3 23.0, VBG Total CO2 24.2, VBG O2 Saturation 81.5 H, VBG Base Excess -2.2, VBG Lactic Acid 2.4 H 12/29/23 12:43: SARS-CoV-2 (PCR) Not detected, Influenza A Untype (PCR) Not detected, Influenza Type B (PCR) Not detected 12/29/23 12:57: Urine Color Yellow, Urine Appearance Clear, Urine pH 6.0, Ur Specific [place] 1.020, Urine Protein 2+, Urine Glucose (UA) 3+, Urine Ketones Negative, Urine Blood 2+, Urine Nitrate Negative, Urine Bilirubin Negative, Urine Urobilinogen 0.2, Ur Leukocyte Esterase Trace, Urine RBC 5-10, Urine WBC Occasional, Ur Squamous Epith Cells Occasional, Urine Bacteria Trace 12/29/23 11:54 12/29/23 12:10 Orders (Tests/Meds): ED MEDICATIONS Generic Name Dose Route Start Last Admin Trade Name Freq PRN Reason Stop Dose Admin Lactated Ringer's 1,000 mls @ 50 mls/hr 12/29/23 16:00 Lactated Ringer's 1000 Ml Bag IV 01/28/24 15:59 .Q20H [facility] Insulin Human Lispro 0 unit 12/29/23 16:30 Humalog 100 Units/Ml 3ml Vial (Ssi) SQ 01/28/24 16:29 [facility] Protocol Discontinued Medications Generic Name Dose Route Start Last Admin Trade Name Freq PRN Reason Stop Dose Admin Lactated Ringer's 1,000 mls @ 999 mls/hr 12/29/23 12:42 12/29/23 13:26 Lactated Ringer's 1000 Ml Bag IV 12/29/23 13:42 999 mls/hr .Q1H1M ONE Administration ORDERS Category Date Time Status CT head/brain wo con Stat Cat Scan 12/29/23 13:23 Taken Acetone, Serum (Rapid) Stat Lab 12/29/23 12:10 Completed CMP [Comprehensive Metabolic Panel] Stat Lab 12/29/23 12:10 Completed Complete Blood Count Auto Diff AMLAB Lab 12/30/23 06:00 Ordered Complete Blood Count Auto Diff Stat Lab 12/29/23 11:54 Completed Comprehensive Metabolic Panel AMLAB Lab 12/30/23 06:00 Ordered Lactate Venous Stat Lab 12/29/23 12:37 Completed Magnesium AMLAB Lab 12/30/23 06:00 Ordered Rapid PCR Covid and Flu A/B Stat Lab 12/29/23 12:43 Completed Troponin I Stat Lab 12/29/23 11:54 Completed UA [Urinalysis and Microscopic] Stat Lab 12/29/23 12:57 Completed VBG [Venous Blood Gas] Stat RT 12/29/23 12:37 Completed ECG Data Tracing #1: Independently interpreted by me, rate is 86, rhythm is regular, no ST elevation in anatomical contiguous leads, right bundle branch block. QTc 438 Medical Decision Narrative: In summary patient is a 78-year-old male past medical history described above presents emergency department for evaluation of encephalopathy and hyperglycemia. Patient is hemodynamically stable nontoxic-appearing upon arrival, afebrile. Differential diagnosis includes DKA, silent ACS, infection, intracranial mass, among others. Workup will be conducted with hematologic labs, viral swab, urinalysis, CT head, EKG, troponin. Initial interventions include crystalloid bolus. Initial workup reviewed by me, hematologic labs are nonactionable, no critical electrolyte abnormalities or SABRINA, compensated acid-base status. Glucose is 340. Urinalysis interpreted by me and not consistent with infection. Patient does have microscopic hematuria. Viral swab negative, acetone negative. Noncontrasted CT scan of head informally interpreted by me, no acute large intra-axial hemorrhage with midline shift. Formal read shows atrophy with no acute intracranial abnormality. Patient may have viral syndrome causing encephalopathy, encephalopathy may be result of his dehydration in the setting of medication noncompliance and hyperglycemia. Viral encephalitis is a consideration however has no meningismus and has alternative explanations. I do not think patient has CVA given nonfocal neurologic exam, no vertigo. No waxing and waning levels of consciousness or hemodynamic instability to suggest delirium. New onset dementia is a consideration and these changes may be subacute or chronic however not noticed. The case was discussed with Dr. Romero regarding management patient be admitted to their service for continued evaluation at this time. Critical Care Critical Care Time Critical Care Time: No
[2023-12-29 12:53] LABS: Coronavirus 19, PCR Not Detected (NotDetected); Influenza A, PCR Not Detected (NotDetected); Influenza B, PCR Not Detected (NotDetected)
[2023-12-29 12:58] LABS: VBG Base Excess -2.2 mmol/L (-2.4-2.3); VBG Oxygen Saturation 81.5 % (50-70); VBG PH 7.38 mmol/L (7.31-7.41); VBG PO2 46.3 mmol/L (28-40); VBG Total CO2 24.2 mmol/L (23-27)
[2023-12-29 13:01] LABS: Lactate Venous 2.4 mmol/L (0.4-2.0)
[2023-12-29 13:02] LABS: Chloride 101 mmol/L (98-107); Potassium 3.8 mmoL/L (3.5-5.1); Sodium 133 mmol/L (136-145)
--- NOTE | 2023-12-29 13:02 | PC.NURSE ---
lactic 2.4, aware
[2023-12-29 13:04] LABS: Blood Urea Nitrogen 23 mg/dl (9-20)
[2023-12-29 13:05] LABS: Microscopic, Urine URINE MICROSCOPIC (MICROSCOPIC)
[2023-12-29 13:05] LABS: Acetone, Serum (Rapid) None Detected (None Detect); Alanine Aminotransferase 23 U/L (12-78); Albumin Level 3.7 g/dl (3.5-5.0); Albumin/Globulin Ratio 1.5 (1.1-1.8); Alkaline Phosphatase 75 U/L (38-126); Anion Gap 7.8 mEq/L (5-15); Aspartate Amino Transferase 24 U/L (17-59); Bilirubin,Total 0.4 mg/dl (0.2-1.3); Calcium 9.2 mg/dl (8.4-10.2); Carbon Dioxide 28 mmol/L (22.0-30.0); Creatinine Clearance Estimated 65 mL/min (50-200); Estimated Glomerular Filt Rate 109 ml/min (>60); GFR (African American) 132 ML/MIN (>60); Globulin 2.4 g/dL (1.3-3.2); Glucose 340 mg/dl (74-100); Total Protein,Serum 6.1 g/dl (6.3-8.2)
[2023-12-29 13:11] LABS: Appearance,Urine CLEAR (Clear); Bilirubin,Urine Negative (Negative); Blood, Urine 2+ (Negative); Color,Urine YELLOW (Yellow); Glucose,Urine (UA) 3+ (Negative); Ketones,Urine Negative (Negative); Leukocyte Esterase,Urine TRACE (Negative); Nitrate,Urine Negative (Negative); Protein,Urine 2+ (Negative); Urobilinogen,Urine 0.2 EU/dl (0.2)
[2023-12-29 13:16] LABS: Troponin I < 0.01 ng/ml (0.00-0.034)
--- NOTE | 2023-12-29 13:23 | CT_ITS ---
FINAL REPORT CLINICAL HISTORY: encephalopathy COMPARISON: none FINDINGS: Axial images of the head were obtained without contrast. Coronal reformatted images were also obtained. This study was performed with techniques to keep radiation doses as low as reasonably achievable (ALARA). Individualized dose reduction techniques using automated exposure control or adjustment of mA and/or kV according to the patient''s size were employed. There is generalized age-appropriate atrophy. Periventricular low-attenuation areas are seen consistent with mild chronic ischemic changes. There is no evidence of intracranial hemorrhage or mass. There is no evidence of acute infarct. There is no evidence of shift of the midline structures. No skull abnormality is seen on the bone window images. IMPRESSION: Atrophy and mild periventricular chronic ischemic changes. No acute intracranial abnormality identified. Reviewed, Interpreted and Dictated by Vickey Cardenas III, MD Transcribed by Mercy Gutierrez Authenticated and [facility]
[2023-12-29] MEDS: LACTATED RINGERS 1000ML 1,000 ML 999 ML IV (13:26)
[2023-12-29 13:32] LABS: WBC,Urine Occasional #/hpf (0-3)
--- NOTE | 2023-12-29 13:32 | PC.NURSE ---
Lunch tray ordered for pt
[2023-12-29 13:33] LABS: Bacteria,Urine Trace /lpf; Squamous Epithelial Cell,Urine Occasional #/hpf (0-5)
--- NOTE | 2023-12-29 13:33 | PC.NURSE ---
DIETARY ARRIVED WITH LUNCH TRAY
--- NOTE | 2023-12-29 13:39 | PC.NURSE ---
SET UP PATIENT'S TRAY TO EAT. PATIENT SITTING UP IN BED EATING.
--- NOTE | 2023-12-29 14:04 | PC.NURSE ---
PATIENT TRANSPORTED TO CT SCANNER.
--- NOTE | 2023-12-29 14:10 | PC.NURSE ---
PATIENT RETURN FROM CT
--- NOTE | 2023-12-29 15:48 | EXP.HP ---
History of Present Illness *Admission Date: 12/29/23 *Reason for visit:: confused *History of present illness: Mr. Conde is a 78-year-old male with history of uncontrolled diabetes, hypertension, hyperlipidemia, who presented to the ER via EMS. EMS reports patient's called them because he was refusing to take his medications and has been incontinent of his bowels. His glucose was almost 600. He has no complaints at this time, alert and oriented x 4. Workup in the ER remarkable for hyperglycemia. is adamant that patient is confused and not acting himself. He is afebrile, has no leukocytosis. Blood gas unremarkable. No anion gap. Given confusion however, requested he stay admitted for further eval. ER consulted medicine for admission and further treatment. On evaluation, patient is alert and oriented x 4. Reviewed imaging of his head, general age-related atrophy. No acute stroke. Denies any chest pain, shortness of breath, nausea,, diarrhea. States he has probably been more forgetful but has no acute complaints at this time. In administering the ER with improvement in glucose. [facility] Disclaimer: The information contained in this section may have been updated after the patient was seen, as this information can be updated by other users. 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 High cholesterol Urinary retention due to benign prostatic hyperplasia Family History Other Family history of myocardial infarction Social History Smoking Status: Current every day smoker alcohol intake: former substance use type: denies use current occupational status: retired Travel in the last 8 weeks: None household members: spouse housing: house Review of Systems Review of Systems Review of systems (narrative): 14 point review of systems performed, pertinent positives and negatives as per HPI Meds Home Medications and Allergies Home Medications Medication Instructions Recorded Confirmed Type tramadol 50 mg tablet 50 mg PO TIDP PRN Moderate Pain 08/24/20 12/29/23 History (Scale Score 5-6) glipizide 10 mg tablet, extended 10 mg PO BID Diabetes 30 days #60 08/25/20 12/29/23 Rx release 24 hr tabs sitagliptin phosphate 100 mg tablet 100 mg PO DAILY Diabetes 30 days 08/25/20 12/29/23 Rx #30 tabs gabapentin 100 mg capsule 200 mg PO TID Pain 05/10/23 12/29/23 History hydrochlorothiazide 25 mg tablet 12.5 mg PO DAILY Fluid 05/10/23 12/29/23 History metformin 500 mg tablet 500 mg PO BIDWMEAL Diabetes 05/10/23 12/29/23 History finasteride 5 mg tablet 5 mg PO DAILY Prostate 07/22/23 12/29/23 History insulin glargine 100 unit/mL (3 60 unit (0.6 mL) SQ DAILY Diabetes 07/24/23 12/29/23 Rx mL) subcutaneous pen 30 days #18 mL omeprazole 20 mg capsule,delayed 20 mg PO DAILY Acid Reflux 12/29/23 12/29/23 History release New Prescriptions to Start Prescriptions: Allergies Allergy/AdvReac Type Severity Reaction Status Date / Time No Known Allergies Allergy Unverified 09/29/20 14:54 Exam Data for Last 24 hours Vital signs and Labs for Last 24 Hours: Temp Pulse Resp BP Pulse Ox O2 Del Method 98.3 F 90 16 145/73 H 100 Room Air 12/29/23 12:19 12/29/23 14:30 12/29/23 12:19 12/29/23 14:30 12/29/23 14:30 12/29/23 14:30 Laboratory Results - last 24 hr 12/29/23 11:54: WBC 10.7, RBC 3.90 L, Hgb 12.3 L, Hct 37.6 L, MCV 96.4 H, MCH 31.6 H, MCHC 32.8, RDW 14.0, Plt Count 342, MPV 7.9, Neut % (Auto) 67.6, Lymph % (Auto) 23.9, Daniels % (Auto) 5.1, Eos % (Auto) 2.9, Baso % (Auto) 0.5, Neut # (Auto) 7.2, Lymph # (Auto) 2.6, Daniels # (Auto) 0.5, Eos # (Auto) 0.3, Baso # (Auto) 0.1, Sodium Cancelled, Potassium Cancelled, Chloride Cancelled, Carbon Dioxide Cancelled, Anion Gap Cancelled, BUN Cancelled, Creatinine Cancelled, Estimated Creat Clear Cancelled, Estimated GFR Cancelled, Est GFR ( Amer) Cancelled, Glucose Cancelled, Calcium Cancelled, Troponin I < 0.01 12/29/23 12:10: Sodium 133 L, Potassium 3.8, Chloride 101, Carbon Dioxide 28, Anion Gap 7.8, BUN 23 H, Creatinine 0.70, Estimated Creat Clear 65, Estimated GFR 109, Est GFR ( Amer) 132, Glucose 340 H, Calcium 9.2, Total Bilirubin 0.4, AST 24, ALT 23, Alkaline Phosphatase 75, Total Protein 6.1 L, Albumin 3.7, Globulin 2.4, Albumin/Globulin Ratio 1.5, Acetone Level None detected 12/29/23 12:37: VBG pH 7.38, VBG pCO2 40.0, VBG pO2 46.3 H, VBG HCO3 23.0, VBG Total CO2 24.2, VBG O2 Saturation 81.5 H, VBG Base Excess -2.2, VBG Lactic Acid 2.4 H 12/29/23 12:43: SARS-CoV-2 (PCR) Not detected, Influenza A Untype (PCR) Not detected, Influenza Type B (PCR) Not detected 12/29/23 12:57: Urine Color Yellow, Urine Appearance Clear, Urine pH 6.0, Ur Specific [place] 1.020, Urine Protein 2+, Urine Glucose (UA) 3+, Urine Ketones Negative, Urine Blood 2+, Urine Nitrate Negative, Urine Bilirubin Negative, Urine Urobilinogen 0.2, Ur Leukocyte Esterase Trace, Urine RBC 5-10, Urine WBC Occasional, Ur Squamous Epith Cells Occasional, Urine Bacteria Trace I & O for Last 24 hours: Intake & Output 12/26/23 12/27/23 12/28/23 12/29/23 22:59 22:59 23:59 23:59 Weight 77.111 kg Constitutional Constitutional: no acute distress, average body habitus, chronically ill appearing and cooperative *Routine HEENT Exam Head: Present normocephalic Eye: Present EOMI ENT: Present mucous membranes moist *Routine Neck Exam Neck: Present full ROM *Routine Respiratory Exam Respiratory: Present CTA bilaterally; Absent rhonchi, wheezes or crackles *Routine Cardiovascular Exam Cardiovascular: Present RRR *Routine Abdominal Exam Abdominal: Present soft and normoactive bowel sounds; Absent tenderness *Routine Rectal Exam Rectal:: deferred *Routine Genitalia Exam Genitalia:: other Comment:: henson in place, odor coming from penis *Routine Extremities Exam Extremities: Present cyanosis and full ROM; Absent edema *Routine Skin Exam Skin: Present intact *Routine Neurological Exam Neurological: Present alert, oriented X3 and moving all extremities; Absent altered mental status Comments: recognizes he may be a little confused Assessment and Plan *Assessment and plan (1) Confused: Status: Acute Category: Medical Code(s): R41.0 - Disorientation, unspecified (2) Hyperglycemia: Status: Acute Category: Medical Code(s): R73.9 - Hyperglycemia, unspecified (3) Tobacco abuse: Status: Acute Category: Medical Code(s): Z72.0 - Tobacco use (4) Depression: Status: Acute Qualifiers: Depression Type: reactive depression Qualified Code(s): F32.9 - Major depressive disorder, single episode, unspecified Category: Medical Code(s): F32.A - Depression, unspecified (5) HTN (hypertension): Status: Acute Category: Medical Code(s): I10 - Essential (primary) hypertension (6) HLD (hyperlipidemia): Status: Acute Category: Medical Code(s): E78.5 - Hyperlipidemia, unspecified (7) Diabetes: Status: Acute Category: Medical Code(s): E11.9 - Type 2 diabetes mellitus without complications Plan 78-year-old male who presented to the ER via EMS for reported confusion and incontinence per his . On arrival, found to have hyperglycemia. Questionable confusion. Discussed case with ER, physician requests admission for treatment of hypoglycemia with confusion. Medicine agreed to admit. By the time of my evaluation however, patient appears oriented to self and place. Does not seem overtly confused. Recognizes that he may have been more confused but does not appear such at this time. Will monitor overnight. Problems addressed as follows: Confusion -Patient alert and oriented at this time. Does not appear confused. Reviewed CT of head, age-related degeneration but no overt stroke or masses. -No indication for MRI at this time. Would benefit from outpatient neuro referral for cognitive evaluation. -Mentating normally in the morning, anticipate discharge tomorrow. Uncontrolled diabetes: Continue insulin glargine, increase to 65 units daily. Continue sliding scale with fingersticks ACHS. Will hold glipizide during inpatient treatment -Continue metformin 500 mg twice daily -Continue Sitagliptin 100 mg daily -A1c pending BPH: Continue finasteride 5 mg daily Full code Diabetic diet
--- NOTE | 2023-12-29 15:55 | PC.NURSE ---
Spoke with Marquez Narayanan [facility] charge for bed assignment. pt assigned to room 207. registration called regarding admission at this time.
--- NOTE | 2023-12-29 15:56 | HMH.PHAINT1 ---
Pharmacy Intervention Comments: MEDICATION RECONCILIATION COMPLETED ON PATIENT USING EXTERNAL FILL HISTORY FROM PHARMACY. -HEMA [place], MARITAD
--- NOTE | 2023-12-29 16:16 | PC.NURSE ---
report called to [address]
--- NOTE | 2023-12-29 16:27 | PC.NURSE ---
nickie from [facility] here to take pt to room 207
--- NOTE | 2023-12-29 16:32 | PC.NURSE ---
arrived by w/c from ED
[2023-12-29 17:02] LABS: Reflex Lactic Add Lactic Reflex
[2023-12-29 17:15] LABS: POC Glucose,Bedside 88 (70-110)
[2023-12-29] MEDS: LACTATED RINGERS 1000ML 1,000 ML 50 ML IV (17:15)
[2023-12-29 17:24] LABS: Lactate Venous 2.4 mmol/L (0.4-2.0)
[2023-12-29 17:48] LABS: Lactic Acid Follow Up (RFLX 1) 2.2 mmol/L (0.7-2.1)
[2023-12-29 19:21] LABS: Reflex Lactic (2 hrs) Add Lactic Reflex
--- NOTE | 2023-12-29 20:00 | PC.NURSE ---
Addendum entered by Savi Buitrago RN 12/30/23 07:02: patient was restless this morning - was got up to chair with pull tab alarm. educated to press call light for assistance up but tries to get up alone. Original Note: During assessment, patient is alert to name and birthday, acts appropriately and remembers family members, etc. However, thinks its 1970's and Aldo is President, but states he knows he isn't right but doesn't know the correct answer.
[2023-12-29 20:01] LABS: Lactic Acid Follow up (RFLX 2) 2.1 mmol/L (0.7-2.1)
[2023-12-29 20:34] LABS: POC Glucose,Bedside 74 (70-110)
[2023-12-30 04:00] VITALS: BP 165/84; PULSE 85; RESP 16; TEMP 36.6; O2SAT 98; BMI 27.4
[2023-12-30 05:39] LABS: POC Glucose,Bedside 68 (70-110)
[2023-12-30 07:29] LABS: Alanine Aminotransferase 21 U/L (12-78); Albumin Level 4.2 g/dl (3.5-5.0); Albumin/Globulin Ratio 1.7 (1.1-1.8); Alkaline Phosphatase 84 U/L (38-126); Anion Gap 11.7 mEq/L (5-15); Aspartate Amino Transferase 26 U/L (17-59); Bilirubin,Total 0.5 mg/dl (0.2-1.3); Blood Urea Nitrogen 20 mg/dl (9-20); Calcium 9.6 mg/dl (8.4-10.2); Carbon Dioxide 25 mmol/L (22.0-30.0); Chloride 104 mmol/L (98-107); Creatinine Clearance Estimated 70 mL/min (50-200); Estimated Glomerular Filt Rate 93 ml/min (>60); GFR (African American) 113 ML/MIN (>60); Globulin 2.5 g/dL (1.3-3.2); Glucose 133 mg/dl (74-100); Magnesium 1.8 mg/dl (1.6-2.3); Potassium 3.7 mmoL/L (3.5-5.1); Sodium 137 mmol/L (136-145); Total Protein,Serum 6.7 g/dl (6.3-8.2)
[2023-12-30 08:00] VITALS: BP 186/73; PULSE 91; RESP 20; TEMP 36.5; O2SAT 94
[2023-12-30 08:14] LABS: Basophils # 0.1 K/mm3 (0-0.2); Basophils % 0.4 % (0.1-2.0); Eosinophils # 0.4 K/mm3 (0.0-0.4); Eosinophils % 2.5 % (0.1-12.0); Hematocrit 36.9 % (42.0-52.0); Hemoglobin 13.1 g/dL (14.1-18.0); Lymphocytes # 2.6 K/mm3 (0.7-4.5); Lymphocytes % 17.7 % (10-50); Mean Corpuscular HGB Conc 35.6 g/dL (31.8-35.4); Mean Corpuscular Hemoglobin 34.2 pg (27.0-31.2); Mean Corpuscular Volume 96.1 fl (80-94); Mean Platelet Volume 8.8 fl (7.4-10.4); Monocytes # 0.7 K/mm3 (0.1-1.0); Monocytes % 4.5 % (1.7-9.3); Neutrophils # 10.8 K/mm3 (1.8-7.8); Neutrophils % 74.8 % (37.0-80.0); Platelet Count 322 K/mm3 (142-424); Red Blood Count 3.84 M/mm3 (4.60-6.20); White Blood Count 14.4 K/mm3 (4.8-10.8)
[2023-12-30] MEDS: FINASTERIDE 5MG TABLET 5 MG PO (08:36)
[2023-12-30] MEDS: METFORMIN 500MG TABLET 500 MG PO ×2 (08:36→16:39)
[2023-12-30] MEDS: GABAPENTIN 100MG CAPSULE 200 MG PO ×3 (08:37→21:18)
[2023-12-30] MEDS: SITAGLIPTIN 50MG TABLET 100 MG PO (08:37)
[2023-12-30] MEDS: hydroCHLOROthiazide 25MG TABLET 12.5 MG PO (08:37)
[2023-12-30] MEDS: INSULIN GLARGINE 100 UNITS/ML 3ML FLEXPEN 65 UNIT SQ (08:42)
[2023-12-30 08:53] LABS: POC Glucose,Bedside 242 (70-110)
--- NOTE | 2023-12-30 09:48 | SW/DCPLANNER ---
Addendum entered by Sarah Colón 12/31/23 11:45: Daniela cruz/ [facility] stated they are unable to accept this patient. Patient does not have a preference for home health agency. Patient information/order has been faxed to Margaret cruz/ [facility]. Addendum entered by Sarah Colón 12/31/23 09:14: Patient information/order has been faxed to [facility]. Original Note: I attempted to speak w/ patient regarding plans once medically stable for discharge: patient was unable to stay awake and answer my questions. I called and spoke w/ patient's regarding discharge plans. PT/OT evaluated patient and recommneded home health services for this patient. is agreeable to home health for this patient and prefers to use [facility] due to using this agency in the past. Patient information/order will be faxed to [facility] at time of discharge. Discharge date is unknown at this time. I will continue to follow up w/ patient and his .
--- NOTE | 2023-12-30 09:49 | HMH.OTEV ---
OT Inpatient Evaluation Rehab OT IP Evaluation Start: 12/30/23 08:33 Freq: ONCE Status: Active Protocol: Document 12/30/23 09:43 TYLERSAFFORD (Rec: 12/30/23 09:[address] [facility] [id number]) Rehab OT IP Assessment Subjective History Pt oriented x 2 on arrival. Pt agreeable to engage in therapy session. Pt demonstrates some confusion about prior level of functioning and prior living arrangements. Pt reports he still lives with his mother, but from prior reports he lives with is . Pt admitted on 12/29/23 due to hyperglycemia and encephalopathy. History and physical report: Mr. Conde is a 78-year-old male with history of uncontrolled diabetes, hypertension, hyperlipidemia, who presented to the ER via EMS. EMS reports patient's called them because he was refusing to take his medications and has been incontinent of his bowels. His glucose was almost 600. He has no complaints at this time, alert and oriented x 4. Workup in the ER remarkable for hyperglycemia. is adamant that patient is confused and not acting himself. He is afebrile, has no leukocytosis. Blood gas unremarkable. No anion gap. Given confusion however, requested he stay admitted for further eval. ER consulted medicine for admission and further treatment. Subjective I think I am in [facility]. Pt claims to be independent with all ADLs such as dressing , bathing, and feeding. He claims his completes all IADLs. is not present to confirm. Pt's information provided is still untrustworthy due to the fact he is still slightly confused. Objective Patient Orientation Person,Birthday Right Upper Extremity Gross ROM WFL Left Upper Extremity Gross ROM WFL Bed Mobility bed mobility-scooting,bed mobility - supine/sit Assist Level Contact Guard/Hand Hold Transfer Training Sit/Stand Transfer Assist Level Minimal x 1 (25% assist) Rehab OT IP prob,goals,plan Problems Date of Evaluation: 12/30/23 OT IP Problems Bed Mobility,Transfers,Balance ,Self care,Safety Rehab Potential Rehab Potential Good Equipment Needs Assistive Devices Rolling / Wheeled Walker Plan OT intervention Plan Bed Mobility,Transfers,Balance ,Self care,Safety,Therapeutic Exercise OT Plan Frequency Daily Duration LOS Discharge Goals Bed Mobility Ability Standby Assistance Sit to Stand Chair Transfer Ability Contact Guard/Hand Hold Chair Transfer Ability Contact Guard/Hand Hold Chair Transfer Technique Sit to/from Ambulatory Chair Transfer Assistive Devices Rolling Walker Feeding Ability Assist with Tray Set Up Lower Body Dressing Ability Minimal Assistance Upper Body Dressing Ability Standby Assistance Bathing Ability Minimal Assistance Performing Toilet Hygiene Ability Contact Guard Overall Commode/Toilet Transfer Ability Contact Guard Commode/Toilet Transfer Technique Sit to/from Ambulatory Commode/Toilet Transfer Assistive Raised Toilet Seat,Grab Bars Devices Oral Care Assist Standby Assistance Decrease in Endurance Yes Discharge Plan OT Discharge Plan Pt will continue to be seen for OT services while at [facility]. Pt can return home with once he is medically stable per physician. Therapist recommends OT evaluation upon returning home for continued skilled therapy services. Eval Complexity Eval Charge Codes 34943 - Moderate Complexity PHYSICIAN CERTIFICATION: I certify the specified therapy services for Venancio Conde are required, authorized, and reviewed every 30 days.
--- NOTE | 2023-12-30 09:54 | HMH.PTEV ---
Physical Therapy Evaluation Rehab PT IP Evaluation Start: 12/30/23 08:33 Freq: ONCE Status: Active Protocol: Document 12/30/23 09:42 CHRISTIEArturoJOSE GUADALUPE (Rec: 12/30/23 09:54 PHOJOSIANE [id number]) Subjective/History History History The patient is a 78 year old male that admitted to [facility] by EMS. According to his , he refused to take his medications and was incontinent with his bowels. The patient admitted with glucose levels over 600. The patient's PMH is remarkable for DM, HTN, HLD, and bowel incontinence. Subjective Subjective The patient is in bed upon arrival and is agreeable to PT . The patient is oriented to person but not place or time. The patient reports that he lives with his mother and brother, and then later reports that he lives with his who helps him out. The patient also reports that he utilizes a walker for home and community mobility. Otherwise , the patient was a poor historian. New diagnosis of cancer in past 12 No months? Rehab PT IP Eval Objective Appearance Patient Behavior Cooperative,Confused Patient Orientation Person Difficulty following instructions none Ambulation Patient Able to Ambulate Yes Ambulation Observation IP General Gait Pattern Observation Shuffling Step Ambulation Distance (feet) 75 Ambulation Assistive Device None Ambulation Ability Minimal x 2 (25% assist) Balance Ability to Arise Able, uses arms to help Sitting Balance Steady, safe Standing Balance Steady, wide stance Dynamic Sitting Balance Ability Good Dynamic Standing Balance Ability Fair Transfers Bed Transfer Ability Independent Sit to Stand Bed Transfer Ability Minimal x 2 (25% assist) Rehab PT IP prob,goals,plan Problems Date of Evaluation: 12/30/23 PT IP Problems Bed Mobility,Transfers,Gait, Balance,Self care,Safety Rehab Potential Rehab Potential Fair Equipment Needs Assistive Devices Rolling / Wheeled Walker Plan PT Intervention Plan Bed Mobility,Transfers,Gait, Balance,Self care,Safety, Therapeutic Exercise PT Plan Frequency Daily Duration LOS Discharge Goals Bed Transfer Ability Independent Sit to Stand Chair Transfer Ability Supervision/Stand by Ambulation Assistive Device Rolling Walker Ambulation Distance (feet) 125 Discharge Plan PT Discharge Plan The patient presented for initial evaluation, and presented below baseline of his normal level of function. Skilled PT is indicated for this patient to promote a return to his prior level of function. The patient should be most appropriate for a discharge to home with home health, pending the amount of assistance that his spouse is able to offer. Eval Complexity Eval Charge Codes 05720 - High Complexity PHYSICIAN CERTIFICATION: I certify the specified therapy services for Venancio Conde are required, authorized, and reviewed every 30 days.
[2023-12-30] MEDS: humaLOG 100 UNITS/ML 3ML VIAL (SSI) SQ (11:45)
[2023-12-30 11:46] LABS: POC Glucose,Bedside 219 (70-110)
[2023-12-30] MEDS: LACTATED RINGERS 1000ML 1,000 ML 50 ML IV (14:22)
--- NOTE | 2023-12-30 15:01 | EXP.PN ---
Subjective *Date: 12/31/23 *Time: 08:20 Interval history: he is not oriented to time, denied CP, SOB, he is lying comfortably in bed Exam Data for Last 24 hours Vital signs and Labs for Last 24 Hours: Temp Pulse Resp BP Pulse Ox O2 Del Method 97.7 F 91 H 20 186/73 H 94 L Room Air 12/30/23 08:00 12/30/23 08:00 12/30/23 08:00 12/30/23 08:00 12/30/23 08:00 12/30/23 14:54 Laboratory Results - last 24 hr 12/29/23 17:00: VBG Lactic Acid 2.4 H 12/29/23 17:06: POC Glucose 88 12/29/23 17:17: Lactate 2.2 H 12/29/23 19:37: Lactate 2.1 12/29/23 20:28: POC Glucose 74 12/30/23 05:25: POC Glucose 68 L 12/30/23 06:21: WBC 14.4 H D, RBC 3.84 L, Hgb 13.1 L, Hct 36.9 L, MCV 96.1 H, MCH 34.2 H, MCHC 35.6 H, RDW 14.0, Plt Count 322, MPV 8.8, Neut % (Auto) 74.8, Lymph % (Auto) 17.7, [place] % (Auto) 4.5, Eos % (Auto) 2.5, Baso % (Auto) 0.4, Neut # (Auto) 10.8 H, Lymph # (Auto) 2.6, [place] # (Auto) 0.7, Eos # (Auto) 0.4, Baso # (Auto) 0.1, Sodium 137, Potassium 3.7, Chloride 104, Carbon Dioxide 25, Anion Gap 11.7, BUN 20, Creatinine 0.80, Estimated Creat Clear 70, Estimated GFR 93, Est GFR ( Amer) 113, Glucose 133 H D, Calcium 9.6, Magnesium 1.8, Total Bilirubin 0.5, AST 26, ALT 21, Alkaline Phosphatase 84, Total Protein 6.7, Albumin 4.2 D, Globulin 2.5, Albumin/Globulin Ratio 1.7 12/30/23 08:42: POC Glucose 242 H 12/30/23 11:38: POC Glucose 219 H I & O for Last 24 hours: Intake & Output 12/27/23 12/28/23 12/29/23 12/30/23 22:59 23:59 23:59 23:59 Intake Total 720 / 970 1814 Output Total 100 / 100 0 / 0 Balance 620 / 870 1814 Weight 82.185 kg 82.185 kg Constitutional Constitutional: no acute distress *Routine HEENT Exam Head: Present normocephalic Eye: Present EOMI and PERRL ENT: Present mucous membranes moist *Routine Neck Exam Neck: Present supple; Absent lymphadenopathy *Routine Respiratory Exam Respiratory: Present CTA bilaterally *Routine Cardiovascular Exam Cardiovascular: Present RRR *Routine Abdominal Exam Abdominal: Present soft and normoactive bowel sounds; Absent tenderness *Routine Extremities Exam Extremities: Absent cyanosis, clubbing or edema *Routine Skin Exam Skin: Present warm; Absent rash *Routine Neurological Exam Neurological: Present alert and oriented X3 Assessment and Plan *Assessment and plan (1) Confused: Status: Acute Category: Medical Code(s): R41.0 - Disorientation, unspecified (2) Hyperglycemia: Status: Acute Category: Medical Code(s): R73.9 - Hyperglycemia, unspecified (3) Tobacco abuse: Status: Acute Category: Medical Code(s): Z72.0 - Tobacco use (4) Depression: Status: Acute Qualifiers: Depression Type: reactive depression Qualified Code(s): F32.9 - Major depressive disorder, single episode, unspecified Category: Medical Code(s): F32.A - Depression, unspecified (5) HTN (hypertension): Status: Acute Category: Medical Code(s): I10 - Essential (primary) hypertension (6) HLD (hyperlipidemia): Status: Acute Category: Medical Code(s): E78.5 - Hyperlipidemia, unspecified (7) Diabetes: Status: Acute Category: Medical Code(s): E11.9 - Type 2 diabetes mellitus without complications Plan 78-year-old male who presented to the ER via EMS for reported confusion and incontinence per his . On arrival, found to have hyperglycemia. Confusion, suspect dementia - - No indication for MRI at this time. Would benefit from outpatient neuro referral for cognitive evaluation. - Mentating normally in the morning, anticipate discharge tomorrow. Uncontrolled diabetes: Continue insulin glargine, increase to 65 units daily. Continue sliding scale with fingersticks ACHS. Will hold glipizide during inpatient treatment -Continue metformin 500 mg twice daily -Continue Sitagliptin 100 mg daily -A1c pending BPH: Continue finasteride 5 mg daily Full code Diabetic diet
[2023-12-30 15:54] LABS: Hemoglobin A1C 8.6 % (4.0-6.0)
[2023-12-30 16:00] VITALS: BP 158/86; PULSE 83; RESP 18; TEMP 36.6; O2SAT 96
[2023-12-30 16:53] LABS: POC Glucose,Bedside 55 (70-110)
--- NOTE | 2023-12-30 17:00 | PC.NURSE ---
Addendum entered by Iesha Sorensen RN 12/30/23 17:23: GLUCOSE RE-CHECK:75. PT EATING SUPPER AT THIS TIME. Original Note: PT ONLY ALERT TO SLEF THUS FAR THIS SHIFT, STATED WRONG AND DOES NOT KNOW WHERE HE IS OR WHY HE IS HERE. PT IS PLEASANTLY CONFUSED. HAS BEEN SLEEPING IN BED MAJORITY OF SHIFT. HAS SAT UP ON SIDE OF BED FOR MEALS. FAMILY HAS VISITED TODAY. BLOOD SUGAR BEING MONITORED. TX WITH INSULIN X1, HOWEVER PT 1630 BS 55. GAVE PT SUGARED ORANGE JUICE. WILL RE-CHECK IN HALF HOUR. PT HAS HAD NO NEEDS OR C/O THIS SHIFT. RECEIVED BED BATH. HAS BEEN INCONTINENT OF BOWEL AND BLADDER, BRIEF IN PLACE. BED SAFETY ON AND WORKING. VSS.
[2023-12-30 17:28] LABS: POC Glucose,Bedside 75 (70-110)
[2023-12-30 20:00] VITALS: BP 154/93; PULSE 90; RESP 16; TEMP 37; O2SAT 93
[2023-12-30 21:09] LABS: POC Glucose,Bedside 98 (70-110)
[2023-12-30] MEDS: PANTOPRAZOLE 40MG TABLET 40 MG PO (21:18)
[2023-12-30] MEDS: ENOXAPARIN 40MG/0.4ML SYRINGE 40 MG SQ (21:18)
[2023-12-31 04:00] VITALS: BP 155/58; PULSE 78; RESP 16; TEMP 36.6; O2SAT 96; BMI 27.8
[2023-12-31] MEDS: SITAGLIPTIN 50MG TABLET 100 MG PO (06:00)
--- NOTE | 2023-12-31 06:02 | PC.NURSE ---
0530 fsbs 55, gave OJ with sugar packet. rechecked at 0600 fsbs 85.
[2023-12-31 06:08] LABS: POC Glucose,Bedside 85 (70-110)
[2023-12-31 08:00] VITALS: BP 164/75; PULSE 88; RESP 18; TEMP 36.6; O2SAT 98
[2023-12-31] MEDS: ENOXAPARIN 40MG/0.4ML SYRINGE 40 MG SQ (08:23)
[2023-12-31] MEDS: METFORMIN 500MG TABLET 500 MG PO (08:23)
[2023-12-31] MEDS: GABAPENTIN 100MG CAPSULE 200 MG PO (08:24)
[2023-12-31] MEDS: FINASTERIDE 5MG TABLET 5 MG PO (08:24)
[2023-12-31] MEDS: hydroCHLOROthiazide 12.5MG CAPSULE 12.5 MG PO (08:24)
[2023-12-31] MEDS: INSULIN GLARGINE 100 UNITS/ML 3ML FLEXPEN 65 UNIT SQ (08:24)
--- NOTE | 2023-12-31 08:31 | EXP.DC.SUM ---
General Admission date:: 12/29/23 Discharge date: 12/31/23 HPI HPI HPI: Mr. Conde is a 78-year-old male with history of uncontrolled diabetes, hypertension, hyperlipidemia, who presented to the ER via EMS. EMS reports patient's called them because he was refusing to take his medications and has been incontinent of his bowels. His glucose was almost 600. He has no complaints at this time, alert and oriented x 4. Workup in the ER remarkable for hyperglycemia. is adamant that patient is confused and not acting himself. He is afebrile, has no leukocytosis. Blood gas unremarkable. No anion gap. Given confusion however, requested he stay admitted for further eval. ER consulted medicine for admission and further treatment. On evaluation, patient is alert and oriented x 4. Reviewed imaging of his head, general age-related atrophy. No acute stroke. Denies any chest pain, shortness of breath, nausea,, diarrhea. States he has probably been more forgetful but has no acute complaints at this time. In administering the ER with improvement in glucose. Hospital Course Hospital Course Hospital Course: 78-year-old male who presented to the ER via EMS for reported confusion and incontinence per his . On arrival, found to have hyperglycemia. Confusion improved by still confused to time, answers all other questions appropriately, suspect dementia, will give neurology follow up. Stable for discharge Uncontrolled diabetes: now better controlled with diet -Continue metformin 500 mg twice daily -Continue Sitagliptin 100 mg daily BPH: Continue finasteride 5 mg daily Full code Diabetic diet Exam Data for Last 24 hours Vital signs and Labs for Last 24 Hours: Temp Pulse Resp BP Pulse Ox O2 Del Method 97.8 F 78 16 155/58 H 96 Room Air 12/31/23 04:00 12/31/23 04:00 12/31/23 04:00 12/31/23 04:00 12/31/23 04:00 12/31/23 06:04 Laboratory Results - last 24 hr 12/30/23 06:21: Hemoglobin A1c 8.6 H 12/30/23 08:42: POC Glucose 242 H 12/30/23 11:38: POC Glucose 219 H 12/30/23 16:40: POC Glucose 55 L 12/30/23 17:22: POC Glucose 75 12/30/23 20:59: POC Glucose 98 12/31/23 06:00: POC Glucose 85 I & O for Last 24 hours: Intake & Output 12/28/23 12/29/23 12/30/23 12/31/23 23:59 23:59 23:59 23:59 Intake Total 720 / 970 2570 / 2920 350 / 350 Output Total 100 / 100 0 / 0 0 / 0 Balance 620 / 870 2570 / 2920 350 / 350 Weight 82.185 kg 82.185 kg 83.4 kg Constitutional Constitutional: no acute distress *Routine HEENT Exam Head: Present normocephalic Eye: Present EOMI and PERRL ENT: Present mucous membranes moist *Routine Neck Exam Neck: Present supple; Absent lymphadenopathy *Routine Respiratory Exam Respiratory: Present CTA bilaterally *Routine Cardiovascular Exam Cardiovascular: Present RRR *Routine Abdominal Exam Abdominal: Present soft and normoactive bowel sounds; Absent tenderness *Routine Extremities Exam Extremities: Absent cyanosis, clubbing or edema *Routine Skin Exam Skin: Present warm; Absent rash *Routine Neurological Exam Neurological: Present alert Comments: patient is happily confused to time, appears dementia Results Data Completed and Pending Labs on day of discharge: Labs from last 24 hours 12/31/23 12/30/23 12/30/23 06:00 20:59 17:22 POC Glucose 85 98 75 Hemoglobin A1c 12/30/23 12/30/23 12/30/23 16:40 11:38 08:42 POC Glucose 55 L 219 H 242 H Hemoglobin A1c 12/30/23 06:21 POC Glucose Hemoglobin A1c 8.6 H DS: Diagnosis Discharge Diagnosis (1) Confused: Status: Acute Code(s): R41.0 - Disorientation, unspecified (2) Hyperglycemia: Status: Acute Code(s): R73.9 - Hyperglycemia, unspecified (3) Tobacco abuse: Status: Acute Code(s): Z72.0 - Tobacco use (4) Depression: Status: Acute Code(s): F32.A - Depression, unspecified Qualifiers: Depression Type: reactive depression Qualified Code(s): F32.9 - Major depressive disorder, single episode, unspecified (5) HTN (hypertension): Status: Acute Code(s): I10 - Essential (primary) hypertension (6) HLD (hyperlipidemia): Status: Acute Code(s): E78.5 - Hyperlipidemia, unspecified (7) Diabetes: Status: Acute Code(s): E11.9 - Type 2 diabetes mellitus without complications Meds Home Medications and Allergies Home Medications Medication Instructions Recorded Confirmed Type tramadol 50 mg tablet 50 mg PO TIDP PRN Moderate Pain 08/24/20 12/29/23 History (Scale Score 5-6) glipizide 10 mg tablet, extended 10 mg PO BID Diabetes 30 days #60 08/25/20 12/29/23 Rx release 24 hr tabs sitagliptin phosphate 100 mg tablet 100 mg PO DAILY Diabetes 30 days 08/25/20 12/29/23 Rx #30 tabs gabapentin 100 mg capsule 200 mg PO TID Pain 05/10/23 12/29/23 History hydrochlorothiazide 25 mg tablet 12.5 mg PO DAILY Fluid 05/10/23 12/29/23 History metformin 500 mg tablet 500 mg PO BIDWMEAL Diabetes 05/10/23 12/29/23 History finasteride 5 mg tablet 5 mg PO DAILY Prostate 07/22/23 12/29/23 History insulin glargine 100 unit/mL (3 60 unit (0.6 mL) SQ DAILY Diabetes 07/24/23 12/29/23 Rx mL) subcutaneous pen 30 days #18 mL omeprazole 20 mg capsule,delayed 20 mg PO DAILY Acid Reflux 12/29/23 12/29/23 History release New Prescriptions to Start Prescriptions: Allergies Allergy/AdvReac Type Severity Reaction Status Date / Time No Known Allergies Allergy Unverified 09/29/20 14:54 Discharge Plan Disposition Patient Disposition: Home Health Service Condition: Fair Discharge Order Discharge Orders: Discharge Order (Routine); Ordered 12/31/23 Ordered By: Jose R Chan Follow up Plan Follow up with: Sonia Almeida MD [Staff Physician] - Enter time for follow up Prescriptions/Medication Reconciliation: Continued metformin 500 MG tablet 500 mg PO BIDWMEAL hydrochlorothiazide 25 mg tablet 12.5 mg PO DAILY Patient Comments: TAKE ONE TABLET BY MOUTH EVERY DAY FOR EDEMA gabapentin 100 mg capsule 200 mg PO TID Patient Comments: TAKE TWO CAPSULES BY MOUTH THREE TIMES DAILY FOR neuropathy finasteride 5 mg tablet 5 mg PO DAILY insulin glargine 100 UNIT/ML insulin pen 60 unit SQ DAILY 30 Days Qty: 18 0RF omeprazole 20 mg capsule,delayed release(DR/EC) 20 mg PO DAILY Patient Comments: TAKE ONE CAPSULE BY MOUTH EVERY DAY tramadol 50 MG tablet 50 mg PO TIDP PRN (Reason: Moderate Pain (Scale Score 5-6)) glipizide 10 MG tablet extended release 24hr 10 mg PO BID 30 Days Qty: 60 0RF sitagliptin phosphate 100 MG tablet 100 mg PO DAILY 30 Days Qty: 30 0RF Problem Reconciliation Problems Reviewed?: Yes Patient Discharge Instructions ACTIVITY: Ambulate as tolerated DIET: diabetic diet Patient Instructions: Learn Your Diabetic ABCs, Encephalopathy Providers Primary Care Provider: Silviano Love Admit Provider: Nithin Romero Attending Provider: Nithin Romero
[2023-12-31 08:35] LABS: POC Glucose,Bedside 130 (70-110)
== END 2023-12-31 10:26 | disposition home health service (06) ==
LOC: ER 15:17 → 2ND 16:00
PROVIDERS: Admitting Provider Internal Medicine Adolescent Medicine; Emergency Provider Emergency Medicine; PCP Family Medicine; Visit Provider Internal Medicine Adolescent Medicine
DX: E11.65 Type 2 diabetes mellitus with hyperglycemia (principal); R41.0 Disorientation, unspecified; Z72.0 Tobacco use; F32.9 Major depressive disorder, single episode, unspecified; I10 Essential (primary) hypertension; E78.5 Hyperlipidemia, unspecified; G93.40 Encephalopathy, unspecified; E78.00 Pure hypercholesterolemia, unspecified; N40.0 Benign prostatic hyperplasia without lower urinary tract symptoms
CPT/HCPCS: 36415; 70450; 80053; 81001; 82009; 82803; 82962; 83036; 83605; 83735; 84484; 85025; 87636; 93005; 97163; 97166; 97530; 99285; G0378

== ENCOUNTER 2023-12-31 16:52 | Observation (INO) | payer MEDICARE, MEDICAID, SELFPAY ==
[2023-12-31 16:53] VITALS: BP 127/72; PULSE 86; RESP 16; TEMP 36.6; O2SAT 96; BMI 25.8
--- NOTE | 2023-12-31 17:03 | PC.NURSE ---
DR RICHARDSON AT BEDSIDE
--- NOTE | 2023-12-31 17:13 | HMH.EDGENADL ---
Discharge Plan Disposition Patient Disposition: Admitted Prescriptions Prescriptions: No Action metformin 500 MG tablet 500 mg PO BIDWMEAL hydrochlorothiazide 25 mg tablet 12.5 mg PO DAILY Patient Comments: TAKE ONE TABLET BY MOUTH EVERY DAY FOR EDEMA gabapentin 100 mg capsule 200 mg PO TID Patient Comments: TAKE TWO CAPSULES BY MOUTH THREE TIMES DAILY FOR neuropathy finasteride 5 mg tablet 5 mg PO DAILY insulin glargine 100 UNIT/ML insulin pen 60 unit SQ DAILY 30 Days Qty: 18 0RF omeprazole 20 mg capsule,delayed release(DR/EC) 20 mg PO DAILY Patient Comments: TAKE ONE CAPSULE BY MOUTH EVERY DAY tramadol 50 MG tablet 50 mg PO TIDP PRN (Reason: Moderate Pain (Scale Score 5-6)) glipizide 10 MG tablet extended release 24hr 10 mg PO BID 30 Days Qty: 60 0RF sitagliptin phosphate 100 MG tablet 100 mg PO DAILY 30 Days Qty: 30 0RF Referrals Follow up/Referrals: Silviano Love [Primary Care Provider] - See instructions Clinical Impressions Clinical Impression: Acute encephalopathy, Hypoglycemia Discharge ED Provider: [facility] HPI General Stated complaint: Hypoglycemia Time Seen by Provider: 12/31/23 16:56 History of Present Illness HPI narrative: Is a 78-year-old history of diabetes was recently in the hospital for encephalopathy that was presumed to be secondary to glucose abnormalities. Was discharged earlier today sent home and was found to be confused again hypoglycemic. Brought in by EMS with glucose in the 40s. Was given dextrose and Accu-Chek prior to my evaluation was 120. Patient was confused upon my initial presentation and history was not able to be obtained from him. No family at the bedside at the moment. Related Data Home Medications Medication Instructions Recorded Confirmed tramadol 50 mg tablet 50 mg PO TIDP PRN Moderate Pain 08/24/20 12/29/23 (Scale Score 5-6) gabapentin 100 mg capsule 200 mg PO TID Pain 05/10/23 12/29/23 hydrochlorothiazide 25 mg tablet 12.5 mg PO DAILY Fluid 05/10/23 12/29/23 metformin 500 mg tablet 500 mg PO BIDWMEAL Diabetes 05/10/23 12/29/23 finasteride 5 mg tablet 5 mg PO DAILY Prostate 07/22/23 12/29/23 omeprazole 20 mg capsule,delayed 20 mg PO DAILY Acid Reflux 12/29/23 12/29/23 release Previous Rx's Medication Instructions Recorded glipizide 10 mg tablet, extended 10 mg PO BID Diabetes 30 days #60 08/25/20 release 24 hr tabs sitagliptin phosphate 100 mg tablet 100 mg PO DAILY Diabetes 30 days 08/25/20 #30 tabs insulin glargine 100 unit/mL (3 60 unit (0.6 mL) SQ DAILY Diabetes 07/24/23 mL) subcutaneous pen 30 days #18 mL Allergies Allergy/AdvReac Type Severity Reaction Status Date / Time No Known Allergies Allergy Unverified 09/29/20 14:54 [facility] Disclaimer: The information contained in this section may have been updated after the patient was seen, as this information can be updated by other users. 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 High cholesterol Urinary retention due to benign prostatic hyperplasia Family History Other Family history of myocardial infarction Social History Smoking Status: Current every day smoker alcohol intake: former substance use type: denies use current occupational status: retired Travel in the last 8 weeks: None household members: spouse housing: house ROS Obtained: Yes All systems reviewed & no additional complaints except as documented Physical Exam General General appearance: lethargic Respiratory Respiratory exam: Present normal lung sounds bilaterally Cardiovascular Cardiovascular exam: Present regular rate Neurological Exam Neurological exam: Present other (GCS of 13 able to be aroused nonfocal upon being woken up but very confused) Medical Decision Making Leonid Inquiry Pt receiving controlled substance: No Lab Data Lab Results 12/31/23 16:58: WBC 13.1 H, RBC 3.74 L, Hgb 11.9 L, Hct 34.7 L, MCV 92.9, MCH 31.9 H, MCHC 34.3, RDW 13.9, Plt Count 319, MPV 8.0, Neut % (Auto) 78.1, Lymph % (Auto) 14.5, Garland % (Auto) 4.1, Eos % (Auto) 2.9, Baso % (Auto) 0.4, Neut # (Auto) 10.2 H, Lymph # (Auto) 1.9, Gar[place] # (Auto) 0.5, Eos # (Auto) 0.4, Baso # (Auto) 0.1, Sodium 139, Potassium 3.2 L, Chloride 108 H, Carbon Dioxide 28, Anion Gap 6.2, BUN 18, Creatinine 0.80, Estimated GFR 93, Est GFR ( Amer) 113, Glucose 119 H, Calcium 9.1, Total Bilirubin 0.3, AST 30, ALT 21, Alkaline Phosphatase 80, Total Protein 5.9 L, Albumin 3.5 D, Globulin 2.4, Albumin/Globulin Ratio 1.5 12/31/23 17:30: VBG pH 7.37, VBG pCO2 39.3, VBG pO2 95.9 H, VBG HCO3 22.3 L, VBG Total CO2 23.5, VBG O2 Saturation 96.6 H, VBG Base Excess -3.0 L, VBG Lactic Acid 1.6 12/31/23 16:58 12/31/23 16:58 Orders (Tests/Meds): ED MEDICATIONS Generic Name Dose Route Start Last Admin Trade Name Freq PRN Reason Stop Dose Admin Dextrose/Lactated Ringer's 1,000 mls @ 125 mls/hr 12/31/23 17:45 12/31/23 17:41 Dextrose 5% In Lactated Ringer's 1000ml IV 01/30/24 17:44 125 mls/hr .Q8H RIVER Administration Discontinued Medications Generic Name Dose Route Start Last Admin Trade Name Freq PRN Reason Stop Dose Admin Dextrose 25 ml 12/31/23 17:33 12/31/23 17:41 Dextrose 50% 50ml Syringe (Crash Cart) IVP 12/31/23 17:34 25 ml ONCE ONE Administration ORDERS Category Date Time Status CXR --portable [XR chest portable] Stat Exams 12/31/23 17:30 Completed Ammonia Stat Lab 12/31/23 16:08 Received CBC w/Auto Diff [Complete Blood Count Auto Diff] Stat Lab 12/31/23 16:58 Completed CMP [Comprehensive Metabolic Panel] Stat Lab 12/31/23 16:58 Completed UA [Urinalysis and Microscopic] Stat Lab 12/31/23 17:30 Ordered Venous Blood Gas Stat RT 12/31/23 17:30 Completed Medical Decision Narrative: Patient is a 78-year-old who recently was admitted for altered mental status and acute encephalopathy had a CT scan which was unremarkable labs including urinalysis which were unremarkable. He was in the hospital for several days was discharged earlier today but was discharged with worsening of his symptoms. Will await family to come to the bedside to get more information in the meantime we will get metabolic test and check every hour Accu-Cheks. After my second evaluation patient is now awake alert answering questions appropriately now his glucoses normalized. I suspect his acute altered mental status was secondary to hypoglycemia. He is on glipizide and insulin unclear as to whether he has been taking them and eating. Patient's and home health nurse who is there from 94 daily is present at the bedside. They state that he is not back to his baseline but that he was more awake and did improve some while he was in the hospital recently. They stated that he was discharged still more confused than his normal baseline but that they were told that he may have new onset of dementia. He was able to eat breakfast this morning but went home and did not eat anything was given glipizide and insulin early this morning and subsequently got more obtunded. Reassessment patient became more somnolent glucose again was dropping at this point he was given an amp of D50 and started on D5 LR. Reassessment 6:27 PM patient now awake interactive eating. Given patient's severe fluctuations and difficulty caring for himself at home he will be admitted for further observation and possible discussion for placement. Critical Care Critical Care Time Critical Care Time: Yes Attestation: On 12/31/23, the high probability of a clinically significant, sudden or life threatening deterioration of the following system(s) required my full and direct attention, intervention and personal management. The time I documented below is in addition to time spent performing reported procedures but includes the following listed in this critical care notation. Total Time Total Critical Care Time: 35
[2023-12-31 17:27] LABS: Chloride 108 mmol/L (98-107); Potassium 3.2 mmoL/L (3.5-5.1); Sodium 139 mmol/L (136-145)
[2023-12-31 17:30] LABS: Alanine Aminotransferase 21 U/L (12-78); Albumin Level 3.5 g/dl (3.5-5.0); Albumin/Globulin Ratio 1.5 (1.1-1.8); Alkaline Phosphatase 80 U/L (38-126); Anion Gap 6.2 mEq/L (5-15); Aspartate Amino Transferase 30 U/L (17-59); Bilirubin,Total 0.3 mg/dl (0.2-1.3); Blood Urea Nitrogen 18 mg/dl (9-20); Carbon Dioxide 28 mmol/L (22.0-30.0); Estimated Glomerular Filt Rate 93 ml/min (>60); GFR (African American) 113 ML/MIN (>60); Globulin 2.4 g/dL (1.3-3.2); Total Protein,Serum 5.9 g/dl (6.3-8.2)
--- NOTE | 2023-12-31 17:30 | XR_ITS ---
PROCEDURE INFORMATION: Exam: XR Chest Exam date and time: 12/31/2023 5:43 PM Age: 78 years old Clinical indication: Dyspnea TECHNIQUE: Imaging protocol: Radiologic exam of the chest. Views: 1 view. COMPARISON: CR XR CHEST PORTABLE 07/21/2023 10:38 PM FINDINGS: Lungs: Pleuroparenchymal scarring of the lung bases with subsegmental atelectasis is present without consolidations or pleural effusions that project above the diaphragm. Pleural spaces: Unremarkable. No pleural effusion. No pneumothorax. Heart/Mediastinum: Unremarkable. No cardiomegaly. Bones/joints: Unremarkable. IMPRESSION: Pleuroparenchymal scarring of the lung bases with subsegmental atelectasis is present without consolidations or pleural effusions that project above the diaphragm.
[2023-12-31 17:31] LABS: Calcium 9.1 mg/dl (8.4-10.2); Glucose 119 mg/dl (74-100)
--- NOTE | 2023-12-31 17:32 | PC.NURSE ---
FSBS [id number]
[2023-12-31 17:35] VITALS: BMI 25.8
[2023-12-31 17:38] LABS: Basophils # 0.1 K/mm3 (0-0.2); Basophils % 0.4 % (0.1-2.0); Eosinophils # 0.4 K/mm3 (0.0-0.4); Eosinophils % 2.9 % (0.1-12.0); Hematocrit 34.7 % (42.0-52.0); Hemoglobin 11.9 g/dL (14.1-18.0); Lymphocytes # 1.9 K/mm3 (0.7-4.5); Lymphocytes % 14.5 % (10-50); Mean Corpuscular HGB Conc 34.3 g/dL (31.8-35.4); Mean Corpuscular Hemoglobin 31.9 pg (27.0-31.2); Mean Corpuscular Volume 92.9 fl (80-94); Monocytes # 0.5 K/mm3 (0.1-1.0); Monocytes % 4.1 % (1.7-9.3); Neutrophils # 10.2 K/mm3 (1.8-7.8); Neutrophils % 78.1 % (37.0-80.0); Platelet Count 319 K/mm3 (142-424); Red Blood Count 3.74 M/mm3 (4.60-6.20); Red Cell Distribution Width 13.9 % (11.5-17.5); White Blood Count 13.1 K/mm3 (4.8-10.8)
[2023-12-31] MEDS: DEXTROSE 5%-LACTATED RINGERS 1,000 ML 125 ML IV (17:41)
[2023-12-31] MEDS: DEXTROSE 50% 50ML SYRINGE (CRASH CART) 25 ML IVP (17:41)
--- NOTE | 2023-12-31 17:51 | PC.NURSE ---
dietary called for tray
[2023-12-31 17:52] LABS: Lactate Venous 1.6 mmol/L (0.4-2.0); VBG HCO3 22.3 mmol/L (23-30); VBG Oxygen Saturation 96.6 % (50-70); VBG PCO2 39.3 mmol/L (35-51); VBG PH 7.37 mmol/L (7.31-7.41); VBG PO2 95.9 mmol/L (28-40); VBG Total CO2 23.5 mmol/L (23-27)
[2023-12-31 18:25] LABS: Ammonia < 9 umol/L (9-30)
--- NOTE | 2023-12-31 18:27 | PC.NURSE ---
FSBS [id number]
--- NOTE | 2023-12-31 18:36 | PC.NURSE ---
DR RICHARDSON SPEAKING WITH DR VELASCO FOR ADMISSION
--- NOTE | 2023-12-31 19:02 | PC.NURSE ---
FSBS [id number]
--- NOTE | 2023-12-31 19:15 | EXP.HP ---
History of Present Illness *Admission Date: 12/31/23 *Reason for visit:: Confusion, low blood sugar *History of present illness: Mr. Conde is a 78-year-old male with history of diabetes who was just hospitalized for confusion and hyperglycemia. Discharged this morning home. Laurie presents to the ER with confusion and hypoglycemia. Family states he got his insulin this morning before leaving the hospital (which is his normal regimen and had been tolerated while admitted). Went home and did not eat and proceeded to take a nap. When he woke up he was very lethargic and confused. Found to have glucose in the 40s when EMS arrived. Was given dextrose and improved to the 100s by time of arrival to the ER. Reportedly confused in the ER, unable to give history. No family at bedside at that time. Remainder of workup in the ER found mild leukocytosis of 13, improved from morning labs today. Electrolytes relatively unremarkable. Chest x-ray with no acute findings. Given confusion and glucose abnormalities, requested admission for reevaluation. On my relation, patient's mentation has improved. Family at bedside now. Patient appears at baseline mentation. Glucose doing better. Discussed plan of evaluating overnight, making slight adjustments to insulin regimen and reevaluating tomorrow for possible dispo back home with home health in the care of of spouse and information architect. [facility] Disclaimer: The information contained in this section may have been updated after the patient was seen, as this information can be updated by other users. 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 High cholesterol Urinary retention due to benign prostatic hyperplasia Family History Other Family history of myocardial infarction Social History Smoking Status: Unknown if ever smoked alcohol intake: former substance use type: denies use current occupational status: retired Travel in the last 8 weeks: None household members: spouse housing: house Review of Systems Review of Systems Review of systems (narrative): 14 point review of systems performed, pertinent positives and negatives as per HPI Meds Home Medications and Allergies Home Medications Medication Instructions Recorded Confirmed Type tramadol 50 mg tablet 50 mg PO TIDP PRN Moderate Pain 08/24/20 12/31/23 History (Scale Score 5-6) glipizide 10 mg tablet, extended 10 mg PO BID Diabetes 30 days #60 08/25/20 12/31/23 Rx release 24 hr tabs sitagliptin phosphate 100 mg tablet 100 mg PO DAILY Diabetes 30 days 08/25/20 12/31/23 Rx #30 tabs gabapentin 100 mg capsule 200 mg PO TID Pain 05/10/23 12/31/23 History hydrochlorothiazide 25 mg tablet 12.5 mg PO DAILY Fluid 05/10/23 12/31/23 History metformin 500 mg tablet 500 mg PO BIDWMEAL Diabetes 05/10/23 12/31/23 History finasteride 5 mg tablet 5 mg PO DAILY Prostate 07/22/23 12/31/23 History insulin glargine 100 unit/mL (3 60 unit (0.6 mL) SQ DAILY Diabetes 07/24/23 12/31/23 Rx mL) subcutaneous pen 30 days #18 mL omeprazole 20 mg capsule,delayed 20 mg PO DAILY Acid Reflux 12/29/23 12/31/23 History release New Prescriptions to Start Prescriptions: Allergies Allergy/AdvReac Type Severity Reaction Status Date / Time No Known Allergies Allergy Unverified 09/29/20 14:54 Exam Data for Last 24 hours Vital signs and Labs for Last 24 Hours: Temp Pulse Resp BP Pulse Ox O2 Del Method 97.8 F 86 16 127/72 96 Room Air 12/31/23 16:53 12/31/23 16:53 12/31/23 16:53 12/31/23 16:53 12/31/23 16:53 12/31/23 16:53 Laboratory Results - last 24 hr 12/31/23 16:08: Ammonia < 9 L 12/31/23 16:58: WBC 13.1 H, RBC 3.74 L, Hgb 11.9 L, Hct 34.7 L, MCV 92.9, MCH 31.9 H, MCHC 34.3, RDW 13.9, Plt Count 319, MPV 8.0, Neut % (Auto) 78.1, Lymph % (Auto) 14.5, [place] % (Auto) 4.1, Eos % (Auto) 2.9, Baso % (Auto) 0.4, Neut # (Auto) 10.2 H, Lymph # (Auto) 1.9, [place] # (Auto) 0.5, Eos # (Auto) 0.4, Baso # (Auto) 0.1, Sodium 139, Potassium 3.2 L, Chloride 108 H, Carbon Dioxide 28, Anion Gap 6.2, BUN 18, Creatinine 0.80, Estimated GFR 93, Est GFR ( Amer) 113, Glucose 119 H, Calcium 9.1, Total Bilirubin 0.3, AST 30, ALT 21, Alkaline Phosphatase 80, Total Protein 5.9 L, Albumin 3.5 D, Globulin 2.4, Albumin/Globulin Ratio 1.5 12/31/23 17:30: VBG pH 7.37, VBG pCO2 39.3, VBG pO2 95.9 H, VBG HCO3 22.3 L, VBG Total CO2 23.5, VBG O2 Saturation 96.6 H, VBG Base Excess -3.0 L, VBG Lactic Acid 1.6 I & O for Last 24 hours: Intake & Output 12/28/23 12/29/23 12/30/23 12/31/23 23:59 23:59 23:59 23:59 Weight 81.647 kg Constitutional Constitutional: no acute distress, average body habitus, chronically ill appearing and cooperative *Routine HEENT Exam Head: Present normocephalic Eye: Present EOMI and PERRL ENT: Present mucous membranes moist *Routine Neck Exam Neck: Present supple; Absent lymphadenopathy *Routine Respiratory Exam Respiratory: Present CTA bilaterally *Routine Cardiovascular Exam Cardiovascular: Present RRR *Routine Abdominal Exam Abdominal: Present soft and normoactive bowel sounds; Absent tenderness *Routine Rectal Exam Rectal:: deferred *Routine Genitalia Exam Genitalia:: deferred *Routine Extremities Exam Extremities: Absent cyanosis, clubbing or edema *Routine Skin Exam Skin: Present warm; Absent rash *Routine Neurological Exam Neurological: Present alert, oriented X3 and moving all extremities; Absent altered mental status Comments: Questions about orientation: Patient oriented to self (name and birthdate), location (hospital and then specified [facility]), city, month (December), day of week, year. Did not know specific date family at bedside and heard him answer questions appropriately. Assessment and Plan *Assessment and plan (1) Hypoglycemia: Status: Acute Category: Medical Code(s): E16.2 - Hypoglycemia, unspecified (2) Confused: Status: Acute Category: Medical Code(s): R41.0 - Disorientation, unspecified (3) Tobacco abuse: Status: Acute Category: Medical Code(s): Z72.0 - Tobacco use (4) Depression: Status: Acute Qualifiers: Depression Type: reactive depression Qualified Code(s): F32.9 - Major depressive disorder, single episode, unspecified Category: Medical Code(s): F32.A - Depression, unspecified (5) HTN (hypertension): Status: Acute Category: Medical Code(s): I10 - Essential (primary) hypertension (6) HLD (hyperlipidemia): Status: Acute Category: Medical Code(s): E78.5 - Hyperlipidemia, unspecified (7) Diabetes: Status: Acute Category: Medical Code(s): E11.9 - Type 2 diabetes mellitus without complications Plan 78-year-old male who presented to the ER for reported confusion and hypoglycemia. Presented with his and daughter. On arrival found to have low blood sugar and to be slightly confused. Was just discharged this morning after improving from a similar presentation with hyperglycemia. Discussed case with ER physician, request admission for reevaluation of glucose management, evaluation by therapy, and further workup of confusion. Medicine agreed to admit. By the time of my evaluation, patient is alert and oriented, at baseline mentation per family. Doing better. Adjustments to be made to insulin regimen/diabetes regimen. Will monitor overnight. Problems addressed as follows: Confusion -Patient alert and oriented at this time. Does not appear confused. CT of head obtained earlier this week showing age-related degeneration but no overt stroke or masses. -No indication for MRI at this time. Would benefit from outpatient neuro referral for cognitive evaluation. -Suspect age-related mild cognitive impairment in conjunction with diabetes and hypoglycemia. Uncontrolled diabetes: Hypoglycemia -Patient was tolerating glargine while recently admitted. Received medication this morning before discharge and then proceeded to not eat after getting home. Concern this is what led to his hypoglycemia. Will discontinue insulin glargine and transition to combination insulin 75/25. 20 units twice daily. Continue sliding scale with fingersticks ACHS. Will hold glipizide during inpatient treatment and recommend discontinuing altogether given risk for hypoglycemia. -A1c 8.6 earlier this week. Continue metformin 500 mg twice daily; Continue Sitagliptin 100 mg daily - Will continue gabapentin 200 mg 3 times a day for neuropathy Continue pantoprazole daily BPH: Continue finasteride 5 mg daily PT and OT consulted to evaluate for home health versus placement. Family would like to take patient home. Has a sitter/information architect 5 days a week. Case management consulted to assist with disposition. No desire at this time from family for placement in rehab. Full code Diabetic diet
--- NOTE | 2023-12-31 19:55 | PC.NURSE ---
Gave report to Precious ASH on med/surg
[2023-12-31 20:00] VITALS: O2SAT 96
[2023-12-31 20:03] VITALS: BP 112/77; PULSE 95; RESP 18; TEMP 36.6; O2SAT 94
[2023-12-31 20:40] VITALS: BP 131/66; PULSE 95; RESP 18; TEMP 36.8; O2SAT 98; BMI 25.8
[2023-12-31 21:26] LABS: POC Glucose,Bedside 290 (70-110)
--- NOTE | 2023-12-31 21:29 | PC.NURSE ---
Addendum entered by Myah Sainz RN 01/01/24 06:45: This AM FSBS 134; provider Dr. Chan notified and recvd v.o. to hold all insulin & Metformin this morning and to not restart the LR with Dextrose 5% at this time. Addendum entered by Myah Sainz RN 01/01/24 02:20: FSBS at 0030 is 320; provider notified; no further orders given at this time. Addendum entered by Myah Sainz RN 12/31/23 22:30: FSBS at 2225 334; provider Lonny Lane notified and recvd new order to recheck FSBS at midnight. Original Note: Patient's FSBS 290 at 21:23. Per Dr. Romero no sliding scale at this time or LR with Dextrose 5%. Recheck in 1 hour if 150 or below restart LR with Dextrose 5% at 50mL/hr if greater than 150 no action needed and begin ACHS FSBS.
[2023-12-31 22:28] LABS: POC Glucose,Bedside 334 (70-110)
[2024-01-01 00:59] LABS: POC Glucose,Bedside 320 (70-110)
[2024-01-01 04:00] VITALS: BP 136/87; PULSE 86; RESP 18; TEMP 36.8; O2SAT 95; BMI 25.7
[2024-01-01 06:25] LABS: POC Glucose,Bedside 138 (70-110)
[2024-01-01 06:55] LABS: Basophils # 0.1 K/mm3 (0-0.2); Basophils % 0.5 % (0.1-2.0); Eosinophils # 0.4 K/mm3 (0.0-0.4); Eosinophils % 3.7 % (0.1-12.0); Hematocrit 34.4 % (42.0-52.0); Hemoglobin 11.7 g/dL (14.1-18.0); Lymphocytes # 3.2 K/mm3 (0.7-4.5); Lymphocytes % 27.1 % (10-50); Mean Corpuscular HGB Conc 33.9 g/dL (31.8-35.4); Mean Corpuscular Hemoglobin 32.1 pg (27.0-31.2); Mean Corpuscular Volume 94.6 fl (80-94); Mean Platelet Volume 7.9 fl (7.4-10.4); Monocytes # 0.7 K/mm3 (0.1-1.0); Monocytes % 6.1 % (1.7-9.3); Neutrophils # 7.4 K/mm3 (1.8-7.8); Neutrophils % 62.7 % (37.0-80.0); Platelet Count 312 K/mm3 (142-424); Red Blood Count 3.64 M/mm3 (4.60-6.20); Red Cell Distribution Width 13.9 % (11.5-17.5); White Blood Count 11.9 K/mm3 (4.8-10.8)
--- NOTE | 2024-01-01 07:47 | HMH.PHAINT1 ---
Pharmacy Intervention Comments: Verified home medications using external fill history and confirmed with discharge summary from previous hospital stay - pt was discharged 12/30 and subsequently readmitted later that day.
[2024-01-01 07:58] VITALS: BP 138/70; PULSE 90; RESP 17; TEMP 36.8; O2SAT 97
[2024-01-01] MEDS: SITAGLIPTIN 50MG TABLET 100 MG PO (09:16)
[2024-01-01] MEDS: FINASTERIDE 5MG TABLET 5 MG PO (09:16)
[2024-01-01] MEDS: hydroCHLOROthiazide 25MG TABLET 12.5 MG PO (09:16)
[2024-01-01] MEDS: GABAPENTIN 100MG CAPSULE 200 MG PO (09:16)
[2024-01-01 09:26] LABS: POC Glucose,Bedside 211 (70-110)
--- NOTE | 2024-01-01 09:55 | HMH.OTEV ---
OT Inpatient Evaluation Rehab OT IP Evaluation Start: 12/31/23 22:46 Freq: ONCE Status: Active Protocol: Document 01/01/24 09:51 [facility] (Rec: 01/01/24 09:55 [facility] [id number]) Rehab OT IP Assessment Subjective History Pt oriented x 3 on arrival. Pt agreeable to engage in therapy evaluation. Pt admitted on 12/31/23 due to hypoglycemia and confusion. History and physical report: Mr. Conde is a 78-year-old male with history of diabetes who was just hospitalized for confusion and hyperglycemia. Discharged this morning home. Laurie presents to the ER with confusion and hypoglycemia. Family states he got his insulin this morning before leaving the hospital (which is his normal regimen and had been tolerated while admitted) . Went home and did not eat and proceeded to take a nap. When he woke up he was very lethargic and confused. Found to have glucose in the 40s when EMS arrived. Was given dextrose and improved to the 100s by time of arrival to the ER. Reportedly confused in the ER, unable to give history . No family at bedside at that time. Remainder of workup in the ER found mild leukocytosis of 13, improved from morning labs today. Electrolytes relatively unremarkable. Chest x-ray with no acute findings. Given confusion and glucose abnormalities, requested admission for reevaluation. Subjective I was living with my . Prior to being in the hospital , pt lived at home with his . Pt claims to be independent with all ADLs. He is dependent upon for completion of all IADLs. Objective Patient Orientation Person,Place,Birthday Right Upper Extremity Gross ROM WFL Left Upper Extremity Gross ROM WFL Bed Mobility bed mobility-scooting,bed mobility - supine/sit Assist Level Contact Guard/Hand Hold Transfer Training Sit/Stand Transfer Assist Level Minimal x 1 (25% assist) Rehab OT IP prob,goals,plan Problems Date of Evaluation: 01/01/24 OT IP Problems Bed Mobility,Transfers,Balance ,Self care,Safety Rehab Potential Rehab Potential Good Equipment Needs Assistive Devices Rolling / Wheeled Walker Plan OT intervention Plan Bed Mobility,Transfers,Balance ,Self care,Safety,Therapeutic Exercise OT Plan Frequency Daily Duration LOS Discharge Goals Bed Mobility Ability Standby Assistance Sit to Stand Chair Transfer Ability Contact Guard/Hand Hold Chair Transfer Ability Contact Guard/Hand Hold Chair Transfer Technique Sit to/from Ambulatory Chair Transfer Assistive Devices Rolling Walker Feeding Ability Assist with Tray Set Up Lower Body Dressing Ability Minimal Assistance Upper Body Dressing Ability Contact Guard Bathing Ability Moderate Assistance Performing Toilet Hygiene Ability Minimal Assistance Overall Commode/Toilet Transfer Ability Contact Guard,Minimal Assistance Commode/Toilet Transfer Technique Sit to/from Ambulatory Commode/Toilet Transfer Assistive Grab Bars Devices Oral Care Assist Standby Assistance Decrease in Endurance No Discharge Plan OT Discharge Plan Pt will continue to be seen for OT services while at [facility]. Pt can return home with once he is medically stable per physician. Therapist recommends home health OT evaluation as needed. Eval Complexity Eval Charge Codes 50695 - Moderate Complexity PHYSICIAN CERTIFICATION: I certify the specified therapy services for Venancio Conde are required, authorized, and reviewed every 30 days.
--- NOTE | 2024-01-01 09:56 | SW/DCPLANNER ---
I spoke w/ patient's (pt is confused at times) regarding plans at time of discharge. Patient is currently established w/ [facility] (set up yesterday) and per the the plan is to return home and resume services. I will fax updated information to Margaret w/ [facility]. The plan for this patient is to discharge home today.
--- NOTE | 2024-01-01 10:20 | HMH.PTEV ---
Physical Therapy Evaluation Rehab PT IP Evaluation Start: 12/31/23 22:46 Freq: ONCE Status: Active Protocol: Document 01/01/24 09:51 [facility] (Rec: 01/01/24 10:19 [facility] [id number]) Subjective/History History History Patient is a 78 yom that presents to [facility] after just being admitted to [facility] due to hyperglycemia. The patient presented to the ED with hypoglycemia and confusion on 12/31/2023 after being discharged prior that day. 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 The patient reports that he lives at home with his but is otherwise a poor historian. The patient is apparently pleasantly confused at this time. New diagnosis of cancer in past 12 No months? Rehab PT IP Eval Objective Appearance Patient Behavior Appropriate,Confused Patient Orientation Person,Place Difficulty following instructions mild Speech Pattern Clear,Appropriate Ambulation Patient Able to Ambulate Yes Ambulation Observation IP General Gait Pattern Observation No Deviations/Normal Ambulation Distance (feet) 20 Ambulation Assistive Device None Ambulation Ability Contact Guard/Hand Hold Balance Ability to Arise Able, uses arms to help Sitting Balance Steady, safe Standing Balance Steady, wide stance Dynamic Sitting Balance Ability Good Dynamic Standing Balance Ability Good Transfers Bed Transfer Ability Minimal x 1 (25% assist) Sit to Stand Bed Transfer Ability Minimal x 1 (25% assist) Rehab PT IP prob,goals,plan Problems Date of Evaluation: 01/01/24 PT IP Problems Bed Mobility,Transfers,Gait, Balance,Safety Rehab Potential Rehab Potential Good Plan PT Intervention Plan Bed Mobility,Transfers,Gait, Balance,Self care,Safety, Therapeutic Exercise PT Plan Frequency Daily Duration LOS Discharge Goals Bed Transfer Ability Supervision/Stand by Sit to Stand Chair Transfer Ability Supervision/Stand by Ambulation Assistive Device Rolling Walker Ambulation Distance (feet) 75 Discharge Plan PT Discharge Plan Patient presents for initial evaluation today. Patient demonstrated some slight impulsivity when walking and did not adequately follow directions at all times during today's treatment session. The patient may be most appropriate for discharge to home with home healthy, given that his is able to provide appropriate levels of assistance. Skilled PT is indicated during this patient' s stay to promote a return to his prior level of function and to prevent further injuries. Eval Complexity Eval Charge Codes 45364 - High Complexity PHYSICIAN CERTIFICATION: I certify the specified therapy services for Venancio Conde are required, authorized, and reviewed every 30 days.
[2024-01-01] MEDS: humaLOG 100 UNITS/ML 3ML VIAL (SSI) SQ (11:13)
--- NOTE | 2024-01-01 11:13 | EXP.DC.SUM ---
General Admission date:: 12/31/23 Discharge date: 01/01/24 HPI HPI HPI: Mr. Conde is a 78-year-old male with history of diabetes who was just hospitalized for confusion and hyperglycemia. Discharged this morning home. Laurie presents to the ER with confusion and hypoglycemia. Family states he got his insulin this morning before leaving the hospital (which is his normal regimen and had been tolerated while admitted). Went home and did not eat and proceeded to take a nap. When he woke up he was very lethargic and confused. Found to have glucose in the 40s when EMS arrived. Was given dextrose and improved to the 100s by time of arrival to the ER. Reportedly confused in the ER, unable to give history. No family at bedside at that time. Remainder of workup in the ER found mild leukocytosis of 13, improved from morning labs today. Electrolytes relatively unremarkable. Chest x-ray with no acute findings. Given confusion and glucose abnormalities, requested admission for reevaluation. On my relation, patient's mentation has improved. Family at bedside now. Patient appears at baseline mentation. Glucose doing better. 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 Hospital Course Hospital Course Hospital Course: 78-year-old male who presented to the ER for reported confusion and hypoglycemia. Presented with his and daughter. On arrival found to have low blood sugar and to be slightly confused. Patient came back to [facility] today morning and blood glucose improved, encouraged patient to eat lunch and dinner meals Confusion - chronic, likely due to dementia, neurology referral was given on previous admission Uncontrolled diabetes: Hypoglycemia - resolved will dc long acting insulin and start 75/25 humalog - prescrioption sent Continue pantoprazole daily BPH: Continue finasteride 5 mg daily Full code Diabetic diet Exam Data for Last 24 hours Vital signs and Labs for Last 24 Hours: Temp Pulse Resp BP Pulse Ox O2 Del Method 98.2 F 90 17 138/70 97 Room Air 01/01/24 07:58 01/01/24 07:58 01/01/24 07:58 01/01/24 07:58 01/01/24 07:58 01/01/24 09:00 Laboratory Results - last 24 hr 12/31/23 16:08: Ammonia < 9 L 12/31/23 16:58: WBC 13.1 H, RBC 3.74 L, Hgb 11.9 L, Hct 34.7 L, MCV 92.9, MCH 31.9 H, MCHC 34.3, RDW 13.9, Plt Count 319, MPV 8.0, Neut % (Auto) 78.1, Lymph % (Auto) 14.5, [place] % (Auto) 4.1, Eos % (Auto) 2.9, Baso % (Auto) 0.4, Neut # (Auto) 10.2 H, Lymph # (Auto) 1.9, [place] # (Auto) 0.5, Eos # (Auto) 0.4, Baso # (Auto) 0.1, Sodium 139, Potassium 3.2 L, Chloride 108 H, Carbon Dioxide 28, Anion Gap 6.2, BUN 18, Creatinine 0.80, Estimated GFR 93, Est GFR ( Amer) 113, Glucose 119 H, Calcium 9.1, Total Bilirubin 0.3, AST 30, ALT 21, Alkaline Phosphatase 80, Total Protein 5.9 L, Albumin 3.5 D, Globulin 2.4, Albumin/Globulin Ratio 1.5 12/31/23 17:30: VBG pH 7.37, VBG pCO2 39.3, VBG pO2 95.9 H, VBG HCO3 22.3 L, VBG Total CO2 23.5, VBG O2 Saturation 96.6 H, VBG Base Excess -3.0 L, VBG Lactic Acid 1.6 12/31/23 21:13: POC Glucose 290 H 12/31/23 22:21: POC Glucose 334 H* 01/01/24 00:41: POC Glucose 320 H* 01/01/24 06:07: POC Glucose 138 H 01/01/24 06:22: WBC 11.9 H, RBC 3.64 L, Hgb 11.7 L, Hct 34.4 L, MCV 94.6 H, MCH 32.1 H, MCHC 33.9, RDW 13.9, Plt Count 312, MPV 7.9, Neut % (Auto) 62.7, Lymph % (Auto) 27.1, [place] % (Auto) 6.1, Eos % (Auto) 3.7, Baso % (Auto) 0.5, Neut # (Auto) 7.4, Lymph # (Auto) 3.2, [place] # (Auto) 0.7, Eos # (Auto) 0.4, Baso # (Auto) 0.1 01/01/24 09:14: POC Glucose 211 H I & O for Last 24 hours: Intake & Output 12/29/23 12/30/23 12/31/23 01/01/24 23:59 23:59 23:59 23:59 Intake Total 480 / 480 Output Total 0 / 0 Balance 480 / 480 Weight 81.788 kg 81.391 kg Constitutional Constitutional: no acute distress *Routine HEENT Exam Head: Present normocephalic Eye: Present EOMI and PERRL ENT: Present mucous membranes moist *Routine Neck Exam Neck: Present supple; Absent lymphadenopathy *Routine Respiratory Exam Respiratory: Present CTA bilaterally *Routine Cardiovascular Exam Cardiovascular: Present RRR *Routine Abdominal Exam Abdominal: Present soft and normoactive bowel sounds; Absent tenderness *Routine Extremities Exam Extremities: Absent cyanosis, clubbing or edema *Routine Skin Exam Skin: Present warm; Absent rash *Routine Neurological Exam Neurological: Present alert Comments: patient is happily confused to time, appears dementia Results Data Completed and Pending Labs on day of discharge: Labs from last 24 hours 01/01/24 01/01/24 01/01/24 09:14 06:22 06:07 WBC 11.9 H RBC 3.64 L Hgb 11.7 L Hct 34.4 L MCV 94.6 H MCH 32.1 H MCHC 33.9 RDW 13.9 Plt Count 312 MPV 7.9 Neut % (Auto) 62.7 Lymph % (Auto) 27.1 [place] % (Auto) 6.1 Eos % (Auto) 3.7 Baso % (Auto) 0.5 Neut # (Auto) 7.4 Lymph # (Auto) 3.2 [place] # (Auto) 0.7 Eos # (Auto) 0.4 Baso # (Auto) 0.1 VBG pH VBG pCO2 VBG pO2 VBG HCO3 VBG Total CO2 VBG O2 Saturation VBG Base Excess VBG Lactic Acid Sodium Potassium Chloride Carbon Dioxide Anion Gap BUN Creatinine Estimated GFR Est GFR ( Amer) Glucose POC Glucose 211 H 138 H Calcium Total Bilirubin AST ALT Alkaline Phosphatase Ammonia Total Protein Albumin Globulin Albumin/Globulin Ratio 01/01/24 12/31/23 12/31/23 00:41 22:21 21:13 WBC RBC Hgb Hct MCV MCH MCHC RDW Plt Count MPV Neut % (Auto) Lymph % (Auto) [place] % (Auto) Eos % (Auto) Baso % (Auto) Neut # (Auto) Lymph # (Auto) [place] # (Auto) Eos # (Auto) Baso # (Auto) VBG pH VBG pCO2 VBG pO2 VBG HCO3 VBG Total CO2 VBG O2 Saturation VBG Base Excess VBG Lactic Acid Sodium Potassium Chloride Carbon Dioxide Anion Gap BUN Creatinine Estimated GFR Est GFR ( Amer) Glucose POC Glucose 320 H* 334 H* 290 H Calcium Total Bilirubin AST ALT Alkaline Phosphatase Ammonia Total Protein Albumin Globulin Albumin/Globulin Ratio 12/31/23 12/31/23 12/31/23 17:30 16:58 16:08 WBC 13.1 H RBC 3.74 L Hgb 11.9 L Hct 34.7 L MCV 92.9 MCH 31.9 H MCHC 34.3 RDW 13.9 Plt Count 319 MPV 8.0 Neut % (Auto) 78.1 Lymph % (Auto) 14.5 [place] % (Auto) 4.1 Eos % (Auto) 2.9 Baso % (Auto) 0.4 Neut # (Auto) 10.2 H Lymph # (Auto) 1.9 [place] # (Auto) 0.5 Eos # (Auto) 0.4 Baso # (Auto) 0.1 VBG pH 7.37 VBG pCO2 39.3 VBG pO2 95.9 H VBG HCO3 22.3 L VBG Total CO2 23.5 VBG O2 Saturation 96.6 H VBG Base Excess -3.0 L VBG Lactic Acid 1.6 Sodium 139 Potassium 3.2 L Chloride 108 H Carbon Dioxide 28 Anion Gap 6.2 BUN 18 Creatinine 0.80 Estimated GFR 93 Est GFR ( Amer) 113 Glucose 119 H POC Glucose Calcium 9.1 Total Bilirubin 0.3 AST 30 ALT 21 Alkaline Phosphatase 80 Ammonia < 9 L Total Protein 5.9 L Albumin 3.5 D Globulin 2.4 Albumin/Globulin Ratio 1.5 DS: Diagnosis Discharge Diagnosis (1) Hypoglycemia: Status: Acute Code(s): E16.2 - Hypoglycemia, unspecified (2) Confused: Status: Acute Code(s): R41.0 - Disorientation, unspecified (3) Tobacco abuse: Status: Acute Code(s): Z72.0 - Tobacco use (4) Depression: Status: Acute Code(s): F32.A - Depression, unspecified Qualifiers: Depression Type: reactive depression Qualified Code(s): F32.9 - Major depressive disorder, single episode, unspecified (5) HTN (hypertension): Status: Acute Code(s): I10 - Essential (primary) hypertension (6) HLD (hyperlipidemia): Status: Acute Code(s): E78.5 - Hyperlipidemia, unspecified (7) Diabetes: Status: Acute Code(s): E11.9 - Type 2 diabetes mellitus without complications Meds Home Medications and Allergies Home Medications Medication Instructions Recorded Confirmed Type tramadol 50 mg tablet 50 mg PO TIDP PRN Moderate Pain 08/24/20 12/31/23 History (Scale Score 5-6) sitagliptin phosphate 100 mg tablet 100 mg PO DAILY Diabetes 30 days 08/25/20 12/31/23 Rx #30 tabs gabapentin 100 mg capsule 200 mg PO TID 05/10/23 12/31/23 History hydrochlorothiazide 25 mg tablet 12.5 mg PO DAILY 05/10/23 12/31/23 History metformin 500 mg tablet 500 mg PO BIDWMEAL 05/10/23 12/31/23 History finasteride 5 mg tablet 5 mg PO DAILY 07/22/23 12/31/23 History omeprazole 20 mg capsule,delayed 20 mg PO DAILY 12/29/23 12/31/23 History release insulin lispro protamine-lispro 20 unit (0.2 mL) SQ BIDWMEAL 30 01/01/24 Rx 100 unit/mL (75-25) subcutaneous days #12 mL pen (Humalog Mix 75-25 KwikPen) New Prescriptions to Start Prescriptions: insulin lispro protamin-lispro [Humalog Mix 75-25 KwikPen] Jose R Chan Allergies Allergy/AdvReac Type Severity Reaction Status Date / Time No Known Allergies Allergy Unverified 09/29/20 14:54 Discharge Plan Disposition Patient Disposition: Home Health Service Condition: Good Discharge Order Discharge Orders: Discharge Order (Routine); Ordered 01/01/24 Ordered By: Jose R Chan Follow up Plan Follow up with: Silviano Love [Primary Care Provider] - 2 weeks Prescriptions/Medication Reconciliation: New insulin lispro protamin-lispro [Humalog Mix 75-25 KwikPen] 100 unit/mL (75-25) Insulin Pen 20 unit SQ BIDWMEAL 30 Days Qty: 12 0RF Continued metformin 500 MG tablet 500 mg PO BIDWMEAL hydrochlorothiazide 25 mg tablet 12.5 mg PO DAILY Patient Comments: TAKE ONE TABLET BY MOUTH EVERY DAY FOR EDEMA gabapentin 100 mg capsule 200 mg PO TID Patient Comments: TAKE TWO CAPSULES BY MOUTH THREE TIMES DAILY FOR neuropathy finasteride 5 mg tablet 5 mg PO DAILY omeprazole 20 mg capsule,delayed release(DR/EC) 20 mg PO DAILY Patient Comments: TAKE ONE CAPSULE BY MOUTH EVERY DAY tramadol 50 MG tablet 50 mg PO TIDP PRN (Reason: Moderate Pain (Scale Score 5-6)) sitagliptin phosphate 100 MG tablet 100 mg PO DAILY 30 Days Qty: 30 0RF Discontinued glipizide 10 MG tablet extended release 24hr 10 mg PO BID 30 Days Qty: 60 0RF insulin glargine 100 UNIT/ML insulin pen 60 unit SQ DAILY Problem Reconciliation Problems Reviewed?: Yes Patient Discharge Instructions ACTIVITY: Ambulate as tolerated DIET: diabetic diet Providers Primary Care Provider: Silviano Love Provider: Jose R Chan Attending Provider: Jose R Chan
[2024-01-01 11:15] LABS: POC Glucose,Bedside 197 (70-110)
[2024-01-01 11:24] LABS: Alanine Aminotransferase 21 U/L (12-78); Albumin Level 3.5 g/dl (3.5-5.0); Albumin/Globulin Ratio 1.5 (1.1-1.8); Alkaline Phosphatase 71 U/L (38-126); Anion Gap 9.5 mEq/L (5-15); Aspartate Amino Transferase 22 U/L (17-59); Bilirubin,Total 0.3 mg/dl (0.2-1.3); Blood Urea Nitrogen 19 mg/dl (9-20); Carbon Dioxide 25 mmol/L (22.0-30.0); Chloride 108 mmol/L (98-107); Creatinine Clearance Estimated 69 mL/min (50-200); Estimated Glomerular Filt Rate 81 ml/min (>60); GFR (African American) 98 ML/MIN (>60); Globulin 2.3 g/dL (1.3-3.2); Glucose 129 mg/dl (74-100); Magnesium 1.8 mg/dl (1.6-2.3); Potassium 3.5 mmoL/L (3.5-5.1); Sodium 139 mmol/L (136-145); Total Protein,Serum 5.8 g/dl (6.3-8.2)
--- NOTE | 2024-01-02 14:44 | CARE MANAGER ---
Contacted patient's related to hospital discharge. She states he is eating well and taking medication. Reviewed his insulin dosage and frequency. Aware of follow up appointment. Denies questions or concerns. NILSA Cabral
== END 2024-01-01 13:56 | disposition home health service (06) ==
LOC: ER 18:28 → 2ND 19:55
PROVIDERS: Internal Medicine Adolescent Medicine; Admitting Provider Internal Medicine; Emergency Provider Student in an Organized Health Care Education/Training Program; PCP Family Medicine; Visit Provider Internal Medicine
DX: R41.0 Disorientation, unspecified; F17.210 Nicotine dependence, cigarettes, uncomplicated; F32.9 Major depressive disorder, single episode, unspecified; I10 Essential (primary) hypertension; E78.5 Hyperlipidemia, unspecified; E11.65 Type 2 diabetes mellitus with hyperglycemia; Z79.899 Other long term (current) drug therapy; E11.649 Type 2 diabetes mellitus with hypoglycemia without coma; Z79.84 Long term (current) use of oral hypoglycemic drugs; J44.9 Chronic obstructive pulmonary disease, unspecified
CPT/HCPCS: 36415; 71045; 80053; 82140; 82803; 82962; 83735; 85025; 97163; 97166; 99291; G0378

== ENCOUNTER 2024-01-14 18:58 | Outpatient (CLI) | payer MEDICARE, MEDICAID, SELFPAY | END 2024-01-14 23:59 | LOC: LAB.DROPOF 18:59 | PROVIDERS: PCP Nurse Practitioner; Visit Provider Nurse Practitioner | DX: B35.1 Tinea unguium (principal); M79.675 Pain in left toe(s) | CPT/HCPCS: 87102; 87206; 87220 ==

== ENCOUNTER 2024-01-15 13:27 | Outpatient (CLI) | payer MEDICARE, MEDICAID, SELFPAY ==
--- NOTE | 2024-01-15 13:33 | CT_ITS ---
FINAL REPORT TECHNIQUE: multiple axial CT images were performed from the foramen magnum to the vertex without enhancement. CLINICAL HISTORY: OPTIC NERVE AND VISUAL DISORDER COMPARISON: 12/29/2023 FINDINGS: The ventricles are enlarged. There is diffuse atrophy. There is deep white matter change likely related to small vessel disease. Several low-densities consistent with lacunar infarcts are noted as well. There is no evidence of hemorrhage. No masses are identified. No extra-axial fluid is seen. There is now total opacification of the left sphenoid sinus when compared to the prior exam, consistent with chronic sinusitis. IMPRESSION: Atrophy and chronic changes without acute process. No significant intracranial changes noted since the prior CT of December 28. Complete opacification of the left sphenoid sinus, consistent with chronic sinusitis. Reviewed, Interpreted and Dictated by Josue Ramirez MD Transcribed by Dulce Maria Weber Authenticated and [facility]
== END 2024-01-15 23:59 ==
LOC: RAD 13:28
PROVIDERS: PCP Family Medicine; Visit Provider Family Medicine
DX: H47.10 Unspecified papilledema (principal)
CPT/HCPCS: 70450

== ENCOUNTER 2024-02-10 19:56 | Inpatient (IN) | payer MEDICARE, MEDICAID, SELFPAY ==
[2024-02-10] VITALS (8 sets, daily range): BP systolic 138–176; BP diastolic 66–94; PULSE 86–91; RESP 13–22; TEMP 36.5–36.7; O2SAT 96–99; BMI 28.1
--- NOTE | 2024-02-10 20:04 | HMH.EDGENADL ---
Discharge Plan Disposition Patient Disposition: Admitted Condition: Good Clinical Impressions Clinical Impression: Urinary tract infection, Dysarthria, Acute confusion Discharge ED Provider: Khurram Ramey General Adult HPI <KESHA Patel - Last Filed: 02/10/24 23:05> General Chief complaint: Altered Mental Status Stated complaint: AMS Time Seen by Provider: 02/10/24 19:59 History of Present Illness HPI narrative: Patient presents from home for evaluation of altered mental status. Cording to patient's he has had sowed's of altered behavior including letting the dog out with the door open and forgetting that the dog was outside for getting history to dress but nothing specific however today he had an acute episode of slurred speech and could not answer any questions asked of him by his . At that point she called EMS. He has had 2 previous episodes of confusion however they were associated with hypoglycemia in the last 90 days. Patient has not had a neurologic workup or evaluation in the interval but does have an MRI scheduled sometime next month. By the time of his arrival in the ER he was able to answer questions appropriately but was only oriented to self not place and circumstance. He reports lower abdominal pain and being unable to pee for more than a day but reports no problems with defecation. He denies chest pain shortness of breath fever chills hemoptysis hematochezia melena nausea vomiting diarrhea headache altered sensorium. Related Data Home Medications Medication Instructions Recorded Confirmed tramadol 50 mg tablet 50 mg PO TIDP PRN Moderate Pain 08/24/20 02/11/24 (Scale Score 5-6) hydrochlorothiazide 25 mg tablet 12.5 mg PO DAILY 05/10/23 02/11/24 metformin 500 mg tablet 500 mg PO BIDWMEAL 05/10/23 02/11/24 finasteride 5 mg tablet 5 mg PO DAILY 07/22/23 02/11/24 omeprazole 20 mg capsule,delayed 20 mg PO DAILY 12/29/23 02/11/24 release gabapentin 100 mg tablet 200 mg PO TID 02/11/24 02/11/24 glipizide 10 mg tablet, extended 10 mg PO DAILY 02/11/24 02/11/24 release 24 hr insulin lispro protamine-lispro 30 unit SQ BIDWMEAL 02/11/24 02/11/24 100 unit/mL (75-25) subcutaneous pen (Humalog Mix 75-25 KwikPen) Previous Rx's Medication Instructions Recorded sitagliptin phosphate 100 mg tablet 100 mg PO DAILY Diabetes 30 days 08/25/20 #30 tabs Allergies Allergy/AdvReac Type Severity Reaction Status Date / Time No Known Allergies Allergy Verified 01/14/24 13:42 [facility] <KESHA Patel - Last Filed: 02/10/24 23:05> [facility] Disclaimer: The information contained in this section may have been updated after the patient was seen, as this information can be updated by other users. Medical History Acute UTI COPD (chronic obstructive pulmonary disease) Diabetes mellitus, type 2 Prostate disorder with lower urinary tract symptoms High cholesterol Urinary retention due to benign prostatic hyperplasia Family History Other Family history of myocardial infarction Social History Smoking Status: Current every day smoker alcohol intake: former substance use type: denies use current occupational status: retired Travel in the last 8 weeks: None household members: spouse housing: house <KESHA Patel - Last Filed: 02/10/24 23:05> ROS Obtained: Yes Systems reviewed as appropriate & no additional complaints except as documented Physical Exam <KESHA Patel - Last Filed: 02/10/24 23:05> General General appearance: alert and in no apparent distress Head Head exam: atraumatic and normal inspection Eye Eye exam: Present normal appearance, PERRL and EOMI ENT ENT exam: Present normal exam, normal oropharynx, mucous membranes moist and other (Patient is edentulous) Neck Neck exam: Present normal inspection, full ROM and trachea midline; Absent lymphadenopathy Chest Chest inspection: Present normal inspection and symmetric chest wall rise Respiratory Respiratory exam: Present normal lung sounds bilaterally; Absent respiratory distress, wheezes or accessory muscle use Cardiovascular Cardiovascular exam: Present regular rate, normal rhythm, normal heart sounds, +S1 and +S2 Abdominal Exam Abdominal exam: Present soft, tenderness (Suprapubic area) and normal bowel sounds Extremities Exam Extremities exam: Present normal inspection and full ROM; Absent tenderness Back Exam Back exam: Present normal inspection and full ROM; Absent CVA tenderness (R) or CVA tenderness (L) Neurological Exam Neurological exam: Present alert and CN II-XII intact; Absent oriented X3 (Patient is oriented to self and not place and circumstance currently) or motor sensory deficit Psychiatric Psychiatric exam: Present normal affect and normal mood Skin Skin exam: Present warm, dry and normal color Medical Decision Making <KESHA Patel - Last Filed: 02/10/24 23:05> Medical Records Medical records reviewed: Yes I reviewed the patient's medical records. Leonid Inquiry Pt receiving controlled substance: No Vital Signs: 02/10/24 19:56 02/10/24 20:01 02/10/24 20:31 Temperature 98.0 F Temperature Source Oral Pulse Rate 86 90 Pulse Rate [Left Radial] 88 Respiratory Rate 18 20 18 Blood Pressure 160/66 H 138/92 H Blood Pressure [Right Arm] 156/94 H Blood Pressure Mean 97 101 Blood Pressure Mean [Right Arm] 114 Blood Pressure Source Blood Pressure Source [Right Arm] Automatic Cuff Blood Pressure Position Blood Pressure Position [Right Arm] Sitting 02 Sat by Pulse Oximetry 99 98 98 Oxygen Delivery Method Room Air Room Air Room Air 02/10/24 21:01 02/10/24 21:31 02/10/24 22:00 Temperature Temperature Source Pulse Rate 88 91 H 90 Pulse Rate [Left Radial] Respiratory Rate 22 20 17 Blood Pressure 172/88 H 168/89 H 176/93 H Blood Pressure [Right Arm] Blood Pressure Mean 116 120 120 Blood Pressure Mean [Right Arm] Blood Pressure Source Blood Pressure Source [Right Arm] Blood Pressure Position Blood Pressure Position [Right Arm] 02 Sat by Pulse Oximetry 97 96 97 Oxygen Delivery Method Room Air Room Air Room Air 02/10/24 22:30 02/10/24 23:18 Temperature 97.7 F Temperature Source Oral Pulse Rate 91 H 91 H Pulse Rate [Left Radial] Respiratory Rate 13 13 Blood Pressure 173/85 H 173/85 H Blood Pressure [Right Arm] Blood Pressure Mean 114 Blood Pressure Mean [Right Arm] Blood Pressure Source Automatic Cuff Blood Pressure Source [Right Arm] Blood Pressure Position Sitting Blood Pressure Position [Right Arm] 02 Sat by Pulse Oximetry 98 Oxygen Delivery Method Room Air Lab Data Lab results reviewed: Yes I reviewed the patient's lab results. Lab Results 02/10/24 19:58: WBC 10.8, RBC 4.00 L, Hgb 12.5 L, Hct 36.9 L, MCV 92.4, MCH 31.4 H, MCHC 34.0, RDW 14.0, Plt Count 296, MPV 7.6, Neut % (Auto) 61.4, Lymph % (Auto) 29.5, Hill % (Auto) 4.9, Eos % (Auto) 3.4, Baso % (Auto) 0.7, Neut # (Auto) 6.6, Lymph # (Auto) 3.2, Hill # (Auto) 0.5, Eos # (Auto) 0.4, Baso # (Auto) 0.1, PT 10.2, INR 0.94, D-Dimer 0.62 H, Sodium 139, Potassium 3.9, Chloride 105, Carbon Dioxide 28, Anion Gap 9.9, BUN 29 H, Creatinine 0.90, Estimated Creat Clear 71, Estimated GFR 81, Est GFR ( Amer) 98, Glucose 142 H, Calcium 9.7, Magnesium 1.8, Total Bilirubin 0.5, AST 25, ALT 24, Alkaline Phosphatase 69, Troponin I < 0.01, Total Protein 6.6, Albumin 4.0, Globulin 2.6, Albumin/Globulin Ratio 1.5, TSH 3.90, Plasma/Serum Alcohol < 10 02/10/24 20:07: VBG pH 7.29 L, VBG pCO2 46.9, VBG pO2 33.3, VBG HCO3 21.8 L, VBG Total CO2 23.2, VBG O2 Saturation 59.6, VBG Base Excess -4.9 L, VBG Lactic Acid 2.9 H 02/10/24 20:13: SARS-CoV-2 (PCR) Not detected, Influenza A Untype (PCR) Not detected, Influenza Type B (PCR) Not detected 02/10/24 20:33: Urine Color Yellow, Urine Appearance Clear, Urine pH 5.5, Ur Specific [place] 1.025, Urine Protein 2+, Urine Glucose (UA) Trace, Urine Ketones Negative, Urine Blood 2+, Urine Nitrate Negative, Urine Bilirubin Negative, Urine Urobilinogen 0.2, Ur Leukocyte Esterase Trace, Urine RBC 5-10, Urine WBC Occasional, Urine Bacteria 1+, Urine Mucus 1+, Urine Opiates Screen Negative, Urine Methadone Screen Negative, Ur Barbituates Screen Negative, Ur Phencyclidine Scrn Negative, Ur Amphetamines Screen Negative, U Benzodiazepines Scrn Negative, Urine Cocaine Screen Negative, U Marijuana (THC) Screen Negative 02/10/24 23:25: Troponin I < 0.01 02/11/24 05:37 02/11/24 05:37 Orders (Tests/Meds): ED MEDICATIONS Generic Name Dose Route Start Last Admin Trade Name Gabi PRN Reason Stop Dose Admin Acetaminophen 650 mg 02/10/24 23:03 Acetaminophen 325mg Tab PO 03/11/24 23:02 Q4HP PRN Fever or Mild Pain (1-3) Sodium Chloride 1,000 mls @ 50 mls/hr 02/10/24 23:15 02/11/24 01:02 Sod Chlor 0.9% 1000ml Bag IV 03/11/24 23:14 50 mls/hr .Q20H RIVER Administration Levofloxacin/Dextrose 750 mg in 150 mls @ 100 mls/hr 02/11/24 11:00 02/11/24 11:03 Levofloxacin 750mg/150ml Premix IV 02/21/24 10:59 100 mls/hr Q24H RIVER Administration Morphine Sulfate 2 mg 02/10/24 23:03 Morphine 2mg/Ml Syringe IV 03/11/24 23:02 Q2HP PRN Severe Pain (7-10) Pantoprazole Sodium 40 mg 02/11/24 09:00 02/11/24 10:10 Pantoprazole 40mg Tablet PO 03/12/24 08:59 40 mg DAILY RIVER Administration Sodium Chloride 10 ml 02/11/24 07:39 Sodium Chloride 0.9% 10ml Flush Syringe IV 03/12/24 07:38 NEEDED PRN Maintain IV Site Discontinued Medications Generic Name Dose Route Start Last Admin Trade Name Gabi PRN Reason Stop Dose Admin Lactated Ringer's 1,000 mls @ 999 mls/hr 02/10/24 20:05 02/10/24 20:17 Lactated Ringer's 1000 Ml Bag IV 02/10/24 21:05 999 mls/hr .Q1H1M ONE Administration Iopamidol 100 ml 02/10/24 22:28 02/10/24 22:30 Iopamidol-370 (76%);100ml Bottle IV 02/10/24 22:29 100 ml ONCE ONE Administration Sodium Chloride 50 ml 02/10/24 22:28 02/10/24 22:30 0.9 % Sodium Chloride 50 Ml Vial IV 02/10/24 22:29 50 ml ONCE ONE Administration Sodium Chloride 10 ml 02/10/24 22:28 02/10/24 22:30 Sodium Chloride 0.9% 10ml Syr (Rad Only) IV 02/10/24 22:29 10 ml ONCE ONE Administration Trimethoprim/Sulfamethoxazole 1 each 02/10/24 22:23 02/10/24 22:37 Sulfa/Trimethoprim 1 Tablet PO 02/10/24 22:24 1 each ONCE ONE Administration ORDERS Category Date Time Status CT angio head Stat Cat Scan 02/10/24 21:[address] angio neck Stat Cat Scan 02/10/24 21:[address] head/brain wo con Stat Cat Scan 02/10/24 20:05 Completed Chest XR -- portable [XR chest portable] Stat Exams 02/10/24 20:05 Completed CBC w/Auto Diff [Complete Blood Count Auto Diff] Stat Lab 02/10/24 19:58 Completed CMP [Comprehensive Metabolic Panel] Stat Lab 02/10/24 19:58 Completed Complete Blood Count Auto Diff AMLAB Lab 02/11/24 05:37 Completed Comprehensive Metabolic Panel AMLAB Lab 02/11/24 05:37 Completed D-Dimer Stat Lab 02/10/24 19:58 Completed Ethanol [Ethyl Alcohol] Stat Lab 02/10/24 19:58 Completed INR [Prothrombin Time INR] Stat Lab 02/10/24 19:58 Completed Magnesium AMLAB Lab 02/11/24 05:37 Completed Magnesium Stat Lab 02/10/24 19:58 Completed Rapid PCR Covid and Flu A/B Stat Lab 02/10/24 20:13 Completed TSH [Thyroid Stimulating Hormone] Stat Lab 02/10/24 19:58 Completed Trop I [Troponin I] Stat Lab 02/10/24 19:58 Completed Troponin I Q3H Lab 02/10/24 23:25 Completed Troponin I Q3H Lab 02/11/24 02:20 Completed UA [Urinalysis and Microscopic] Stat Lab 02/10/24 20:33 Completed UDS [Drug Screen,Urine] Stat Lab 02/10/24 20:33 Completed VBG [Venous Blood Gas] Stat RT 02/10/24 20:07 Completed HEART Score History (anamnesis): Slightly suspicious ECG: Non-specific disturbance Age: >65 years Risk factors: 3 or more risk factors Troponin: </= normal limit HEART Score: 5 Medical Decision Narrative: In summary patient is a 78-year-old male who presents to the emergency department for evaluation of altered mental status. Patient is hemodynamically stable upon arrival, afebrile. Physical exam is remarkable only for possibly slurred speech although I do not know what his baseline is he is edentulous and that may be contributing to understanding his speech. Patient has no other focal neurologic deficits other than he is oriented only to self currently not place and circumstance. Additionally he is tender to palpation in the suprapubic area. Has known BPH with chronic urinary outlet obstruction and is followed by Dr. Clark of urology. Differential diagnosis includes TIA versus stroke versus cognitive decline versus ACS versus infection versus toxic metabolic encephalopathy etc. Initial workup will be conducted with hematologic labs CT scan of the head stroke protocol twelve-lead EKG urinalysis. Initial interventions include crystalloid bolus. Initial workup reviewed by me shows that he has trace leukocyte esterases and bacteria in his urine without evidence of nitrites as well as microscopic blood. The remainder of his laboratory investigations are nonactionable. Upon repeat evaluation patient's and grandson arrived they report that patient is still not back to his baseline and upon reinterview patient is still having dysarthria and that is not his normal baseline. They do report some periodic memory issues but not with speech. Patient himself states that he knew that his was asking him questions but could not answer earlier today.. Given this I have expanded his workup for an CTA of the head and neck. Given this I spoke with hospital medicine regarding patient management. We agreed for admission to evaluate for MRI/MRA for possible cause. Patient's current NIH stroke score is 1 has remained 1 arrival <Khurram Ramey MD - Last Filed: 02/11/24 15:17> Vital Signs: 02/10/24 19:56 02/10/24 20:01 02/10/24 20:31 Temperature 98.0 F Temperature Source Oral Pulse Rate 86 90 Pulse Rate [Left Radial] 88 Respiratory Rate 18 20 18 Blood Pressure 160/66 H 138/92 H Blood Pressure [Right Arm] 156/94 H Blood Pressure Mean 97 101 Blood Pressure Mean [Right Arm] 114 Blood Pressure Source Blood Pressure Source [Right Arm] Automatic Cuff Blood Pressure Position Blood Pressure Position [Right Arm] Sitting 02 Sat by Pulse Oximetry 99 98 98 Oxygen Delivery Method Room Air Room Air Room Air 02/10/24 21:01 02/10/24 21:31 02/10/24 22:00 Temperature Temperature Source Pulse Rate 88 91 H 90 Pulse Rate [Left Radial] Respiratory Rate 22 20 17 Blood Pressure 172/88 H 168/89 H 176/93 H Blood Pressure [Right Arm] Blood Pressure Mean 116 120 120 Blood Pressure Mean [Right Arm] Blood Pressure Source Blood Pressure Source [Right Arm] Blood Pressure Position Blood Pressure Position [Right Arm] 02 Sat by Pulse Oximetry 97 96 97 Oxygen Delivery Method Room Air Room Air Room Air 02/10/24 22:30 02/10/24 23:18 Temperature 97.7 F Temperature Source Oral Pulse Rate 91 H 91 H Pulse Rate [Left Radial] Respiratory Rate 13 13 Blood Pressure 173/85 H 173/85 H Blood Pressure [Right Arm] Blood Pressure Mean 114 Blood Pressure Mean [Right Arm] Blood Pressure Source Automatic Cuff Blood Pressure Source [Right Arm] Blood Pressure Position Sitting Blood Pressure Position [Right Arm] 02 Sat by Pulse Oximetry 98 Oxygen Delivery Method Room Air Lab Data Lab Results 02/10/24 19:58: WBC 10.8, RBC 4.00 L, Hgb 12.5 L, Hct 36.9 L, MCV 92.4, MCH 31.4 H, MCHC 34.0, RDW 14.0, Plt Count 296, MPV 7.6, Neut % (Auto) 61.4, Lymph % (Auto) 29.5, Hill % (Auto) 4.9, Eos % (Auto) 3.4, Baso % (Auto) 0.7, Neut # (Auto) 6.6, Lymph # (Auto) 3.2, Hill # (Auto) 0.5, Eos # (Auto) 0.4, Baso # (Auto) 0.1, PT 10.2, INR 0.94, D-Dimer 0.62 H, Sodium 139, Potassium 3.9, Chloride 105, Carbon Dioxide 28, Anion Gap 9.9, BUN 29 H, Creatinine 0.90, Estimated Creat Clear 71, Estimated GFR 81, Est GFR ( Amer) 98, Glucose 142 H, Calcium 9.7, Magnesium 1.8, Total Bilirubin 0.5, AST 25, ALT 24, Alkaline Phosphatase 69, Troponin I < 0.01, Total Protein 6.6, Albumin 4.0, Globulin 2.6, Albumin/Globulin Ratio 1.5, TSH 3.90, Plasma/Serum Alcohol < 10 02/10/24 20:07: VBG pH 7.29 L, VBG pCO2 46.9, VBG pO2 33.3, VBG HCO3 21.8 L, VBG Total CO2 23.2, VBG O2 Saturation 59.6, VBG Base Excess -4.9 L, VBG Lactic Acid 2.9 H 02/10/24 20:13: SARS-CoV-2 (PCR) Not detected, Influenza A Untype (PCR) Not detected, Influenza Type B (PCR) Not detected 02/10/24 20:33: Urine Color Yellow, Urine Appearance Clear, Urine pH 5.5, Ur Specific [place] 1.025, Urine Protein 2+, Urine Glucose (UA) Trace, Urine Ketones Negative, Urine Blood 2+, Urine Nitrate Negative, Urine Bilirubin Negative, Urine Urobilinogen 0.2, Ur Leukocyte Esterase Trace, Urine RBC 5-10, Urine WBC Occasional, Urine Bacteria 1+, Urine Mucus 1+, Urine Opiates Screen Negative, Urine Methadone Screen Negative, Ur Barbituates Screen Negative, Ur Phencyclidine Scrn Negative, Ur Amphetamines Screen Negative, U Benzodiazepines Scrn Negative, Urine Cocaine Screen Negative, U Marijuana (THC) Screen Negative 02/10/24 23:25: Troponin I < 0.01 Orders (Tests/Meds): ED MEDICATIONS Generic Name Dose Route Start Last Admin Trade Name Freq PRN Reason Stop Dose Admin Acetaminophen 650 mg 02/10/24 23:03 Acetaminophen 325mg Tab PO 03/11/24 23:02 Q4HP PRN Fever or Mild Pain (1-3) Sodium Chloride 1,000 mls @ 50 mls/hr 02/10/24 23:15 02/11/24 01:02 Sod Chlor 0.9% 1000ml Bag IV 03/11/24 23:14 50 mls/hr .Q20H RIVER Administration Levofloxacin/Dextrose 750 mg in 150 mls @ 100 mls/hr 02/11/24 11:00 02/11/24 11:03 Levofloxacin 750mg/150ml Premix IV 02/21/24 10:59 100 mls/hr Q24H RIVER Administration Morphine Sulfate 2 mg 02/10/24 23:03 Morphine 2mg/Ml Syringe IV 03/11/24 23:02 Q2HP PRN Severe Pain (7-10) Pantoprazole Sodium 40 mg 02/11/24 09:00 02/11/24 10:10 Pantoprazole 40mg Tablet PO 03/12/24 08:59 40 mg DAILY RIVER Administration Sodium Chloride 10 ml 02/11/24 07:39 Sodium Chloride 0.9% 10ml Flush Syringe IV 03/12/24 07:38 NEEDED PRN Maintain IV Site Discontinued Medications Generic Name Dose Route Start Last Admin Trade Name Freq PRN Reason Stop Dose Admin Lactated Ringer's 1,000 mls @ 999 mls/hr 02/10/24 20:05 02/10/24 20:17 Lactated Ringer's 1000 Ml Bag IV 02/10/24 21:05 999 mls/hr .Q1H1M ONE Administration Iopamidol 100 ml 02/10/24 22:28 02/10/24 22:30 Iopamidol-370 (76%);100ml Bottle IV 02/10/24 22:29 100 ml ONCE ONE Administration Sodium Chloride 50 ml 02/10/24 22:28 02/10/24 22:30 0.9 % Sodium Chloride 50 Ml Vial IV 02/10/24 22:29 50 ml ONCE ONE Administration Sodium Chloride 10 ml 02/10/24 22:28 02/10/24 22:30 Sodium Chloride 0.9% 10ml Syr (Rad Only) IV 02/10/24 22:29 10 ml ONCE ONE Administration Trimethoprim/Sulfamethoxazole 1 each 02/10/24 22:23 02/10/24 22:37 Sulfa/Trimethoprim 1 Tablet PO 02/10/24 22:24 1 each ONCE ONE Administration ORDERS Category Date Time Status CT angio head Stat Cat Scan 02/10/24 21:[address] angio neck Stat Cat Scan 02/10/24 21:[address] head/brain wo con Stat Cat Scan 02/10/24 20:05 Completed Chest XR -- portable [XR chest portable] Stat Exams 02/10/24 20:05 Completed CBC w/Auto Diff [Complete Blood Count Auto Diff] Stat Lab 02/10/24 19:58 Completed CMP [Comprehensive Metabolic Panel] Stat Lab 02/10/24 19:58 Completed Complete Blood Count Auto Diff AMLAB Lab 02/11/24 05:37 Completed Comprehensive Metabolic Panel AMLAB Lab 02/11/24 05:37 Completed D-Dimer Stat Lab 02/10/24 19:58 Completed Ethanol [Ethyl Alcohol] Stat Lab 02/10/24 19:58 Completed INR [Prothrombin Time INR] Stat Lab 02/10/24 19:58 Completed Magnesium AMLAB Lab 02/11/24 05:37 Completed Magnesium Stat Lab 02/10/24 19:58 Completed Rapid PCR Covid and Flu A/B Stat Lab 02/10/24 20:13 Completed TSH [Thyroid Stimulating Hormone] Stat Lab 02/10/24 19:58 Completed Trop I [Troponin I] Stat Lab 02/10/24 19:58 Completed Troponin I Q3H Lab 02/10/24 23:25 Completed Troponin I Q3H Lab 02/11/24 02:20 Completed UA [Urinalysis and Microscopic] Stat Lab 02/10/24 20:33 Completed UDS [Drug Screen,Urine] Stat Lab 02/10/24 20:33 Completed VBG [Venous Blood Gas] Stat RT 02/10/24 20:07 Completed HEART Score HEART Score: 5 Medical Decision Narrative: In summary patient is a 78-year-old male who presents to the emergency department for evaluation of altered mental status. Patient is hemodynamically stable upon arrival, afebrile. Physical exam is remarkable only for possibly slurred speech although I do not know what his baseline is he is edentulous and that may be contributing to understanding his speech. Patient has no other focal neurologic deficits other than he is oriented only to self currently not place and circumstance. Additionally he is tender to palpation in the suprapubic area. Has known BPH with chronic urinary outlet obstruction and is followed by Dr. Clark of urology. Differential diagnosis includes TIA versus stroke versus cognitive decline versus ACS versus infection versus toxic metabolic encephalopathy etc. Initial workup will be conducted with hematologic labs CT scan of the head stroke protocol twelve-lead EKG urinalysis. Initial interventions include crystalloid bolus. Initial workup reviewed by me shows that he has trace leukocyte esterases and bacteria in his urine without evidence of nitrites as well as microscopic blood. The remainder of his laboratory investigations are nonactionable. Upon repeat evaluation patient's and grandson arrived they report that patient is still not back to his baseline and upon reinterview patient is still having dysarthria and that is not his normal baseline. They do report some periodic memory issues but not with speech. Patient himself states that he knew that his was asking him questions but could not answer earlier today.. Given this I have expanded his workup for an CTA of the head and neck. Given this I spoke with hospital medicine regarding patient management. We agreed for admission to evaluate for MRI/MRA for possible cause. Patient's current NIH stroke score is 1 has remained 1 arrival. Because patient high risk for clinical decompensation, deemed appropriate for inpatient admission. Results were relayed to patient family who voiced understanding and patient was agreeable to inpatient admission and management. Patient was admitted to the hospital for further definitive management. I was consulted by the DOROTHEA, and we discussed the complexity of the problems being addressed. I approved the treatment and management plan for this patient?s care in the Emergency Department, thus performing a substantive portion of the medical decision making. Khurram Ramey MD Critical Care <KESHA Patel - Last Filed: 02/10/24 23:05> Critical Care Time Critical Care Time: No
--- NOTE | 2024-02-10 20:05 | CT_ITS ---
PROCEDURE INFORMATION: Exam: CT Head Without Contrast Exam date and time: 02/10/2024 8:19 PM Age: 78 years old Clinical indication: Other: Acute confusion TECHNIQUE: Imaging protocol: Computed tomography of the head without contrast. Radiation optimization: All CT scans at this facility use at least one of these dose optimization techniques: automated exposure control; mA and/or kV adjustment per patient size (includes targeted exams where dose is matched to clinical indication); or iterative reconstruction. COMPARISON: 1. CT HEAD/BRAIN WO CON 01/15/2024 1:[address] HEAD/BRAIN WO CON 12/29/2023 1:07 PM FINDINGS: Brain: The brain parenchyma appears unremarkable, with no signs of acute intracranial hemorrhage or significant mass effect. There is hypodensity in the subcortical and periventricular white matter which is technically nonspecific but most often related to chronic microvascular disease. Cerebral ventricles: Mild ventricular enlargement consistent with age-related cerebral atrophy is noted. Paranasal sinuses: Paranasal sinuses show age-appropriate mucosal thickening. Mastoid air cells: Visualized mastoid air cells are well aerated. Bones/joints: There are no skull fractures or bony lesions. Soft tissues: Unremarkable. IMPRESSION: 1. Presumably age-related and chronic changes without acute intracranial abnormality. 2. If clinical concern persists, MRI would be suggested.
--- NOTE | 2024-02-10 20:05 | XR_ITS ---
PROCEDURE INFORMATION: Exam: XR Chest Exam date and time: 02/10/2024 8:10 PM Age: 78 years old Clinical indication: Other: Acute confusion TECHNIQUE: Imaging protocol: Radiologic exam of the chest. Views: 1 view. COMPARISON: CR XR CHEST PORTABLE 12/31/2023 5:43 PM FINDINGS: Lungs: No evidence of acute pulmonary disease or infiltrates Pleural spaces: No large effusion or pneumothorax. Heart/Mediastinum: Stable cardiac and mediastinal contours. Diaphragm: There is elevation of the right hemidiaphragm. Bones/joints: No evidence of acute osseous abnormalities within the visualized portions of the thoracic spine and ribs. Osseous structures appear appropriate for patient age. IMPRESSION: No dense parenchymal consolidation, pleural effusion, or pneumothorax.
--- NOTE | 2024-02-10 20:11 | PC.NURSE ---
Bedside bladder scan reveals approximately 323 ml of urine in bladder at time of triage.
--- NOTE | 2024-02-10 20:12 | ECG_ITS ---
APPROVED REPORT Exam: Resting ECG HR:88 bpm ECG Measurements Heart Rate 88 AXES MN 165 P 48 QRSd 149 QRS 269 QT 398 T 11 QTc 444 Conclusion Sinus rhythm Right bundle branch block with right axis deviation No acute ischemic change Electronically signed by : SHAINA BAUTISTA, 02/10/2024 21:03:00
--- OUTSIDE RECORDS SUMMARY | 2024-02-10 20:14 | XMS_ITS | Encounter Summary ---
Author Name Unknown Organization [facility] Address [address] [place] [id number] Encounter Details Date Type Department Care Team Description 2024-01-26 Telephone [facility] [address] [place] [address] Beatrice Landin Medication Reconciliation was successfully completed by the [facility]. ASSESSMENT No Information TREATMENT PLAN No Information
--- OUTSIDE RECORDS SUMMARY | 2024-02-10 20:14 | XMS_ITS | Encounter Summary ---
Author Name Unknown Organization [facility] Address [address] [place] [id number] Encounter Details Date Type Department Care Team Description 2024-01-07 Telephone [facility] [place] [address] Beatrice Landin Medication Reconciliation was successfully completed by the [facility]. ASSESSMENT No Information TREATMENT PLAN No Information
--- OUTSIDE RECORDS SUMMARY | 2024-02-10 20:14 | XMS_ITS | Encounter Summary ---
Author Name Unknown Organization [facility] Address [address] [place] [id number] Encounter Details Date Type Department Care Team Description 2024-01-17 Telephone [facility] [place] [address] Chelle Landin Medication Reconciliation was successfully completed by the [facility]. ASSESSMENT No Information TREATMENT PLAN No Information
--- OUTSIDE RECORDS SUMMARY | 2024-02-10 20:14 | XMS_ITS | Encounter Summary ---
Author Name Unknown Organization [facility] Address [facility] [place] [address] Encounter Details Date Type Department Care Team Description 2023-12-16 Telephone [facility] [place] [address] Beatrice Landin Medication Reconciliation was successfully completed by the [facility]. ASSESSMENT No Information TREATMENT PLAN No Information
--- OUTSIDE RECORDS SUMMARY | 2024-02-10 20:14 | XMS_ITS | Encounter Summary ---
Author Name Unknown Organization [facility] Address [address] [place] [id number] Encounter Details Date Type Department Care Team Description 2024-01-29 Telephone [facility] [place] [address] Nivia Landin Medication Reconciliation was successfully completed by the [facility]. ASSESSMENT No Information TREATMENT PLAN No Information
[2024-02-10] MEDS: LACTATED RINGERS 1000ML 1,000 ML 999 ML IV (20:17)
[2024-02-10 20:19] LABS: VBG Base Excess -4.9 mmol/L (-2.4-2.3); VBG HCO3 21.8 mmol/L (23-30); VBG Oxygen Saturation 59.6 % (50-70); VBG PCO2 46.9 mmol/L (35-51); VBG PH 7.29 mmol/L (7.31-7.41); VBG PO2 33.3 mmol/L (28-40); VBG Total CO2 23.2 mmol/L (23-27)
[2024-02-10 20:20] LABS: Coronavirus 19, PCR Not Detected (NotDetected); Influenza A, PCR Not Detected (NotDetected); Influenza B, PCR Not Detected (NotDetected)
[2024-02-10 20:20] LABS: Lactate Venous 2.9 mmol/L (0.4-2.0)
[2024-02-10 20:23] LABS: Basophils # 0.1 K/mm3 (0-0.2); Basophils % 0.7 % (0.1-2.0); Eosinophils # 0.4 K/mm3 (0.0-0.4); Eosinophils % 3.4 % (0.1-12.0); Hematocrit 36.9 % (42.0-52.0); Hemoglobin 12.5 g/dL (14.1-18.0); Lymphocytes # 3.2 K/mm3 (0.7-4.5); Lymphocytes % 29.5 % (10-50); Mean Corpuscular Hemoglobin 31.4 pg (27.0-31.2); Mean Corpuscular Volume 92.4 fl (80-94); Mean Platelet Volume 7.6 fl (7.4-10.4); Monocytes # 0.5 K/mm3 (0.1-1.0); Monocytes % 4.9 % (1.7-9.3); Neutrophils # 6.6 K/mm3 (1.8-7.8); Neutrophils % 61.4 % (37.0-80.0); Platelet Count 296 K/mm3 (142-424); White Blood Count 10.8 K/mm3 (4.8-10.8)
[2024-02-10 20:26] LABS: Chloride 105 mmol/L (98-107)
[2024-02-10 20:27] LABS: Potassium 3.9 mmoL/L (3.5-5.1); Sodium 139 mmol/L (136-145)
[2024-02-10 20:29] LABS: Alanine Aminotransferase 24 U/L (12-78); Alkaline Phosphatase 69 U/L (38-126); Anion Gap 9.9 mEq/L (5-15); Aspartate Amino Transferase 25 U/L (17-59); Bilirubin,Total 0.5 mg/dl (0.2-1.3); Blood Urea Nitrogen 29 mg/dl (9-20); Carbon Dioxide 28 mmol/L (22.0-30.0); Creatinine Clearance Estimated 71 mL/min (50-200); Estimated Glomerular Filt Rate 81 ml/min (>60); GFR (African American) 98 ML/MIN (>60)
[2024-02-10 20:30] LABS: Albumin/Globulin Ratio 1.5 (1.1-1.8); Calcium 9.7 mg/dl (8.4-10.2); Globulin 2.6 g/dL (1.3-3.2); Glucose 142 mg/dl (74-100); Magnesium 1.8 mg/dl (1.6-2.3); Total Protein,Serum 6.6 g/dl (6.3-8.2)
[2024-02-10 20:32] LABS: Ethyl Alcohol < 10 mg/dl (0-10); INR 0.94 (0.9-1.1); Prothrombin Time 10.2 seconds (10.1-12.5)
--- NOTE | 2024-02-10 20:35 | PC.NURSE ---
andre rn and Tanja Stock RN changed pts brief and cleaned pt, repositioned in bed, and provided blanket. UA collected and sent to lab
[2024-02-10 20:38] LABS: D-Dimer 0.62 ug/mL (0.0-0.5)
[2024-02-10 20:46] LABS: Troponin I < 0.01 ng/ml (0.00-0.034)
[2024-02-10 20:48] LABS: Microscopic, Urine URINE MICROSCOPIC (MICROSCOPIC)
[2024-02-10 20:51] LABS: Appearance,Urine CLEAR (Clear); Bilirubin,Urine Negative (Negative); Blood, Urine 2+ (Negative); Color,Urine YELLOW (Yellow); Glucose,Urine (UA) TRACE (Negative); Ketones,Urine Negative (Negative); Leukocyte Esterase,Urine TRACE (Negative); Nitrate,Urine Negative (Negative); PH,Urine 5.5 (5.0-8.5); Protein,Urine 2+ (Negative); Specific Gravity, Urine 1.025 (1.005-1.030); Urobilinogen,Urine 0.2 EU/dl (0.2)
[2024-02-10 21:02] LABS: Amphetamine/Metha Screen,Urine Negative ng/ml (<1000); Benzodiazepines Screen,Urine Negative ng/ml (<200)
[2024-02-10 21:03] LABS: Barbiturates Screen,Urine Negative ng/ml (<200)
[2024-02-10 21:04] LABS: Cannabinoid Screen,Urine Negative ng/ml (<50); Methadone Screen,Urine Negative ng/ml (<300)
[2024-02-10 21:05] LABS: Cocaine Screen,Urine Negative ng/ml (<300)
[2024-02-10 21:06] LABS: Opiate Screen,Urine Negative ng/ml (<300); Phencyclidine Screen,Urine Negative ng/ml (<25)
[2024-02-10 21:12] LABS: Bacteria,Urine 1+ /lpf; Mucus,Urine 1+ /lpf; WBC,Urine Occasional #/hpf (0-3)
--- NOTE | 2024-02-10 21:57 | CT_ITS ---
PROCEDURE INFORMATION: Exam: CTA Neck With Contrast Exam date and time: 02/10/2024 10:21 PM Age: 78 years old Clinical indication: Other: Dysarthria TECHNIQUE: Imaging protocol: Computed tomographic angiography of the neck with contrast. Exam focused on the cervical segments of the vasculature. 3D rendering (Not supervised by radiologist): MIP and/or 3D reconstructed images were created by the technologist. Radiation optimization: All CT scans at this facility use at least one of these dose optimization techniques: automated exposure control; mA and/or kV adjustment per patient size (includes targeted exams where dose is matched to clinical indication); or iterative reconstruction. Contrast material: ISOVUE; Contrast volume: 100 ml; Contrast route: INTRAVENOUS (IV); COMPARISON: 1. CT ANGIO HEAD 02/10/2024 10:[address] HEAD/BRAIN WO CON 02/10/2024 8:[address] HEAD/BRAIN WO CON 01/15/2024 1:58 PM FINDINGS: Right common carotid artery: No stenosis. No dissection or occlusion. Right internal carotid artery: No stenosis of the extracranial segment. No dissection or occlusion. Right external carotid artery: No occlusion or stenosis of the origin. Left common carotid artery: No stenosis. No dissection or occlusion. Left internal carotid artery: No stenosis of the extracranial segment. No dissection or occlusion. Left external carotid artery: No occlusion or stenosis of the origin. Right vertebral artery: No stenosis. No dissection or occlusion. Left vertebral artery: No stenosis. No dissection or occlusion. Soft tissues: Normal. No significant soft tissue swelling. Bones/joints: No acute fracture. IMPRESSION: No stenosis or occlusion. REFERENCES: NASCET CRITERIA. The degree of stenosis in the cervical segment of the internal carotid artery is based on NASCET criteria. Normal is no stenosis. Mild is less than 50% stenosis. Moderate is 50-69% stenosis. Severe is 70% to 99% stenosis. Total occlusion is no detectable patent lumen.
--- NOTE | 2024-02-10 21:57 | CT_ITS ---
PROCEDURE INFORMATION: Exam: CTA Head With Contrast, Arteriography Exam date and time: 02/10/2024 10:21 PM Age: 78 years old Clinical indication: Other: Dysarthria TECHNIQUE: Imaging protocol: Computed tomographic angiography of the head with contrast. Exam focused on the arteries. 3D rendering (Not supervised by radiologist): MIP and/or 3D reconstructed images were created by the technologist. Radiation optimization: All CT scans at this facility use at least one of these dose optimization techniques: automated exposure control; mA and/or kV adjustment per patient size (includes targeted exams where dose is matched to clinical indication); or iterative reconstruction. Contrast material: ISOVUE; Contrast volume: 100 ml; Contrast route: INTRAVENOUS (IV); COMPARISON: 1. CT HEAD/BRAIN WO CON 02/10/2024 8:[address] HEAD/BRAIN WO CON 01/15/2024 1:[address] HEAD/BRAIN WO CON 12/29/2023 1:07 PM FINDINGS: ANTERIOR CIRCULATION: Right internal carotid artery: Intracranial segment is patent with no significant stenosis. No aneurysm. Right middle cerebral artery: No occlusion or significant stenosis. No aneurysm. Right anterior cerebral artery: No occlusion or significant stenosis. No aneurysm. Left internal carotid artery: Intracranial segment is patent with no significant stenosis. No aneurysm. Left middle cerebral artery: No occlusion or significant stenosis. No aneurysm. Left anterior cerebral artery: No occlusion or significant stenosis. No aneurysm. POSTERIOR CIRCULATION: Right vertebral artery: No occlusion or significant stenosis. No aneurysm. Left vertebral artery: No occlusion or significant stenosis. No aneurysm. Basilar artery: No occlusion or significant stenosis. No aneurysm. Right posterior cerebral artery: No occlusion or significant stenosis. No aneurysm. Left posterior cerebral artery: No occlusion or significant stenosis. No aneurysm. Brain: No definite mass, mass effect, or midline shift. Cerebral ventricles: No ventriculomegaly. Bones/joints: Unremarkable. No acute fracture. Soft tissues: Unremarkable. IMPRESSION: No large vessel stenosis or occlusion.
--- NOTE | 2024-02-10 22:25 | PC.NURSE ---
Assisted patient with urinal approximately 50 ml strong-smelling urine output.
[2024-02-10] MEDS: 0.9 % SODIUM CHLORIDE 50 ML VIAL IV (22:30)
[2024-02-10] MEDS: SODIUM CHLORIDE 0.9% 10ML SYR (RAD ONLY) 10 ML IV (22:30)
[2024-02-10] MEDS: IOPAMIDOL-370 (76%);100ML BOTTLE 100 ML IV (22:30)
[2024-02-10] MEDS: SULFA/TRIMETHOPRIM 1 TABLET 1 EACH PO (22:37)
--- NOTE | 2024-02-10 23:06 | EXP.HP ---
History of Present Illness *Admission Date: 02/10/24 *Reason for visit:: dysarthria *History of present illness: This is a 78-year-old male with PMHx of chronic white matter changes, suspected dementia, uncontrolled diabetes, hypertension, hyperlipidemia, who presented to the ER via EMS. EMS reports patient's called them because he was acting unusual, letting door opens, and forgetting regualar usual things. They also reported being having slurred speech and difficulty speaking. He has no complaints at this time, alert and oriented x 4. Workup in the ER unremarkable. is adamant that patient is confused and not acting himself. Patient had recent hospitalization due to the same complaint. no Acute stroke or work up was found at that time. patient was recommended to follow up outpatient with neurology. patient referred that they wasnt able to get the MRI done, and still pending for neuro eval. Due to worseining on symptoms, included slurred speech called EMS. He is afebrile, has no leukocytosis. Blood gas unremarkable. No anion gap. ER consulted medicine for admission and further treatment management [facility] Disclaimer: The information contained in this section may have been updated after the patient was seen, as this information can be updated by other users. Medical History Acute UTI COPD (chronic obstructive pulmonary disease) Diabetes mellitus, type 2 Prostate disorder with lower urinary tract symptoms High cholesterol Urinary retention due to benign prostatic hyperplasia Family History Other Family history of myocardial infarction Social History Smoking Status: Current every day smoker alcohol intake: former substance use type: denies use current occupational status: retired Travel in the last 8 weeks: None household members: spouse housing: house Review of Systems Review of Systems Review of systems:: pertinent systems reviewed and negative unless documented below Meds Home Medications and Allergies Home Medications Medication Instructions Recorded Confirmed Type tramadol 50 mg tablet 50 mg PO TIDP PRN Moderate Pain 08/24/20 02/11/24 History (Scale Score 5-6) sitagliptin phosphate 100 mg tablet 100 mg PO DAILY Diabetes 30 days 08/25/20 02/11/24 Rx #30 tabs hydrochlorothiazide 25 mg tablet 12.5 mg PO DAILY 05/10/23 02/11/24 History metformin 500 mg tablet 500 mg PO BIDWMEAL 05/10/23 02/11/24 History finasteride 5 mg tablet 5 mg PO DAILY 07/22/23 02/11/24 History omeprazole 20 mg capsule,delayed 20 mg PO DAILY 12/29/23 02/11/24 History release gabapentin 100 mg tablet 200 mg PO TID 02/11/24 02/11/24 History glipizide 10 mg tablet, extended 10 mg PO DAILY 02/11/24 02/11/24 History release 24 hr insulin lispro protamine-lispro 30 unit SQ BIDWMEAL 02/11/24 02/11/24 History 100 unit/mL (75-25) subcutaneous pen (Humalog Mix 75-25 KwikPen) New Prescriptions to Start Prescriptions: Allergies Allergy/AdvReac Type Severity Reaction Status Date / Time No Known Allergies Allergy Verified 01/14/24 13:42 Exam Data for Last 24 hours Vital signs and Labs for Last 24 Hours: Temp Pulse Resp BP Pulse Ox O2 Del Method 98.0 F 90 17 176/93 H 97 Room Air 02/10/24 19:56 02/10/24 22:00 02/10/24 22:00 02/10/24 22:00 02/10/24 22:00 02/10/24 22:00 Laboratory Results - last 24 hr 02/10/24 19:58: WBC 10.8, RBC 4.00 L, Hgb 12.5 L, Hct 36.9 L, MCV 92.4, MCH 31.4 H, MCHC 34.0, RDW 14.0, Plt Count 296, MPV 7.6, Neut % (Auto) 61.4, Lymph % (Auto) 29.5, Mclean % (Auto) 4.9, Eos % (Auto) 3.4, Baso % (Auto) 0.7, Neut # (Auto) 6.6, Lymph # (Auto) 3.2, Mclean # (Auto) 0.5, Eos # (Auto) 0.4, Baso # (Auto) 0.1, PT 10.2, INR 0.94, D-Dimer 0.62 H, Sodium 139, Potassium 3.9, Chloride 105, Carbon Dioxide 28, Anion Gap 9.9, BUN 29 H, Creatinine 0.90, Estimated Creat Clear 71, Estimated GFR 81, Est GFR ( Amer) 98, Glucose 142 H, Calcium 9.7, Magnesium 1.8, Total Bilirubin 0.5, AST 25, ALT 24, Alkaline Phosphatase 69, Troponin I < 0.01, Total Protein 6.6, Albumin 4.0, Globulin 2.6, Albumin/Globulin Ratio 1.5, TSH 3.90, Plasma/Serum Alcohol < 10 02/10/24 20:07: VBG pH 7.29 L, VBG pCO2 46.9, VBG pO2 33.3, VBG HCO3 21.8 L, VBG Total CO2 23.2, VBG O2 Saturation 59.6, VBG Base Excess -4.9 L, VBG Lactic Acid 2.9 H 02/10/24 20:13: SARS-CoV-2 (PCR) Not detected, Influenza A Untype (PCR) Not detected, Influenza Type B (PCR) Not detected 02/10/24 20:33: Urine Color Yellow, Urine Appearance Clear, Urine pH 5.5, Ur Specific [place] 1.025, Urine Protein 2+, Urine Glucose (UA) Trace, Urine Ketones Negative, Urine Blood 2+, Urine Nitrate Negative, Urine Bilirubin Negative, Urine Urobilinogen 0.2, Ur Leukocyte Esterase Trace, Urine RBC 5-10, Urine WBC Occasional, Urine Bacteria 1+, Urine Mucus 1+, Urine Opiates Screen Negative, Urine Methadone Screen Negative, Ur Barbituates Screen Negative, Ur Phencyclidine Scrn Negative, Ur Amphetamines Screen Negative, U Benzodiazepines Scrn Negative, Urine Cocaine Screen Negative, U Marijuana (THC) Screen Negative Temp Pulse Resp BP Pulse Ox O2 Del Method 97.8 F 86 16 127/72 96 Room Air 12/31/23 16:53 12/31/23 16:53 12/31/23 16:53 12/31/23 16:53 12/31/23 16:53 12/31/23 16:53 Laboratory Results - last 24 hr 12/31/23 16:08: Ammonia < 9 L 12/31/23 16:58: WBC 13.1 H, RBC 3.74 L, Hgb 11.9 L, Hct 34.7 L, MCV 92.9, MCH 31.9 H, MCHC 34.3, RDW 13.9, Plt Count 319, MPV 8.0, Neut % (Auto) 78.1, Lymph % (Auto) 14.5, Mclean % (Auto) 4.1, Eos % (Auto) 2.9, Baso % (Auto) 0.4, Neut # (Auto) 10.2 H, Lymph # (Auto) 1.9, Mclean # (Auto) 0.5, Eos # (Auto) 0.4, Baso # (Auto) 0.1, Sodium 139, Potassium 3.2 L, Chloride 108 H, Carbon Dioxide 28, Anion Gap 6.2, BUN 18, Creatinine 0.80, Estimated GFR 93, Est GFR ( Amer) 113, Glucose 119 H, Calcium 9.1, Total Bilirubin 0.3, AST 30, ALT 21, Alkaline Phosphatase 80, Total Protein 5.9 L, Albumin 3.5 D, Globulin 2.4, Albumin/Globulin Ratio 1.5 12/31/23 17:30: VBG pH 7.37, VBG pCO2 39.3, VBG pO2 95.9 H, VBG HCO3 22.3 L, VBG Total CO2 23.5, VBG O2 Saturation 96.6 H, VBG Base Excess -3.0 L, VBG Lactic Acid 1.6 I & O for Last 24 hours: Intake & Output 02/07/24 02/08/24 02/09/24 02/10/24 23:59 23:59 23:59 23:59 Weight 83.915 kg Intake & Output 12/28/23 12/29/23 12/30/23 12/31/23 23:59 23:59 23:59 23:59 Weight 81.647 kg Constitutional Constitutional: no acute distress, average body habitus, chronically ill appearing and cooperative *Routine HEENT Exam Head: Present normocephalic Eye: Present EOMI and PERRL ENT: Present mucous membranes moist *Routine Neck Exam Neck: Present supple; Absent lymphadenopathy *Routine Respiratory Exam Respiratory: Present CTA bilaterally *Routine Cardiovascular Exam Cardiovascular: Present RRR *Routine Abdominal Exam Abdominal: Present soft and normoactive bowel sounds; Absent tenderness *Routine Rectal Exam Rectal:: deferred *Routine Genitalia Exam Genitalia:: deferred *Routine Extremities Exam Extremities: Absent cyanosis, clubbing or edema *Routine Skin Exam Skin: Present warm; Absent rash *Routine Neurological Exam Neurological: Present alert, oriented X3 and moving all extremities; Absent altered mental status Comments: Questions about orientation: Patient oriented to self (name and birthdate), location (hospital and then specified [facility]), city, month (December), day of week, year. Did not know specific date family at bedside and heard him answer questions appropriately. H&P: Result Imaging and Cardiology EKG: Status: image reviewed by me, Preliminary report and final report CT scan - head: Status: image reviewed by me, Preliminary report and final report Assessment and Plan *Assessment and plan (1) Acute confusion: Status: Acute Category: Medical Code(s): R41.0 - Disorientation, unspecified (2) Dysarthria: Status: Acute Category: Medical Code(s): R47.1 - Dysarthria and anarthria (3) Diabetes: Status: Acute Qualifiers: Diabetes mellitus complication detail: with polyneuropathy Diabetes mellitus complication status: with neurologic complications Diabetes mellitus extermination inspector insulin use: with extermination inspector use Diabetes mellitus type: type 2 Qualified Code(s): E11.42 - Type 2 diabetes mellitus with diabetic polyneuropathy; Z79.4 - terminal manager (current) use of insulin Category: Medical Code(s): E11.9 - Type 2 diabetes mellitus without complications (4) Depression: Status: Acute Qualifiers: Depression Type: reactive depression Qualified Code(s): F32.9 - Major depressive disorder, single episode, unspecified Category: Medical Code(s): F32.A - Depression, unspecified (5) HTN (hypertension): Status: Acute Category: Medical Code(s): I10 - Essential (primary) hypertension (6) HLD (hyperlipidemia): Status: Acute Category: Medical Code(s): E78.5 - Hyperlipidemia, unspecified Plan 78-year-old male with PMHx of chronic white matter changes, suspected dementia, uncontrolled diabetes, hypertension, hyperlipidemia, who presented to the ER via EMS. EMS reports patient's called them because he was acting unusual, letting door opens, and forgetting regualar usual things. They also reported being having slurred speech and difficulty speaking. Presented with his and daughter. Discussed case with ER physician, request admission for reevaluation and MRI. Medicine agreed to admit. By the time of my evaluation, patient is alert and oriented. Problems addressed as follows: Questionable AMS, patient improved or close to baseline: dysarthria. Improved -Patient alert and oriented at this time. Does not appear confused. CT of head obtained showing age-related degeneration but no overt stroke or masses. - Per radiology indication for MRI if symptoms persist. -Suspect advanced age-related mild cognitive impairment. Uncontrolled diabetes: -Continue sliding scale with fingersticks ACHS. -resume home regimen -last A1c 8.6 Continue metformin 500 mg twice daily; Continue Sitagliptin 100 mg daily - Will continue gabapentin 200 mg 3 times a day for neuropathy Continue pantoprazole daily BPH: Continue finasteride 5 mg daily UA obtained to r/o UTI. Negative PT and OT consulted to evaluate for home health versus placement. Case management consulted to assist with disposition. Full code Diabetic diet Rounded on patient after nurse practitioner. Personally examined and interviewed patient. Agree with exam findings and care plan as documented.
--- NOTE | 2024-02-10 23:18 | PC.NURSE ---
Nurse to nurse report to Alexsandra
--- NOTE | 2024-02-10 23:31 | PC.NURSE ---
pt arrived to floor at 11:31 via stretcher
[2024-02-10 23:46] LABS: Reflex Lactic Add Lactic Reflex
[2024-02-11] VITALS (8 sets, daily range): BP systolic 128–181; BP diastolic 63–96; PULSE 80–96; RESP 16–18; TEMP 36.4–37.1; O2SAT 93–99; BMI 27.6
[2024-02-11 00:03] LABS: Lactic Acid Follow Up (RFLX 1) 2.3 mmol/L (0.7-2.1)
[2024-02-11 00:12] LABS: Troponin I < 0.01 ng/ml (0.00-0.034)
[2024-02-11] MEDS: 0.9 % SODIUM CHLORIDE 1000ML 1,000 ML 50 ML IV ×2 (01:02→22:39)
[2024-02-11 01:47] LABS: Reflex Lactic (2 hrs) Add Lactic Reflex
[2024-02-11 02:45] LABS: Lactic Acid Follow up (RFLX 2) 1.6 mmol/L (0.7-2.1)
[2024-02-11 03:04] LABS: Troponin I < 0.01 ng/ml (0.00-0.034)
[2024-02-11 06:45] LABS: Chloride 108 mmol/L (98-107); Potassium 3.4 mmoL/L (3.5-5.1); Sodium 138 mmol/L (136-145)
[2024-02-11 06:48] LABS: Alanine Aminotransferase 17 U/L (12-78); Albumin Level 3.3 g/dl (3.5-5.0); Albumin/Globulin Ratio 1.3 (1.1-1.8); Alkaline Phosphatase 67 U/L (38-126); Anion Gap 8.4 mEq/L (5-15); Aspartate Amino Transferase 27 U/L (17-59); Bilirubin,Total 0.4 mg/dl (0.2-1.3); Blood Urea Nitrogen 22 mg/dl (9-20); Calcium 9.2 mg/dl (8.4-10.2); Carbon Dioxide 25 mmol/L (22.0-30.0); Creatinine Clearance Estimated 70 mL/min (50-200); Estimated Glomerular Filt Rate 93 ml/min (>60); GFR (African American) 113 ML/MIN (>60); Globulin 2.5 g/dL (1.3-3.2); Glucose 70 mg/dl (74-100); Magnesium 1.7 mg/dl (1.6-2.3); Total Protein,Serum 5.8 g/dl (6.3-8.2)
[2024-02-11 06:49] LABS: POC Glucose,Bedside 73 (70-110)
--- NOTE | 2024-02-11 07:34 | HMH.PHAINT1 ---
Pharmacy Intervention Comments: HOME MEDICATION LIST VERIFIED VIA CLINIC PHARMACY
--- NOTE | 2024-02-11 07:37 | MR_ITS ---
FINAL REPORT CLINICAL HISTORY: APHASIA, AMS FINDINGS: Multi planar MR imaging was obtained through the brain without contrast. The midline structures appear intact. There is no evidence of Chiari malformation. There is moderate atrophy. There is abnormal signal in the periventricular white matter consistent with chronic microvascular ischemia. There is a localized focus of abnormal signal in the left basal ganglia. There is abnormal restricted diffusion at that site with corresponding decreased signal on the ADC map images. Findings are consistent with an acute ischemic lacunar infarct in the left basal ganglia. The visualized paranasal sinuses demonstrate normal signal voids. The seventh and eighth nerve root complexes are intact. IMPRESSION: Acute ischemic lacunar infarct in the left basal ganglia. Reviewed, Interpreted and Dictated by Josue Ramirez MD Transcribed by Marina Cruz Authenticated and [facility]
[2024-02-11 07:58] LABS: Basophils # 0.1 K/mm3 (0-0.2); Basophils % 0.5 % (0.1-2.0); Eosinophils # 0.3 K/mm3 (0.0-0.4); Eosinophils % 3.1 % (0.1-12.0); Hematocrit 34.2 % (42.0-52.0); Hemoglobin 11.7 g/dL (14.1-18.0); Lymphocytes # 2.8 K/mm3 (0.7-4.5); Mean Corpuscular HGB Conc 34.2 g/dL (31.8-35.4); Mean Corpuscular Hemoglobin 31.4 pg (27.0-31.2); Mean Corpuscular Volume 91.7 fl (80-94); Mean Platelet Volume 8.3 fl (7.4-10.4); Monocytes # 0.6 K/mm3 (0.1-1.0); Monocytes % 5.9 % (1.7-9.3); Neutrophils # 6.6 K/mm3 (1.8-7.8); Neutrophils % 63.5 % (37.0-80.0); Platelet Count 293 K/mm3 (142-424); Red Blood Count 3.72 M/mm3 (4.60-6.20); Red Cell Distribution Width 13.7 % (11.5-17.5); White Blood Count 10.4 K/mm3 (4.8-10.8)
--- NOTE | 2024-02-11 09:57 | HMH.PTEV ---
Physical Therapy Evaluation Rehab PT IP Evaluation Start: 02/11/24 07:56 Freq: ONCE Status: Active Protocol: Document 02/11/24 09:44 PHOJOSIANE (Rec: 02/11/24 09:57 PHORJOSE GUADALUPE [id number]) Subjective/History History History This is the initial evaluation for Venancio Conde, 78yowm, who admits to ED from home with dysarthria and AMS. Patient was brought to ED via EMS after called and said patient was not acting like himself. PMH of chronic white matter changes, suspected dementia, uncontrolled diabetes, hypertension, hyperlipidemia Subjective Subjective Patient in wheelchair after receiving MRI upon arrival. Patient orientedx4 but demonstrated delayed responses . Patient reports that he lives at home with his with no stairs. He reports that he does sometimes use a walker. Patient with inconsistent reports as to how much assistance he needs with typical daily activities. Patient was apparently slightly confused at times throughout evaluation. New diagnosis of cancer in past 12 No months? Rehab PT IP Eval Objective Appearance Patient Behavior Confused Patient Orientation Person,Place,Time,Birthday Difficulty following instructions none Speech Pattern Clear Ambulation Patient Able to Ambulate Yes Ambulation Observation IP General Gait Pattern Observation Shuffling Step Ambulation Distance (feet) 3 Ambulation Ability Moderate x 2 (50% assist) Balance Ability to Arise Able, uses arms to help Sitting Balance Steady, safe Standing Balance Unsteady Dynamic Sitting Balance Ability Fair Dynamic Standing Balance Ability Poor Transfers Bed Transfer Ability Minimal x 2 (25% assist) Sit to Stand Bed Transfer Ability Moderate x 2 (50% assist) Rehab PT IP prob,goals,plan Problems Date of Evaluation: 02/11/24 PT IP Problems Bed Mobility,Transfers,Gait, Balance,Self care,Safety Rehab Potential Rehab Potential Fair Equipment Needs Assistive Devices Rolling / Wheeled Walker Plan PT Intervention Plan Bed Mobility,Transfers,Gait, Balance,Self care,Safety, Therapeutic Exercise PT Plan Frequency Daily Duration LOS Discharge Goals Bed Transfer Ability Contact Guard/Hand Hold Sit to Stand Chair Transfer Ability Contact Guard/Hand Hold Ambulation Assistive Device Rolling Walker Ambulation Distance (feet) 15 Discharge Plan PT Discharge Plan Patient presents for initial evaluation and presents below baseline in functional mobility. Skilled PT is indicated for this patient to promote a return to his prior level of function and to prevent further injuries. The patient may be most appropriate for further placement, upon dishcarge from the hospital. Eval Complexity Eval Charge Codes 14262 - High Complexity PHYSICIAN CERTIFICATION: I certify the specified therapy services for Venancio Conde are required, authorized, and reviewed every 30 days.
--- NOTE | 2024-02-11 09:59 | HMH.OTEV ---
OT Inpatient Evaluation Rehab OT IP Evaluation Start: 02/11/24 07:56 Freq: ONCE Status: Active Protocol: Document 02/11/24 09:47 [facility] (Rec: 02/11/24 09:59 [facility] [id number]) Rehab OT IP Assessment Subjective History Pt oriented x 2 on arrival. Pt agreeable to engage in therapy evaluation. Pt admitted on 02/10/24 due to dysarthria. History and physical report: This is a 78-year-old male with PMHx of chronic white matter changes, suspected dementia, uncontrolled diabetes, hypertension, hyperlipidemia, who presented to the ER via EMS. EMS reports patient's called them because he was acting unusual, letting door opens, and forgetting regualar usual things. They also reported being having slurred speech and difficulty speaking. He has no complaints at this time , alert and oriented x 4. Workup in the ER unremarkable. is adamant that patient is confused and not acting himself. Patient had recent hospitalization due to the same complaint. no Acute stroke or work up was found at that time. patient was recommended to follow up outpatient with neurology. patient referred that they wasnt able to get the MRI done, and still pending for neuro eval. Due to worseining on symptoms, included slurred speech called EMS. He is afebrile, has no leukocytosis. Blood gas unremarkable. No anion gap. ER consulted medicine for admission and further treatment management Subjective I am not sure. Pt reports prior to being in the hospital he lived at home with his and two daugthers. Initially, pt reports he needs assistance with all ADLs. However, as the evaluation progressed pt then started to claim he was independent with all ADLS. Information provided may not be trustworthy due to patient being poor historian. Pt claims he was dependent with all IADLs and rolling walker. Objective Patient Orientation Person,Birthday Right Upper Extremity Gross ROM Min Limitation <25% Left Upper Extremity Gross ROM Min Limitation <25% Shoulder ROM Limitations Muscle Weakness Elbow ROM Limitations Muscle Weakness Wrist Limitations of Range of Motion Muscle Weakness Bed Mobility bed mobility-scooting,bed mobility - supine/sit Assist Level Minimal x 2 (25% assist) Transfer Training Sit/Stand/Step Transfer Assist Level Moderate x 2 (50% assist) Lower Body Dressing Ability Unable/dependent Performing Toilet Hygiene Ability Unable/dependent Rehab OT IP prob,goals,plan Problems Date of Evaluation: 02/11/24 OT IP Problems Bed Mobility,Transfers,Balance ,Self care,Safety Rehab Potential Rehab Potential Good Equipment Needs Assistive Devices Rolling / Wheeled Walker Plan OT intervention Plan Bed Mobility,Transfers,Balance ,Self care,Safety,Therapeutic Exercise OT Plan Frequency Daily Duration LOS Discharge Goals Bed Mobility Ability Assistance x1 Sit to Stand Chair Transfer Ability Minimal x 1 (25% assist) Chair Transfer Ability Minimal x 1 (25% assist) Chair Transfer Technique Sit to/from Ambulatory Chair Transfer Assistive Devices Rolling Walker Feeding Ability Assist with Tray Set Up Lower Body Dressing Ability Moderate Assistance Upper Body Dressing Ability Minimal Assistance Bathing Ability Moderate Assistance Performing Toilet Hygiene Ability Minimal Assistance Overall Commode/Toilet Transfer Ability Minimal Assistance Commode/Toilet Transfer Technique Sit to/from Ambulatory Commode/Toilet Transfer Assistive Grab Bars Devices Oral Care Assist Standby Assistance Decrease in Endurance Yes Discharge Plan OT Discharge Plan Pt will continue to be seen for OT services. Pt would benefit most from short term rehab at SNF following hospital stay. Continued skilled therapy will improve strength, safety, endurance, ADL independence, and functional transfers to reach PLOF. Eval Complexity Eval Charge Codes 13485 - Moderate Complexity PHYSICIAN CERTIFICATION: I certify the specified therapy services for Venancio Conde are required, authorized, and reviewed every 30 days.
[2024-02-11] MEDS: PANTOPRAZOLE 40MG TABLET 40 MG PO ×2 (10:10→22:30)
--- NOTE | 2024-02-11 10:31 | HMH.SLAPHASI ---
Speech & Language Evaluation Speech/Language Aphasia Evaluation Start: 02/11/24 10:13 Freq: once Status: Complete Protocol: Document 02/11/24 10:13 JESSICA (Rec: 02/11/24 10:31 JESSICA [id number]) Aphasia Assessment/Goals/Plan Assessment Date of Evaluation: 02/11/24 Evaluation Type Initial Certification Assessment/Problems dysarthira/dysphagia per MD order Does Patient Qualify for Service Yes Qualify/Failure Comment Based on clinical observations made throughout informal assessments given at the bedside, pt would benefit from skilled speech therapy services to address motor speech/dysarthria and cognitive linguistic deficits. Mastication and manipulation, as well as swallowing appear to be WFL with no overt s/sxs of aspiration exhibited at the bedside. Plan Pt will be seen # times/week 3 for # weeks 4 Anticipate reaching STG in # weeks 2 Anticipate reaching LTG in # weeks 4 Pt/Guardian verbally ack understanding Yes of dx/prognosis/goals G -code Required No STG-Attending/Orientation/Memory Delayed Recall 80 Memory Recall 80 STG-Comparative/Linguistic Skills Thought Organization 80 Categorization Ability 80 STG-Intell/Buccal/Labial Strength Intelligibility 90 #Intelligibility Drills Performed/Sesson 10 Labial Strength 90 # Times Exercises Perf/Session 10 Halfway Goals Increase oral motor tone to improve Yes: 90 intelligibility. Increase cognitive skills to communicate Yes: 90 w/family & friends Education Instructions provided Discussed assessment results, diet recommendations, aspiration precautions/ compensatory strategies, and goals to be targeted with pt, nursing, and care management all of which expressed understanding. 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 EMS reports patient's called them because he was acting unusual, letting door opens, and forgetting regualar usual things. They also reported being having slurred speech and difficulty speaking. He has no complaints at this time, alert and oriented x 4. Workup in the ER unremarkable. is adamant that patient is confused and not acting himself. Patient had recent hospitalization due to the same complaint. no Acute stroke or work up was found at that time. patient was recommended to follow up outpatient with neurology. patient referred that they wasnt able to get the MRI done, and still pending for neuro eval. Due to worseining on symptoms, included slurred speech called EMS. He is afebrile, has no leukocytosis. Blood gas unremarkable. No anion gap. ER consulted medicine for admission and further treatment management Rehab Services Assessed Speech therapy Language Primary Language Latvian Aphasia Evaluations Communication Speech Intelligibility Pt has notable dysarthria and slurred speech, reduced DDK rate, difficulty with increased complexity in words, and low tone/groping when presented with oral motor tasks. Intelligibility is 80% when context is known. Auditory Comprehension Yes: Word Level Sentences Following Directions Paragraph Conversation Verbal Expressive Language Yes: Automatic Speech Completing Sentences Repetition Abilities Word Level Naming Attending/Orientation/Memory Yes: Orientation No: Delayed Recall W/ Interference Attention/Concentration Memory AOM Comment Pt had difficulty with memory recall and word retrieval. Congnitive/Linguistic Skills No: Thought Organization Categorization CLS Comment Pt required mod-max repetitions as well as prompts /cues to complete a divergent/ convergent naming task. Additional Evaluation(s) Additional Tests Pt was also given a CSE while he was seen sitting upright in bed. No regular solid trials given 2' edentulous status. He demonstrated no overt s/sxs of aspiration as well as exhibiting no signs of distress or discomfort throughout the evaluation. Pt was given bolus consistencies x3 for consistency and observation for fatigue. He was given thin liquid (ice chip, spoonful of water, open cup/straw sip, two consecutive sips from open cup/straw), pudding, pureed, applesauce, and MS (soft cookie.) Mastication and manipulation of bolus and swallowing appear to be WFL at bedside. It is recommended pt be placed on MS chopped with thin liquids during time at [facility] 2' edentulous status. PHYSICIAN CERTIFICATION: I certify the specified therapy services for Venancio Conde are required, authorized, and reviewed every 30 days.
[2024-02-11] MEDS: LEVOFLOXACIN/D5W 750 MG/150 ML 750 MG/150 ML PIGGYBACK 100 MG IV (11:03)
[2024-02-11 13:25] LABS: POC Glucose,Bedside 110 (70-110)
--- NOTE | 2024-02-11 16:44 | CARE MANAGER ---
Addendum entered by Sarah Colón 02/12/24 10:38: Justin Blankenship precert has been approved for SNF level of care. Addendum entered by Sarah Colón 02/12/24 10:05: Pattie cruz/ [facility] stated that she can accept patient and will start a precert today. Original Note: Spoke with patient and family regarding discharge planning. Per PT/OT evals this morning, patient would benefit from SNF and is agreeable at this time. Patient Choice signed for [facility] and [facility]. Referral faxed to all and CM will continue to follow.
[2024-02-11] MEDS: humaLOG 100 UNITS/ML 3ML VIAL (SSI) SQ ×2 (16:49→22:30)
[2024-02-11 17:06] LABS: POC Glucose,Bedside 335 (70-110)
[2024-02-11] MEDS: ACETAMINOPHEN 325MG TAB 650 MG PO (17:14)
[2024-02-11] MEDS: ASPIRIN 325MG TABLET 325 MG PO (17:53)
--- NOTE | 2024-02-11 18:40 | EXP.ACUTE.PN ---
Subjective *Date: 02/11/24 *Time: 23:07 Interval history: Mild dysarthria on exam. Voice sounds like his tongue is fat . Oriented to person. Family at bedside. No shortness of breath or chest pain. Discussed MRI image findings with concern for lacunar infarct. Medical Exam Vital signs and Labs for Last 24 Hours: Vital Signs Temp Pulse Pulse Resp BP BP Pulse Ox 02/11/24 18:24 02/11/24 17:00 02/11/24 16:00 98.8 F 89 18 160/79 H 97 02/11/24 14:49 02/11/24 13:00 02/11/24 12:00 98.7 F 91 H 18 143/80 H 99 02/11/24 11:00 02/11/24 09:00 02/11/24 08:00 02/11/24 07:37 98.3 F 87 18 165/96 H 99 02/11/24 07:00 02/11/24 05:00 02/11/24 04:00 98.4 F 85 16 161/91 H 93 L 02/11/24 03:00 02/11/24 01:04 94 H 128/74 02/11/24 01:00 02/11/24 00:00 98.2 F 96 H 17 181/95 H 99 02/10/24 23:45 02/10/24 23:18 97.7 F 91 H 13 173/85 H 02/10/24 22:30 91 H 13 173/85 H 98 02/10/24 22:00 90 17 176/93 H 97 02/10/24 21:31 91 H 20 168/89 H 96 02/10/24 21:01 88 22 172/88 H 97 02/10/24 20:31 90 18 138/92 H 98 02/10/24 20:01 86 20 160/66 H 98 02/10/24 19:56 98.0 F 88 18 156/94 H 99 O2 Del Method 02/11/24 18:24 Room Air 02/11/24 17:00 Room Air 02/11/24 16:00 Room Air 02/11/24 14:49 Room Air 02/11/24 13:00 Room Air 02/11/24 12:00 Room Air 02/11/24 11:00 Room Air 02/11/24 09:00 Room Air 02/11/24 08:00 Room Air 02/11/24 07:37 Room Air 02/11/24 07:00 Room Air 02/11/24 05:00 Room Air 02/11/24 04:00 Room Air 02/11/24 03:00 Room Air 02/11/24 01:04 02/11/24 01:00 Room Air 02/11/24 00:00 Room Air 02/10/24 23:45 Room Air 02/10/24 23:18 Room Air 02/10/24 22:30 02/10/24 22:00 Room Air 02/10/24 21:31 Room Air 02/10/24 21:01 Room Air 02/10/24 20:31 Room Air 02/10/24 20:01 Room Air 02/10/24 19:56 Room Air Intake and Output 02/11/24 02/11/24 02/11/24 07:59 15:59 23:59 Output Total 0 / 0 0 / 0 Balance 0 / 0 0 / 0 Output: Output, Urine Amount 0 / 0 0 / 0 Other: Number of Unmeasured Voids 1 1 Number of Bowel Movements 1 Weight 82.871 kg Patient Weight 02/11/24 23:59 Weight 82.871 kg Laboratory Results - last 24 hr 02/10/24 19:58: WBC 10.8, RBC 4.00 L, Hgb 12.5 L, Hct 36.9 L, MCV 92.4, MCH 31.4 H, MCHC 34.0, RDW 14.0, Plt Count 296, MPV 7.6, Neut % (Auto) 61.4, Lymph % (Auto) 29.5, Hayes % (Auto) 4.9, Eos % (Auto) 3.4, Baso % (Auto) 0.7, Neut # (Auto) 6.6, Lymph # (Auto) 3.2, Hayes # (Auto) 0.5, Eos # (Auto) 0.4, Baso # (Auto) 0.1, PT 10.2, INR 0.94, D-Dimer 0.62 H, Sodium 139, Potassium 3.9, Chloride 105, Carbon Dioxide 28, Anion Gap 9.9, BUN 29 H, Creatinine 0.90, Estimated Creat Clear 71, Estimated GFR 81, Est GFR ( Amer) 98, Glucose 142 H, Calcium 9.7, Magnesium 1.8, Total Bilirubin 0.5, AST 25, ALT 24, Alkaline Phosphatase 69, Troponin I < 0.01, Total Protein 6.6, Albumin 4.0, Globulin 2.6, Albumin/Globulin Ratio 1.5, TSH 3.90, Plasma/Serum Alcohol < 10 02/10/24 20:07: VBG pH 7.29 L, VBG pCO2 46.9, VBG pO2 33.3, VBG HCO3 21.8 L, VBG Total CO2 23.2, VBG O2 Saturation 59.6, VBG Base Excess -4.9 L, VBG Lactic Acid 2.9 H 02/10/24 20:13: SARS-CoV-2 (PCR) Not detected, Influenza A Untype (PCR) Not detected, Influenza Type B (PCR) Not detected 02/10/24 20:33: Urine Color Yellow, Urine Appearance Clear, Urine pH 5.5, Ur Specific [place] 1.025, Urine Protein 2+, Urine Glucose (UA) Trace, Urine Ketones Negative, Urine Blood 2+, Urine Nitrate Negative, Urine Bilirubin Negative, Urine Urobilinogen 0.2, Ur Leukocyte Esterase Trace, Urine RBC 5-10, Urine WBC Occasional, Urine Bacteria 1+, Urine Mucus 1+, Urine Opiates Screen Negative, Urine Methadone Screen Negative, Ur Barbituates Screen Negative, Ur Phencyclidine Scrn Negative, Ur Amphetamines Screen Negative, U Benzodiazepines Scrn Negative, Urine Cocaine Screen Negative, U Marijuana (THC) Screen Negative 02/10/24 23:25: Troponin I < 0.01 02/10/24 23:40: Lactate 2.3 H 02/11/24 02:20: Lactate 1.6, Troponin I < 0.01 02/11/24 05:37: WBC 10.4, RBC 3.72 L, Hgb 11.7 L, Hct 34.2 L, MCV 91.7, MCH 31.4 H, MCHC 34.2, RDW 13.7, Plt Count 293, MPV 8.3, Neut % (Auto) 63.5, Lymph % (Auto) 27.0, Hayes % (Auto) 5.9, Eos % (Auto) 3.1, Baso % (Auto) 0.5, Neut # (Auto) 6.6, Lymph # (Auto) 2.8, Hayes # (Auto) 0.6, Eos # (Auto) 0.3, Baso # (Auto) 0.1, Sodium 138, Potassium 3.4 L, Chloride 108 H, Carbon Dioxide 25, Anion Gap 8.4, BUN 22 H, Creatinine 0.80, Estimated Creat Clear 70, Estimated GFR 93, Est GFR ( Amer) 113, Glucose 70 L D, Calcium 9.2, Magnesium 1.7, Total Bilirubin 0.4, AST 27, ALT 17 D, Alkaline Phosphatase 67, Total Protein 5.8 L, Albumin 3.3 L D, Globulin 2.5, Albumin/Globulin Ratio 1.3 02/11/24 06:40: POC Glucose 73 02/11/24 11:30: POC Glucose 110 02/11/24 16:31: POC Glucose 335 H* I & O for Labs for Last 24 Hours: Intake & Output 02/08/24 02/09/24 02/10/24 02/11/24 23:59 23:59 23:59 23:59 Output Total 0 / 0 Balance 0 / 0 Weight 83.915 kg 82.871 kg Constitutional: Present no acute distress, average body habitus, chronically ill appearing and cooperative Head: Present atraumatic and normocephalic ENT: Present normal exam Neck: Present normal inspection Respiratory: Present normal respiratory effort; Absent rhonchi, wheezes or crackles Cardiac: Present Reg Rate and Rhythm GI: Absent distention or tenderness (male): Present normal inspection Comment:: Worthington catheter in place, scant bloody discharge around catheter. Extremities: Present normal inspection and full ROM Skin: Present intact; Absent erythema Neuro: Present Grossly Intact, alert, awake and moves all extremities Comment:: Oriented to self, cannot tell me his birthday. Knows he is at the hospital. Mild dysarthria on exam, tongue sounds thick Assessment and Plan *Assessment and plan (1) Acute lacunar infarction: Status: Acute Category: Medical Code(s): I63.81 - Other cerebral infarction due to occlusion or stenosis of small artery (2) Acute confusion: Status: Acute Category: Medical Code(s): R41.0 - Disorientation, unspecified (3) Dysarthria: Status: Acute Category: Medical Code(s): R47.1 - Dysarthria and anarthria (4) Diabetes: Status: Acute Qualifiers: Diabetes mellitus complication detail: with polyneuropathy Diabetes mellitus complication status: with neurologic complications Diabetes mellitus jail 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 Diabetes mellitus type: type 2 Qualified Code(s): E11.42 - Type 2 diabetes mellitus with diabetic polyneuropathy; Z79.4 - terminal superintendent (current) use of insulin Category: Medical Code(s): E11.9 - Type 2 diabetes mellitus without complications (5) Depression: Status: Acute Qualifiers: Depression Type: reactive depression Qualified Code(s): F32.9 - Major depressive disorder, single episode, unspecified Category: Medical Code(s): F32.A - Depression, unspecified (6) HTN (hypertension): Status: Acute Category: Medical Code(s): I10 - Essential (primary) hypertension (7) HLD (hyperlipidemia): Status: Acute Category: Medical Code(s): E78.5 - Hyperlipidemia, unspecified Plan 78-year-old male with PMHx of chronic white matter changes, suspected dementia, uncontrolled diabetes, hypertension, hyperlipidemia, who presented to the ER via EMS. EMS reports patient's called them because he was acting unusual, letting door opens, and forgetting regualar usual things. They also reported being having slurred speech and difficulty speaking. Presented with his and daughter. Discussed case with ER physician, request admission for reevaluation and MRI. Medicine agreed to admit. MRI obtained, finding of acute lacunar infarct on left. Therapy evaluating, needs placement. Discussed case with family. Agreeable at this time. Continues to require inpatient management. Problems addressed as follows: Acute left-sided lacunar infarct Dysarthria Mild cognitive impairment -Patient alert and oriented to self and place. Knows his name but cannot recall his full birthday. Knows he is at the hospital. Appears comfortable. Interactive on exam. -In light of MRI findings, will initiate goal-directed therapy with medical management including initiation of statin Lipitor 40 mg nightly, aspirin 81 mg daily, Plavix 75 mg daily. -Microvascular changes on MRI as well on personal review in the periventricular white matter. Likely due to hypertension and chronically poorly controlled diabetes. - A will address glucose management Uncontrolled diabetes: -Continue sliding scale with fingersticks ACHS. -resume home regimen of 75/25 insulin 25 units twice daily with meals. Monitor for additional needs. -last A1c 8.6 Continue metformin 500 mg twice daily; Continue Sitagliptin 100 mg daily - Will continue gabapentin 200 mg 3 times a day for neuropathy Continue pantoprazole daily BPH: Continue finasteride 5 mg daily UA obtained to r/o UTI. Negative PT and OT consulted to evaluate for home health versus placement. Case management consulted to assist with disposition. Full code Diabetic diet PT working with patient, needs placement. Working on referral to rehab. Case management assisting.
[2024-02-11 21:26] LABS: POC Glucose,Bedside 340 (70-110)
[2024-02-11] MEDS: ATORVASTATIN 40MG TABLET 40 MG PO (22:24)
[2024-02-12] VITALS: BP 149/81; PULSE 86; RESP 16; TEMP 37.1
[2024-02-12 04:00] VITALS: BMI 27.6
[2024-02-12 05:52] LABS: POC Glucose,Bedside 213 (70-110)
[2024-02-12] MEDS: humaLOG 100 UNITS/ML 3ML VIAL (SSI) SQ ×2 (06:04→11:33)
[2024-02-12 07:21] LABS: Basophils # 0.1 K/mm3 (0-0.2); Basophils % 0.6 % (0.1-2.0); Eosinophils # 0.3 K/mm3 (0.0-0.4); Eosinophils % 3.6 % (0.1-12.0); Hematocrit 34.2 % (42.0-52.0); Hemoglobin 11.5 g/dL (14.1-18.0); Lymphocytes # 2.3 K/mm3 (0.7-4.5); Lymphocytes % 24.3 % (10-50); Mean Corpuscular HGB Conc 33.5 g/dL (31.8-35.4); Mean Corpuscular Hemoglobin 31.3 pg (27.0-31.2); Mean Corpuscular Volume 93.4 fl (80-94); Mean Platelet Volume 7.9 fl (7.4-10.4); Monocytes # 0.6 K/mm3 (0.1-1.0); Monocytes % 6.6 % (1.7-9.3); Neutrophils # 6.3 K/mm3 (1.8-7.8); Neutrophils % 64.9 % (37.0-80.0); Platelet Count 261 K/mm3 (142-424); Red Blood Count 3.66 M/mm3 (4.60-6.20); White Blood Count 9.7 K/mm3 (4.8-10.8)
[2024-02-12 07:51] VITALS: BP 147/76; PULSE 92; RESP 16; TEMP 36.6; O2SAT 94
[2024-02-12 08:53] LABS: Chloride 109 mmol/L (98-107); Sodium 140 mmol/L (136-145)
[2024-02-12 08:54] LABS: Potassium 3.8 mmoL/L (3.5-5.1)
[2024-02-12 08:56] LABS: Alanine Aminotransferase 15 U/L (12-78); Albumin Level 3.2 g/dl (3.5-5.0); Albumin/Globulin Ratio 1.3 (1.1-1.8); Alkaline Phosphatase 67 U/L (38-126); Anion Gap 6.8 mEq/L (5-15); Aspartate Amino Transferase 25 U/L (17-59); Bilirubin,Total 0.5 mg/dl (0.2-1.3); Blood Urea Nitrogen 17 mg/dl (9-20); Carbon Dioxide 28 mmol/L (22.0-30.0); Creatinine Clearance Estimated 70 mL/min (50-200); Estimated Glomerular Filt Rate 81 ml/min (>60); GFR (African American) 98 ML/MIN (>60); Globulin 2.4 g/dL (1.3-3.2); Glucose 198 mg/dl (74-100); Total Protein,Serum 5.6 g/dl (6.3-8.2)
[2024-02-12 08:57] LABS: Calcium 9.1 mg/dl (8.4-10.2); Magnesium 1.7 mg/dl (1.6-2.3)
[2024-02-12] MEDS: humaLOG MIX 75/25 3ML FLEXPEN 25 UNIT SQ (09:08)
[2024-02-12] MEDS: FINASTERIDE 5MG TABLET 5 MG PO (09:09)
[2024-02-12] MEDS: PANTOPRAZOLE 40MG TABLET 40 MG PO (09:09)
[2024-02-12] MEDS: ASPIRIN EC 81MG TABLET 81 MG PO (09:09)
[2024-02-12] MEDS: CLOPIDOGREL 75MG TAB 75 MG PO (09:09)
[2024-02-12] MEDS: LEVOFLOXACIN/D5W 750 MG/150 ML 750 MG/150 ML PIGGYBACK 100 MG IV (10:32)
--- NOTE | 2024-02-12 10:50 | EXP.DC.SUM ---
General Admission date:: 02/10/24 Discharge date: 02/12/24 HPI HPI HPI: This is a 78-year-old male with PMHx of chronic white matter changes, suspected dementia, uncontrolled diabetes, hypertension, hyperlipidemia, who presented to the ER via EMS. EMS reports patient's called them because he was acting unusual, letting door opens, and forgetting regualar usual things. They also reported being having slurred speech and difficulty speaking. He has no complaints at this time, alert and oriented x 4. Workup in the ER unremarkable. is adamant that patient is confused and not acting himself. Patient had recent hospitalization due to the same complaint. no Acute stroke or work up was found at that time. patient was recommended to follow up outpatient with neurology. patient referred that they wasnt able to get the MRI done, and still pending for neuro eval. Due to worseining on symptoms, included slurred speech called EMS. He is afebrile, has no leukocytosis. Blood gas unremarkable. No anion gap. ER consulted medicine for admission and further treatment management Hospital Course Hospital Course Hospital Course: 78-year-old male with PMHx of chronic white matter changes, suspected dementia, uncontrolled diabetes, hypertension, hyperlipidemia, who presented to the ER via EMS. EMS reports patient's called them because he was acting unusual, leaving doors open, forgetting radicular things. Also concern for some slurred speech for a day or 2. CT did not show anything acute. MRI obtained showing left-sided lacunar infarct. Therapy evaluated. Patient would benefit from placement. Family agreeable. Hemodynamically stable at this time on medical management for stroke. Graciously accepted to [facility]. Plan to discharge today. Problems addressed as follows: Acute left-sided lacunar infarct Dysarthria Mild cognitive impairment -Patient alert and oriented to self and place. Knows his name but cannot recall his full birthday. Knows he is at the hospital. Appears comfortable. Interactive on exam. No focal motor deficits but does have some mild dysarthria. In light of MRI findings, will initiate goal-directed therapy with medical management including initiation of statin Lipitor 40 mg nightly, aspirin 81 mg daily, Plavix 75 mg daily for 1 month. Followed by aspirin 81 mg daily thereafter. Speech evaluated, diet modified. Will need further therapy at discharge. Discharging to SNF. - White cell count normal at 9.7. Mild anemia with hemoglobin 11.5. Kidney function normal with creatinine 0.9. Uncontrolled diabetes: Neuropathy -A1c 8.61-month ago. Continuing metformin 500 mg twice daily and Sitagliptin 100 mg daily. Continue home regimen with 75/25 insulin at 25 units twice daily. Monitor for further adjustments in the halfway setting. Continue gabapentin 200 mg 3 times a day for neuropathy. Need to repeat A1c in 2 months Continue pantoprazole daily BPH: Continue finasteride 5 mg daily Suspected UTI with abnormal urinalysis. Will treat for 5 days with Levaquin for concern this may be complicating his confusion. Due for 3 more days after discharge. Stable to discharge to rehab for further management. Total time spent on discharge 35 minutes in counseling, documentation, chart review, and direct care with patient. Exam Data for Last 24 hours Vital signs and Labs for Last 24 Hours: Temp Pulse Resp BP Pulse Ox O2 Del Method 97.9 F 92 H 16 147/76 H 94 L Room Air 02/12/24 07:51 02/12/24 07:51 02/12/24 07:51 02/12/24 07:51 02/12/24 07:51 02/12/24 09:11 Laboratory Results - last 24 hr 02/11/24 11:30: POC Glucose 110 02/11/24 16:31: POC Glucose 335 H* 02/11/24 20:28: POC Glucose 340 H* 02/12/24 05:39: POC Glucose 213 H 02/12/24 05:54: WBC 9.7, RBC 3.66 L, Hgb 11.5 L, Hct 34.2 L, MCV 93.4, MCH 31.3 H, MCHC 33.5, RDW 14.0, Plt Count 261, MPV 7.9, Neut % (Auto) 64.9, Lymph % (Auto) 24.3, [place] % (Auto) 6.6, Eos % (Auto) 3.6, Baso % (Auto) 0.6, Neut # (Auto) 6.3, Lymph # (Auto) 2.3, [place] # (Auto) 0.6, Eos # (Auto) 0.3, Baso # (Auto) 0.1, Sodium 140, Potassium 3.8, Chloride 109 H, Carbon Dioxide 28, Anion Gap 6.8, BUN 17, Creatinine 0.90, Estimated Creat Clear 70, Estimated GFR 81, Est GFR ( Amer) 98, Glucose 198 H, Calcium 9.1, Magnesium 1.7, Total Bilirubin 0.5, AST 25, ALT 15, Alkaline Phosphatase 67, Total Protein 5.6 L, Albumin 3.2 L, Globulin 2.4, Albumin/Globulin Ratio 1.3 I & O for Last 24 hours: Intake & Output 02/09/24 02/10/24 02/11/24 02/12/24 23:59 23:59 23:59 23:59 Intake Total 360 / 360 899 / 899 Output Total 0 / 0 0 / 0 Balance 360 / 360 899 / 899 Weight 83.915 kg 82.871 kg 82.735 kg Constitutional Constitutional: no acute distress, average body habitus, chronically ill appearing and cooperative *Routine HEENT Exam Head: Present normocephalic Eye: Present EOMI and PERRL ENT: Present mucous membranes moist Comments: Mild dysarthria with speech. *Routine Neck Exam Neck: Present supple; Absent lymphadenopathy *Routine Respiratory Exam Respiratory: Present CTA bilaterally; Absent rhonchi, wheezes or crackles *Routine Cardiovascular Exam Cardiovascular: Present RRR *Routine Abdominal Exam Abdominal: Present soft and normoactive bowel sounds; Absent tenderness *Routine Rectal Exam Patient deferred: visual exam *Routine Exam Patient deferred: penile exam *Routine Extremities Exam Extremities: Absent cyanosis, clubbing or edema *Routine Skin Exam Skin: Present intact and warm; Absent rash *Routine Neurological Exam Neurological: Present alert and moving all extremities; Absent altered mental status Comments: Oriented to person and place. Mild dysarthria. Results Data Completed and Pending Labs on day of discharge: Labs from last 24 hours 02/12/24 02/12/24 02/11/24 05:54 05:39 20:28 WBC 9.7 RBC 3.66 L Hgb 11.5 L Hct 34.2 L MCV 93.4 MCH 31.3 H MCHC 33.5 RDW 14.0 Plt Count 261 MPV 7.9 Neut % (Auto) 64.9 Lymph % (Auto) 24.3 [place] % (Auto) 6.6 Eos % (Auto) 3.6 Baso % (Auto) 0.6 Neut # (Auto) 6.3 Lymph # (Auto) 2.3 [place] # (Auto) 0.6 Eos # (Auto) 0.3 Baso # (Auto) 0.1 Sodium 140 Potassium 3.8 Chloride 109 H Carbon Dioxide 28 Anion Gap 6.8 BUN 17 Creatinine 0.90 Estimated Creat Clear 70 Estimated GFR 81 Est GFR ( Amer) 98 Glucose 198 H POC Glucose 213 H 340 H* Calcium 9.1 Magnesium 1.7 Total Bilirubin 0.5 AST 25 ALT 15 Alkaline Phosphatase 67 Total Protein 5.6 L Albumin 3.2 L Globulin 2.4 Albumin/Globulin Ratio 1.3 02/11/24 02/11/24 16:31 11:30 WBC RBC Hgb Hct MCV MCH MCHC RDW Plt Count MPV Neut % (Auto) Lymph % (Auto) [place] % (Auto) Eos % (Auto) Baso % (Auto) Neut # (Auto) Lymph # (Auto) [place] # (Auto) Eos # (Auto) Baso # (Auto) Sodium Potassium Chloride Carbon Dioxide Anion Gap BUN Creatinine Estimated Creat Clear Estimated GFR Est GFR ( Amer) Glucose POC Glucose 335 H* 110 Calcium Magnesium Total Bilirubin AST ALT Alkaline Phosphatase Total Protein Albumin Globulin Albumin/Globulin Ratio DS: Diagnosis Discharge Diagnosis (1) Acute confusion: Status: Acute Code(s): R41.0 - Disorientation, unspecified (2) Dysarthria: Status: Acute Code(s): R47.1 - Dysarthria and anarthria (3) Diabetes: Status: Acute Code(s): E11.9 - Type 2 diabetes mellitus without complications Qualifiers: Diabetes mellitus complication detail: with polyneuropathy Diabetes mellitus complication status: with neurologic complications Diabetes mellitus assisted insulin use: with assisted use Diabetes mellitus type: type 2 Qualified Code(s): E11.42 - Type 2 diabetes mellitus with diabetic polyneuropathy; 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 (4) Depression: Status: Acute Code(s): F32.A - Depression, unspecified Qualifiers: Depression Type: reactive depression Qualified Code(s): F32.9 - Major depressive disorder, single episode, unspecified (5) HTN (hypertension): Status: Acute Code(s): I10 - Essential (primary) hypertension (6) HLD (hyperlipidemia): Status: Acute Code(s): E78.5 - Hyperlipidemia, unspecified Meds Home Medications and Allergies Home Medications Medication Instructions Recorded Confirmed Type sitagliptin phosphate 100 mg tablet 100 mg PO DAILY Diabetes 30 days 08/25/20 02/11/24 Rx #30 tabs hydrochlorothiazide 25 mg tablet 12.5 mg PO DAILY 05/10/23 02/11/24 History metformin 500 mg tablet 500 mg PO BIDWMEAL 05/10/23 02/11/24 History finasteride 5 mg tablet 5 mg PO DAILY 07/22/23 02/11/24 History omeprazole 20 mg capsule,delayed 20 mg PO DAILY 12/29/23 02/11/24 History release glipizide 10 mg tablet, extended 10 mg PO DAILY 02/11/24 02/11/24 History release 24 hr aspirin 81 mg tablet,delayed 81 mg PO DAILY 30 days #30 tabs 02/12/24 Rx release atorvastatin 40 mg tablet 40 mg PO HS 30 days #30 tabs 02/12/24 Rx clopidogrel 75 mg tablet 75 mg PO DAILY 30 days #30 tabs 02/12/24 Rx insulin lispro protamine-lispro 25 unit (0.25 mL) SQ BIDWMEAL 30 02/12/24 02/11/24 Rx 100 unit/mL (75-25) subcutaneous days #0 mL pen (Humalog Mix 75-25 KwikPen) levofloxacin 750 mg tablet 750 mg PO DAILY 3 days #3 tabs 02/12/24 Rx tramadol 50 mg tablet 50 mg PO TIDP PRN Moderate Pain 02/12/24 Rx (Scale Score 5-6) 10 days #30 tabs New Prescriptions to Start Prescriptions: j luis Romero,Nithin atorvastatin Nick,Nithin clopidogrel Nick,Nithin levofloxacin Nick,Nithin tramadol Nithin Romero Allergies Allergy/AdvReac Type Severity Reaction Status Date / Time No Known Allergies Allergy Verified 01/14/24 13:42 Discharge Plan Disposition Patient Disposition: [facility] Condition: Fair Discharge Order Discharge Orders: Discharge Order (Routine); Ordered 02/12/24 Ordered By: Nithin Romero Follow up Plan Prescriptions/Medication Reconciliation: New atorvastatin 40 mg Tablet 40 mg PO HS 30 Days Qty: 30 0RF clopidogrel 75 mg Tablet 75 mg PO DAILY 30 Days Qty: 30 0RF aspirin 81 mg Tablet,Delayed Release (Dr/Ec) 81 mg PO DAILY 30 Days Qty: 30 0RF levofloxacin 750 mg tablet 750 mg PO DAILY 3 Days Qty: 3 0RF Continued metformin 500 MG tablet 500 mg PO BIDWMEAL hydrochlorothiazide 25 mg tablet 12.5 mg PO DAILY Patient Comments: TAKE ONE TABLET BY MOUTH EVERY DAY FOR EDEMA finasteride 5 mg tablet 5 mg PO DAILY omeprazole 20 mg capsule,delayed release(DR/EC) 20 mg PO DAILY Patient Comments: TAKE ONE CAPSULE BY MOUTH EVERY DAY sitagliptin phosphate 100 MG tablet 100 mg PO DAILY 30 Days Qty: 30 0RF glipizide 10 mg Tablet Extended Release 24hr 10 mg PO DAILY tramadol 50 MG tablet 50 mg PO TIDP PRN (Reason: Moderate Pain (Scale Score 5-6)) 10 Days Qty: 30 0RF Changed insulin lispro protamin-lispro [Humalog Mix 75-25 KwikPen] 100 unit/mL (75-25) insulin pen 25 unit SQ BIDWMEAL 30 Days Qty: 0 0RF Discontinued gabapentin 100 mg Tablet 200 mg PO TID Problem Reconciliation Problems Reviewed?: Yes Patient Discharge Instructions ACTIVITY: Ambulate as tolerated and Up with assistance DIET: continue same diet Patient Instructions: DI for Urinary Tract Infection (UTI) Providers Primary Care Provider: Silviano Love Admit Provider: Nithin Romero Attending Provider: Nithin Romero
[2024-02-12 11:42] LABS: POC Glucose,Bedside 185 (70-110)
--- NOTE | 2024-02-12 15:50 | PC.NURSE ---
1355 - report called to [facility] - ambulance notified of need for transport
--- NOTE | 2024-02-12 16:41 | PC.NURSE ---
Notified by phone that ems is here for transport
== END 2024-02-12 12:09 | DRG 65 ==
LOC: ER 23:05 → 2ND 23:16
PROVIDERS: Nurse Practitioner Family; Physician Assistant; Admitting Provider Internal Medicine Adolescent Medicine; Emergency Provider Emergency Medicine; PCP Family Medicine; Visit Provider Internal Medicine Adolescent Medicine
DX: I63.81 Other cerebral infarction due to occlusion or stenosis of small artery (principal); N39.0 Urinary tract infection, site not specified; R41.0 Disorientation, unspecified; R47.1 Dysarthria and anarthria; E11.42 Type 2 diabetes mellitus with diabetic polyneuropathy; Z79.4 Long term (current) use of insulin; F32.9 Major depressive disorder, single episode, unspecified; I10 Essential (primary) hypertension; E78.5 Hyperlipidemia, unspecified; F03.90 Unspecified dementia, unspecified severity, without behavioral disturbance, psychotic disturbance, mood disturbance, and anxiety; E11.40 Type 2 diabetes mellitus with diabetic neuropathy, unspecified; Z79.84 Long term (current) use of oral hypoglycemic drugs; E78.00 Pure hypercholesterolemia, unspecified; N40.0 Benign prostatic hyperplasia without lower urinary tract symptoms
CPT/HCPCS: 36415; 70450; 70496; 70498; 70551; 71045; 80053; 80307; 81001; 82803; 82962; 83605; 83735; 84443; 84484; 85025; 85378; 85610; 87636; 92523; 93005; 97116; 97163; 97166; 97530; 99285; G0378; J1956; Q9967

== ENCOUNTER 2024-02-28 19:10 | Observation (INO) | payer MEDICARE, MEDICAID, SELFPAY ==
[2024-02-28 19:10] VITALS: BP 158/92; PULSE 116; RESP 16; TEMP 36.9; O2SAT 98; BMI 25.8
--- NOTE | 2024-02-28 19:17 | ED_ITS ---
Discharge Plan Disposition Patient Disposition: Admitted Chief Complaint: Hyper/Hypoglycemia Prescriptions Prescriptions: No Action metformin 500 MG tablet 500 mg PO BIDWMEAL hydrochlorothiazide 25 mg tablet 12.5 mg PO DAILY Patient Comments: TAKE ONE TABLET BY MOUTH EVERY DAY FOR EDEMA finasteride 5 mg tablet 5 mg PO DAILY omeprazole 20 mg capsule,delayed release(DR/EC) 20 mg PO DAILY Patient Comments: TAKE ONE CAPSULE BY MOUTH EVERY DAY sitagliptin phosphate 100 MG tablet 100 mg PO DAILY 30 Days Qty: 30 0RF glipizide 10 mg Tablet Extended Release 24hr 10 mg PO DAILY atorvastatin 40 mg Tablet 40 mg PO HS 30 Days Qty: 30 0RF clopidogrel 75 mg Tablet 75 mg PO DAILY 30 Days Qty: 30 0RF aspirin 81 mg Tablet,Delayed Release (Dr/Ec) 81 mg PO DAILY 30 Days Qty: 30 0RF tramadol 50 MG tablet 50 mg PO TIDP PRN (Reason: Moderate Pain (Scale Score 5-6)) 10 Days Qty: 30 0RF insulin lispro protamin-lispro [Humalog Mix 75-25 KwikPen] 100 unit/mL (75-25) insulin pen 25 unit SQ BIDWMEAL 30 Days Qty: 0 0RF levofloxacin 750 mg tablet 750 mg PO DAILY 3 Days Qty: 3 0RF Clinical Impressions Clinical Impression: Labile blood glucose, SIRS (systemic inflammatory response syndrome), Declining functional status Instructions Patient Instructions: DI for Hyperglycemia -- Adult Discharge ED Provider: Jose Knox General Adult HPI General Chief complaint: Hyper/Hypoglycemia Stated complaint: Hyperglycemia Time Seen by Provider: 02/28/24 19:11 History of Present Illness HPI narrative: Patient is a 78-year-old male with past medical history of insulin-dependent diabetes, hypertension, hyperlipidemia, previous CVA, multiple recent admissions discharged to [facility] who was discharged this morning from [facility] to home who presents emergency department for evaluation of fluctuating glucose. History is obtained by EMS report. Patient was reportedly diagnosed with a urinary tract infection for which [facility] was unable to administer medications for unknown reasons, he was discharged this morning to home where family does not have the capability to take care of him in a safe way. His glucose was as low as 34 this morning and as high as 350 this afternoon. Family is uncomfortable taking care of him and does not know what else to do so they contacted 911 and he presents here for continued evaluation. Patient has taken 1 dose of levofloxacin today since he was discharged. No trauma, no other acute complaints at this time. Per review of recent admission and discharged on after acute left-sided lacunar infarct patient was discharged to [facility] on metformin 500 mg twice a day, Sitagliptin 100 mg daily, 75?25 insulin 25 units twice a day. Related Data Home Medications Medication Instructions Recorded Confirmed hydrochlorothiazide 25 mg tablet 12.5 mg PO DAILY 05/10/23 02/11/24 metformin 500 mg tablet 500 mg PO BIDWMEAL 05/10/23 02/11/24 finasteride 5 mg tablet 5 mg PO DAILY 07/22/23 02/11/24 omeprazole 20 mg capsule,delayed 20 mg PO DAILY 12/29/23 02/11/24 release glipizide 10 mg tablet, extended 10 mg PO DAILY 02/11/24 02/11/24 release 24 hr Previous Rx's Medication Instructions Recorded sitagliptin phosphate 100 mg tablet 100 mg PO DAILY Diabetes 30 days 08/25/20 #30 tabs aspirin 81 mg tablet,delayed 81 mg PO DAILY 30 days #30 tabs 02/12/24 release atorvastatin 40 mg tablet 40 mg PO HS 30 days #30 tabs 02/12/24 clopidogrel 75 mg tablet 75 mg PO DAILY 30 days #30 tabs 02/12/24 insulin lispro protamine-lispro 25 unit (0.25 mL) SQ BIDWMEAL 30 02/12/24 100 unit/mL (75-25) subcutaneous days #0 mL pen (Humalog Mix 75-25 KwikPen) levofloxacin 750 mg tablet 750 mg PO DAILY 3 days #3 tabs 02/12/24 tramadol 50 mg tablet 50 mg PO TIDP PRN Moderate Pain 02/12/24 (Scale Score 5-6) 10 days #30 tabs Allergies Allergy/AdvReac Type Severity Reaction Status Date / Time No Known Allergies Allergy Verified 01/14/24 13:42 [facility] Disclaimer: The information contained in this section may have been updated after the patient was seen, as this information can be updated by other users. Medical History Acute UTI COPD (chronic obstructive pulmonary disease) Diabetes mellitus, type 2 Prostate disorder with lower urinary tract symptoms High cholesterol Urinary retention due to benign prostatic hyperplasia Family History Other Family history of myocardial infarction Social History Smoking Status: Current every day smoker alcohol intake: former substance use type: denies use current occupational status: retired Travel in the last 8 weeks: None household members: spouse housing: house ROS Obtained: Yes Systems reviewed as appropriate & no additional complaints except as documented Physical Exam General General appearance: alert and in no apparent distress Head Head exam: atraumatic and normocephalic Eye Eye exam: Present PERRL ENT ENT exam: Present mucous membranes moist Neck Neck exam: Present normal inspection Chest Chest inspection: Present normal inspection and symmetric chest wall rise Respiratory Respiratory exam: Present normal lung sounds bilaterally; Absent respiratory distress Cardiovascular Cardiovascular exam: Present regular rate and normal rhythm Abdominal Exam Abdominal exam: Present soft; Absent tenderness Extremities Exam Extremities exam: Present normal inspection Neurological Exam Neurological exam: Present alert Psychiatric Psychiatric exam: Present normal affect Skin Skin exam: Present warm and dry Medical Decision Making Leonid Inquiry Pt receiving controlled substance: No Vital Signs: 02/28/24 19:10 Temperature 98.4 F Temperature Source Oral Pulse Rate [Left] 116 H Respiratory Rate 16 Blood Pressure [Right Arm] 158/92 H Blood Pressure Mean [Right Arm] 114 Blood Pressure Position [Right Arm] Supine 02 Sat by Pulse Oximetry 98 Oxygen Delivery Method Room Air Lab Data Lab Results 02/28/24 19:15: WBC 16.0 H, RBC 3.77 L, Hgb 11.7 L, Hct 35.0 L, MCV 92.8, MCH 31.0, MCHC 33.4, RDW 13.9, Plt Count 307, MPV 7.8, Neut % (Auto) 80.0, Lymph % (Auto) 14.9, [place] % (Auto) 4.0, Eos % (Auto) 0.9, Baso % (Auto) 0.3, Neut # (Auto) 12.8 H, Lymph # (Auto) 2.4, [place] # (Auto) 0.6, Eos # (Auto) 0.1, Baso # (Auto) 0.1, Total Counted 100, Neutrophils % (Manual) 78 H, Lymphocytes % (Manual) 20, Monocytes % (Manual) 1 L, Eosinophils % (Manual) 1, Platelet Estimate Normal, RBC Morphology Normal, Sodium 136, Potassium 3.9, Chloride 102, Carbon Dioxide 27, Anion Gap 10.9, BUN 26 H, Creatinine 0.90, Estimated Creat Clear 65, Estimated GFR 81, Est GFR ( Amer) 98, Glucose 286 H, Calcium 9.5, Total Bilirubin 0.6, AST 25, ALT 24, Alkaline Phosphatase 73, Total Protein 6.3, Albumin 3.9, Globulin 2.4, Albumin/Globulin Ratio 1.6 02/28/24 19:16: VBG pH 7.34, VBG pCO2 45.1, VBG pO2 39.8, VBG HCO3 23.9, VBG Total CO2 25.3, VBG O2 Saturation 70.2 H, VBG Base Excess -1.8, VBG Lactic Acid 2.9 H 02/28/24 19:40: Urine Color Yellow, Urine Appearance Clear, Urine pH 5.5, Ur Specific [place] >= 1.030, Urine Protein 2+, Urine Glucose (UA) 1+, Urine Ketones Trace, Urine Blood 1+, Urine Nitrate Negative, Urine Bilirubin Negative, Urine Urobilinogen 0.2, Ur Leukocyte Esterase Negative 02/28/24 19:15 02/28/24 19:15 Orders (Tests/Meds): ED MEDICATIONS Generic Name Dose Route Start Last Admin Trade Name Freq PRN Reason Stop Dose Admin Lactated Ringer's 1,000 mls @ 999 mls/hr 02/28/24 19:16 02/28/24 19:53 Lactated Ringer's 1000 Ml Bag IV 02/28/24 20:16 999 mls/hr .Q1H1M ONE Administration Ceftriaxone Sodium 1 gm/ 50 mls @ 100 mls/hr 02/28/24 19:45 02/28/24 19:53 Sodium Chloride IV 03/09/24 19:44 100 mls/hr Q24H RIVER Administration ORDERS Category Date Time Status CBC w/Auto Diff [Complete Blood Count Auto Diff] Stat Lab 02/28/24 19:15 Completed CMP [Comprehensive Metabolic Panel] Stat Lab 02/28/24 19:15 Completed UA [Urinalysis and Microscopic] Stat Lab 02/28/24 19:40 Results Blood Culture Stat Micro 02/28/24 19:42 Ordered VBG [Venous Blood Gas] Stat RT 02/28/24 19:16 Completed Medical Decision Narrative: In summary patient is a 78-year-old male past medical history described above presents emergency department for evaluation of fluctuating blood sugars. Patient is hemodynamically stable nontoxic-appearing upon arrival, afebrile, fingerstick 277. Differential diagnosis includes DKA, urinary tract infection, chronic functional decline with inability to take care of at home, among others. Workup will be conducted with hematologic labs, urinalysis, VBG. Initial inventions include crystalloid bolus. Initial workup reviewed by me, leukocytosis of 16 of undetermined etiology, no SABRINA or critical electrolyte abnormality, sugars 286, elevated lactate 2.9, compensated acid-base status. No concern for DKA currently. Urinalysis dip not concerning for infection, evidence of proteinuria in the setting of known diabetes. Given that patient is SIRS positive patient will be given sepsis bolus fluids (patient was given 500 cc prehospital), blood cultures will be drawn 1 g of ceftriaxone be administered. Patient does not appear critically ill and patient has no acute complaints. So broad-spectrum antibiotics will be deferred currently. The case was discussed with hospital medicine given patient has SIRS positive status, acute functional decline, labile blood sugar patient is appropriate for inpatient management at this time and they graciously accepted patient to their service for continued evaluation. Critical Care Critical Care Time Critical Care Time: No
[2024-02-28 19:28] LABS: Basophils # 0.1 K/mm3 (0-0.2); Basophils % 0.3 % (0.1-2.0); Eosinophils # 0.1 K/mm3 (0.0-0.4); Eosinophils % 0.9 % (0.1-12.0); Hemoglobin 11.7 g/dL (14.1-18.0); Lymphocytes # 2.4 K/mm3 (0.7-4.5); Lymphocytes % 14.9 % (10-50); Mean Corpuscular HGB Conc 33.4 g/dL (31.8-35.4); Mean Corpuscular Volume 92.8 fl (80-94); Mean Platelet Volume 7.8 fl (7.4-10.4); Monocytes # 0.6 K/mm3 (0.1-1.0); Neutrophils # 12.8 K/mm3 (1.8-7.8); Platelet Count 307 K/mm3 (142-424); Red Blood Count 3.77 M/mm3 (4.60-6.20); Red Cell Distribution Width 13.9 % (11.5-17.5)
[2024-02-28 19:29] LABS: Chloride 102 mmol/L (98-107)
[2024-02-28 19:30] LABS: MANUAL DIFFERENTIAL MANUAL DIFFERENTIAL (MANUAL DIFF); Potassium 3.9 mmoL/L (3.5-5.1); Sodium 136 mmol/L (136-145)
[2024-02-28 19:32] LABS: Alanine Aminotransferase 24 U/L (12-78); Aspartate Amino Transferase 25 U/L (17-59); Blood Urea Nitrogen 26 mg/dl (9-20); Creatinine Clearance Estimated 65 mL/min (50-200); Estimated Glomerular Filt Rate 81 ml/min (>60); GFR (African American) 98 ML/MIN (>60)
[2024-02-28 19:33] LABS: Albumin Level 3.9 g/dl (3.5-5.0); Albumin/Globulin Ratio 1.6 (1.1-1.8); Alkaline Phosphatase 73 U/L (38-126); Anion Gap 10.9 mEq/L (5-15); Bilirubin,Total 0.6 mg/dl (0.2-1.3); Calcium 9.5 mg/dl (8.4-10.2); Carbon Dioxide 27 mmol/L (22.0-30.0); Globulin 2.4 g/dL (1.3-3.2); Glucose 286 mg/dl (74-100); Total Protein,Serum 6.3 g/dl (6.3-8.2)
[2024-02-28 19:39] LABS: VBG Base Excess -1.8 mmol/L (-2.4-2.3); VBG HCO3 23.9 mmol/L (23-30); VBG Oxygen Saturation 70.2 % (50-70); VBG PCO2 45.1 mmol/L (35-51); VBG PH 7.34 mmol/L (7.31-7.41); VBG PO2 39.8 mmol/L (28-40); VBG Total CO2 25.3 mmol/L (23-27)
[2024-02-28 19:40] LABS: Lactate Venous 2.9 mmol/L (0.4-2.0)
[2024-02-28 19:48] LABS: Microscopic, Urine URINE MICROSCOPIC (MICROSCOPIC)
[2024-02-28 19:49] LABS: Appearance,Urine CLEAR (Clear); Bilirubin,Urine Negative (Negative); Blood, Urine 1+ (Negative); Color,Urine YELLOW (Yellow); Glucose,Urine (UA) 1+ (Negative); Ketones,Urine TRACE (Negative); Leukocyte Esterase,Urine Negative (Negative); Nitrate,Urine Negative (Negative); PH,Urine 5.5 (5.0-8.5); Protein,Urine 2+ (Negative); Specific Gravity, Urine >= 1.030 (1.005-1.030); Urobilinogen,Urine 0.2 EU/dl (0.2)
[2024-02-28 19:49] LABS: Eosinophils % 1 % (0-3); Lymphocytes % 20 % (10-50); Monocytes % 1 % (2-9); Neutrophils % 78 % (42-76); Platelet Estimate Normal; RBC Morphology Normal; Total Cells Counted 100
[2024-02-28] MEDS: CEFTRIAXONE 1 GM 1 GM in 0.9 % SODIUM CHLORIDE 50 ML IV (19:53)
[2024-02-28] MEDS: LACTATED RINGERS 1000ML 1,000 ML 999 ML IV (19:53)
--- NOTE | 2024-02-28 20:04 | ECG_ITS ---
APPROVED REPORT Exam: Resting ECG HR:116 bpm ECG Measurements Heart Rate 116 AXES SC 176 P 179 QRSd 136 QRS 268 QT 338 T 39 QTc 407 Conclusion SINUS TACHYCARDIA RIGHT AXIS DEVIATION [QRS AXIS > 100] RIGHT BUNDLE BRANCH BLOCK [120+ ms QRS DURATION, UPRIGHT V1, 40+ ms S IN I/aVL/V4/V5/V6] ABNORMAL ECG Electronically signed by : POLLO WILEY, 02/28/2024 21:42:18
[2024-02-28 20:05] LABS: WBC,Urine Occasional #/hpf (0-3)
[2024-02-28 20:06] LABS: Squamous Epithelial Cell,Urine Occasional #/hpf (0-5)
[2024-02-28] MEDS: LACTATED RINGERS 999 ML IV (20:10)
--- NOTE | 2024-02-28 20:10 | PC.NURSE ---
Report given to NILSA Pathak
[2024-02-28 20:11] VITALS: BP 186/89; PULSE 117; RESP 20; TEMP 37; O2SAT 96
--- NOTE | 2024-02-28 20:27 | EXP.HP ---
History of Present Illness *Admission Date: 02/28/24 *Reason for visit:: abnormal glucose reading *History of present illness: This is a 78-year-old male with PMHx of insulin-dependent diabetes, Dementia, hypertension, hyperlipidemia, recent CVA, discharged to [facility] for rehabilitation treatment that apparently was completed this morning when the patient was discharged to home. Patient presented to emergency department for evaluation of fluctuating glucose. He is AOx2, poor historian. History is obtained by EMS report and ED documentation. Per ED: Patient was reportedly diagnosed with a urinary tract infection for which [facility] prescribed levaquin on 02/11. He was discharged this morning to home where family does not have the capability to take care of him in a safe way. His glucose was as low as 34 this morning and as high as 350 this afternoon. Family is uncomfortable taking care of him and does not know what else to do so they contacted 911 and he presents here for continued evaluation. Patient has taken 1 dose of levofloxacin today since he was discharged. No trauma, no other acute complaints at this time. Admitted for further management. [facility] Disclaimer: The information contained in this section may have been updated after the patient was seen, as this information can be updated by other users. Medical History Acute UTI COPD (chronic obstructive pulmonary disease) Diabetes mellitus, type 2 Prostate disorder with lower urinary tract symptoms High cholesterol Urinary retention due to benign prostatic hyperplasia Family History Other Family history of myocardial infarction Social History (Updated 02/28/24 @ 20:54 by Amelia De La Rosa RN) Smoking Status: Former smoker tobacco type: cigarettes packs per day: 2 how long ago did patient quit smokin weeks ago alcohol intake: former substance use type: denies use current occupational status: retired Travel in the last 8 weeks: None household members: spouse housing: house Review of Systems Review of Systems Review of systems:: pertinent systems reviewed and negative unless documented below Meds Home Medications and Allergies Home Medications Medication Instructions Recorded Confirmed Type sitagliptin phosphate 100 mg tablet 100 mg PO DAILY Diabetes 30 days 08/25/20 02/29/24 Rx #30 tabs hydrochlorothiazide 25 mg tablet 12.5 mg PO DAILY 05/10/23 02/29/24 History metformin 500 mg tablet 500 mg PO BIDWMEAL 05/10/23 02/29/24 History finasteride 5 mg tablet 5 mg PO DAILY 07/22/23 02/29/24 History omeprazole 20 mg capsule,delayed 20 mg PO DAILY 12/29/23 02/29/24 History release glipizide 10 mg tablet, extended 10 mg PO DAILY 02/11/24 02/29/24 History release 24 hr aspirin 81 mg tablet,delayed 81 mg PO DAILY 30 days #30 tabs 02/12/24 02/29/24 Rx release atorvastatin 40 mg tablet 40 mg PO HS 30 days #30 tabs 02/12/24 02/29/24 Rx clopidogrel 75 mg tablet 75 mg PO DAILY 30 days #30 tabs 02/12/24 02/29/24 Rx insulin lispro protamine-lispro 25 unit (0.25 mL) SQ BIDWMEAL 30 02/12/24 02/29/24 Rx 100 unit/mL (75-25) subcutaneous days #0 mL pen (Humalog Mix 75-25 KwikPen) tramadol 50 mg tablet 50 mg PO TIDP PRN Moderate Pain 02/28/24 02/29/24 History (Scale Score 5-6) insulin glargine 100 unit/mL (3 60 unit SQ HS 02/29/24 02/29/24 History mL) subcutaneous pen (Lantus Solostar U-100 Insulin) New Prescriptions to Start Prescriptions: Allergies Allergy/AdvReac Type Severity Reaction Status Date / Time No Known Allergies Allergy Verified 01/14/24 13:42 Exam Data for Last 24 hours Vital signs and Labs for Last 24 Hours: Temp Pulse Resp BP Pulse Ox O2 Del Method 98.6 F 117 H 20 186/89 H 98 Room Air 02/28/24 20:11 02/28/24 20:11 02/28/24 20:11 02/28/24 20:11 02/28/24 19:10 02/28/24 20:11 Laboratory Results - last 24 hr 02/28/24 19:15: WBC 16.0 H, RBC 3.77 L, Hgb 11.7 L, Hct 35.0 L, MCV 92.8, MCH 31.0, MCHC 33.4, RDW 13.9, Plt Count 307, MPV 7.8, Neut % (Auto) 80.0, Lymph % (Auto) 14.9, [place] % (Auto) 4.0, Eos % (Auto) 0.9, Baso % (Auto) 0.3, Neut # (Auto) 12.8 H, Lymph # (Auto) 2.4, [place] # (Auto) 0.6, Eos # (Auto) 0.1, Baso # (Auto) 0.1, Total Counted 100, Neutrophils % (Manual) 78 H, Lymphocytes % (Manual) 20, Monocytes % (Manual) 1 L, Eosinophils % (Manual) 1, Platelet Estimate Normal, RBC Morphology Normal, Sodium 136, Potassium 3.9, Chloride 102, Carbon Dioxide 27, Anion Gap 10.9, BUN 26 H, Creatinine 0.90, Estimated Creat Clear 65, Estimated GFR 81, Est GFR ( Amer) 98, Glucose 286 H, Calcium 9.5, Total Bilirubin 0.6, AST 25, ALT 24, Alkaline Phosphatase 73, Total Protein 6.3, Albumin 3.9, Globulin 2.4, Albumin/Globulin Ratio 1.6 02/28/24 19:16: VBG pH 7.34, VBG pCO2 45.1, VBG pO2 39.8, VBG HCO3 23.9, VBG Total CO2 25.3, VBG O2 Saturation 70.2 H, VBG Base Excess -1.8, VBG Lactic Acid 2.9 H 02/28/24 19:40: Urine Color Yellow, Urine Appearance Clear, Urine pH 5.5, Ur Specific [place] >= 1.030, Urine Protein 2+, Urine Glucose (UA) 1+, Urine Ketones Trace, Urine Blood 1+, Urine Nitrate Negative, Urine Bilirubin Negative, Urine Urobilinogen 0.2, Ur Leukocyte Esterase Negative, Urine RBC 5-10, Urine WBC Occasional, Ur Squamous Epith Cells Occasional, Urine Bacteria None Temp Pulse Resp BP Pulse Ox O2 Del Method 97.8 F 86 16 127/72 96 Room Air 12/31/23 16:53 12/31/23 16:53 12/31/23 16:53 12/31/23 16:53 12/31/23 16:53 12/31/23 16:53 Laboratory Results - last 24 hr 12/31/23 16:08: Ammonia < 9 L 12/31/23 16:58: WBC 13.1 H, RBC 3.74 L, Hgb 11.9 L, Hct 34.7 L, MCV 92.9, MCH 31.9 H, MCHC 34.3, RDW 13.9, Plt Count 319, MPV 8.0, Neut % (Auto) 78.1, Lymph % (Auto) 14.5, [place] % (Auto) 4.1, Eos % (Auto) 2.9, Baso % (Auto) 0.4, Neut # (Auto) 10.2 H, Lymph # (Auto) 1.9, [place] # (Auto) 0.5, Eos # (Auto) 0.4, Baso # (Auto) 0.1, Sodium 139, Potassium 3.2 L, Chloride 108 H, Carbon Dioxide 28, Anion Gap 6.2, BUN 18, Creatinine 0.80, Estimated GFR 93, Est GFR ( Amer) 113, Glucose 119 H, Calcium 9.1, Total Bilirubin 0.3, AST 30, ALT 21, Alkaline Phosphatase 80, Total Protein 5.9 L, Albumin 3.5 D, Globulin 2.4, Albumin/Globulin Ratio 1.5 12/31/23 17:30: VBG pH 7.37, VBG pCO2 39.3, VBG pO2 95.9 H, VBG HCO3 22.3 L, VBG Total CO2 23.5, VBG O2 Saturation 96.6 H, VBG Base Excess -3.0 L, VBG Lactic Acid 1.6 I & O for Last 24 hours: Intake & Output 02/25/24 02/26/24 02/27/24 02/28/24 23:59 23:59 23:59 23:59 Weight 77.111 kg Intake & Output 12/28/23 12/29/23 12/30/23 12/31/23 23:59 23:59 23:59 23:59 Weight 81.647 kg Constitutional Constitutional: no acute distress, average body habitus, chronically ill appearing and cooperative *Routine HEENT Exam Head: Present normocephalic Eye: Present EOMI and PERRL ENT: Present mucous membranes moist *Routine Neck Exam Neck: Present supple; Absent lymphadenopathy *Routine Respiratory Exam Respiratory: Present CTA bilaterally *Routine Cardiovascular Exam Cardiovascular: Present RRR *Routine Abdominal Exam Abdominal: Present soft and normoactive bowel sounds; Absent tenderness *Routine Rectal Exam Rectal:: deferred *Routine Genitalia Exam Genitalia:: deferred *Routine Extremities Exam Extremities: Absent cyanosis, clubbing or edema *Routine Skin Exam Skin: Present warm; Absent rash *Routine Neurological Exam Neurological: Present alert, oriented X3 and moving all extremities; Absent altered mental status Comments: Questions about orientation: Patient oriented to self (name and birthdate), location (hospital and then specified [facility]), city, month (December), day of week, year. Did not know specific date family at bedside and heard him answer questions appropriately. H&P: Result Imaging and Cardiology EKG: Status: image reviewed by me, Preliminary report and final report Assessment and Plan *Assessment and plan (1) Labile blood glucose: Status: Acute Category: Medical Code(s): R73.09 - Other abnormal glucose (2) HTN (hypertension): Status: Acute Qualifiers: Hypertension type: unspecified Qualified Code(s): I10 - Essential (primary) hypertension Category: Medical Code(s): I10 - Essential (primary) hypertension (3) HLD (hyperlipidemia): Status: Acute Qualifiers: Hyperlipidemia type: unspecified Qualified Code(s): E78.5 - Hyperlipidemia, unspecified Category: Medical Code(s): E78.5 - Hyperlipidemia, unspecified (4) Declining functional status: Status: Acute Category: Medical Code(s): R53.81 - Other malaise (5) Lacunar cerebrovascular accident (CVA): Status: Acute Category: Medical Code(s): I63.81 - Other cerebral infarction due to occlusion or stenosis of small artery (6) Unable to care for self: Status: Acute Category: Medical Code(s): Z78.9 - Other specified health status Plan 78-year-old male with PMHx of insulin-dependent diabetes, Dementia, hypertension, hyperlipidemia, recent CVA, presented to emergency department for evaluation of fluctuating glucose. No concern for DKA currently. There is report of previous UTI. Urinalysis dip not concerning for infection, evidence of proteinuria in the setting of known diabetes. Given that patient is SIRS positive patient will be given sepsis bolus fluids. blood cultures drawn 1 g of ceftriaxone be administered. Due to history of dementia and declining mental and physical functionality, patient is unble to safe self administered treatment. ED requested admission for evaluation and management. findings discussed. Agreed for admission. Plan as follow: -Uncontrolled diabetes: presented with unstable level of glucose, Hyperglycemia and hypoglycemia. patient unable to self administer his insulin regimen. family does not feel comfortable doing it. admit patient for further management Continue sliding scale with fingersticks before meals. control and monitor BS. monitor for signs of hypoglycemia resume home regimen last A1c 8.6 Continue metformin 500 mg twice daily; Continue Sitagliptin 100 mg daily Will continue gabapentin 200 mg 3 times a day for neuropathy HTN/HLD on plavix and statin resume home regimen Continue pantoprazole daily BPH: Continue finasteride 5 mg daily UA obtained to r/o UTI. Negative -Declining function after recent CVA: Unable to care for himself PT and OT consulted to evaluate. Case management consulted to assist with disposition and safe discharge plan Full code Diabetic diet Rounded on patient after nurse practitioner. Personally examined and interviewed patient. Agree with exam findings and care plan as documented.
--- NOTE | 2024-02-28 20:36 | PC.NURSE ---
PATIENT ARRIVED TO FLOOR VIA STRETCHER FROM ed AT 20:20.
[2024-02-28 20:49] VITALS: BP 158/81; PULSE 115; RESP 17; TEMP 37.2; O2SAT 99; BMI 27.3
[2024-02-28] MEDS: ACETAMINOPHEN 325MG TAB 650 MG PO (21:16)
[2024-02-28] MEDS: PANTOPRAZOLE 40MG TABLET 40 MG PO (21:16)
[2024-02-28] MEDS: humaLOG 100 UNITS/ML 3ML VIAL (SSI) SQ (21:31)
[2024-02-28 21:32] LABS: POC Glucose,Bedside 184 (70-110)
[2024-02-28 23:40] LABS: Reflex Lactic Add Lactic Reflex
[2024-02-28] MEDS: 0.9 % SODIUM CHLORIDE 1000ML 1,000 ML 50 ML IV (23:46)
[2024-02-29] VITALS: BP 164/76; PULSE 110; RESP 17; TEMP 36.9; O2SAT 94
[2024-02-29 00:07] LABS: Lactic Acid Follow Up (RFLX 1) 1.3 mmol/L (0.7-2.1)
[2024-02-29 04:00] VITALS: BP 150/81; PULSE 94; RESP 16; TEMP 37.1; O2SAT 95; BMI 28.2
[2024-02-29 05:54] LABS: POC Glucose,Bedside 87 (70-110)
--- NOTE | 2024-02-29 05:58 | PC.NURSE ---
pt a&0x4. room air. incontinent wearing a brief. no complaints of pain. blood sugar was 184 upon arrival to the floor, 2 units given. sugar this am was 87. receiving iv fluids. vss. pts family is unable to take care of him at home and was worried about his fluctiating sugars. requesting placement.
--- NOTE | 2024-02-29 07:24 | PC.NURSE ---
notified oncoming nurse of the [id number] adhering to the patients leg, attempted to call hospitalist and it went to voicemail. stated she would contact the doctor and let them know.
[2024-02-29 07:33] LABS: Basophils # 0.1 K/mm3 (0-0.2); Basophils % 0.7 % (0.1-2.0); Eosinophils # 0.3 K/mm3 (0.0-0.4); Eosinophils % 2.2 % (0.1-12.0); Hematocrit 32.2 % (42.0-52.0); Hemoglobin 10.9 g/dL (14.1-18.0); Lymphocytes # 3.1 K/mm3 (0.7-4.5); Lymphocytes % 24.8 % (10-50); Mean Corpuscular HGB Conc 33.9 g/dL (31.8-35.4); Mean Corpuscular Hemoglobin 30.9 pg (27.0-31.2); Mean Corpuscular Volume 91.1 fl (80-94); Mean Platelet Volume 7.8 fl (7.4-10.4); Monocytes # 0.7 K/mm3 (0.1-1.0); Monocytes % 5.9 % (1.7-9.3); Neutrophils # 8.3 K/mm3 (1.8-7.8); Neutrophils % 66.4 % (37.0-80.0); Platelet Count 287 K/mm3 (142-424); Red Blood Count 3.53 M/mm3 (4.60-6.20); White Blood Count 12.5 K/mm3 (4.8-10.8)
[2024-02-29 07:42] VITALS: BP 164/85; PULSE 90; RESP 19; TEMP 36.5; O2SAT 96
[2024-02-29 07:45] LABS: Alanine Aminotransferase 16 U/L (12-78); Albumin Level 3.3 g/dl (3.5-5.0); Albumin/Globulin Ratio 1.3 (1.1-1.8); Alkaline Phosphatase 58 U/L (38-126); Anion Gap 5.3 mEq/L (5-15); Aspartate Amino Transferase 23 U/L (17-59); Bilirubin,Total 0.5 mg/dl (0.2-1.3); Blood Urea Nitrogen 20 mg/dl (9-20); Calcium 9.2 mg/dl (8.4-10.2); Carbon Dioxide 27 mmol/L (22.0-30.0); Chloride 107 mmol/L (98-107); Creatinine Clearance Estimated 72 mL/min (50-200); Estimated Glomerular Filt Rate 93 ml/min (>60); GFR (African American) 113 ML/MIN (>60); Globulin 2.5 g/dL (1.3-3.2); Glucose 92 mg/dl (74-100); Magnesium 1.4 mg/dl (1.6-2.3); Potassium 3.3 mmoL/L (3.5-5.1); Sodium 136 mmol/L (136-145); Total Protein,Serum 5.8 g/dl (6.3-8.2)
--- NOTE | 2024-02-29 07:59 | EXP.ACUTE.PN ---
Subjective *Date: 02/29/24 *Time: 12:12 Interval history: Patient pleasant on exam this morning. Oriented to self. Does not know where he is. Does not know why he came to the hospital. Denies any chest pain, shortness of breath, nausea or vomiting. Tolerating p.o. intake. Blood glucose stable this morning. Medical Exam Vital signs and Labs for Last 24 Hours: Vital Signs Temp Pulse Pulse Resp BP BP Pulse Ox 02/29/24 07:42 97.7 F 90 19 164/85 H 96 02/29/24 07:00 02/29/24 05:00 02/29/24 04:00 98.7 F 94 H 16 150/81 H 95 02/29/24 03:00 02/29/24 01:00 02/29/24 00:00 98.4 F 110 H 17 164/76 H 94 L 02/28/24 23:00 02/28/24 21:30 02/28/24 21:00 02/28/24 20:49 98.9 F 115 H 17 158/81 H 99 02/28/24 20:11 98.6 F 117 H 20 186/89 H 02/28/24 19:10 98.4 F 116 H 16 158/92 H 98 O2 Del Method 02/29/24 07:42 Room Air 02/29/24 07:00 Room Air 02/29/24 05:00 Room Air 02/29/24 04:00 Room Air 02/29/24 03:00 Room Air 02/29/24 01:00 Room Air 02/29/24 00:00 Room Air 02/28/24 23:00 Room Air 02/28/24 21:30 Room Air 02/28/24 21:00 Room Air 02/28/24 20:49 Room Air 02/28/24 20:11 Room Air 02/28/24 19:10 Room Air Intake and Output 02/28/24 02/28/24 02/29/24 15:59 23:59 07:59 Intake Total 3120 / 3120 Output Total 0 / 0 400 / 400 Balance 0 / 2760 2720 / 2720 Intake: Intake, Oral Amount 460 / 460 Intake, Total IV Amount 2660 / 2660 0.9 % Sodium Chloride 1000ML 1, 100 / 100 000 ml @ 50 mls/hr IV .Q20H [facility] Rx#:[id number] Lactated Ringers 1000ML 1,000 1000 / 1000 ml @ 999 mls/hr IV .Q1H1M ONE Rx#:[id number] Lactated Ringers 1000ML 1,560 1560 / 1560 ml @ 999 mls/hr IV .Q1H34M ONE Rx#:[id number] Output: Output, Urine Amount 0 / 0 400 / 400 Other: Number of Voids 0 Number of Unmeasured Voids 1 1 Weight 82.01 kg 84.504 kg Patient Weight 02/29/24 23:59 Weight 84.504 kg Laboratory Results - last 24 hr 02/28/24 19:15: WBC 16.0 H, RBC 3.77 L, Hgb 11.7 L, Hct 35.0 L, MCV 92.8, MCH 31.0, MCHC 33.4, RDW 13.9, Plt Count 307, MPV 7.8, Neut % (Auto) 80.0, Lymph % (Auto) 14.9, [place] % (Auto) 4.0, Eos % (Auto) 0.9, Baso % (Auto) 0.3, Neut # (Auto) 12.8 H, Lymph # (Auto) 2.4, [place] # (Auto) 0.6, Eos # (Auto) 0.1, Baso # (Auto) 0.1, Total Counted 100, Neutrophils % (Manual) 78 H, Lymphocytes % (Manual) 20, Monocytes % (Manual) 1 L, Eosinophils % (Manual) 1, Platelet Estimate Normal, RBC Morphology Normal, Sodium 136, Potassium 3.9, Chloride 102, Carbon Dioxide 27, Anion Gap 10.9, BUN 26 H, Creatinine 0.90, Estimated Creat Clear 65, Estimated GFR 81, Est GFR ( Amer) 98, Glucose 286 H, Calcium 9.5, Total Bilirubin 0.6, AST 25, ALT 24, Alkaline Phosphatase 73, Total Protein 6.3, Albumin 3.9, Globulin 2.4, Albumin/Globulin Ratio 1.6 02/28/24 19:16: VBG pH 7.34, VBG pCO2 45.1, VBG pO2 39.8, VBG HCO3 23.9, VBG Total CO2 25.3, VBG O2 Saturation 70.2 H, VBG Base Excess -1.8, VBG Lactic Acid 2.9 H 02/28/24 19:40: Urine Color Yellow, Urine Appearance Clear, Urine pH 5.5, Ur Specific [place] >= 1.030, Urine Protein 2+, Urine Glucose (UA) 1+, Urine Ketones Trace, Urine Blood 1+, Urine Nitrate Negative, Urine Bilirubin Negative, Urine Urobilinogen 0.2, Ur Leukocyte Esterase Negative, Urine RBC 5-10, Urine WBC Occasional, Ur Squamous Epith Cells Occasional, Urine Bacteria None 02/28/24 21:18: POC Glucose 184 H 02/28/24 23:55: Lactate 1.3 02/29/24 05:46: POC Glucose 87 02/29/24 06:58: WBC 12.5 H, RBC 3.53 L, Hgb 10.9 L, Hct 32.2 L, MCV 91.1, MCH 30.9, MCHC 33.9, RDW 14.0, Plt Count 287, MPV 7.8, Neut % (Auto) 66.4, Lymph % (Auto) 24.8, [place] % (Auto) 5.9, Eos % (Auto) 2.2, Baso % (Auto) 0.7, Neut # (Auto) 8.3 H, Lymph # (Auto) 3.1, [place] # (Auto) 0.7, Eos # (Auto) 0.3, Baso # (Auto) 0.1, Sodium 136, Potassium 3.3 L, Chloride 107, Carbon Dioxide 27, Anion Gap 5.3, BUN 20, Creatinine 0.80, Estimated Creat Clear 72, Estimated GFR 93, Est GFR ( Amer) 113, Glucose 92 D, Calcium 9.2, Magnesium 1.4 L, Total Bilirubin 0.5, AST 23, ALT 16 D, Alkaline Phosphatase 58, Total Protein 5.8 L, Albumin 3.3 L D, Globulin 2.5, Albumin/Globulin Ratio 1.3 I & O for Labs for Last 24 Hours: Intake & Output 02/26/24 02/27/24 02/28/24 02/29/24 23:59 23:59 23:59 23:59 Intake Total 3120 / 3120 Output Total 0 / 0 400 / 400 Balance 0 2760 2720 / 2720 Weight 82.01 kg 84.504 kg Constitutional: Present no acute distress, average body habitus, chronically ill appearing and cooperative Head: Present atraumatic and normocephalic ENT: Present normal exam Neck: Present normal inspection Respiratory: Present normal respiratory effort; Absent rhonchi, wheezes or crackles Cardiac: Present Reg Rate and Rhythm GI: Absent distention or tenderness Extremities: Present normal inspection and full ROM Skin: Present intact; Absent erythema Neuro: Present Grossly Intact, alert, awake and moves all extremities Comment:: Oriented to self, cannot tell me his birthday. Mild dysarthria on exam, tongue sounds thick Assessment and Plan *Assessment and plan (1) Labile blood glucose: Status: Acute Category: Medical Code(s): R73.09 - Other abnormal glucose (2) HTN (hypertension): Status: Acute Qualifiers: Hypertension type: unspecified Qualified Code(s): I10 - Essential (primary) hypertension Category: Medical Code(s): I10 - Essential (primary) hypertension (3) HLD (hyperlipidemia): Status: Acute Qualifiers: Hyperlipidemia type: unspecified Qualified Code(s): E78.5 - Hyperlipidemia, unspecified Category: Medical Code(s): E78.5 - Hyperlipidemia, unspecified (4) Declining functional status: Status: Acute Category: Medical Code(s): R53.81 - Other malaise (5) Lacunar cerebrovascular accident (CVA): Status: Acute Category: Medical Code(s): I63.81 - Other cerebral infarction due to occlusion or stenosis of small artery (6) Unable to care for self: Status: Acute Category: Medical Code(s): Z78.9 - Other specified health status Plan 78-year-old male with PMHx of insulin-dependent diabetes, Dementia, hypertension, hyperlipidemia, recent CVA, presented to emergency department for evaluation of fluctuating glucose. No concern for DKA currently. There is report of previous UTI. Urinalysis dip not concerning for infection, evidence of proteinuria in the setting of known diabetes. Given that patient is SIRS positive patient will be given sepsis bolus fluids. blood cultures drawn 1 g of ceftriaxone be administered. Due to history of dementia and declining mental and physical functionality, patient is unble to safe self administered treatment. ED requested admission for evaluation and management. findings discussed. Agreed for admission. Necessitating therapy eval for placement. Plan as follow: -Uncontrolled diabetes: presented with unstable level of glucose, Hyperglycemia and hypoglycemia. Transition to 75/25 insulin. Will start with 6 units twice daily. A1c pending. Last A1c 3 months ago above 8. Given age and comorbidities, ADA recommendation will be hemoglobin A1c less than 8. -Continue metformin twice daily last A1c 8.6 Continue metformin 500 mg twice daily Will continue gabapentin 200 mg 3 times a day for neuropathy HTN/HLD Recent CVA -Continue plavix, aspirin, and statin Magnesium 1.4, replace oral and IV. Potassium 3.3. Repeat CBC, CMP, magnesium ordered for the morning. GERD: Continue pantoprazole daily BPH: Continue finasteride 5 mg daily UA obtained to r/o UTI. Negative Declining function after recent CVA: Unable to care for himself PT and OT consulted to evaluate. Case management consulted to assist with disposition and safe discharge plan Full code Diabetic diet
[2024-02-29] MEDS: PANTOPRAZOLE 40MG TABLET 40 MG PO (09:39)
[2024-02-29] MEDS: MAGNESIUM SULFATE IN WATER 2 GM/50 ML PIGGYBACK IV (09:39)
[2024-02-29] MEDS: MAGNESIUM OXIDE 400MG TABLET 400 MG PO (09:39)
[2024-02-29] MEDS: DOCUSATE SODIUM 100 MG CAPSULE PO (09:39)
--- NOTE | 2024-02-29 09:46 | HMH.PHAINT1 ---
Pharmacy Intervention Comments: MEDICATION RECONCILIATION COMPLETE USING LIST FROM [facility] (02/12/24), EXTERNAL PHARMACY FILL HISTORY, AND SALTY REPORT.
[2024-02-29] MEDS: humaLOG 100 UNITS/ML 3ML VIAL (SSI) SQ (11:46)
[2024-02-29 11:56] LABS: POC Glucose,Bedside 240 (70-110)
[2024-02-29] MEDS: POTASSIUM CHLORIDE 20MEQ TAB 20 MEQ PO ×2 (13:31→20:37)
[2024-02-29 16:00] VITALS: BP 163/86; PULSE 87; RESP 17; TEMP 36.6; O2SAT 98
--- NOTE | 2024-02-29 16:17 | PC.NURSE ---
no acute changes from previous shift. pt has been quiet and family stated he is very [place]. family has been at bedside. no needs at this time
[2024-02-29] MEDS: METFORMIN 500MG TABLET 500 MG PO (16:44)
[2024-02-29] MEDS: humaLOG MIX 75/25 3ML FLEXPEN 6 UNIT SQ (17:03)
[2024-02-29 19:12] LABS: POC Glucose,Bedside 267 (70-110)
[2024-02-29 20:00] VITALS: BP 162/84; PULSE 87; RESP 17; TEMP 36.9; O2SAT 97
[2024-02-29 20:10] LABS: POC Glucose,Bedside 305 (70-110)
[2024-02-29] MEDS: ATORVASTATIN 40MG TABLET 40 MG PO (20:37)
[2024-02-29] MEDS: CEFTRIAXONE 1 GM 1 GM in 0.9 % SODIUM CHLORIDE 50 ML IV (20:37)
[2024-02-29] MEDS: humaLOG 100 UNITS/ML 3ML VIAL (SSI) 6 UNIT SQ (20:38)
[2024-03-01] VITALS: BP 148/77; PULSE 75; RESP 16; TEMP 36.6; O2SAT 97
[2024-03-01 01:21] LABS: POC Glucose,Bedside 150 (70-110)
[2024-03-01 04:00] VITALS: BP 147/84; PULSE 89; RESP 17; TEMP 36.7; O2SAT 98; BMI 28.2
[2024-03-01 05:51] LABS: POC Glucose,Bedside 162 (70-110)
[2024-03-01 06:35] LABS: Basophils # 0.1 K/mm3 (0-0.2); Basophils % 0.5 % (0.1-2.0); Eosinophils # 0.5 K/mm3 (0.0-0.4); Eosinophils % 4.3 % (0.1-12.0); Hematocrit 33.1 % (42.0-52.0); Hemoglobin 11.3 g/dL (14.1-18.0); Lymphocytes % 28.4 % (10-50); Mean Corpuscular Hemoglobin 31.3 pg (27.0-31.2); Mean Corpuscular Volume 91.8 fl (80-94); Mean Platelet Volume 7.5 fl (7.4-10.4); Monocytes # 0.6 K/mm3 (0.1-1.0); Monocytes % 5.5 % (1.7-9.3); Neutrophils # 6.4 K/mm3 (1.8-7.8); Neutrophils % 61.2 % (37.0-80.0); Platelet Count 269 K/mm3 (142-424); Red Blood Count 3.61 M/mm3 (4.60-6.20); White Blood Count 10.5 K/mm3 (4.8-10.8)
[2024-03-01 06:41] LABS: Alanine Aminotransferase 17 U/L (12-78); Albumin Level 3.5 g/dl (3.5-5.0); Albumin/Globulin Ratio 1.4 (1.1-1.8); Alkaline Phosphatase 67 U/L (38-126); Aspartate Amino Transferase 24 U/L (17-59); Bilirubin,Total 0.8 mg/dl (0.2-1.3); Blood Urea Nitrogen 14 mg/dl (9-20); Calcium 9.3 mg/dl (8.4-10.2); Carbon Dioxide 28 mmol/L (22.0-30.0); Chloride 106 mmol/L (98-107); Creatinine Clearance Estimated 72 mL/min (50-200); Estimated Glomerular Filt Rate 109 ml/min (>60); GFR (African American) 132 ML/MIN (>60); Globulin 2.5 g/dL (1.3-3.2); Glucose 164 mg/dl (74-100); Magnesium 1.6 mg/dl (1.6-2.3); Sodium 140 mmol/L (136-145)
[2024-03-01] MEDS: humaLOG MIX 75/25 3ML FLEXPEN 6 UNIT SQ (06:46)
[2024-03-01] MEDS: METFORMIN 500MG TABLET 500 MG PO ×2 (06:46→17:47)
[2024-03-01 08:00] VITALS: BP 179/84; PULSE 98; RESP 18; TEMP 36.9; O2SAT 98
--- NOTE | 2024-03-01 08:57 | HMH.OTEV ---
OT Inpatient Evaluation Rehab OT IP Evaluation Start: 02/29/24 08:13 Freq: ONCE Status: Active Protocol: Document 03/01/24 08:51 LINDA (Rec: 03/01/24 08:57 LINDA [email or web address]) Rehab OT IP Assessment Subjective History This is a 78-year-old male with PMHx of insulin-dependent diabetes, Dementia, hypertension, hyperlipidemia, recent CVA, discharged to [facility] for rehabilitation treatment that apparently was completed this morning when the patient was discharged to home. Patient presented to emergency department for evaluation of fluctuating glucose. He is AOx2, poor historian. History is obtained by EMS report and ED documentation. Per ED: Patient was reportedly diagnosed with a urinary tract infection for which [facility] prescribed levaquin on 02/11. He was discharged this morning to home where family does not have the capability to take care of him in a safe way. His glucose was as low as 34 this morning and as high as 350 this afternoon. Family is uncomfortable taking care of him and does not know what else to do so they contacted 911 and he presents here for continued evaluation. Patient has taken 1 dose of levofloxacin today since he was discharged. No trauma, no other acute complaints at this time. Admitted for further management. I can get up. Patient lives at home with in 1 story home with 2-3 FLOY[address]. Patient verbalize that he has caregiver 5x/wk. Will confirm with family. However per documentation, family is unable to provide care for patient. Subjective When can I go home. Analysis Patinent's safety awareness and fx'l mobility to complete bed mobility, transfers, fx'l mobility and ADLs. Patient required Min A for transfers and fx'l mobility. Recommend RW for safety. No LOB noted. Objective Patient Orientation Person,Place,Name,Age,Year Right Upper Extremity Gross ROM WFL Left Upper Extremity Gross ROM WFL Bed Mobility bed mobility - supine/sit Assist Level Supervision/Stand by Transfer Training Sit/Stand/Pivot Transfer Assist Level Minimal x 1 (25% assist) Chair Transfer Ability Minimal x 1 (25% assist) Chair Transfer Technique Sit to/from Ambulatory Lower Body Dressing Ability Minimal Assistance Rehab OT IP prob,goals,plan Problems Date of Evaluation: 03/01/24 OT IP Problems Bed Mobility,Transfers,Balance ,Self care,Safety Rehab Potential Rehab Potential Fair Equipment Needs Assistive Devices Rolling / Wheeled Walker Plan OT intervention Plan Bed Mobility,Transfers,Balance ,Self care,Safety,Therapeutic Exercise OT Plan Frequency Daily Duration LOS Discharge Goals Bed Mobility Ability Standby Assistance Sit to Stand Chair Transfer Ability Supervision/Stand by Chair Transfer Ability Supervision/Stand by Chair Transfer Technique Sit to/from Ambulatory Chair Transfer Assistive Devices Rolling Walker Discharge Plan OT Discharge Plan Recommend patient to return home if family is able to provide care with HH services. However Patient's family has voiced that they are unable to provide care and patient is unable to care for himself. Recommend placement for rehabiltation for safety for fx'l mobility and ADLs. Patient to continue skilled OT IP here. Eval Complexity Eval Charge Codes 28174 - Low Complexity PHYSICIAN CERTIFICATION: I certify the specified therapy services for Venancio Conde are required, authorized, and reviewed every 30 days.
[2024-03-01] MEDS: humaLOG MIX 75/25 3ML FLEXPEN 10 UNIT SQ (09:44)
[2024-03-01] MEDS: DOCUSATE SODIUM 100 MG CAPSULE PO (09:47)
[2024-03-01] MEDS: FINASTERIDE 5MG TABLET 5 MG PO (09:48)
[2024-03-01] MEDS: CLOPIDOGREL 75MG TAB 75 MG PO (09:48)
[2024-03-01] MEDS: ASPIRIN EC 81MG TABLET 81 MG PO (09:49)
[2024-03-01] MEDS: POTASSIUM CHLORIDE 20MEQ TAB 20 MEQ PO ×3 (09:51→20:22)
[2024-03-01] MEDS: MAGNESIUM OXIDE 400MG TABLET 400 MG PO ×2 (09:51→20:22)
[2024-03-01] MEDS: PANTOPRAZOLE 40MG TABLET 40 MG PO (09:51)
[2024-03-01 10:10] LABS: POC Glucose,Bedside 304 (70-110)
--- NOTE | 2024-03-01 10:10 | HMH.PTEV ---
Physical Therapy Evaluation Rehab PT IP Evaluation Start: 02/29/24 08:13 Freq: ONCE Status: Active Protocol: Document 03/01/24 09:58 JOSY (Rec: 03/01/24 10:10 PHORNE Laptop) Subjective/History History History 78 yowm adm to [facility] with SIRS and difficulty controlling blood glucose levels. He has PMHx of insulin-dependent diabetes, Dementia, hypertension, hyperlipidemia, recent CVA. He lives with spouse, who is also in poor health, and has family assist at night and caregiver during the day 5 days per week. Family reports he has been using w/c mostly for all mobility at this time. Subjective Subjective Pt currently reports no pain or dizziness. He agrees to mobility assessment. New diagnosis of cancer in past 12 No months? Rehab PT IP Eval Objective Appearance Patient Behavior Appropriate Patient Orientation Person Difficulty following instructions none Speech Pattern Clear Ambulation Patient Able to Ambulate Yes Ambulation Observation IP General Gait Pattern Observation Shuffling Step Ambulation Distance (feet) 10 Ambulation Assistive Device None Ambulation Ability Minimal x 1 (25% assist) Balance Ability to Arise Able, uses arms to help Sitting Balance Steady, safe Standing Balance Steady, wide stance Dynamic Sitting Balance Ability Good Dynamic Standing Balance Ability Fair Transfers Bed Transfer Ability Minimal x 1 (25% assist) Chair Transfer Ability Minimal x 1 (25% assist) Sit to Stand Bed Transfer Ability Minimal x 1 (25% assist) Sit to Stand Chair Transfer Ability Minimal x 1 (25% assist) ROM All Extremities PT ROM Status WFL MMT All Extremities PT MMT WFL Abnormal MMT Grade B hips grossly 4-/5 Rehab PT IP prob,goals,plan Problems Date of Evaluation: 03/01/24 PT IP Problems Bed Mobility,Transfers,Gait Rehab Potential Rehab Potential Good Plan PT Intervention Plan Bed Mobility,Transfers,Gait, Therapeutic Exercise PT Plan Frequency Daily Duration LOS Discharge Goals Bed Transfer Ability Contact Guard/Hand Hold Sit to Stand Chair Transfer Ability Contact Guard/Hand Hold Ambulation Assistive Device Rolling Walker Ambulation Distance (feet) 20 Discharge Plan PT Discharge Plan Pt is currently appropriate to return home with 24 hr assistance from family and home health services. If 24 hr assist is not available, he may be best served by long- term placement in a SNF. Skilled therapy is needed to return pt to prior level of function. Eval Complexity Eval Charge Codes 88701 - High Complexity PHYSICIAN CERTIFICATION: I certify the specified therapy services for Edward Amaya are required, authorized, and reviewed every 30 days.
--- NOTE | 2024-03-01 10:28 | SW/DCPLANNER ---
Addendum entered by Sarah Colón 03/02/24 14:23: Patient information/order was faxed to Margaret cruz/ [facility]. Margaret stated that services will start this week. Original Note: Dr Romero and myself spoke w/ patient, and daughter this AM regarding plans once medically stable for discharge. PT/OT stated that patient was able to return home w/ home health services. Patient discharged from [facility] on 02/27 and admitted to [facility] the same day. Pattie w/ [facility] stated that patient discharged due to insurance stated patient was ready for discharge. After a lengthy discussion w/ patient and his family the plan is to return home, continue [facility] and Medicaid waiver services which includes in home care. Mojgan cruz/ in home Case Management is present at [facility] to speak w/ patient and family at this time. The plan for patient is to possibly discharge this afternoon.
[2024-03-01 11:43] LABS: POC Glucose,Bedside 307 (70-110)
[2024-03-01 11:56] LABS: Hemoglobin A1C 8.3 % (4.0-6.0)
[2024-03-01] MEDS: humaLOG 100 UNITS/ML 3ML VIAL (SSI) 6 UNIT SQ ×2 (13:56→16:17)
[2024-03-01 15:00] VITALS: BMI 28.2
[2024-03-01 16:00] VITALS: BP 160/74; PULSE 76; RESP 18; TEMP 36.8; O2SAT 96
[2024-03-01 16:14] LABS: POC Glucose,Bedside 336 (70-110)
--- NOTE | 2024-03-01 16:40 | PC.NURSE ---
Family notified that pt is being DC from Hospital this afternoon.
--- NOTE | 2024-03-01 17:41 | EXP.ACUTE.PN ---
Subjective *Date: 03/01/24 *Time: 18:45 Interval history: Patient did well this morning. Denies any chest pain or shortness of breath. Tolerating p.o. intake. Worked with therapy, mobile at baseline level of function. No weakness. Long discussion with family at bedside, have significant assistance during the day Friday through Friday with in-home caregiver. Family checks on them during the weekend. Okay taking patient home when stable. Discussed potentially today versus tomorrow. Medical Exam Vital signs and Labs for Last 24 Hours: Vital Signs Temp Pulse Resp BP Pulse Ox O2 Del Method 03/01/24 16:00 98.3 F 76 18 160/74 H 96 Room Air 03/01/24 14:58 Room Air 03/01/24 13:00 Room Air 03/01/24 11:00 Room Air 03/01/24 09:00 Room Air 03/01/24 08:00 Room Air 03/01/24 08:00 98.4 F 98 H 18 179/84 H 98 Room Air 03/01/24 06:54 Room Air 03/01/24 05:00 Room Air 03/01/24 04:00 98.0 F 89 17 147/84 H 98 Room Air 03/01/24 03:00 Room Air 03/01/24 01:00 Room Air 03/01/24 00:00 97.9 F 75 16 148/77 H 97 Room Air 02/29/24 23:00 Room Air 02/29/24 21:00 Room Air 02/29/24 20:00 98.4 F 87 17 162/84 H 97 Room Air 02/29/24 19:49 Room Air 02/29/24 18:26 Room Air Intake and Output 03/01/24 03/01/24 03/01/24 07:59 15:59 23:59 Intake Total 200 / 920 720 / 920 Output Total 1199 850 0 Balance -1000 / -1130 720 / -1130 -850 / -1130 Intake: Intake, Oral Amount 200 / 920 720 / 920 Output: Output, Urine Amount 1199 850 0 Other: Number of Voids 0 Number of Unmeasured Voids 0 0 Weight 84.5 kg 84.5 kg Patient Weight 03/01/24 23:59 Weight 84.5 kg Laboratory Results - last 24 hr 05/12/24 16:44: POC Glucose 267 H 02/29/24 20:02: POC Glucose 305 H* 03/01/24 01:13: POC Glucose 150 H 03/01/24 05:44: POC Glucose 162 H 03/01/24 06:15: WBC 10.5, RBC 3.61 L, Hgb 11.3 L, Hct 33.1 L, MCV 91.8, MCH 31.3 H, MCHC 34.0, RDW 14.0, Plt Count 269, MPV 7.5, Neut % (Auto) 61.2, Lymph % (Auto) 28.4, [place] % (Auto) 5.5, Eos % (Auto) 4.3, Baso % (Auto) 0.5, Neut # (Auto) 6.4, Lymph # (Auto) 3.0, [place] # (Auto) 0.6, Eos # (Auto) 0.5 H, Baso # (Auto) 0.1, Sodium 140, Potassium 4.0 D, Chloride 106, Carbon Dioxide 28, Anion Gap 10.0, BUN 14 D, Creatinine 0.70, Estimated Creat Clear 72, Estimated GFR 109, Est GFR ( Amer) 132, Glucose 164 H D, Hemoglobin A1c 8.3 H, Calcium 9.3, Magnesium 1.6 D, Total Bilirubin 0.8, AST 24, ALT 17, Alkaline Phosphatase 67, Total Protein 6.0 L, Albumin 3.5, Globulin 2.5, Albumin/Globulin Ratio 1.4 03/01/24 09:43: POC Glucose 304 H* 03/01/24 11:36: POC Glucose 307 H* 03/01/24 16:06: POC Glucose 336 H* I & O for Labs for Last 24 Hours: Intake & Output 02/27/24 02/28/24 02/29/24 03/01/24 23:59 23:59 23:59 23:59 Intake Total 3840 / 4040 920 / 920 Output Total 0 / 0 500 / 900 2049 / 2049 Balance 0 / 2760 3340 / 3140 -1130 / -1130 Weight 82.01 kg 84.504 kg 84.5 kg Constitutional: Present no acute distress, average body habitus, chronically ill appearing and cooperative Head: Present atraumatic and normocephalic ENT: Present normal exam Neck: Present normal inspection Respiratory: Present normal respiratory effort; Absent rhonchi, wheezes or crackles Cardiac: Present Reg Rate and Rhythm GI: Absent distention or tenderness Extremities: Present normal inspection and full ROM Skin: Present intact; Absent erythema Neuro: Present Grossly Intact, alert, awake and moves all extremities Comment:: Oriented to self, cannot tell me his birthday. Mild dysarthria on exam, tongue sounds thick Assessment and Plan *Assessment and plan (1) Labile blood glucose: Status: Acute Category: Medical Code(s): R73.09 - Other abnormal glucose (2) HTN (hypertension): Status: Acute Qualifiers: Hypertension type: unspecified Qualified Code(s): I10 - Essential (primary) hypertension Category: Medical Code(s): I10 - Essential (primary) hypertension (3) HLD (hyperlipidemia): Status: Acute Qualifiers: Hyperlipidemia type: unspecified Qualified Code(s): E78.5 - Hyperlipidemia, unspecified Category: Medical Code(s): E78.5 - Hyperlipidemia, unspecified (4) Declining functional status: Status: Acute Category: Medical Code(s): R53.81 - Other malaise (5) Lacunar cerebrovascular accident (CVA): Status: Acute Category: Medical Code(s): I63.81 - Other cerebral infarction due to occlusion or stenosis of small artery (6) Unable to care for self: Status: Acute Category: Medical Code(s): Z78.9 - Other specified health status Plan 78-year-old male with PMHx of insulin-dependent diabetes, Dementia, hypertension, hyperlipidemia, recent CVA, presented to emergency department for evaluation of fluctuating glucose. No concern for DKA currently. There is report of previous UTI. Urinalysis dip not concerning for infection, evidence of proteinuria in the setting of known diabetes. Given that patient is SIRS positive patient will be given sepsis bolus fluids. blood cultures drawn 1 g of ceftriaxone be administered. Due to history of dementia and declining mental and physical functionality, patient is unble to safe self administered treatment. ED requested admission for evaluation and management. findings discussed. Agreed for admission. Patient showing improvement. Glucose elevated, not having any lows. Making adjustments to insulin regimen. Anticipate discharge tomorrow. Problems addressed as follows: -Uncontrolled diabetes: presented with unstable level of glucose, Hyperglycemia and hypoglycemia. Titrate 75/25 insulin. Increase to 10 units this morning. Will increase to 18 units with dinner. Initiate regimen of 25 units in the morning and 18 with dinner starting tomorrow. Given age and comorbidities, ADA recommendation will be hemoglobin A1c less than 8. A1c 8.3 this visit. Continue metformin 500 mg twice daily Will continue gabapentin 200 mg 3 times a day for neuropathy -Plan to discharge patient home on 75/25 insulin 25 units in the morning and 18 units with dinner. Will continue metformin twice daily and continue Sitagliptin. Discontinuing glipizide due to risk of hypoglycemia HTN/HLD Recent CVA -Continue plavix, aspirin, and statin Magnesium 1.6, replace oral and IV. Potassium 4.0. Repeat CBC, CMP, magnesium ordered for the morning. GERD: Continue pantoprazole daily BPH: Continue finasteride 5 mg daily UA obtained to r/o UTI. Negative Declining function after recent CVA: Unable to care for himself PT and OT consulted to evaluate. Case management consulted to assist with disposition and safe discharge plan Extensive discussion about patient's needs. Patient has caregiver at home. Family wants to take him home. Initial plan was to discharge today, family had second thoughts. Will discharge first thing in the morning. Full code Diabetic diet
[2024-03-01] MEDS: humaLOG MIX 75/25 3ML FLEXPEN 18 UNIT SQ (17:44)
--- NOTE | 2024-03-01 18:42 | EXP.EVENT.NO ---
Advance care planning note: Active diagnosis: Progressive decline, subacute lacunar infarct, dementia, poorly controlled diabetes, hypertension, necessity with ADLs, dysarthria The patient's active diagnoses are of sufficient risk that focused discussion on advanced care planning is indicated in order to allow the patient to thoughtfully consider personal goals of care; and, if situations arise that prevent the ability to personally give input, to ensure appropriate representation of their personal desires through documentation or informed surrogate decision makers. Discussion: Persons present and participating in discussion: Daughter Marifer, caregiver Franci, , patient, and [facility] vp digital marketing social media and crm Sarah Discussion: Extensive discussion about patient's labile sugar and difficulty caring for him at home. Discussed the assistance that patient has at home. Discussed need for potential long-term care and what that would look like. Family would like to take patient home. Has a caregiver 40 hours a week. May be able to get more time with a caregiver. Needs help with diabetes management. Making adjustments during this admission. promised patient he would not go to a custodial. Family still expresses concern and anxiety however about caring for him and what to do if things are unstable and had to care for him at night as it will be just him and his who is debilitated herself. Expressed concern to the family about the patient's safety at home. They would like to try having him at home however. Time spent: Total time spent [id number] in education and discussion directly related to advance care plannin-minutes
[2024-03-01 20:00] VITALS: BP 148/69; PULSE 83; RESP 18; TEMP 36.9; O2SAT 97
[2024-03-01] MEDS: ATORVASTATIN 40MG TABLET 40 MG PO (20:22)
[2024-03-01 22:06] LABS: POC Glucose,Bedside 192 (70-110)
[2024-03-02 04:00] VITALS: BP 158/75; PULSE 84; RESP 16; TEMP 36.5; O2SAT 98; BMI 27.1
--- NOTE | 2024-03-02 04:27 | PC.NURSE ---
Pt is alert to self and place. Pt denies pain and needs this shift and has had a bedbath. No acute changes noted this shift.
[2024-03-02 05:42] LABS: POC Glucose,Bedside 188 (70-110)
--- NOTE | 2024-03-02 06:01 | EXP.DC.SUM ---
General Admission date:: 02/28/24 Discharge date: 03/01/24 HPI HPI HPI: This is a 78-year-old male with PMHx of insulin-dependent diabetes, Dementia, hypertension, hyperlipidemia, recent CVA, discharged to [facility] for rehabilitation treatment that apparently was completed this morning when the patient was discharged to home. Patient presented to emergency department for evaluation of fluctuating glucose. He is AOx2, poor historian. History is obtained by EMS report and ED documentation. Per ED: Patient was reportedly diagnosed with a urinary tract infection for which [facility] prescribed levaquin on 02/11. He was discharged this morning to home where family does not have the capability to take care of him in a safe way. His glucose was as low as 34 this morning and as high as 350 this afternoon. Family is uncomfortable taking care of him and does not know what else to do so they contacted 911 and he presents here for continued evaluation. Patient has taken 1 dose of levofloxacin today since he was discharged. No trauma, no other acute complaints at this time. Admitted for further management. Hospital Course Hospital Course Hospital Course: 78-year-old male with PMHx of insulin-dependent diabetes, Dementia, hypertension, hyperlipidemia, recent CVA, presented to emergency department for evaluation of fluctuating glucose. No concern for DKA currently. There is report of previous UTI. Urinalysis dip not concerning for infection, evidence of proteinuria in the setting of known diabetes. Given that patient is SIRS positive patient will be given sepsis bolus fluids. blood cultures drawn 1 g of ceftriaxone be administered. Urine did not show any positive culture. Patient was evaluated by therapy, deemed safe to discharge home with current aide that is with him 5 days a week and family assisting with his care. Adjustments made to diabetes regimen to improve stability of glucose. Meeting criteria for discharge home with close follow-up with his primary care in 2 days for further management. Problems addressed as follows: -Uncontrolled diabetes: presented with unstable level of glucose, Hyperglycemia and hypoglycemia. Patient's glucose has been very labile. Having swings from glucose of [address] up to the mid 300s. A1c during this admission obtained, 8.3. Goal per 202 ADA recommendations would be less than 8 for this patient given his age and comorbidities. Transitioned to 75/25 insulin. It appears that his lows tend to be more in the morning. Concern for some stacking of his doses along with oral medications. Making the following adjustments: 75/25 insulin 25 units in the morning, 18 units at night with dinner. Will discontinue glipizide. Continue metformin 500 mg twice daily. Continue Sitagliptin daily. Close follow-up with PCP in 2 days to discuss further adjustments. Patient appears most symptomatic from his low glucoses. Lows tend to happen in the morning after fasting and then getting his morning dose however concern for the glipizide being a component and his lows in the morning/overnight being too low for the morning dose. Feel he is best served by having his larger dose in the morning since that will cover him for breakfast and lunch while he is doing most of his eating and a little bit lower dose in the evening with dinner to cover for dinner but not drop him too much overnight while he is fasting. Would benefit from continuous glucose monitor, will defer ordering this to his PCP -Continue gabapentin 200 mg 3 times a day for neuropathy HTN/HLD Recent CVA -Continue plavix, aspirin, and statin. Permissive hypertension given his recent stroke. Would benefit from further adjustments as an outpatient with addition of low-dose VICTOR HUGO or ARB. GERD: Continue pantoprazole daily BPH: Continue finasteride 5 mg daily UA obtained to r/o UTI. Negative Declining function after recent CVA: Unable to care for himself PT and OT consulted to evaluate. Case management consulted to assist with disposition. Patient has waiver program with Medicaid and a home health aide that is at the house 8 hours a day for 5 days a week. Between the assistance of his , daughter, home health aide, patient safe to discharge home. Recommend home health PT/OT for further assistance. Total time spent on discharge 35 minutes in counseling, documentation, chart review, and direct care with patient. Exam Data for Last 24 hours Vital signs and Labs for Last 24 Hours: Temp Pulse Resp BP Pulse Ox O2 Del Method 98.4 F 98 H 18 179/84 H 98 Room Air 03/01/24 08:00 03/01/24 08:00 03/01/24 08:00 03/01/24 08:00 03/01/24 08:00 03/01/24 14:58 Laboratory Results - last 24 hr 02/29/24 16:44: POC Glucose 267 H 02/29/24 20:02: POC Glucose 305 H* 03/01/24 01:13: POC Glucose 150 H 03/01/24 05:44: POC Glucose 162 H 03/01/24 06:15: WBC 10.5, RBC 3.61 L, Hgb 11.3 L, Hct 33.1 L, MCV 91.8, MCH 31.3 H, MCHC 34.0, RDW 14.0, Plt Count 269, MPV 7.5, Neut % (Auto) 61.2, Lymph % (Auto) 28.4, [place] % (Auto) 5.5, Eos % (Auto) 4.3, Baso % (Auto) 0.5, Neut # (Auto) 6.4, Lymph # (Auto) 3.0, [place] # (Auto) 0.6, Eos # (Auto) 0.5 H, Baso # (Auto) 0.1, Sodium 140, Potassium 4.0 D, Chloride 106, Carbon Dioxide 28, Anion Gap 10.0, BUN 14 D, Creatinine 0.70, Estimated Creat Clear 72, Estimated GFR 109, Est GFR ( Amer) 132, Glucose 164 H D, Hemoglobin A1c 8.3 H, Calcium 9.3, Magnesium 1.6 D, Total Bilirubin 0.8, AST 24, ALT 17, Alkaline Phosphatase 67, Total Protein 6.0 L, Albumin 3.5, Globulin 2.5, Albumin/Globulin Ratio 1.4 03/01/24 09:43: POC Glucose 304 H* 03/01/24 11:36: POC Glucose 307 H* I & O for Last 24 hours: Intake & Output 02/27/24 02/28/24 02/29/24 03/01/24 23:59 23:59 23:59 23:59 Intake Total 3840 / 4040 920 / 920 Output Total 0 / 0 500 / 900 1200 / 1200 Balance 0 / 2760 3340 / 3140 -280 / -280 Weight 82.01 kg 84.504 kg 84.5 kg Constitutional Constitutional: no acute distress, average body habitus, chronically ill appearing and cooperative *Routine HEENT Exam Head: Present normocephalic Eye: Present EOMI and PERRL ENT: Present mucous membranes moist Comments: Mild dysarthria with speech. *Routine Neck Exam Neck: Present supple; Absent lymphadenopathy *Routine Respiratory Exam Respiratory: Present CTA bilaterally; Absent rhonchi, wheezes or crackles *Routine Cardiovascular Exam Cardiovascular: Present RRR *Routine Abdominal Exam Abdominal: Present soft and normoactive bowel sounds; Absent tenderness *Routine Rectal Exam Patient deferred: visual exam *Routine Exam Patient deferred: penile exam *Routine Extremities Exam Extremities: Absent cyanosis, clubbing or edema *Routine Skin Exam Skin: Present intact and warm; Absent rash *Routine Neurological Exam Neurological: Present alert and moving all extremities; Absent altered mental status Comments: Oriented to person and place. Mild dysarthria. Results Data Completed and Pending Labs on day of discharge: Labs from last 24 hours 03/01/24 03/01/24 03/01/24 11:36 09:43 06:15 WBC 10.5 RBC 3.61 L Hgb 11.3 L Hct 33.1 L MCV 91.8 MCH 31.3 H MCHC 34.0 RDW 14.0 Plt Count 269 MPV 7.5 Neut % (Auto) 61.2 Lymph % (Auto) 28.4 [place] % (Auto) 5.5 Eos % (Auto) 4.3 Baso % (Auto) 0.5 Neut # (Auto) 6.4 Lymph # (Auto) 3.0 [place] # (Auto) 0.6 Eos # (Auto) 0.5 H Baso # (Auto) 0.1 Sodium 140 Potassium 4.0 D Chloride 106 Carbon Dioxide 28 Anion Gap 10.0 BUN 14 D Creatinine 0.70 Estimated Creat Clear 72 Estimated GFR 109 Est GFR ( Amer) 132 Glucose 164 H D POC Glucose 307 H* 304 H* Hemoglobin A1c 8.3 H Calcium 9.3 Magnesium 1.6 D Total Bilirubin 0.8 AST 24 ALT 17 Alkaline Phosphatase 67 Total Protein 6.0 L Albumin 3.5 Globulin 2.5 Albumin/Globulin Ratio 1.4 03/01/24 03/01/24 02/29/24 05:44 01:13 20:02 WBC RBC Hgb Hct MCV MCH MCHC RDW Plt Count MPV Neut % (Auto) Lymph % (Auto) [place] % (Auto) Eos % (Auto) Baso % (Auto) Neut # (Auto) Lymph # (Auto) [place] # (Auto) Eos # (Auto) Baso # (Auto) Sodium Potassium Chloride Carbon Dioxide Anion Gap BUN Creatinine Estimated Creat Clear Estimated GFR Est GFR ( Amer) Glucose POC Glucose 162 H 150 H 305 H* Hemoglobin A1c Calcium Magnesium Total Bilirubin AST ALT Alkaline Phosphatase Total Protein Albumin Globulin Albumin/Globulin Ratio 02/29/24 16:44 WBC RBC Hgb Hct MCV MCH MCHC RDW Plt Count MPV Neut % (Auto) Lymph % (Auto) [place] % (Auto) Eos % (Auto) Baso % (Auto) Neut # (Auto) Lymph # (Auto) [place] # (Auto) Eos # (Auto) Baso # (Auto) Sodium Potassium Chloride Carbon Dioxide Anion Gap BUN Creatinine Estimated Creat Clear Estimated GFR Est GFR ( Amer) Glucose POC Glucose 267 H Hemoglobin A1c Calcium Magnesium Total Bilirubin AST ALT Alkaline Phosphatase Total Protein Albumin Globulin Albumin/Globulin Ratio DS: Diagnosis Discharge Diagnosis (1) Labile blood glucose: Status: Acute Code(s): R73.09 - Other abnormal glucose (2) HTN (hypertension): Status: Acute Code(s): I10 - Essential (primary) hypertension Qualifiers: Hypertension type: unspecified Qualified Code(s): I10 - Essential (primary) hypertension (3) HLD (hyperlipidemia): Status: Acute Code(s): E78.5 - Hyperlipidemia, unspecified Qualifiers: Hyperlipidemia type: unspecified Qualified Code(s): E78.5 - Hyperlipidemia, unspecified (4) Declining functional status: Status: Acute Code(s): R53.81 - Other malaise (5) Lacunar cerebrovascular accident (CVA): Status: Acute Code(s): I63.81 - Other cerebral infarction due to occlusion or stenosis of small artery (6) Unable to care for self: Status: Acute Code(s): Z78.9 - Other specified health status Meds Home Medications and Allergies Home Medications Medication Instructions Recorded Confirmed Type sitagliptin phosphate 100 mg tablet 100 mg PO DAILY Diabetes 30 days 08/25/20 02/29/24 Rx #30 tabs hydrochlorothiazide 25 mg tablet 12.5 mg PO DAILY 05/10/23 02/29/24 History metformin 500 mg tablet 500 mg PO BIDWMEAL 05/10/23 02/29/24 History finasteride 5 mg tablet 5 mg PO DAILY 07/22/23 02/29/24 History omeprazole 20 mg capsule,delayed 20 mg PO DAILY 12/29/23 02/29/24 History release aspirin 81 mg tablet,delayed 81 mg PO DAILY 30 days #30 tabs 02/12/24 02/29/24 Rx release atorvastatin 40 mg tablet 40 mg PO HS 30 days #30 tabs 02/12/24 02/29/24 Rx clopidogrel 75 mg tablet 75 mg PO DAILY 30 days #30 tabs 02/12/24 02/29/24 Rx tramadol 50 mg tablet 50 mg PO TIDP PRN Moderate Pain 02/28/24 02/29/24 History (Scale Score 5-6) insulin lispro protamine-lispro See Rx Instructions .Route 03/01/24 Rx 100 unit/mL (75-25) subcutaneous .COMPLEX 30 days #15 mL pen (Humalog Mix 75-25 KwikPen) magnesium oxide 400 mg (241.3 mg 400 mg PO DAILY 30 days #30 tabs 03/01/24 Rx magnesium) tablet New Prescriptions to Start Prescriptions: insulin lispro protamin-lispro [Humalog Mix 75-25 KwikPen] Nithin Romero magnesium oxide Nithin Romero Allergies Allergy/AdvReac Type Severity Reaction Status Date / Time No Known Allergies Allergy Verified 01/14/24 13:42 Discharge Plan Disposition Patient Disposition: Home Health Service Condition: Fair Discharge Order Discharge Orders: Discharge Order (Routine); Ordered 03/01/24 Ordered By: Nithin Romero Follow up Plan Follow up with: Silviano Love [Referring] - 03/03/24 10:30 am Prescriptions/Medication Reconciliation: New magnesium oxide 400 mg (241.3 mg magnesium) Tablet 400 mg PO DAILY 30 Days Qty: 30 0RF Continued metformin 500 MG tablet 500 mg PO BIDWMEAL hydrochlorothiazide 25 mg tablet 12.5 mg PO DAILY Patient Comments: TAKE ONE TABLET BY MOUTH EVERY DAY FOR EDEMA finasteride 5 mg tablet 5 mg PO DAILY omeprazole 20 mg capsule,delayed release(DR/EC) 20 mg PO DAILY Patient Comments: TAKE ONE CAPSULE BY MOUTH EVERY DAY sitagliptin phosphate 100 MG tablet 100 mg PO DAILY 30 Days Qty: 30 0RF atorvastatin 40 mg Tablet 40 mg PO HS 30 Days Qty: 30 0RF clopidogrel 75 mg Tablet 75 mg PO DAILY 30 Days Qty: 30 0RF aspirin 81 mg Tablet,Delayed Release (Dr/Ec) 81 mg PO DAILY 30 Days Qty: 30 0RF tramadol 50 MG tablet 50 mg PO TIDP PRN (Reason: Moderate Pain (Scale Score 5-6)) Changed insulin lispro protamin-lispro [Humalog Mix 75-25 KwikPen] 100 unit/mL (75-25) insulin pen See Rx Instructions .ROUTE .COMPLEX 30 Days Qty: 15 0RF Rx Instructions: 25 units in the morning with breakfast and 18 units with dinner. If glucose before meal less than 100, please administer half dose. Discontinued glipizide 10 mg Tablet Extended Release 24hr 10 mg PO DAILY Problem Reconciliation Problems Reviewed?: Yes Patient Discharge Instructions ACTIVITY: Continue current activity DIET: continue same diet Patient Instructions: DI for Hypoglycemia, DI for Hyperglycemia -- Adult Providers Primary Care Provider: Provider,Referral Admit Provider: Nithin Romero Attending Provider: Nithin Romero
[2024-03-02 07:11] LABS: Alanine Aminotransferase 17 U/L (12-78); Albumin Level 3.5 g/dl (3.5-5.0); Albumin/Globulin Ratio 1.5 (1.1-1.8); Alkaline Phosphatase 66 U/L (38-126); Aspartate Amino Transferase 21 U/L (17-59); Bilirubin,Total 0.8 mg/dl (0.2-1.3); Calcium 9.3 mg/dl (8.4-10.2); Chloride 106 mmol/L (98-107); Globulin 2.4 g/dL (1.3-3.2); Glucose 176 mg/dl (74-100); Potassium 4.2 mmoL/L (3.5-5.1); Sodium 140 mmol/L (136-145); Total Protein,Serum 5.9 g/dl (6.3-8.2)
[2024-03-02 07:13] LABS: Anion Gap 12.2 mEq/L (5-15); Blood Urea Nitrogen 14 mg/dl (9-20); Carbon Dioxide 26 mmol/L (22.0-30.0); Creatinine Clearance Estimated 69 mL/min (50-200); Estimated Glomerular Filt Rate 109 ml/min (>60); GFR (African American) 132 ML/MIN (>60)
[2024-03-02] MEDS: PANTOPRAZOLE 40MG TABLET 40 MG PO (07:34)
[2024-03-02] MEDS: CLOPIDOGREL 75MG TAB 75 MG PO (07:34)
[2024-03-02] MEDS: ASPIRIN EC 81MG TABLET 81 MG PO (07:34)
[2024-03-02] MEDS: METFORMIN 500MG TABLET 500 MG PO (07:34)
[2024-03-02] MEDS: MAGNESIUM OXIDE 400MG TABLET 400 MG PO (07:34)
[2024-03-02] MEDS: DOCUSATE SODIUM 100 MG CAPSULE PO (07:34)
[2024-03-02] MEDS: POTASSIUM CHLORIDE 20MEQ TAB 20 MEQ PO (07:34)
[2024-03-02] MEDS: FINASTERIDE 5MG TABLET 5 MG PO (07:35)
--- NOTE | 2024-03-03 12:52 | CARE MANAGER ---
Contacted patient's related to hospital discharge. She states his blood sugar was 219 and he went to the doctor. When he got home it was 91. Discussed what range the doctor wanted his blood sugar to be in. They deny any other questions or concerns at this time. NILSA Cabral
--- NOTE | 2024-03-04 10:06 | SW/DCPLANNER ---
I received a phone call from patient's regarding placement for this patient. stated that she is no longer able to care for patient at home and is interested in LTC. is agreeable for information to be faxed to the following facilities: [facility], [place], [facility], [facility] and [facility]. I will continue to follow up w/ facilities and patient/family at home.
== END 2024-03-02 08:11 | disposition home health service (06) ==
LOC: ER 20:04 → 2ND 20:32
PROVIDERS: Nurse Practitioner Family; Admitting Provider Internal Medicine Adolescent Medicine; Emergency Provider Emergency Medicine; Visit Provider Internal Medicine Adolescent Medicine
DX: E11.65 Type 2 diabetes mellitus with hyperglycemia (principal); I10 Essential (primary) hypertension; E78.5 Hyperlipidemia, unspecified; E11.649 Type 2 diabetes mellitus with hypoglycemia without coma; Z79.84 Long term (current) use of oral hypoglycemic drugs; Z79.4 Long term (current) use of insulin; Z86.73 Personal history of transient ischemic attack (TIA), and cerebral infarction without residual deficits; E78.00 Pure hypercholesterolemia, unspecified; F17.200 Nicotine dependence, unspecified, uncomplicated; K21.9 Gastro-esophageal reflux disease without esophagitis; N40.0 Benign prostatic hyperplasia without lower urinary tract symptoms
CPT/HCPCS: 36415; 80053; 81001; 82803; 82962; 83036; 83605; 83735; 85007; 85025; 87040; 93005; 97110; 97163; 97165; 97530; 99285; G0378; J0696; J3475

== ENCOUNTER 2024-04-07 11:09 | Outpatient (CLI) | payer MEDICARE, MEDICAID, SELFPAY ==
--- NOTE | 2024-04-07 11:19 | XR_ITS ---
FINAL REPORT CLINICAL HISTORY: left humerus f/u fall FINDINGS: 3 views show a mildly displaced comminuted fracture of the humeral head and neck. No evidence of dislocation is seen. IMPRESSION: Mildly displaced comminuted fracture of the humeral head and neck. Reviewed, Interpreted and Dictated by Heidy Chiu MD Transcribed by Dulce Maria Weber Authenticated and [facility]
== END 2024-04-07 23:59 | disposition home or self-care (01) ==
LOC: RAD 11:15
PROVIDERS: PCP Internal Medicine Adolescent Medicine; Visit Provider Physician Assistant
DX: M79.602 Pain in left arm (principal); S42.302A Unspecified fracture of shaft of humerus, left arm, initial encounter for closed fracture
CPT/HCPCS: 73060

== ENCOUNTER 2024-04-27 12:46 | Outpatient (CLI) | payer MEDICARE, MEDICAID, SELFPAY ==
--- NOTE | 2024-04-27 12:50 | XR_ITS ---
FINAL REPORT CLINICAL HISTORY: Left humerus fx COMPARISON: 04/07/2024 FINDINGS: Left humerus Three views were obtained. Again identified is a fracture of the humeral head which now appear subacute. There is adjacent soft tissue calcification. Moderate degenerative changes are present. IMPRESSION: Subacute fracture as above. Reviewed, Interpreted and Dictated by Vickey Cardenas III, MD Transcribed by Marina Cruz Authenticated and [facility]
== END 2024-04-27 23:59 | disposition home or self-care (01) ==
LOC: RAD 12:47
PROVIDERS: PCP Internal Medicine Adolescent Medicine; Visit Provider Orthopaedic Surgery
DX: M79.622 Pain in left upper arm; S42.202A Unspecified fracture of upper end of left humerus, initial encounter for closed fracture
CPT/HCPCS: 73060

== ENCOUNTER 2024-05-18 12:54 | Outpatient (CLI) | payer MEDICARE, MEDICAID, SELFPAY ==
--- NOTE | 2024-05-18 12:59 | XR_ITS ---
FINAL REPORT CLINICAL HISTORY: Left humerus fx COMPARISON: 04/27/2024 FINDINGS: Two views of the left humerus were obtained. There is a mildly impacted and displaced fracture through the surgical neck of the humerus. There is progressive bridging callus formation consistent with a healing fracture. There are mild degenerative changes of the acromioclavicular joint. There is no acute soft tissue abnormality. IMPRESSION: Healing humeral fracture as above. Reviewed, Interpreted and Dictated by Josue Ramirez MD Transcribed by Mercy Gutierrez Authenticated and [facility]
== END 2024-05-18 23:59 | disposition home or self-care (01) ==
LOC: RAD 12:55
PROVIDERS: PCP Internal Medicine Adolescent Medicine; Visit Provider Physician Assistant Surgical
DX: M79.622 Pain in left upper arm (principal); S42.212A Unspecified displaced fracture of surgical neck of left humerus, initial encounter for closed fracture
CPT/HCPCS: 73060

== ENCOUNTER 2024-06-15 12:58 | Outpatient (CLI) | payer MEDICARE, MEDICAID, SELFPAY ==
--- NOTE | 2024-06-15 13:04 | XR_ITS ---
FINAL REPORT CLINICAL HISTORY: lt humerus pain, fracture follow-up COMPARISON: 05/18/2024 FINDINGS: LEFT HUMERUS 2 views were obtained. There is a complex fracture of the proximal left humerus which appears to a prominently involve the surgical neck of the humerus. There is mild impaction of the fracture fragments. There is also a component of the fracture extending through the anatomical neck. In comparison to the previous exam, the fracture lines are better seen. There appears to been bony resorption along the fracture lines. There is increased callus formation at the margins of the fractures. IMPRESSION: Complex fractures through the proximal left humerus with increased callus formation at the margins of the fractures. Reviewed, Interpreted and Dictated by Josue Ramirez MD Transcribed by Treasure Tobias Authenticated and [facility]
== END 2024-06-15 23:59 | disposition home or self-care (01) ==
LOC: RAD 12:59
PROVIDERS: PCP Internal Medicine Adolescent Medicine; Visit Provider Physician Assistant Surgical
DX: M79.622 Pain in left upper arm (principal); S42.202A Unspecified fracture of upper end of left humerus, initial encounter for closed fracture
CPT/HCPCS: 73060

== ENCOUNTER 2025-01-07 13:04 | Emergency (ER) | payer MEDICARE, MEDICAID, SELFPAY ==
[2025-01-07] VITALS (14 sets, daily range): BP systolic 75–142; BP diastolic 50–75; PULSE 64–88; RESP 13–19; TEMP 36.8; O2SAT 95–100; BMI 29.5
--- NOTE | 2025-01-07 13:14 | PC.NURSE ---
FSBS 306 mg/dl
--- NOTE | 2025-01-07 13:19 | ED_ITS ---
<Statement entered by Lyric Zepeda DO - 01/07/25 23:08> I was consulted by the DOROTHEA, and we discussed the complexity of the problems being addressed. I approved the treatment and management plan for this patient's care in the emergency department, thus performing a substantive portion of the medical decision making. I assumed care of the patient with DOROTHEA at 1500 at time of departure of the previous attending. Lyric Zepeda DO Discharge Plan Disposition Patient Disposition: Xfer SNF Condition: Good Prescriptions Prescriptions: New levofloxacin 750 mg tablet 750 mg PO DAILY 7 Days Qty: 7 0RF No Action ketoconazole 2 % shampoo 1 applic topical Q2W insulin glargine-yfgn 100 unit/mL (3 mL) insulin pen 30 unit SQ QAM Alive Men's 50 Plus Multivit 120 mcg-150 mcg -50 mg tablet,chewable 1 tab PO DAILY Mounjaro 2.5 mg/0.5 mL pen injector 2.5 mg SQ QWEEK metformin 500 MG tablet 500 mg PO BIDWMEAL hydrochlorothiazide 25 mg tablet 12.5 mg PO DAILY Patient Comments: TAKE ONE TABLET BY MOUTH EVERY DAY FOR EDEMA finasteride 5 mg tablet 5 mg PO DAILY omeprazole 20 mg capsule,delayed release(DR/EC) 20 mg PO DAILY Patient Comments: TAKE ONE CAPSULE BY MOUTH EVERY DAY sitagliptin phosphate 100 MG tablet 100 mg PO DAILY 30 Days Qty: 30 0RF atorvastatin 40 mg Tablet 40 mg PO HS 30 Days Qty: 30 0RF clopidogrel 75 mg Tablet 75 mg PO DAILY 30 Days Qty: 30 0RF aspirin 81 mg Tablet,Delayed Release (Dr/Ec) 81 mg PO DAILY 30 Days Qty: 30 0RF tramadol 50 MG tablet 50 mg PO TIDP PRN (Reason: Moderate Pain (Scale Score 5-6)) magnesium oxide 400 mg (241.3 mg magnesium) Tablet 400 mg PO DAILY 30 Days Qty: 30 0RF insulin lispro protamin-lispro [Humalog Mix 75-25 KwikPen] 100 unit/mL (75-25) insulin pen See Rx Instructions .ROUTE .COMPLEX 30 Days Qty: 15 0RF Rx Instructions: 25 units in the morning with breakfast and 18 units with dinner. If glucose before meal less than 100, please administer half dose. Referrals Follow up/Referrals: Provider,Referral, MD [Primary Care Provider] - See instructions Activity Restrictions/Add. Instructions Additional Instructions/Restrictions: Please take your antibiotic until it is gone. Follow-up with your PCP within 48 hours for recheck if you have any worsening signs or symptoms return to the ER as needed. Clinical Impressions Clinical Impression: Sepsis without septic shock, Complicated urinary tract infection, Toxic metabolic encephalopathy Instructions Patient Instructions: DI for Altered Mental Status Print Language Print Language: Lithuanian Discharge ED Provider: Lyric Zepeda General Adult HPI <KESHA Patel - Last Filed: 01/07/25 18:56> General Chief complaint: Altered Mental Status Stated complaint: Weakness Time Seen by Provider: 01/07/25 13:19 History of Present Illness HPI narrative: Patient presents for evaluation of altered mental status. Patient arrives obtunded and has a Silverio Coma Score of 8 he does not open his eyes to painful stimuli he only makes incomprehensible sounds but he does localize to painful stimuli. His functional baseline is unknown currently. Reportedly he was last known well at lunchtime and had a sudden change in level of consciousness. It is unknown whether he had any complaints prior. Related Data Home Medications ?Medication ?Instructions ?Recorded ?Confirmed hydrochlorothiazide 25 mg tablet 12.5 mg PO DAILY 05/10/23 01/07/25 metformin 500 mg tablet 500 mg PO BIDWMEAL 05/10/23 01/07/25 finasteride 5 mg tablet 5 mg PO DAILY 07/22/23 01/07/25 omeprazole 20 mg capsule,delayed 20 mg PO DAILY 12/29/23 01/07/25 release tramadol 50 mg tablet 50 mg PO TIDP PRN Moderate Pain 02/28/24 01/07/25 (Scale Score 5-6) insulin glargine-yfgn 100 unit/mL 30 unit SQ QAM 01/03/25 01/07/25 (3 mL) subcutaneous pen ketoconazole 2 % shampoo 1 applic topical Q2W 01/03/25 01/07/25 pfnnkrtq-hyj-hmrud 120 mcg-lutein 1 tab PO DAILY 01/03/25 01/07/25 150 mcg-herb 50 mg chewable tablet (Alive Men's 50 Plus Multivitamin) tirzepatide 2.5 mg/0.5 mL 2.5 mg SQ QWEEK 01/03/25 01/07/25 subcutaneous pen injector (Ronald) Previous Rx's ?Medication ?Instructions ?Recorded sitagliptin phosphate 100 mg tablet 100 mg PO DAILY Diabetes 30 days 08/25/20 #30 tabs aspirin 81 mg tablet,delayed 81 mg PO DAILY 30 days #30 tabs 02/12/24 release atorvastatin 40 mg tablet 40 mg PO HS 30 days #30 tabs 02/12/24 clopidogrel 75 mg tablet 75 mg PO DAILY 30 days #30 tabs 02/12/24 insulin lispro protamine-lispro See Rx Instructions .Route 03/01/24 100 unit/mL (75-25) subcutaneous .COMPLEX 30 days #15 mL pen (Humalog Mix 75-25 KwikPen) magnesium oxide 400 mg (241.3 mg 400 mg PO DAILY 30 days #30 tabs 03/01/24 magnesium) tablet levofloxacin 750 mg tablet 750 mg PO DAILY 7 days #7 tabs 01/07/25 Allergies Allergy/AdvReac Type Severity Reaction Status Date / Time No Known Allergies Allergy Verified 01/07/25 16:14 [facility] <KESHA Patel - Last Filed: 01/07/25 18:56> [facility] Disclaimer: The information contained in this section may have been updated after the patient was seen, as this information can be updated by other users. 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 High cholesterol Urinary retention due to benign prostatic hyperplasia Family History Family history of myocardial infarction Social History Smoking Status: Former smoker tobacco type: cigarettes packs per day: 2 how long ago did patient quit smokin weeks ago alcohol intake: former substance use type: denies use current occupational status: retired Travel in the last 8 weeks: None household members: spouse housing: house Have you lived/traveled outside [place] in past 30 days?: No Contact w/someone who lives/traveled outside US past 30 days?: No Exposure to someone with infectious disease in past 14 days?: No Do you have a fever (greater than 100.4 F or 38 C)?: No Have you tested positive for COVID-19: No Exposed to someone with COVID-19 in past 14 days?: No Do you have a sore throat?: No Do you have a cough?: No Do you have any weakness?: Yes Do you have any diarrhea?: No Are you experiencing any unusual bleeding?: No Do you have any muscle aches/pain?: No Do you have any abdominal pain?: No Are you experiencing loss of taste or smell?: No Other Medical History Have you received the Flu Vaccine for this season: No Have you received the Pneumonia Vaccine: Yes <KESHA Patel - Last Filed: 01/07/25 18:56> ROS Obtained: Yes unobtainable due to mental status and Yes unobtainable due to mental condition Physical Exam <KESHA Patel - Last Filed: 01/07/25 18:56> General General appearance: obtunded Head Head exam: atraumatic and normal inspection Eye Eye exam: Present normal appearance and PERRL ENT ENT exam: Present normal exam, normal oropharynx and mucous membranes dry Neck Neck exam: Present normal inspection and trachea midline Chest Chest inspection: Present normal inspection and symmetric chest wall rise Respiratory Respiratory exam: Present normal lung sounds bilaterally; Absent respiratory distress or accessory muscle use Cardiovascular Cardiovascular exam: Present regular rate Abdominal Exam Abdominal exam: Present soft; Absent tenderness Extremities Exam Extremities exam: Present normal inspection and full ROM Neurological Exam Neurological exam: Absent alert or oriented X3 Medical Decision Making <KESHA Patel - Last Filed: 01/07/25 18:56> Medical Records Medical records reviewed: Yes I reviewed the patient's medical records. Screening: Per USPSTF and CDC recommendations, given the prevalence of disease in our region, it is our hospital?s policy to screen for HIV and viral Hepatitis for all patients aged 18 and over and those with ongoing risk factors. Leonid Inquiry Pt receiving controlled substance: No Vital Signs: 01/07/25 13:24 01/07/25 13:30 01/07/25 13:44 Temperature 98.3 F Temperature Source Rectal Pulse Rate 65 74 Pulse Rate [Left Radial] 64 Respiratory Rate 19 Blood Pressure 104/51 L 94/51 L Blood Pressure [Right Arm] 75/50 L Blood Pressure Mean 60 Blood Pressure Mean [Right Arm] 58 02 Sat by Pulse Oximetry 97 95 96 Oxygen Delivery Method Room Air 01/07/25 14:00 01/07/25 14:15 01/07/25 14:30 Temperature Temperature Source Pulse Rate 66 70 67 Pulse Rate [Left Radial] Respiratory Rate Blood Pressure 105/61 L 118/60 Blood Pressure [Right Arm] Blood Pressure Mean 75 Blood Pressure Mean [Right Arm] 02 Sat by Pulse Oximetry 99 96 98 Oxygen Delivery Method 01/07/25 14:45 01/07/25 15:16 01/07/25 15:31 Temperature Temperature Source Pulse Rate 79 86 81 Pulse Rate [Left Radial] Respiratory Rate Blood Pressure 118/60 142/65 H Blood Pressure [Right Arm] Blood Pressure Mean Blood Pressure Mean [Right Arm] 02 Sat by Pulse Oximetry 98 100 96 Oxygen Delivery Method Room Air 01/07/25 15:55 01/07/25 16:00 01/07/25 16:30 Temperature Temperature Source Pulse Rate 88 87 Pulse Rate [Left Radial] Respiratory Rate 15 14 Blood Pressure 132/71 136/74 123/75 Blood Pressure [Right Arm] Blood Pressure Mean Blood Pressure Mean [Right Arm] 02 Sat by Pulse Oximetry 98 99 Oxygen Delivery Method Room Air Room Air 01/07/25 17:00 01/07/25 17:53 Temperature 98.3 F Temperature Source Pulse Rate 88 Pulse Rate [Left Radial] Respiratory Rate 13 13 Blood Pressure 142/71 H 142/71 H Blood Pressure [Right Arm] Blood Pressure Mean Blood Pressure Mean [Right Arm] 02 Sat by Pulse Oximetry Oxygen Delivery Method Room Air Lab Data Lab results reviewed: Yes I reviewed the patient's lab results. Lab Results 01/07/25 13:05: WBC 11.7 H, RBC 3.59 L, Hgb 11.2 L, Hct 33.3 L, MCV 92.8, MCH 31.2, MCHC 33.6, RDW 12.5, Plt Count 333, MPV 10.2, Neut % (Auto) 70.4, Lymph % (Auto) 20.3, [place] % (Auto) 5.5, Eos % (Auto) 2.9, Baso % (Auto) 0.5, Neut # (Auto) 8.2 H, Lymph # (Auto) 2.4, [place] # (Auto) 0.6, Eos # (Auto) 0.3, Baso # (Auto) 0.1, D-Dimer 0.68 H, Sodium 139, Potassium 4.4, Chloride 104, Carbon Dioxide 25, Anion Gap 14.4, BUN 29 H, Creatinine 1.00, Estimated Creat Clear 76, Estimated GFR 72, Est GFR ( Amer) 87, Glucose 275 H, Calcium 9.3, Magnesium 1.7, Total Bilirubin 0.5, AST 34, ALT 31, Alkaline Phosphatase 82, Troponin I < 0.01, NT-Pro-B Natriuret Pep 478 H, Total Protein 6.7, Albumin 4.3, Globulin 2.4, Albumin/Globulin Ratio 1.8, Procalcitonin 0.090, HCV Ab GISSELLE w/Rflx PCR Qn Negative, HIV Ag/Ab Combo Qual Negative 01/07/25 13:13: Urine Color Yellow, Urine Appearance Clear, Urine pH >= 9.0 H, Ur Specific [place] 1.010, Urine Protein 100, Urine Glucose (UA) Negative, Urine Ketones Negative, Urine Blood Trace-i, Urine Nitrate Negative, Urine Bilirubin Negative, Urine Urobilinogen 1.0, Ur Leukocyte Esterase Moderate, Urine RBC Tntc, Urine WBC Tntc, Ur Squamous Epith Cells 10-20, Amorphous Sediment 3+, Urine Bacteria 4+ 01/07/25 13:24: VBG pH 7.30 L, VBG pCO2 49.2, VBG pO2 47.1 H, VBG HCO3 23.7, VBG Total CO2 25.2, VBG O2 Saturation 77.9 H, VBG Base Excess -2.7 L, VBG Lactic Acid 3.6 H 01/07/25 13:36: Chlamy pneumoniae PCR Not detected, Adenovirus (PCR) Not detected, B. pertussis DNA (PCR) Not detected, Coronavirus OC43 (PCR) Not detected, Coronavirus HKU1 (PCR) Not detected, Coronavirus 229E (PCR) Not detected, SARS-CoV-2 (PCR) Not detected, Coronavirus NL63 (PCR) Not detected, Human Metapneumovir PCR Not detected, Influenza A (H1) PCR Not detected, Influ A (H1N1/09) PCR Not detected, Influenza A (H3) PCR Not detected, Influenza Type A (PCR) Not detected, Influenza Type B (PCR) Not detected, M. pneumoniae (PCR) Not detected, Parainfluenza 1 (PCR) Not detected, Parainfluenza 2 (PCR) Not detected, Parainfluenza 3 (PCR) Not detected, Parainfluenza 4 (PCR) Not detected, RSV (PCR) Not detected, Entero/Rhino (PCR) Not detected 01/07/25 13:05 01/07/25 13:05 Orders (Tests/Meds): ED MEDICATIONS Discontinued Medications Generic Name Dose Route Start Last Admin Trade Name Freq PRN Reason Stop Dose Admin Sodium Chloride 2,120 mls @ 1,060 mls/hr 01/07/25 13:48 01/07/25 14:24 Sod Chlor 0.9% 1000ml Bag 30 ml/kg infuse over 2 hr (2120 ml) 01/07/25 15:47 1,060 mls/hr IV Administration .Q2H ONE Ceftriaxone Sodium 1 gm/ 50 mls @ 100 mls/hr 01/07/25 15:15 01/07/25 15:46 Sodium Chloride IV 01/17/25 15:14 100 mls/hr Q24H RIVER Administration Iopamidol 160 ml 01/07/25 14:58 01/07/25 15:00 Iopamidol-370 (76%);100ml Bottle IV 01/07/25 14:59 160 ml ONCE ONE Administration Sodium Chloride 10 ml 01/07/25 14:58 01/07/25 15:00 Sodium Chloride 0.9% 10ml Syr (Rad Only) IV 01/07/25 14:59 10 ml ONCE ONE Administration Sodium Chloride 50 ml 01/07/25 14:58 01/07/25 15:00 0.9 % Sodium Chloride 50 Ml Vial IV 01/07/25 14:59 50 ml ONCE ONE Administration ORDERS Category Date Time Status CT angio abdomen pelvis Stat Cat Scan 01/07/25 14:[address] angio chest - dissection Stat Cat Scan 01/07/25 14:[address] angio head Stat Cat Scan 01/07/25 14:[address] angio neck Stat Cat Scan 01/07/25 14:[address] head/brain wo con Stat Cat Scan 01/07/25 13:23 Completed XR chest portable Stat Exams 01/07/25 13:23 Completed BNP [NT Pro Brain Natriuretic Pep.] Stat Lab 01/07/25 13:05 Completed CBC w/Auto Diff [Complete Blood Count Auto Diff] Stat Lab 01/07/25 13:05 Completed CMP [Comprehensive Metabolic Panel] Stat Lab 01/07/25 13:05 Completed D-Dimer Stat Lab 01/07/25 13:05 Completed Full Resp Panel w/COVID ([facility]) Routine Lab 01/07/25 13:36 Completed HIV Combo Stat Lab 01/07/25 13:05 Completed Hepatitis C Ab Qual. W/ RFX Stat Lab 01/07/25 13:05 Completed Magnesium Stat Lab 01/07/25 13:05 Completed Procalcitonin Stat Lab 01/07/25 13:05 Completed Trop I [Troponin I] Stat Lab 01/07/25 13:05 Completed UA [Urinalysis and Microscopic] Stat Lab 01/07/25 13:13 Completed Blood Culture Stat Micro 01/07/25 13:46 Results Urine Culture Stat Micro 01/07/25 13:13 Completed VBG [Venous Blood Gas] Stat RT 01/07/25 13:24 Completed Tissue Perfus/Sepsis Re-Eval Sepsis Re-Evaluation Performed: Yes Date Performed: 01/07/25 Time Performed: 16:00 HEART Score History (anamnesis): Slightly suspicious ECG: Non-specific disturbance Age: >65 years Risk factors: 3 or more risk factors Troponin: </= normal limit HEART Score: 5 Medical Decision Narrative: In summary patient is a 79-year-old male who presents to the emergency department for evaluation of altered mental status. Patient is initially hypotensive on arrival with a blood pressure of 75/50 heart rate of 64 breathing 19 times a minute satting at 97% on room air upon arrival, afebrile with a rectal temperature of 98.3. Physical exam is remarkable for a Glascow coma score of 8 on arrival, pupils are equal round reactive to light, patient has no focal deficits moves all 4 extremities to noxious stimuli localizes the pain has incomprehensible sounds. Breath sounds clear and equal bilaterally to the bases without adventitious sounds or increased work of breathing. Patient has normal gag reflex. [place]uc[place] however is dry and his lips are cracked. Abdomen is soft no tenderness elicited on palpation, skin exam reveals no skin breakdown or infection. . Differential diagnosis includes stroke versus ACS versus PE versus infection etc. Initial workup will be conducted with hematologic labs CT scan of the head without contrast CTA of the head neck CT PE protocol CTA of the abdomen urinalysis VBG blood cultures twelve-lead EKG. Initial interventions include sepsis bolus. Initial workup reviewed by me and his white count is 11.7 hemoglobin hematocrit 11.2 and 33.3 respectively absolute neutrophil count 8.2, D-dimer 0.68, VBG shows a pH of 7.3 pCO2 of 49.2 VBG lactic acid 3.6 serum glucose 275 anion gap is 14 troponin is less than 0.01 NT proBNP is 478 urinalysis showed trace blood and moderate leukocyte Estrace and microscopic exam showed too numerous to count red cells too numerous to count white cells 10-20 squamous epithelial cells from a catheterized specimen with 4+ bacteria and his full respiratory panel was negative for all organisms tested. My informal interpretation of his CT imaging was significant only for bilateral hydronephrosis, no evidence of stone or ureteral obstruction thick-walled and distended bladder but no stranding. Patient given a dose of Rocephin given his findings on CT and presentation. Upon repeat evaluation patient is now mentating at baseline according to his daughter who has arrived. He is awake interactive still has some confusion to place and circumstance which is different from his baseline but otherwise reports no pain fever chills hemoptysis hematochezia melena nausea vomiting diarrhea shortness of breath. Given this I did have an interactive discussion with hospital medicine regarding patient presentation CONTRERAS and patient management and we jointly had a shared decision-making discussion with the family and the patient at the bedside. As patient has returned to his baseline mentation, given that he has likely urosepsis but has responded well to resuscitation we gave them the option of admission versus return to the care home with strict return precautions. Via patient directed decision making and discharge patient and family are comfortable going back to the care home with oral antibiotics which I believe is appropriate until we await culture speciation to tailor antibiotics with strict return precautions. To that end a prescription for Levaquin was sent to the pharmacy with first dose to start tomorrow. I was consulted by the DOROTHEA, and we discussed the complexity of problems being addressed. I approved the treatment and management plan for this patient's care in the emergency department, thus performing a substantial portion of the medical decision making. Bindu Abreu MD <Bindu Abreu MD - Last Filed: 01/09/25 08:25> Vital Signs: 01/07/25 13:24 01/07/25 13:30 01/07/25 13:44 Temperature 98.3 F Temperature Source Rectal Pulse Rate 65 74 Pulse Rate [Left Radial] 64 Respiratory Rate 19 Blood Pressure 104/51 L 94/51 L Blood Pressure [Right Arm] 75/50 L Blood Pressure Mean 60 Blood Pressure Mean [Right Arm] 58 02 Sat by Pulse Oximetry 97 95 96 Oxygen Delivery Method Room Air 01/07/25 14:00 01/07/25 14:15 01/07/25 14:30 Temperature Temperature Source Pulse Rate 66 70 67 Pulse Rate [Left Radial] Respiratory Rate Blood Pressure 105/61 L 118/60 Blood Pressure [Right Arm] Blood Pressure Mean 75 Blood Pressure Mean [Right Arm] 02 Sat by Pulse Oximetry 99 96 98 Oxygen Delivery Method 01/07/25 14:45 01/07/25 15:16 01/07/25 15:31 Temperature Temperature Source Pulse Rate 79 86 81 Pulse Rate [Left Radial] Respiratory Rate Blood Pressure 118/60 142/65 H Blood Pressure [Right Arm] Blood Pressure Mean Blood Pressure Mean [Right Arm] 02 Sat by Pulse Oximetry 98 100 96 Oxygen Delivery Method Room Air 01/07/25 15:55 01/07/25 16:00 01/07/25 16:30 Temperature Temperature Source Pulse Rate 88 87 Pulse Rate [Left Radial] Respiratory Rate 15 14 Blood Pressure 132/71 136/74 123/75 Blood Pressure [Right Arm] Blood Pressure Mean Blood Pressure Mean [Right Arm] 02 Sat by Pulse Oximetry 98 99 Oxygen Delivery Method Room Air Room Air 01/07/25 17:00 01/07/25 17:53 Temperature 98.3 F Temperature Source Pulse Rate 88 Pulse Rate [Left Radial] Respiratory Rate 13 13 Blood Pressure 142/71 H 142/71 H Blood Pressure [Right Arm] Blood Pressure Mean Blood Pressure Mean [Right Arm] 02 Sat by Pulse Oximetry Oxygen Delivery Method Room Air Lab Data Lab Results 01/07/25 13:05: WBC 11.7 H, RBC 3.59 L, Hgb 11.2 L, Hct 33.3 L, MCV 92.8, MCH 31.2, MCHC 33.6, RDW 12.5, Plt Count 333, MPV 10.2, Neut % (Auto) 70.4, Lymph % (Auto) 20.3, [place] % (Auto) 5.5, Eos % (Auto) 2.9, Baso % (Auto) 0.5, Neut # (Auto) 8.2 H, Lymph # (Auto) 2.4, [place] # (Auto) 0.6, Eos # (Auto) 0.3, Baso # (Auto) 0.1, D-Dimer 0.68 H, Sodium 139, Potassium 4.4, Chloride 104, Carbon Dioxide 25, Anion Gap 14.4, BUN 29 H, Creatinine 1.00, Estimated Creat Clear 76, Estimated GFR 72, Est GFR ( Amer) 87, Glucose 275 H, Calcium 9.3, Magnesium 1.7, Total Bilirubin 0.5, AST 34, ALT 31, Alkaline Phosphatase 82, Troponin I < 0.01, NT-Pro-B Natriuret Pep 478 H, Total Protein 6.7, Albumin 4.3, Globulin 2.4, Albumin/Globulin Ratio 1.8, Procalcitonin 0.090, HCV Ab GISSELLE w/Rflx PCR Qn Negative, HIV Ag/Ab Combo Qual Negative 01/07/25 13:13: Urine Color Yellow, Urine Appearance Clear, Urine pH >= 9.0 H, Ur Specific [place] 1.010, Urine Protein 100, Urine Glucose (UA) Negative, Urine Ketones Negative, Urine Blood Trace-i, Urine Nitrate Negative, Urine Bilirubin Negative, Urine Urobilinogen 1.0, Ur Leukocyte Esterase Moderate, Urine RBC Tntc, Urine WBC Tntc, Ur Squamous Epith Cells 10-20, Amorphous Sediment 3+, Urine Bacteria 4+ 01/07/25 13:24: VBG pH 7.30 L, VBG pCO2 49.2, VBG pO2 47.1 H, VBG HCO3 23.7, VBG Total CO2 25.2, VBG O2 Saturation 77.9 H, VBG Base Excess -2.7 L, VBG Lactic Acid 3.6 H 01/07/25 13:36: Chlamy pneumoniae PCR Not detected, Adenovirus (PCR) Not detected, B. pertussis DNA (PCR) Not detected, Coronavirus OC43 (PCR) Not detected, Coronavirus HKU1 (PCR) Not detected, Coronavirus 229E (PCR) Not detected, SARS-CoV-2 (PCR) Not detected, Coronavirus NL63 (PCR) Not detected, Human Metapneumovir PCR Not detected, Influenza A (H1) PCR Not detected, Influ A (H1N1/09) PCR Not detected, Influenza A (H3) PCR Not detected, Influenza Type A (PCR) Not detected, Influenza Type B (PCR) Not detected, M. pneumoniae (PCR) Not detected, Parainfluenza 1 (PCR) Not detected, Parainfluenza 2 (PCR) Not detected, Parainfluenza 3 (PCR) Not detected, Parainfluenza 4 (PCR) Not detected, RSV (PCR) Not detected, Entero/Rhino (PCR) Not detected Orders (Tests/Meds): ED MEDICATIONS Discontinued Medications Generic Name Dose Route Start Last Admin Trade Name Freq PRN Reason Stop Dose Admin Sodium Chloride 2,120 mls @ 1,060 mls/hr 01/07/25 13:48 01/07/25 14:24 Sod Chlor 0.9% 1000ml Bag 30 ml/kg infuse over 2 hr (2120 ml) 01/07/25 15:47 1,060 mls/hr IV Administration .Q2H ONE Ceftriaxone Sodium 1 gm/ 50 mls @ 100 mls/hr 01/07/25 15:15 01/07/25 15:46 Sodium Chloride IV 01/17/25 15:14 100 mls/hr Q24H RIVER Administration Iopamidol 160 ml 01/07/25 14:58 01/07/25 15:00 Iopamidol-370 (76%);100ml Bottle IV 01/07/25 14:59 160 ml ONCE ONE Administration Sodium Chloride 10 ml 01/07/25 14:58 01/07/25 15:00 Sodium Chloride 0.9% 10ml Syr (Rad Only) IV 01/07/25 14:59 10 ml ONCE ONE Administration Sodium Chloride 50 ml 01/07/25 14:58 01/07/25 15:00 0.9 % Sodium Chloride 50 Ml Vial IV 01/07/25 14:59 50 ml ONCE ONE Administration ORDERS Category Date Time Status CT angio abdomen pelvis Stat Cat Scan 01/07/25 14:[address] angio chest - dissection Stat Cat Scan 01/07/25 14:[address] angio head Stat Cat Scan 01/07/25 14:[address] angio neck Stat Cat Scan 01/07/25 14:[address] head/brain wo con Stat Cat Scan 01/07/25 13:23 Completed XR chest portable Stat Exams 01/07/25 13:23 Completed BNP [NT Pro Brain Natriuretic Pep.] Stat Lab 01/07/25 13:05 Completed CBC w/Auto Diff [Complete Blood Count Auto Diff] Stat Lab 01/07/25 13:05 Completed CMP [Comprehensive Metabolic Panel] Stat Lab 01/07/25 13:05 Completed D-Dimer Stat Lab 01/07/25 13:05 Completed Full Resp Panel w/COVID ([facility]) Routine Lab 01/07/25 13:36 Completed HIV Combo Stat Lab 01/07/25 13:05 Completed Hepatitis C Ab Qual. W/ RFX Stat Lab 01/07/25 13:05 Completed Magnesium Stat Lab 01/07/25 13:05 Completed Procalcitonin Stat Lab 01/07/25 13:05 Completed Trop I [Troponin I] Stat Lab 01/07/25 13:05 Completed UA [Urinalysis and Microscopic] Stat Lab 01/07/25 13:13 Completed Blood Culture Stat Micro 01/07/25 13:46 Results Urine Culture Stat Micro 01/07/25 13:13 Completed VBG [Venous Blood Gas] Stat RT 01/07/25 13:24 Completed HEART Score HEART Score: 5 Medical Decision Narrative: In summary patient is a [age, sex] who presents to the emergency department for evaluation of [complaint]. Patient is [hemodynamically stable/unstable] upon arrival, [febrile/afebrile]. [Unremarkable physical exam, nonfocal exam versus focal remarkable exam]. Differential diagnosis includes [DDx]. Initial workup will be conducted with [hematologic labs, imaging, respiratory swab, describe workup]. Initial interventions include [crystalloid bolus, medications, p.o. challenge, etc.] initial workup reviewed by me [hematologic labs are remarkable for... Imaging remarkable for... Urinalysis remarkable for]. Upon repeat evaluation [patient had acceptable resolution of symptoms, had persistent pain for which additional interventions were conducted (describe interventions), tolerated p.o., was ambulatory, etc.]. Given this [patient is appropriate for discharge at this time and will be discharged with a prescription for... The case was discussed with hospital medicine regarding management and they will admit the patient their service for continued evaluation at this time... Etc.] Places where you can increase complexity: I informally interpreted the patient's chest x-ray or CT read and is remarkable for... Documenting what the teletypesetter monitor shows with rate and rhythm Consideration of test but deferring. Ex: I considered chest x-ray on this patient however given that they have no oxygen requirement and are clear to auscultation all lung waters will be deferred. Social determinants of health: Given that patient is undomiciled increases complexity. Given that patient has polysubstance abuse compounds all aspects of care I was consulted by the DOROTHEA, and we discussed the complexity of problems being addressed. I approved the treatment and management plan for this patient's care in the emergency department, thus performing a substantial portion of the medical decision making. Bindu Abreu MD Critical Care <KESHA Patel - Last Filed: 01/07/25 18:56> Critical Care Time Critical Care Time: Yes Attestation: On 01/07/25, the high probability of a clinically significant, sudden or life threatening deterioration of the following system(s) required my full and direct attention, intervention and personal management. The time I documented below is in addition to time spent performing reported procedures but includes the following listed in this critical care notation. Total Time Total Critical Care Time: 60
--- NOTE | 2025-01-07 13:23 | CT_ITS ---
FINAL REPORT TECHNIQUE: Axial images were performed through the brain. This study was performed with techniques to keep radiation doses as low as reasonably achievable, (ALARA). Individualized dose reduction techniques using automated exposure control or adjustment of mA and/or kV according to the patient''s size were employed. CLINICAL HISTORY: Altered mental status COMPARISON: 02/10/2024 FINDINGS: There is generalized atrophy. There are advanced chronic microvascular changes. The ventricles are normal in size for the degree of atrophy. There is no extra-axial fluid or midline shift. There is no evidence of acute hemorrhage or mass. Multiple chronic lacunar infarcts are seen in the bilateral basal ganglia. IMPRESSION: No acute intracranial findings. Reviewed, Interpreted and Dictated by Heidy Chiu MD Transcribed by Marina Crzu Authenticated and [facility]
--- NOTE | 2025-01-07 13:23 | XR_ITS ---
FINAL REPORT CLINICAL HISTORY: Altered mental status COMPARISON: 02/10/2024 FINDINGS: A single frontal view of the chest was obtained. No acute pulmonary opacity is present. There is no evidence of effusion or pneumothorax. Mediastinum is unremarkable. Heart size is normal. IMPRESSION: No acute abnormality. Reviewed, Interpreted and Dictated by Heidy Chiu MD Transcribed by Mercy Gutierrez Authenticated and . [facility]
[2025-01-07 13:35] LABS: Basophils # 0.1 K/mm3 (0-0.2); Basophils % 0.5 % (0.1-2.0); Eosinophils # 0.3 K/mm3 (0.0-0.4); Eosinophils % 2.9 % (0.1-12.0); Hematocrit 33.3 % (42.0-52.0); Hemoglobin 11.2 g/dL (14.1-18.0); Lymphocytes # 2.4 K/mm3 (0.7-4.5); Lymphocytes % 20.3 % (10-50); Mean Corpuscular HGB Conc 33.6 g/dL (31.8-35.4); Mean Corpuscular Hemoglobin 31.2 pg (27.0-31.2); Mean Corpuscular Volume 92.8 fl (80-94); Mean Platelet Volume 10.2 fl (7.4-10.4); Monocytes # 0.6 K/mm3 (0.1-1.0); Monocytes % 5.5 % (1.7-9.3); Neutrophils # 8.2 K/mm3 (1.8-7.8); Neutrophils % 70.4 % (37.0-80.0); Platelet Count 333 K/mm3 (142-424); Red Blood Count 3.59 M/mm3 (4.60-6.20); Red Cell Distribution Width 12.5 % (11.5-17.5); White Blood Count 11.7 K/mm3 (4.8-10.8)
[2025-01-07 13:41] LABS: Alanine Aminotransferase 31 U/L (12-78); Albumin Level 4.3 g/dl (3.5-5.0); Albumin/Globulin Ratio 1.8 (1.1-1.8); Alkaline Phosphatase 82 U/L (38-126); Anion Gap 14.4 mEq/L (5-15); Aspartate Amino Transferase 34 U/L (17-59); Bilirubin,Total 0.5 mg/dl (0.2-1.3); Blood Urea Nitrogen 29 mg/dl (9-20); Calcium 9.3 mg/dl (8.4-10.2); Carbon Dioxide 25 mmol/L (22.0-30.0); Chloride 104 mmol/L (98-107); Creatinine Clearance Estimated 76 mL/min (50-200); Estimated Glomerular Filt Rate 72 ml/min (>60); GFR (African American) 87 ML/MIN (>60); Globulin 2.4 g/dL (1.3-3.2); Glucose 275 mg/dl (74-100); Magnesium 1.7 mg/dl (1.6-2.3); Potassium 4.4 mmoL/L (3.5-5.1); Sodium 139 mmol/L (136-145); Total Protein,Serum 6.7 g/dl (6.3-8.2)
[2025-01-07 13:41] LABS: VBG Base Excess -2.7 mmol/L (-2.4-2.3); VBG HCO3 23.7 mmol/L (23-30); VBG Oxygen Saturation 77.9 % (50-70); VBG PCO2 49.2 mmol/L (35-51); VBG PO2 47.1 mmol/L (28-40); VBG Total CO2 25.2 mmol/L (23-27)
[2025-01-07 13:42] LABS: Lactate Venous 3.6 mmol/L (0.4-2.0)
[2025-01-07 13:46] LABS: D-Dimer 0.68 ug/mL (0.0-0.5)
[2025-01-07 13:50] LABS: NT Pro Brain Natriuretic Pep. 478 pg/mL (0-450)
[2025-01-07 13:51] LABS: Adenovirus,PCR Not Detected (NotDetected); Bordetella Pertussis Not Detected (NotDetected); Chlamydophila Pneumoniae, PCR Not Detected (NotDetected); Coronavirus 19, PCR Not Detected (NotDetected); Coronavirus 229E Not Detected (NotDetected); Coronavirus NL63 Not Detected (NotDetected); Coronavirus OC43 Not Detected (NotDetected); Coronovirus HKU1,PCR Not Detected (NotDetected); Human Metapneumovirus Not Detected (NotDetected); Influenza A, PCR Not Detected (NotDetected); Influenza AH1, 2009 Not Detected (NotDetected); Influenza AH1, PCR Not Detected (NotDetected); Influenza AH3,PCR Not Detected (NotDetected); Influenza B, PCR Not Detected (NotDetected); Mycoplasma Pneumoniae, PCR Not Detected (NotDetected); Parainfluenza 1, PCR Not Detected (NotDetected); Parainfluenza 2, PCR Not Detected (NotDetected); Parainfluenza 3, PCR Not Detected (NotDetected); Parainfluenza 4, PCR Not Detected (NotDetected); Respiratory Syncytial Virus Not Detected (NotDetected); Rhinovirus/Enterovirus Not Detected (NotDetected)
[2025-01-07 13:58] LABS: Troponin I < 0.01 ng/ml (0.00-0.034)
--- NOTE | 2025-01-07 14:21 | PC.NURSE ---
pt received 1L LR from EMS
[2025-01-07] MEDS: 0.9 % SODIUM CHLORIDE 1000ML 2,120 ML 1060 ML IV (14:24)
--- NOTE | 2025-01-07 14:25 | PC.NURSE ---
When hanging fluids on the pt he woke up and opened his eyes. Pt started talking to me and answering some questions. pts speech is slurred and difficult to understand. We will attempt contact one of his daughters.
[2025-01-07 14:29] LABS: HIV Combo NEGATIVE (Negative)
[2025-01-07 14:31] LABS: Microscopic, Urine URINE MICROSCOPIC (MICROSCOPIC)
[2025-01-07 14:37] LABS: Hepatitis C Ab Qual. W/ RFX NEGATIVE (Negative)
--- NOTE | 2025-01-07 14:37 | PC.NURSE ---
I reached out to the pts daughter Marifer. She states she is on her way here. Rosie REBOLLEDO is currently speaking to her to obtain some medical hx and the pts baseline.
--- NOTE | 2025-01-07 14:41 | CT_ITS ---
FINAL REPORT CLINICAL HISTORY: Altered mental status, aphasia COMPARISON: 02/11/2024 FINDINGS: CTA HEAD TECHNIQUE: Thin section axial CT with contrast with 3D MIP reconstruction This study was performed with techniques to keep radiation doses as low as reasonably achievable, (ALARA). Individualized dose reduction techniques using automated exposure control or adjustment of mA and/or kV according to the patient's size were employed. FINDINGS: No aneurysm is seen. Major intracranial vessels are patent without significant stenosis. . IMPRESSION: Unremarkable Reviewed, Interpreted and Dictated by Heidy Chiu MD Transcribed by Mercy Gutierrez Authenticated and [facility]
--- NOTE | 2025-01-07 14:41 | CT_ITS ---
FINAL REPORT CLINICAL HISTORY: Altered mental status, aphasia COMPARISON: 02/11/2024 FINDINGS: CT NECK ANGIO, WITHOUT AND WITH CONTRAST TECHNIQUE: Thin section axial CT with contrast with multiplanar 3D MIP reconstruction. This study was performed with techniques to keep radiation doses as low as reasonably achievable, (ALARA). Individualized dose reduction techniques using automated exposure control or adjustment of mA and/or kV according to the patient''s size were employed. NASCET criteria and technique was utilized during interpretation. FINDINGS: Aortic arch: Arch shows no significant narrowing. Great vessel origins are widely patent. Right carotid: No significant stenosis is seen of the cervical common or internal carotid artery. Left carotid: No significant stenosis is seen of the cervical common or internal carotid artery. Vertebrals: Vertebral arteries are codominant. Moderate stenosis proximal left vertebral artery best seen on axial image 54, measuring approximately 50%. IMPRESSION: No evidence of cervical carotid stenosis. Approximately 50% left vertebral artery stenosis. Reviewed, Interpreted and Dictated by Heidy Chiu MD Transcribed by Mercy Gutierrez Authenticated and [facility]
--- NOTE | 2025-01-07 14:41 | CT_ITS ---
FINAL REPORT TECHNIQUE: Pre-and postcontrast images of the abdomen were performed by computed tomography. Extensive 3-D reconstruction images were performed. A CTA was performed. This study was performed with techniques to keep radiation doses as low as reasonably achievable (ALARA). Individualized dose reduction techniques using automated exposure control or adjustment of mA and/or kV according to the patient''s size were employed. CLINICAL HISTORY: Altered mental status, aphasia, hypotension and weakness FINDINGS: ABDOMEN/PELVIS: There is a dominant right renal cyst. Smaller left renal cyst is identified there is mild bilateral hydronephrosis, may be related to distended thick-walled bladder. The remaining solid organs are unremarkable. The gallbladder is normal. There is moderate gastric distention. No large or small bowel distention is identified. The appendix is normal. There is a distended bladder with bladder wall thickening. Patient is status post TURP procedure. CTA: The aorta shows no dissection or aneurysm. There is moderate plaque disease of the distal aorta and iliac vessels. There is mild celiac and SMA stenoses. There is mild bilateral renal artery stenosis. There is moderate bilateral common iliac artery stenosis. IMPRESSION: No bowel obstruction. Mild bilateral hydronephrosis, probably related to thick walled mildly distended bladder. Moderate plaque disease of the aorta and iliac vessels with iliac and mesenteric stenosis. No evidence of aortic dissection or aneurysm. Reviewed, Interpreted and Dictated by Heidy Chiu MD Transcribed by Marina Cruz Authenticated and [facility]
--- NOTE | 2025-01-07 14:41 | CT_ITS ---
FINAL REPORT TECHNIQUE: Thin section axial CT with contrast with multiplanar reconstruction This study was performed with techniques to keep radiation doses as low as reasonably achievable, (ALARA). Individualized dose reduction techniques using automated exposure control or adjustment of mA and/or kV according to the patient''s size were employed. CLINICAL HISTORY: Altered mental status, aphasia, hypotension and weakness FINDINGS: Pulmonary vessels enhance in normal fashion without evidence of embolism. Thoracic aorta shows no dissection or aneurysm. There is mild esophageal distention with air and fluid, probably due to reflux disease. No pulmonary mass or infiltrate is present. There is no significant pleural effusion. There is no significant pericardial effusion. No mediastinal or hilar adenopathy is present. IMPRESSION: No evidence of pulmonary embolism. No evidence of pneumonia. Reviewed, Interpreted and Dictated by Heidy Chiu MD Transcribed by Marina Cruz Authenticated and [facility]
[2025-01-07 14:44] LABS: Appearance,Urine CLEAR (Clear); Bilirubin,Urine Negative (Negative); Blood, Urine TRACE-I (Negative); Color,Urine YELLOW (Yellow); Glucose,Urine (UA) Negative (Negative); Ketones,Urine Negative (Negative); Leukocyte Esterase,Urine MODERATE (Negative); Nitrate,Urine Negative (Negative); Protein,Urine 100 (Negative)
--- NOTE | 2025-01-07 14:55 | PC.NURSE ---
TRN spoke with a clinical laboratory manager, approx 15 minutes for urine results to appear.
--- NOTE | 2025-01-07 14:55 | PC.NURSE ---
pt to ct via stretcher
[2025-01-07] MEDS: IOPAMIDOL-370 (76%);100ML BOTTLE 160 ML IV (15:00)
[2025-01-07] MEDS: SODIUM CHLORIDE 0.9% 10ML SYR (RAD ONLY) 10 ML IV (15:00)
[2025-01-07] MEDS: 0.9 % SODIUM CHLORIDE 50 ML VIAL IV (15:00)
[2025-01-07 15:03] LABS: PH,Urine >= 9.0 (5.0-8.5)
[2025-01-07 15:04] LABS: Amorphous Sediment,Urine 3+ /lpf; Bacteria,Urine 4+ /lpf; RBC,Urine TNTC #/hpf (0-3); WBC,Urine TNTC #/hpf (0-3)
--- NOTE | 2025-01-07 15:17 | PC.NURSE ---
changed and cleaned pt with new brief placed. warm blanket placed with call light in reach
[2025-01-07] MEDS: CEFTRIAXONE 1 GM 1 GM in 0.9 % SODIUM CHLORIDE 50 ML IV (15:46)
--- NOTE | 2025-01-07 16:14 | PC.NURSE ---
shashi woods on phone with hospitalist
--- NOTE | 2025-01-07 17:16 | PC.NURSE ---
report called to dhara at [facility]
--- NOTE | 2025-01-07 17:17 | EXP.MED.CON ---
History of Present Illness *Admission Date: 01/07/25 *Reason for visit:: Confusion *History of present illness: 79-year-old male who resides at [facility] longterm for the past year, presents with confusion and altered mental status. Afebrile. Blood pressure soft on presentation. Workup in the ER initiated. Concern for complicated UTI. Showing some improvement in mentation. Initiated on ceftriaxone once in the ED. Urine and blood cultures obtained. Kidney function at baseline. White count marginally elevated 11. Medicine was consulted to evaluate for possible admission. On my evaluation, patient is oriented to self. Knows his daughter at bedside. Able to answer simple questions. Denies chest pain, shortness of breath, cough, nausea or vomiting. Does have some mild lower abdominal pain with palpation. Is incontinent at baseline. Afebrile and hemodynamically stable. [facility] Disclaimer: The information contained in this section may have been updated after the patient was seen, as this information can be updated by other users. 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 High cholesterol Urinary retention due to benign prostatic hyperplasia Family History Family history of myocardial infarction Social History Smoking Status: Former smoker tobacco type: cigarettes packs per day: 2 how long ago did patient quit smokin weeks ago alcohol intake: former substance use type: denies use current occupational status: retired Travel in the last 8 weeks: None household members: spouse housing: house Have you lived/traveled outside [place] in past 30 days?: No Contact w/someone who lives/traveled outside US past 30 days?: No Exposure to someone with infectious disease in past 14 days?: No Do you have a fever (greater than 100.4 F or 38 C)?: No Have you tested positive for COVID-19: No Exposed to someone with COVID-19 in past 14 days?: No Do you have a sore throat?: No Do you have a cough?: No Do you have any weakness?: Yes Do you have any diarrhea?: No Are you experiencing any unusual bleeding?: No Do you have any muscle aches/pain?: No Do you have any abdominal pain?: No Are you experiencing loss of taste or smell?: No Review of Systems Review of Systems Review of systems (narrative): 14 point review of systems performed, pertinent positives and negatives as per HPI Exam Data for Last 24 hours Vital signs and Labs for Last 24 Hours: Temp Pulse Resp BP Pulse Ox O2 Del Method 98.3 F 87 13 142/71 H 99 Room Air 01/07/25 13:24 01/07/25 16:00 01/07/25 17:00 01/07/25 17:00 01/07/25 16:00 01/07/25 16:00 Laboratory Results - last 24 hr 01/07/25 13:05: WBC 11.7 H, RBC 3.59 L, Hgb 11.2 L, Hct 33.3 L, MCV 92.8, MCH 31.2, MCHC 33.6, RDW 12.5, Plt Count 333, MPV 10.2, Neut % (Auto) 70.4, Lymph % (Auto) 20.3, Fillmore % (Auto) 5.5, Eos % (Auto) 2.9, Baso % (Auto) 0.5, Neut # (Auto) 8.2 H, Lymph # (Auto) 2.4, Fill[place] # (Auto) 0.6, Eos # (Auto) 0.3, Baso # (Auto) 0.1, D-Dimer 0.68 H, Sodium 139, Potassium 4.4, Chloride 104, Carbon Dioxide 25, Anion Gap 14.4, BUN 29 H, Creatinine 1.00, Estimated Creat Clear 76, Estimated GFR 72, Est GFR ( Amer) 87, Glucose 275 H, Calcium 9.3, Magnesium 1.7, Total Bilirubin 0.5, AST 34, ALT 31, Alkaline Phosphatase 82, Troponin I < 0.01, NT-Pro-B Natriuret Pep 478 H, Total Protein 6.7, Albumin 4.3, Globulin 2.4, Albumin/Globulin Ratio 1.8, Procalcitonin 0.090, HCV Ab GISSELLE w/Rflx PCR Qn Negative, HIV Ag/Ab Combo Qual Negative 01/07/25 13:13: Urine Color Yellow, Urine Appearance Clear, Urine pH >= 9.0 H, Ur Specific Dickinson 1.010, Urine Protein 100, Urine Glucose (UA) Negative, Urine Ketones Negative, Urine Blood Trace-i, Urine Nitrate Negative, Urine Bilirubin Negative, Urine Urobilinogen 1.0, Ur Leukocyte Esterase Moderate, Urine RBC Tntc, Urine WBC Tntc, Ur Squamous Epith Cells 10-20, Amorphous Sediment 3+, Urine Bacteria 4+ 01/07/25 13:24: VBG pH 7.30 L, VBG pCO2 49.2, VBG pO2 47.1 H, VBG HCO3 23.7, VBG Total CO2 25.2, VBG O2 Saturation 77.9 H, VBG Base Excess -2.7 L, VBG Lactic Acid 3.6 H 01/07/25 13:36: Chlamy pneumoniae PCR Not detected, Adenovirus (PCR) Not detected, B. pertussis DNA (PCR) Not detected, Coronavirus OC43 (PCR) Not detected, Coronavirus HKU1 (PCR) Not detected, Coronavirus 229E (PCR) Not detected, SARS-CoV-2 (PCR) Not detected, Coronavirus NL63 (PCR) Not detected, Human Metapneumovir PCR Not detected, Influenza A (H1) PCR Not detected, Influ A (H1N1/09) PCR Not detected, Influenza A (H3) PCR Not detected, Influenza Type A (PCR) Not detected, Influenza Type B (PCR) Not detected, M. pneumoniae (PCR) Not detected, Parainfluenza 1 (PCR) Not detected, Parainfluenza 2 (PCR) Not detected, Parainfluenza 3 (PCR) Not detected, Parainfluenza 4 (PCR) Not detected, RSV (PCR) Not detected, Entero/Rhino (PCR) Not detected I & O for Last 24 hours: Intake & Output 01/04/25 01/05/25 01/06/25 01/07/25 23:59 23:59 23:59 23:59 Weight 90.718 kg Constitutional Constitutional: no acute distress, average body habitus, chronically ill appearing and cooperative *Routine HEENT Exam Head: Present normocephalic Eye: Present EOMI and PERRL ENT: Present mucous membranes moist Comments: Mild dysarthria with speech. *Routine Neck Exam Neck: Present supple; Absent lymphadenopathy *Routine Respiratory Exam Respiratory: Present CTA bilaterally; Absent rhonchi, wheezes or crackles *Routine Cardiovascular Exam Cardiovascular: Present RRR *Routine Abdominal Exam Abdominal: Present soft, normoactive bowel sounds and tenderness (Suprapubic, mild) *Routine Rectal Exam Patient deferred: visual exam *Routine Exam Patient deferred: penile exam *Routine Extremities Exam Extremities: Absent cyanosis, clubbing or edema *Routine Skin Exam Skin: Present intact and warm; Absent rash *Routine Neurological Exam Neurological: Present alert and moving all extremities; Absent altered mental status Comments: Oriented to person, mild dysarthria. Confused somewhat on place. Does not know time. Recognizes his daughter at bedside. Meds Home Medications and Allergies Home Medications ?Medication ?Instructions ?Recorded ?Confirmed ?Type sitagliptin phosphate 100 mg tablet 100 mg PO DAILY Diabetes 30 days 08/25/20 01/07/25 Rx #30 tabs hydrochlorothiazide 25 mg tablet 12.5 mg PO DAILY 05/10/23 01/07/25 History metformin 500 mg tablet 500 mg PO BIDWMEAL 05/10/23 01/07/25 History finasteride 5 mg tablet 5 mg PO DAILY 07/22/23 01/07/25 History omeprazole 20 mg capsule,delayed 20 mg PO DAILY 12/29/23 01/07/25 History release aspirin 81 mg tablet,delayed 81 mg PO DAILY 30 days #30 tabs 02/12/24 01/07/25 Rx release atorvastatin 40 mg tablet 40 mg PO HS 30 days #30 tabs 02/12/24 01/07/25 Rx clopidogrel 75 mg tablet 75 mg PO DAILY 30 days #30 tabs 02/12/24 01/07/25 Rx tramadol 50 mg tablet 50 mg PO TIDP PRN Moderate Pain 02/28/24 01/07/25 History (Scale Score 5-6) insulin lispro protamine-lispro See Rx Instructions .Route 03/01/24 01/07/25 Rx 100 unit/mL (75-25) subcutaneous .COMPLEX 30 days #15 mL pen (Humalog Mix 75-25 KwikPen) magnesium oxide 400 mg (241.3 mg 400 mg PO DAILY 30 days #30 tabs 03/01/24 01/07/25 Rx magnesium) tablet insulin glargine-yfgn 100 unit/mL 30 unit SQ QAM 01/03/25 01/07/25 History (3 mL) subcutaneous pen ketoconazole 2 % shampoo 1 applic topical Q2W 01/03/25 01/07/25 History cfkjemwu-wgv-dqhhm 120 mcg-lutein 1 tab PO DAILY 01/03/25 01/07/25 History 150 mcg-herb 50 mg chewable tablet (Alive Men's 50 Plus Multivitamin) tirzepatide 2.5 mg/0.5 mL 2.5 mg SQ QWEEK 01/03/25 01/07/25 History subcutaneous pen injector (Mounjaro) levofloxacin 750 mg tablet 750 mg PO DAILY 7 days #7 tabs 01/07/25 Rx New Prescriptions to Start Prescriptions: levofloxacin Rodri Rivera Allergies Allergy/AdvReac Type Severity Reaction Status Date / Time No Known Allergies Allergy Verified 01/07/25 16:14 Results Labs 01/07/25 13:05 01/07/25 13:05 Labs: Abnormal lab results 01/07/25 01/07/25 01/07/25 Range/Units 13:05 13:13 13:24 WBC 11.7 H (4.8-10.8) K/mm3 RBC 3.59 L (4.60-6.20) M/mm3 Hgb 11.2 L (14.1-18.0) g/dL Hct 33.3 L (42.0-52.0) % Neut # (Auto) 8.2 H (1.8-7.8) K/mm3 D-Dimer 0.68 H (0.0-0.5) ug/mL VBG pH 7.30 L (7.31-7.41) mmol/L VBG pO2 47.1 H (28-40) mmol/L VBG O2 Saturation 77.9 H (50-70) % VBG Base Excess -2.7 L (-2.4-2.3) mmol/L VBG Lactic Acid 3.6 H (0.4-2.0) mmol/L BUN 29 H (9-20) mg/dl Glucose 275 H (74-100) mg/dl NT-Pro-B Natriuret Pep 478 H (0-450) pg/mL Urine pH >= 9.0 H (5.0-8.5) H & H 01/07/25 Range/Units 13:05 Hgb 11.2 L (14.1-18.0) g/dL Hct 33.3 L (42.0-52.0) % All other labs normal. Assessment and Plan *Assessment and plan (1) Toxic metabolic encephalopathy: Status: Acute Category: Medical Code(s): G92.8 - Other toxic encephalopathy (2) Complicated urinary tract infection: Status: Acute Category: Medical Code(s): N39.0 - Urinary tract infection, site not specified (3) Lacunar cerebrovascular accident (CVA): Problem Comment: Left brainstem CVA with residual dysarthria. On Plavix 75 mg po qd, ASA 81 mg daily and statins. Status: Chronic Category: Medical Code(s): I63.81 - Other cerebral infarction due to occlusion or stenosis of small artery (4) Unable to care for self: Status: Acute Category: Medical Code(s): Z78.9 - Other specified health status (5) Declining functional status: Status: Acute Category: Medical Code(s): R53.81 - Other malaise (6) Type 2 diabetes mellitus with hyperglycemia, without long-term current use of insulin: Problem Comment: Poorly controlled, (A1CHb 8-12). Symptomatic hypoglycemia and labile hyperglycemia. Status: Chronic Category: Medical Code(s): E11.65 - Type 2 diabetes mellitus with hyperglycemia (7) HTN (hypertension): Status: Chronic Qualifiers: Hypertension type: unspecified Qualified Code(s): I10 - Essential (primary) hypertension Category: Medical Code(s): I10 - Essential (primary) hypertension (8) HLD (hyperlipidemia): Problem Comment: On statins Status: Chronic Qualifiers: Hyperlipidemia type: unspecified Qualified Code(s): E78.5 - Hyperlipidemia, unspecified Category: Medical Code(s): E78.5 - Hyperlipidemia, unspecified (9) Depression: Status: Chronic Qualifiers: Depression Type: reactive depression Qualified Code(s): F32.9 - Major depressive disorder, single episode, unspecified Category: Medical Code(s): F32.A - Depression, unspecified Plan 79-year-old male with history of CVA a year ago, resides at [facility] has diabetes, depression, hypertension, recurrent UTI, is nonambulatory. Presented to the ER because of confusion. Workup consistent with UTI. Having improved mentation by the time of my evaluation. Daughter at bedside. Consulted to evaluate for possible admission. Had candid discussion with family at bedside about treatment course. Given his improvement in lab findings with grossly abnormal urine, too numerous to count white cells, 4+ bacteria, CT per my review with thickening of bladder wall. Findings consistent with complicated UTI. Recommend initiating Levaquin 750 mg daily. Gave family the option of admission with antibiotics or transitioning to oral antibiotics and returning back to familiar environment at nursing facility to decrease the risk for confusion/delirium on top of his confusion. After shared discussion, decision made to proceed with transfer back to [facility] for further care. Patient is normotensive with normal heart rate and respiratory rate. No fever. White count of 11. Not meeting sepsis criteria. Able to tolerate p.o. intake. Would make no other changes to home regimen. Stable to discharge back to longterm to complete 7-day course of antibiotics. Urine culture pending, will follow after discharge. Thank you for the opportunity to consult on this patient
[2025-01-07 17:42] LABS: Reflex Lactic Add Lactic Reflex
--- NOTE | 2025-01-09 17:49 | PC.NURSE ---
URINE CULTURE DISCUSSED WITH DR BAUTISTA, MED CHANGED BY PT'S PCP. SPOKE WITH [facility]. NO NEW ORDERS
== END 2025-01-07 17:54 ==
PROVIDERS: Physician Assistant; Student in an Organized Health Care Education/Training Program; Emergency Provider Emergency Medicine
DX: G92.8 Other toxic encephalopathy (principal); A41.9 Sepsis, unspecified organism; N39.0 Urinary tract infection, site not specified; R41.82 Altered mental status, unspecified; I63.81 Other cerebral infarction due to occlusion or stenosis of small artery; R53.81 Other malaise; F32.A Depression, unspecified; E11.65 Type 2 diabetes mellitus with hyperglycemia; I10 Essential (primary) hypertension; E78.5 Hyperlipidemia, unspecified; Z87.891 Personal history of nicotine dependence; Z78.9 Other specified health status
CPT/HCPCS: 70450; 70496; 70498; 71045; 71275; 74174; 80053; 81001; 82803; 83735; 83880; 84145; 84484; 85025; 85378; 86803; 87040; 87086; 87088; 87186; 87389; 87633; 96361; 96365; 99291; J0696; J7030; Q9967

== ENCOUNTER 2025-03-10 16:43 | Outpatient (CLI) | payer MEDICARE, MEDICAID, SELFPAY ==
[2025-03-10 17:17] LABS: Basophils # 0.1 K/mm3 (0-0.2); Basophils % 0.4 % (0.1-2.0); Eosinophils # 0.3 Kmm3 (0.0-0.4); Eosinophils % 1.9 % (0.1-12.0); Hematocrit 33.5 % (42.0-52.0); Hemoglobin 11.3 g/dL (14.1-18.0); Immature Granulocytes # 0.05 10^3uL; Immature Granulocytes % 0.3 %; Lymphocytes % 21.1 % (10-50); Mean Corpuscular HGB Conc 33.7 g/dL (31.8-35.4); Mean Corpuscular Volume 91.8 fl (80-94); Mean Platelet Volume 9.9 fl (7.4-10.4); Monocytes # 1.1 K/mm3 (0.1-1.0); Monocytes % 7.6 % (1.7-9.3); Neutrophils # 9.9 K/mm3 (1.8-7.8); Neutrophils % 68.7 % (37.0-80.0); Nucleated Red Blood Cells # 0 10^3/uL; Nucleated Red Blood Cells % 0 %; Platelet Count 352 K/mm3 (142-424); Red Blood Count 3.65 M/mm3 (4.60-6.20); Red Cell Distribution Width 12.8 % (11.5-17.5); Red Cell Distribution Width-SD 42.8 fL; White Blood Count 14.4 K/mm3 (4.8-10.8)
[2025-03-10 17:46] LABS: Chloride 102 mmol/L (98-107); Potassium 4.3 mmoL/L (3.5-5.1); Sodium 139 mmol/L (136-145)
[2025-03-10 17:49] LABS: Blood Urea Nitrogen 34 mg/dl (9-20); Estimated Glomerular Filt Rate 58 ml/min (>60); GFR (African American) 70 ML/MIN (>60)
[2025-03-10 17:50] LABS: Anion Gap 12.3 mEq/L (5-15); Calcium 9.6 mg/dl (8.4-10.2); Carbon Dioxide 29 mmol/L (22.0-30.0); Glucose 259 mg/dl (74-100)
== END 2025-03-10 23:59 | disposition home or self-care (01) ==
LOC: LAB 16:44
PROVIDERS: PCP Internal Medicine Adolescent Medicine; Visit Provider Internal Medicine Adolescent Medicine
DX: J44.9 Chronic obstructive pulmonary disease, unspecified (principal); Z87.891 Personal history of nicotine dependence
CPT/HCPCS: 80048; 85025